=== PATIENT | born 1960 ===

== ENCOUNTER 2024-12-30 16:02 | Outpatient (NON) | payer SELFPAY ==
--- OUTSIDE RECORDS SUMMARY | 2024-12-30 16:11 | XMS_ITS | Encounter Summary ---
Author Organization [facility] Facility Care Team Providers Care Shell Sieve Operator Name Role Phone Javier Chan Primary Care Provider +-[phone] Yony Urrutia MD Unavailable +[phone] JonahConnor good MD Unavailable +[phone] Javier Chan Primary Care Provider +-[phone] Richar Butelr MD Unavailable +[phone] Gilberto Love MD Unavailable [phone] Kurt Calderon MD Unavailable +[phone] Juan Teixeira MD Unavailable [phone] Kurt Calderon MD Unavailable +[phone] Amy Floyd [facility] Unavailable Unavailable Encounter Details Date Type Department Care Team (Latest Contact Info) Description 01/04/2017 Orders Only [facility]G CLINCONV ProviderJocelyn MD [address] [place] [address] Social History Tobacco Use Types Packs/Day Years Used Date Smoking Tobacco: Former Comments Unknown Sex and Gender Information Value Date Recorded Sex Assigned at Not on file Legal Sex Female 4:16 AM AVIATION MANAGER Gender Identity Female 09/21/2017 4:47 PM CDT Sexual Orientation Not on file documented as of this encounter Plan of Treatment Upcoming Encounters Date Type Department Care Team (Late st Contact Info) Description 01/28/2025 11:50 AM CDT Hospital Encounter [facility] Operating Room 1 [place] [address] Rosalio Arriola MD [address] [address] 01/28/2025 11:50 AM CDT - 01/28/2025 2:[address] [facility] Operating Room 1 [place] [address] Rosalio Arriola MD [address] [address] LITHOTRIPSY - LASER Scheduled Procedures Name Priority Associated Diagnoses Date/Ti ma LITHOTRIPSY - LASER Renal stones 01/28/2025 11:50 AM CDT URETEROSCOPY Renal stones 01/28/2025 11:50 AM CDT PLACEMENT STENT - URETERAL Renal stones 01/28/2025 11:50 AM CDT documented as of this encounter Procedures Procedure Name Priority Date/Time Associated Diagnosis Comments PROCEDURE - RESULT 01/04/2017 12 :00 AM CDT documented in this encounter Results * PROCEDURE - RESULT (01/04/2017 12:00 AM CDT) Narrative 01/04/2017 12:00 AM CDT Ordered by an unspecified provider. 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 10/02/2023 07/22/2024 10:16 AM AVIATION MANAGER COVID: Suspected 05/04/2021 05/04/2021 05/05/2021 12:15 AM AVIATION MANAGER MRSA 06/14/2022 06/14/2022 12/11/2022 3:05 AM CDT COVID: Suspected 10/18/2023 10/18/2023 10/18/2023 5:07 PM CDT COVID: Suspected 10/20/2023 10/20/2023 10/20/2023 11:13 AM CDT COVID: Suspected 07/21/2024 07/21/2024 07/21/2024 11:22 PM AVIATION MANAGER documented as of this encounter Care Teams Shell Sieve Operator Relationship Specialty Start Date End Date Javier Chan PA PCP - General Family Medicine 11/27/18 07/23/24 Javier Chan PA [address] [address] PCP - General Family Medicine 07/24/24 Kurt Calderon MD [address] [id number] PCP - Home Infusion Attending Infectious Diseases 12/27/24 Yony Urrutia MD [address] [place] [address] [address] Endocrinology Diabetes & Metabolism 06/17/22 Connor Mckenzie MD [address] [place] [address] [address] [place] [address] Consulting Physician Urology 09/16/23 Richar Butler MD [address] [address] Cardiothoracic Surgery 08/16/24 Gilberto Love MD [address] [facility] 100 [place] [address] Consulting Physician Cardiology 08/16/24 Kurt Calderon MD [address] [facility] [address] [place] [address] Consulting Physician Infectious Diseases 12/27/24 Juan Teixeira MD [address] [facility] [address] [place] [address] Consulting Physician Vascular Surgery 12/27/24 Amy Floyd, [facility] Pharmacist Pharmacy 12/27/24 documented as of this encounter
--- OUTSIDE RECORDS SUMMARY | 2024-12-30 16:11 | XMS_ITS | Encounter Summary ---
Author Organization [facility] Facility Care Team Providers Care Tinsel Machine Operator Name Role Phone Javier Chan Primary Care Provider +-[phone] Yony Urrutia MD Unavailable +[phone] JonahConnor good MD Unavailable +[phone] Javier Chan Primary Care Provider +-[phone] Richar Butler MD Unavailable +[phone] Gilberto Love MD Unavailable [phone] Kurt Calderon MD Unavailable +[phone] Juan Teixeira MD Unavailable [phone] Kurt Calderon MD Unavailable +[phone] Amy Floyd [facility] Unavailable Unavailable Encounter Details Date Type Department Care Team (Latest Contact Info) Description 01/02/2017 Orders Only MMG CLINCONV ProviderJocelyn MD [address] [place] [address] Social History Tobacco Use Types Packs/Day Years Used Date Smoking Tobacco: Former Comments Unknown Sex and Gender Information Value Date Recorded Sex Assigned at Not on file Legal Sex Female 4:16 AM SALES COMMISSIONS ANALYST Gender Identity Female 09/21/2017 4:47 PM CDT Sexual Orientation Not on file documented as of this encounter Plan of Treatment Upcoming Encounters Date Type Department Care Team (Late st Contact Info) Description 01/28/2025 11:50 AM CDT Hospital Encounter [facility] Operating Room 1 [place] [address] Rosalio Arriola MD [address] [address] 01/28/2025 11:50 AM CDT - 01/28/2025 2:20 PM CDT Surgery [facility] Operating Room 1 [place] [address] Rosalio Arriola MD [address] [address] LITHOTRIPSY - LASER Scheduled Procedures Name Priority Associated Diagnoses Date/Ti ok LITHOTRIPSY - LASER Renal stones 01/28/2025 11:50 AM CDT URETEROSCOPY Renal stones 01/28/2025 11:50 AM CDT PLACEMENT STENT - URETERAL Renal stones 01/28/2025 11:50 AM CDT documented as of this encounter Procedures Procedure Name Priority Date/Time Associated Diagnosis Comments PROCEDURE - RESULT 01/02/2017 12 :00 AM CDT documented in this encounter Results * PROCEDURE - RESULT (01/02/2017 12:00 AM CDT) Narrative 01/02/2017 12:00 AM CDT Ordered by an unspecified provider. 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 10/02/2023 07/22/2024 10:16 AM SALES COMMISSIONS ANALYST COVID: Suspected 05/04/2021 05/04/2021 05/05/2021 12:15 AM SALES COMMISSIONS ANALYST MRSA 06/14/2022 06/14/2022 12/11/2022 3:05 AM CDT COVID: Suspected 10/18/2023 10/18/2023 10/18/2023 5:07 PM CDT COVID: Suspected 10/20/2023 10/20/2023 10/20/2023 11:13 AM CDT COVID: Suspected 07/21/2024 07/21/2024 07/21/2024 11:22 PM SALES COMMISSIONS ANALYST documented as of this encounter Care Teams Tinsel Machine Operator Relationship Specialty Start Date End Date Javier Chan PA PCP - General Family Medicine 11/27/18 07/23/24 Javier Chan PA [address] [address] PCP - General Family Medicine 07/24/24 Kurt Calderon MD [address] [id number] PCP - Home Infusion Attending Infectious Diseases 12/27/24 Yony Urrutia MD [address] [place] [address] [address] Endocrinology Diabetes & Metabolism 06/17/22 Connor Mckenzie MD [address] [place] [address] [address] [place] [address] Consulting Physician Urology 09/16/23 Richar uBtler MD [address] [address] Cardiothoracic Surgery 08/16/24 Gilberto Love MD [address] [facility] 100 [place] [address] Consulting Physician Cardiology 08/16/24 Kurt Caldreon MD 46[address] [facility] [address] [place] [address] Consulting Physician Infectious Diseases 12/27/24 Juan Teixeira MD [address] [facility] [address] [place] [address] Consulting Physician Vascular Surgery 12/27/24 Amy Floyd, [facility] Pharmacist Pharmacy 12/27/24 documented as of this encounter
--- OUTSIDE RECORDS SUMMARY | 2024-12-30 16:11 | XMS_ITS ---
Author Organization [facility] Address 1 [place] [address] Care Team Providers Care Heading Repairer Name Role Phone Yony Urrutia MD Unavailable +[phone] Connor Mckenzie MD Unavailable + [phone] Javier Chan Primary Care Provider +[phone] Richar Butler MD Unavailable +[phone] Gilberto Love MD Unavailable [phone] Kurt Calderon MD Unavailable +[phone] Juan Teixeira MD Unavailable +[phone] Kurt Calderon MD Unavailable +[phone] Amy Floyd [facility] Unavailable Unavailable Home Infusion Status:Enrolled (Active) Start date:12/27/2024 Enrollment date:12/27/2024 Related service episodes:Anti-Infective (Active) Continued Care and Services Coordination This section includes services coordinated for Home Infusion. Home Medical Care Name Services Phone Frankie Braun [facility] Inject [facility] [phone]
--- OUTSIDE RECORDS SUMMARY | 2024-12-30 16:11 | XMS_ITS ---
Author Organization [facility] Address 1 [place] [address] Care Team Providers Care Nurse Ortho Name Role Phone Yony Urrutia MD Unavailable +[phone] Connor Mckenzie MD Unavailable [phone] Javier Chan Primary Care Provider +[phone] Richar Butler MD Unavailable +[phone] Gilberto Love MD Unavailable [phone] Kurt Calderon MD Unavailable +[phone] Juan Teixeira MD Unavailable [phone] Kurt Calderon MD Unavailable +[phone] Amy Floyd [facility] Unavailable Unavailable Anti-Infective Status:Enrolled (Active) Start date:12/27/2024 Enrollment date:12/27/2024 Linked medications:water for injection,sterile,cefazolin sodium (Active) Related program episode:Home Infusion (Active) Case Team Name Relationship Phone Amy Floyd [facility](Responsible Staff) Pharmacis t Continued Care and Services Coordination This section includes services coordinated for Anti-Infective. Home Medical Care Name Services Phone Frank[facility] Calloway [facility]
--- OUTSIDE RECORDS SUMMARY | 2024-12-30 16:11 | XMS_ITS | Encounter Summary ---
Author Organization [facility] Facility Care Team Providers Care Technical Operations Manager Name Role Phone Javier Chan Primary Care Provider +[phone] Yony Urrutia MD Unavailable +[phone] JonahConnor good MD Unavailable [phone] Javier Chan Primary Care Provider +-[phone] Richar Butler MD Unavailable +[phone] Gilberto Love MD Unavailable +[phone] Kurt Calderon MD Unavailable +[phone] Juan Teixeira MD Unavailable [phone] Kurt Calderon MD Unavailable +[phone] Amy Floyd [facility] Unavailable Unavailable Encounter Details Date Type Department Care Team (Latest Contact Info) Description 05/10/2018 Orders Only MMG CLINCONV ProviderJocelyn MD [address] [place] [address] Social History Tobacco Use Types Packs/Day Years Used Date Smoking Tobacco: Former Smokeless Tobacco: Never Comments Unknown Sex and Gender Information Value Date Recorded Sex Assigned at Not on file Legal Sex Female 4:16 AM HEALTHCARE ANALYST Gender Identity Female 09/21/2017 4:47 PM CDT Sexual Orientation Not on file documented as of this encounter Plan of Treatment Upcoming Encounters Date Type Department Care Team (Late st Contact Info) Description 01/28/2025 11:50 AM CDT Hospital Encounter [facility] Operating Room 1 [place] [address] Rosalio Arriola MD [address] [address] 01/28/2025 11:50 AM CDT - 01/28/2025 2:20 PM CDT Surgery [facility] Operating Room 1 [place] [address] Rosalio Arriola MD [address] [address] LITHOTRIPSY - LASER Scheduled Procedures Name Priority Associated Diagnoses Date/Ti il LITHOTRIPSY - LASER Renal stones 01/28/2025 11:50 AM CDT URETEROSCOPY Renal stones 01/28/2025 11:50 AM CDT PLACEMENT STENT - URETERAL Renal stones 01/28/2025 11:50 AM CDT documented as of this encounter Procedures Procedure Name Priority Date/Time Associated Diagnosis Comments PROCEDURE - RESULT 05/10/2018 12 :00 AM HEALTHCARE ANALYST documented in this encounter Results * PROCEDURE - RESULT (05/10/2018 12:00 AM HEALTHCARE ANALYST) Narrative 05/10/2018 12:00 AM HEALTHCARE ANALYST Ordered by an unspecified provider. 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 10/02/2023 07/22/2024 10:16 AM HEALTHCARE ANALYST COVID: Suspected 05/04/2021 05/04/2021 05/05/2021 12:15 AM HEALTHCARE ANALYST MRSA 06/14/2022 06/14/2022 12/11/2022 3:05 AM CDT COVID: Suspected 10/18/2023 10/18/2023 10/18/2023 5:07 PM CDT COVID: Suspected 10/20/2023 10/20/2023 10/20/2023 11:13 AM CDT COVID: Suspected 07/21/2024 07/21/2024 07/21/2024 11:22 PM HEALTHCARE ANALYST documented as of this encounter Care Teams Technical Operations Manager Relationship Specialty Start Date End Date Javier Chan PA PCP - General Family Medicine 11/27/18 07/23/24 Javier Chan PA [address] [address] PCP - General Family Medicine 07/24/24 Kurt Calderon MD [address] [id number] PCP - Home Infusion Attending Infectious Diseases 12/27/24 Yony Urrutia MD [address] [place] [address] [address] Endocrinology Diabetes & Metabolism 06/17/22 [place] good MD [address] [place] [address] [address] Consulting Physician Urology 09/16/23 Richar Butler MD [address] [address] Cardiothoracic Surgery 08/16/24 Gilberto Love MD [address] [facility] 100 [place] [address] Consulting Physician Cardiology 08/16/24 Kurt Calderon MD 4600 [facility] [address] [place] [address] Consulting Physician Infectious Diseases 12/27/24 Juan Teixeira MD [address] [facility] [address] [place] [address] Consulting Physician Vascular Surgery 12/27/24 Amy Floyd, [facility] Pharmacist Pharmacy 12/27/24 documented as of this encounter
--- OUTSIDE RECORDS SUMMARY | 2024-12-30 16:11 | XMS_ITS | Encounter Summary ---
Author Organization [facility] Facility Care Team Providers Care Simulation Engineer Name Role Phone Javier Chan Primary Care Provider +[phone] Yony Urrutia MD Unavailable +[phone] JonahConnor good MD Unavailable [phone] Javier Chan Primary Care Provider +-[phone] Richar Butler MD Unavailable +[phone] Gilberto Love MD Unavailable [phone] Kurt Calderon MD Unavailable +[phone] Juan Teixeira MD Unavailable [phone] Kurt Calderon MD Unavailable +[phone] Amy Floyd [facility] Unavailable Unavailable Encounter Details Date Type Department Care Team (Latest Contact Info) Description 05/11/2018 Orders Only MMG CLINCONV ProviderJocelyn MD [address] [place] [address] Social History Tobacco Use Types Packs/Day Years Used Date Smoking Tobacco: Former Smokeless Tobacco: Never Comments Unknown Sex and Gender Information Value Date Recorded Sex Assigned at Not on file Legal Sex Female 4:16 AM DEVELOPMENT SPECIALIST Gender Identity Female 09/21/2017 4:47 PM CDT Sexual Orientation Not on file documented as of this encounter Plan of Treatment Upcoming Encounters Date Type Department Care Team (Late st Contact Info) Description 01/28/2025 11:50 AM CDT Hospital Encounter [facility] Operating Room 1 [place] [address] Rosalio Arriola MD [address] [address] 01/28/2025 11:50 AM CDT - 01/28/2025 2:20 PM CDT Surgery [facility] Operating Room 1 [place] [address] Rosalio Arriola MD [address] [address] LITHOTRIPSY - LASER Scheduled Procedures Name Priority Associated Diagnoses Date/Ti il LITHOTRIPSY - LASER Renal stones 01/28/2025 11:50 AM CDT URETEROSCOPY Renal stones 01/28/2025 11:50 AM CDT PLACEMENT STENT - URETERAL Renal stones 01/28/2025 11:50 AM CDT documented as of this encounter Procedures Procedure Name Priority Date/Time Associated Diagnosis Comments PROCEDURE - RESULT 05/13/2018 12 :00 AM DEVELOPMENT SPECIALIST documented in this encounter Results * PROCEDURE - RESULT (05/13/2018 12:00 AM DEVELOPMENT SPECIALIST) Narrative 05/13/2018 12:00 AM DEVELOPMENT SPECIALIST Ordered by an unspecified provider. 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 10/02/2023 07/22/2024 10:16 AM DEVELOPMENT SPECIALIST COVID: Suspected 05/04/2021 05/04/2021 05/05/2021 12:15 AM DEVELOPMENT SPECIALIST MRSA 06/14/2022 06/14/2022 12/11/2022 3:05 AM CDT COVID: Suspected 10/18/2023 10/18/2023 10/18/2023 5:07 PM CDT COVID: Suspected 10/20/2023 10/20/2023 10/20/2023 11:13 AM CDT COVID: Suspected 07/21/2024 07/21/2024 07/21/2024 11:22 PM DEVELOPMENT SPECIALIST documented as of this encounter Care Teams Simulation Engineer Relationship Specialty Start Date End Date Javier Chan PA PCP - General Family Medicine 11/27/18 07/23/24 Javier Chan PA [address] [address] PCP - General Family Medicine 07/24/24 Kurt Calderon MD [address] [id number] PCP - Home Infusion Attending Infectious Diseases 12/27/24 Yony Urrutia MD [address] [address] [address] Endocrinology Diabetes & Metabolism 06/17/22 [place] good MD [address] [address] [address] Consulting Physician Urology 09/16/23 Richar Butler MD [address] [address] Cardiothoracic Surgery 08/16/24 Gilberto Love MD [address] [facility] 100 [place] [address] Consulting Physician Cardiology 08/16/24 Kurt Calderon MD [address] [facility] [address] [place] [address] Consulting Physician Infectious Diseases 12/27/24 Juan Teixeira MD [address] [facility] [address] [place] [address] Consulting Physician Vascular Surgery 12/27/24 Amy Floyd, [facility] Pharmacist Pharmacy 12/27/24 documented as of this encounter
--- OUTSIDE RECORDS SUMMARY | 2024-12-30 16:11 | XMS_ITS | Encounter Summary ---
Author Organization [facility] Facility Care Team Providers Care K 12 School Professional Name Role Phone Javier Chan Primary Care Provider +-[phone] Yony Urrutia MD Unavailable +[phone] JonahConnor good MD Unavailable [phone] Javier Chan Primary Care Provider +-[phone] Richar Butler MD Unavailable +[phone] Gilberto Love MD Unavailable [phone] Kurt Calderon MD Unavailable +[phone] Juan Teixeira MD Unavailable [phone] Kurt Calderon MD Unavailable +[phone] Amy Floyd [facility] Unavailable Unavailable Encounter Details Date Type Department Care Team (Latest Contact Info) Description 03/04/2016 Orders Only MMG CLINCONV ProviderJocelyn MD [address] [place] [address] Social History Tobacco Use Types Packs/Day Years Used Date Smoking Tobacco: Never Assessed Comments Unknown Sex and Gender Information Value Date Recorded Sex Assigned at Not on file Legal Sex Female 4:16 AM INCIDENT MANAGER Gender Identity Female 09/21/2017 4:47 PM CDT Sexual Orientation Not on file documented as of this encounter Plan of Treatment Upcoming Encounters Date Type Department Care Team (Late st Contact Info) Description 01/28/2025 11:50 AM CDT Hospital Encounter [facility] Operating Room 1 [place] [address] Rosalio Arriola MD [address] [address] 01/28/2025 11:50 AM CDT - 01/28/2025 2:20 PM CDT Surgery [facility] Operating Room 1 [place] [address] Rosalio Arriola MD [address] [address] LITHOTRIPSY - LASER Scheduled Procedures Name Priority Associated Diagnoses Date/Ti ar LITHOTRIPSY - LASER Renal stones 01/28/2025 11:50 AM CDT URETEROSCOPY Renal stones 01/28/2025 11:50 AM CDT PLACEMENT STENT - URETERAL Renal stones 01/28/2025 11:50 AM CDT documented as of this encounter Procedures Procedure Name Priority Date/Time Associated Diagnosis Comments SCAN - LABS 03/04/2016 12:00 AM CDT documented in this encounter Results * SCAN - LABS (03/04/2016 12:00 AM CDT) Narrative 03/04/2016 12:00 AM CDT Ordered by an unspecified provider. 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 10/02/2023 07/22/2024 10:16 AM INCIDENT MANAGER COVID: Suspected 05/04/2021 05/04/2021 05/05/2021 12:15 AM INCIDENT MANAGER MRSA 06/14/2022 06/14/2022 12/11/2022 3:05 AM CDT COVID: Suspected 10/18/2023 10/18/2023 10/18/2023 5:07 PM CDT COVID: Suspected 10/20/2023 10/20/2023 10/20/2023 11:13 AM CDT COVID: Suspected 07/21/2024 07/21/2024 07/21/2024 11:22 PM INCIDENT MANAGER documented as of this encounter Care Teams K 12 School Professional Relationship Specialty Start Date End Date Javier Chan PA PCP - General Family Medicine 11/27/18 07/23/24 Javier Chan PA [address] [address] PCP - General Family Medicine 07/24/24 Kurt Calderon MD [address] [address] PCP - Home Infusion Attending Infectious Diseases 12/27/24 Yony Urrutia MD [address] [place] [address] [address] Endocrinology Diabetes & Metabolism 06/17/22 JonahConnor good MD [address] [place] [address] [address] Consulting Physician Urology 09/16/23 Richar Butler MD [address] [address] Cardiothoracic Surgery 08/16/24 Gilberto Love MD [address] [facility] 100 [place] [address] Consulting Physician Cardiology 08/16/24 Kurt Calderon MD [address] [facility] [address] [place] [address] Consulting Physician Infectious Diseases 12/27/24 Juan Teixeira MD [address] [facility] [address] [place] [address] Consulting Physician Vascular Surgery 12/27/24 Amy Floyd, [facility] Pharmacist Pharmacy 12/27/24 documented as of this encounter
--- OUTSIDE RECORDS SUMMARY | 2024-12-30 16:11 | XMS_ITS | Clinical Summary ---
Author Organization [facility] [place] [place] [address] Care Team Providers Care Director Of Event Marketing Name Role Phone Javier Chan PA-C Primary Care Provider [phone] Allergies Active Allergy Reactions Criticality Noted Date Comments Pneumococcal Polysaccharide Vaccine Other (see comment) 05/03/2018 CIDP (chronic inflammatory demyelinating polyneuropathy Medications gabapentin 600 MG tablet Take 600 mg by mouth 3 (three) times daily as needed. 04/22/2018 Active atorvastatin 10 MG tablet Take 10 mg by mouth nightly. 04/09/2018 Active ropinirole 1 MG tablet Take 1 tablet by mouth nightly. 04/29/2018 Active zolpidem 5 MG tablet Take 5 mg by mouth nightly. 3 04/16/2018 Active metFORMIN 500 MG tablet Take 1,000 mg by mouth 2 (two) times daily with meals. Active hydrochlorothia zide 25 MG tablet Take 25 mg by mouth every morning. Active INVOKANA 300 MG tablet 04/30/2018 Active TRADJENTA 5 MG tablet Take 5 mg by mouth daily. 04/30/2018 Active aspirin 81 MG chewable tablet Chew 81 mg by mouth daily. Active vitamin D3, cholecalciferol , 5000 UNITS capsule Take 2 capsules by mouth 2 (two) times a day. Active NON FORMULARY Take 1 tablet by mouth 2 (two) times a day. Raffy red Active cranberry 500 MG Cap Take 1 capsule by mouth 3 (three) times daily. Active losartan 25 MG tablet 07/15/2018 Active Family History Medical History Relation Comments COPD Father Heart Disease Mother NM Mother Relation Status Comments Father (Age 74) of emphys vitaly Mother (Age 70) Social History Tobacco Use Types Packs/Day Years Used Date Smoking Tobacco: Former Cigarettes 1 20 1 984 - 2004 Smokeless Tobacco: Never Alcohol Use Standard Drinks/Week Comments No 0 (1 standard drink = 0.6 oz pur e alcohol) AUDIT-C Answer Date Recorded Frequency of Alcohol Consumption Never 05/03/2018 Average Number of Drinks Not on file 018 Frequency of Binge Drinking Not on file 10/2017 Comments No Sex and Gender Information Value Date Recorded Sex Assigned at Not on file Legal Sex Female 6:09 PM CDT Gender Identity Not on file Sexual Orientation Not on file Last Filed Vital Signs Vital Sign Reading Time Taken Comments Blood Pressure 109/77 08/09/2018 9:02 AM CDT Pulse 66 08/09/2018 9:02 AM CDT Temperature 36.4 C (97.5 F) 08/09/2018 8:42 AM CDT Respiratory Rate 18 08/09/2018 9:02 AM CDT Oxygen Saturation 99% 08/09/2018 9:02 AM CDT Inhaled Oxygen Concentration - - Weight 125.2 kg (276 lb) 08/03/2018 12: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 Height 180.3 cm (5' 11) 08/03/2018 12: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 Body Mass Index 38.49 08/03/2018 12: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 Plan of Treatment Health Maintenance Due Date Last Done Comments Cervical Cancer Screening Pa p Smear (Age 30 to 64) Every 3 Years 1962 Colorectal Cancer Screening Colonoscopy (10 Years) 1962 Annual Physical 1965 Hepatitis C 01/07/1980 DTaP, Tdap and Td Vaccines ( 1 - Tdap) 1981 Cervical Cancer Screening Pa p with HPV Testing (Age 30 to 64) Every 5 Years 01/07/1992 Cervical Cancer Screening with HPV 01/07/1992 Mammogram Screening 2002 Zoster Vaccines (1 of 2) 01/07/2012 COVID-19 Vaccine ( - 2023-2 5 season) 2024 RSV Immunization or 60+ Years (1 - 1-dose 75+ series) 2037 Meningococcal B Vaccine Aged Out No l onger eligible based on patient's age to complete this topic Meningococcal Vaccine Aged Out No jaymie shanta eligible based on patient's age to complete this topic RSV Immunizations Under 20 Months Aged Out No longer eligible based on patient's age to complete this topic Insurance Care Teams Director Of Event Marketing Relationship Specialty Start Date End Date Javier Chan PA-C PCP - General PHYSICIAN PLASTICS SHEET FINISHING PRESS OPERATOR 05/03/18
--- OUTSIDE RECORDS SUMMARY | 2024-12-30 16:12 | XMS_ITS | Encounter Summary ---
Author Organization [facility] Healthcare Address [address] [place] [address] Care Team Providers Care Talent Acquisition Partner Name Role Phone Yony Urrutia MD Unavailable Connor Mckenzie MD Unavailable [phone] Javier Chan Primary Care Provider [phone] Richar Butler MD Unavailable Gilberto Love MD Unavailable [phone] Kurt Calderon MD Unavailable [phone] Juan Teixeira MD Unavailable [phone] Kurt Caledron MD Unavailable [phone] Amy Floyd [facility] Unavailable Unavailable Encounter Details Date Type Department Care Team (Late st Contact Info) Description 12/27/2024 Home Infusion [facility] Home Infusion Therapy [address] [place] [address] Ubaldo Lopez [facility] Osteomyelitis of toe of left foot (HCC) (Primary Dx) Social History Tobacco Use Types Packs/Day Years Used Date Smoking Tobacco: Former Cigarettes 0.8 20.1 0 05/29/1984 - 07/06/2004 Passive Smoke Exposure: Past Smokeless Tobacco: Never Alcohol Use Standard Drinks/Week Comments Yes 0 (1 standard drink = 0.6 oz pur e alcohol) [facility] Utilities Answer Date Recorded In the past 12 months has e [employer], gas, oil, or water [employer] threatened to shut off services in your home? No 12/19/2024 Social Connection and Isolat ion Panel [NHANES] Answer Date Recorded In a typical week, how many times do you talk on the phone with family, friends, or neighbors? More than three times a week 12/19/2024 How often do you get togethe r with friends or relatives? More than three times a week 12/19/2024 How often do you attend [facility] or quaker services? Never 12/19/2024 Do you belong to any clubs o r organizations such as lutheran groups, unions, fraternal or athletic groups, or school groups? No 12/19/2024 How often do you attend meet ings of the clubs or organizations you belong to? Never 12/19/2024 Are you , , di vorced, , never , or living with a partner? 12/19/2024 AUDIT-C Answer Date Recorded Q1: How often do you have a drink containing alc ohol? Monthly or less 08/15/2024 Q2: How many drinks containi ng alcohol do you have on a typical day when you are drinking? 1 or 2 08/15/2024 Q3: How often do you have si x or more drinks on one occasion? Never 08/15/2024 Overall Financial Resource Strain (CARDIA) Answe r Date Recorded How hard is it for you to pa y for the very basics like food, housing, medical care, and heating? Not very hard 12/19/2024 PHQ-2 Answer Date Recorded PHQ-2 Total Score (If total score is 3 or more points, staff should administer the PHQ-9) 0 06/01/2023 Hunger Vital Sign Answer Date Recorded Within the past 12 months, y ou worried that your food would run out before you got the money to buy more. Never true 12/20/19 25 Within the past 12 months, t he food you bought just didn't last and you didn't have money to get more. Never true 12/19/2024 PRAPARE - Transportation Answer Date Re corded In the past 12 months, has l ack of transportation kept you from medical appointments or from getting medications? No 11/27 In the past 12 months, has l ack of transportation kept you from meetings, work, or from getting things needed for daily living? No 12/19/2024 Housing Stability Vital Sign Answer Galindo e Recorded In the last 12 months, was t here a time when you were not able to pay the mortgage or rent on time? No 06/16/2022 In the last 12 months, how many places have you lived? 1 06/16/2022 In the last 12 months, was t here a time when you did not have a steady place to sleep or slept in a [place] (including now)? No 06/16/2022 Housing Stability Vital Sign Answer Galindo e Recorded In the last 12 months, was t here a time when you were not able to pay the mortgage or rent on time? No 12/19/2024 In the past 12 months, how m any times have you moved where you were living? 0 12/19/2024 At any time in the past 12 m [facility], were you homeless or living in a [place] facility (including now)? No 12/19/2024 Personal Safety Answer Date Recorded Have you ever been in or are you currently in a harmful physical or emotional relationship or is someone making you feel afraid or unsafe? 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 Gender Identity Female 09/21/2017 4:47 PM CDT Sexual Orientation Not on file documented as of this encounter Ordered Prescriptions Prescription Sig Dispense Quantity Refills Last Filled Start Date End Date heparin 10 unit/mL syringe flush syringeIndication s:Maintain Patency of Indwelling Vascular Catheter Infuse 5 mL (50 Units total) IV as needed (line care) for up to 19 days 29413 mL 12/27/2024 11:59 PM CDT 12/28/2024 5 sodium chloride 0.9% flush syringeIndication s:Osteomyelitis of toe of left foot (HCC) Infuse 10 mL IV as needed for line care for up to 19 days [id number] mL 12/27/2024 11:59 PM CDT 12/28/2024 5 ceFAZolin 2,000 mg in sterile water 20 mL IV syringeIndication s:Osteomyelitis Give 2,000 mg (20 mL) by slow IV push into a venous catheter every 8 hours over 3-5 minutes. Remove dose from refrigerator 1-2 hours prior to use 1140 mL 12/27/2024 11:59 PM CDT 12/28/2024 5 documented in this encounter Plan of Treatment Upcoming Encounters Date Type Department Care Team (Late st Contact Info) Description 01/28/2025 11:50 AM CDT Hospital Encounter [facility] Operating Room [address] [place] [address] Rosalio Arriola MD [address] [address] 01/28/2025 11:50 AM CDT - 01/28/2025 2:20 PM CDT Surgery [facility] Operating Room [address] [place] [address] Rosalio Arriola MD [address] [address] LITHOTRIPSY - LASER Scheduled Procedures Name Priority Associated Diagnoses Date/Ti ky LITHOTRIPSY - LASER Renal stones 01/28/2025 11:50 AM CDT URETEROSCOPY Renal stones 01/28/2025 11:50 AM CDT PLACEMENT STENT - URETERAL Renal stones 01/28/2025 11:50 AM CDT documented as of this encounter Goals Goal Patient Goal Type Associated Problems Recent Progress Patient-Stated? Author Autogenerat ed Goal Care Plan Autogenerated Problem Yojana Craig documented as of this encounter Visit Diagnoses Diagnosis Renal stones- Primary Osteomyelitis of toe of left foot (HCC)- Primary Unspecified osteomyelitis, ankle and foot Renal stones documented in this encounter Additional Health Concerns Active Problems Noted Date Diagnosed Date Autogenerated Problem 11/20/2024 documented as of this encounter Care Teams Talent Acquisition Partner Relationship Specialty Start Date End Date Javier Chan PA [address] [facility] [address] [place] [address] PCP - General Family Medicine 07/24/24 Kurt Calderon MD [address] [facility] [address] [place] [address] PCP - Home Infusion Attending Infectious Diseases 12/27/24 Yony Urrutia MD [address] [address] [place] [address] Endocrinology Diabetes & Metabolism 06/17/22 JonahConnor MD [address] [facility] [address] [place] [address] Consulting Physician Urology 09/16/23 Richar Butler MD [address] [facility] [address] [place] [address] Cardiothoracic Surgery 08/16/24 Gilberto Love MD [address] [facility] [address] [place] [address] Consulting Physician Cardiology 08/16/24 Kurt Calderon MD [address] [facility] [address] [place] [address] Consulting Physician Infectious Diseases 12/27/24 Juan Teixeira MD [address] [facility] [address] [place] [address] Consulting Physician Vascular Surgery 12/27/24 Amy Floyd, [facility] Pharmacist Pharmacy 12/27/24 documented as of this encounter
--- OUTSIDE RECORDS SUMMARY | 2024-12-30 16:12 | XMS_ITS | Clinical Summary ---
Author Organization [facility] Address [address] [place] [address] Care Team Providers Care Striker Out Name Role Phone Yony Urrutia MD Unavailable KandiyohiConnor barrientos MD Unavailable [phone] Javier Chan Primary Care Provider [phone] Richar Butler MD Unavailable Gilberto Love MD Unavailable [phone] Nan Calderon MD Unavailable [phone] Juan Teixeira MD Unavailable [phone] Nan Calderon MD Unavailable [phone] Amy Floyd [facility] Unavailable Unavailable Allergies Active Allergy Reactions Criticality Noted Date Comments Neostigmine Unknown 04/29/2016 Pneumococcal 23-Estephania Ps Vaccine Other (See comments),Unknown Low 11/02/2017 uknown Pneumovax 23 Pneumococcal 23-Valent Polysaccharide Vaccine Other (See comments) 05/03/2018 Streptococcus pneumoniae type 1 capsular polysaccharide antigen Pneumococcal Vaccine Other (See comments) Low 11/02/2017 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 Pneumoc 13-Estephania Conj-Dip Cr(Pf) Other (See comments) 12/13/2024 Guilain [place] Syndrome Medications cholecalciferol (VITAMIN D-3) 5,000 unit capsule Take 1 capsule (5,000 Units total) by mouth every morning Active cranberry 500 mg capsule Take 1 capsule by mouth every morning Active pen needle, diabetic (Pen Needle) 31 gauge x 1/4 needle 1 Units 3 (three) times a day before meals 60 each 06/09/19 Active Additional Information Patient not taking.Reported on 12/13/2024 pen needle, diabetic (BD Ultra-Fine Rafaela Pen Needle) 32 gauge x 5/32 needle USE DIRECTED 3 TIMES A DAY 100 each 3 01/17/20 Active Additional Information Patient not taking.Reported on 12/13/2024 pregabalin (LYRICA) 25 mg capsule Take 1 capsule (25 mg total) by mouth 2 (two) times a day Take 1 capsule every morning and 2 capsules every night at bedtime Active vitamin B complex (SUPER B-50 COMPLEX ORAL) Take 1 capsule by mouth every morning Active insulin lispro (HumaLOG, ADMELOG) 100 unit/mL vial for injection Inject under the skin 3 (three) times a day before meals Takes SSI Active naloxone (Narcan) 4 mg/actuation spray,non-aeroso l Administer 1 spray into affected nostril(s) every 5 (five) minutes as needed for opioid reversal Call 911. Administer a single spray in one nostril. Repeat every 3 minutes as needed if no or minimal response. 1 each 09/14/19 Active Additional Information Patient not taking.Reported on 12/13/2024 atorvastatin (LIPITOR) 40 mg tabletIndication s:Dyslipidemia Take 1 tablet (40 mg total) by mouth nightly 90 tablet 3 11/29/19 24 Active hydroCHLOROthiaz santhosh (HYDRODIURIL) 25 mg tabletIndication s:Essential (primary) hypertension Take 1 tablet (25 mg total) by mouth daily 90 tablet 3 11/29/19 24 Active SEMGLEE-yfgn 100 unit/mL (3 mL) pen for injectionIndicat ions:Type 2 diabetes mellitus without complication, without long-term current use of insulin ([facility]) Inject 20 Units under the skin nightly 11/29/19 24 Active valsartan (DIOVAN) 80 mg tabletIndication s:Essential (primary) hypertension Take 1 tablet (80 mg total) by mouth daily 11/29/19 24 Active traMADoL (ULTRAM) 50 mg tabletIndication s:Pain Take 1 tablet (50 mg total) by mouth nightly as needed for pain 05/19/20 24 Active Mounjaro 7.5 mg/0.5 mL pen injectorIndicati ons:Type 2 diabetes mellitus with hyperglycemia, with long-term current use of insulin ([facility]) Inject 7.5 mg under the skin once a week 6 mL 3 06/06/19 25 026 Active Additional Information Patient taking differently: 10 mgsubcutaneous Weekly, Informant: Self, Reported on 12/19/2024 eGym Shayne 3 Sensor deviceIndication s:Type 2 diabetes mellitus with hyperglycemia, with long-term current use of insulin ([facility]) One sensor every 14 days 6 each 3 06/06/19 Active Additional Information Patient not taking.Reported on 12/13/2024 rOPINIRole (REQUIP) 2 mg tablet Take 1 tablet (2 mg total) by mouth 2 (two) times a day Active magnesium oxide 400 mg magnesium capsule Take 1 tablet by mouth every evening Active docusate sodium (COLACE ORAL) Take 1 capsule by mouth proofsheet corrector before breakfast Active biotin 10,000 mcg capsule Take 1 capsule (10,000 mcg total) by mouth proofsheet corrector before breakfast Active acetaminophen (TYLENOL) 325 mg tablet Take 2 tablets (650 mg total) by mouth every 4 (four) hours as needed for pain 08/17/19 25 Active nystatin powderIndication s:Intertrigo Apply topically 2 (two) times a day 15 g 09/17/19 25 Active Additional Information Patient not taking.Reported on 12/13/2024 estradioL (ESTRACE) 0.01 % (0.1 mg/gram) vaginal cream Apply nightly for 3 weeks, then 3 times per week. 127.5 g 3 11/14/19 25 Active Additional Information Patient taking differently: Apply nightly for 3 weeks, then 3 times per week. Has not yet started, Reported on 12/13/2024 LANTUS 100 unit/mL (3 mL) pen for injection INJECT 20 UNITS DAILY Active Mounjaro 10 mg/0.5 mL pen injector injection 11/26/19 25 Active apixaban (ELIQUIS) 5 mg tabletIndication s:Atrial fibrillation, unspecified type (HCC) Take 1 tablet (5 mg total) by mouth 2 (two) times a day 180 tablet 3 12/10/19 25 Active ceFAZolin (ANCEF) 2,000 mg/20 mL syringeIndicatio ns:Prophylaxis, Surgical Infuse 20 mL (2 g total) IV every 8 (eight) hours for 3 minutes for 20 days at 400 mL/hr 1200 mL 12/28/19 25 025 Active ceFAZolin 2,000 mg in sterile water 20 mL IV syringeIndicatio ns:Osteomyelitis Give 2,000 mg (20 mL) by slow IV push into a venous catheter every 8 hours over 3-5 minutes. Remove dose from refrigerator 1-2 hours prior to use 1140 mL 5 11:59 PM CDT 12/29/19 25 025 Active sodium chloride 0.9% flush syringeIndicatio ns:Osteomyelitis of toe of left foot (HCC) Infuse 10 mL IV as needed for line care for up to 19 days 88311 mL 5 11:59 PM CDT 12/29/19 25 025 Active heparin 10 unit/mL syringe flush syringeIndicatio ns:Maintain Patency of Indwelling Vascular Catheter Infuse 5 mL (50 Units total) IV as needed (line care) for up to 19 days 60121 mL 5 11:59 PM CDT 12/29/19 25 025 Active apixaban (ELIQUIS) 5 mg tabletIndication s:Atrial fibrillation, unspecified type (HCC) Take 1 tablet (5 mg total) by mouth 2 (two) times a day 60 tablet 2 09/10/19 25 025 Discontin ued(Reord er) Active Problems Problem Noted Date Diagnosed Date Urinary tract infection in female 12/18/2024 Renal stones 11/18/2024 Complete heart block 08/22/2024 S/P TAVR (transcatheter aortic valve replacement ) 08/15/2024 Assessment & Plan (08/15/2024 11:19 AM CDT): Remove figure of 8 suture tomorrow am from [facility] groin site CXR, TTE, EKG and labs tomorrow Am PT/OT eval tomorrow ASA 81 mg daily Monitor on telemetry for any evidence of AV block Protembo trial requires an MRI the day of discharge-scheduled 0 on Wednesday 08/16 in the [facility]- this is to be done with research staff/RN s . Acute cystitis without hematuria 07/22/2024 Moderate to severe aortic stenosis 06/18/2024 Diabetic polyneuropathy asso ciated with type 2 diabetes mellitus 06/04/2024 Assessment & Plan (09/20/2024 8:58 AM CDT): Chronic problem. Currently taking Lyrica 25mg QAM, 50mg QHS plus Tramadol 50mg qhs Reviewed foot care; needs to lotion daily. Aware to check feet nightly, not to go barefoot. Assessment & Plan (06/04/2024 3:19 PM FACIALIST): Chronic problem. Currently taking Lyrica 25mg QAM, 50mg QHS plus Tramadol 50mg qhs Reviewed foot care; needs to lotion daily. Aware to check feet nightly, not to go barefoot. Obesity 12/25/2023 Iron deficiency anemia due to chronic blood loss 11/29/2023 E coli infection 10/31/2023 Klebsiella infection 10/31/2023 Complicated UTI (urinary tract infection) 2023 Rash 10/23/2023 Assessment & Plan (10/23/2023 4:51 PM CDT): New 10/22. Consutled derm. Derm c/f HSV. Sending with acv and mupirocin per their instructions Septic shock 10/18/2023 Assessment & Plan (10/22/2023 11:05 AM CDT): Suspect secondary to urinary source with recent lithotripsy and stent replacement for left sided nephrolithiasis preceding shock. S/p fluid resuscitation. Required Leonid gtt after OR and transited to levophed after admission to MICU. Now weaned off pressors and stress dose steroids. -History of ESBL UTI diagnosed 10/01 with Urine cx with E.coli with multiple resistant antibiotics s/p fosfomycin 10/11 -Repeat infectious work up: 10/17 Bld cx-NGTD, MRSA neg, UA/Urine cx misplaced, RVP negative -S/p stress dose steroids (10/17-10/19), weaned off pressors 10/19 -S/p Vancomycin (10/17-10/19), tobramycin x 1 (10/17), micafungin (10/17 - 10/20) -Continue meropemen (10/17- ), planned for 7 day course of meropenem to treat complicated UTI, though query whether pt could be treated with fosfomycin (this and mook only susc oral agents). ID consult plced Assessment & Plan (10/20/2023 11:37 AM CDT): Likely secondary to urosepsis with recently lithotripsy and stent replacement for left sided nephrolithiasis. S/p fluid resuscitation. Required Leonid gtt after OR and transited to levophed in MICU. -Continue to require levophed to keep MAP > 65 -History of ESBL UTI diagnosed 10/01 with Urine cx with E.coli with multiple resistant antibiotics s/p fosfomycin 10/11 -Here, infectious work up with 10/17 Bld cx-NGTD, MRSA neg, UA/Urine cx misplaced. Send RVP with c/o cough -S/p Vancomycin (10/17-10/19) and tobramycin (10/17 x1). Continue meropemen (10/17-) and micafungin (10/18- , per urology). Anticipate 7 day course of meropenem to treat UTI -S/p stress dosed steroids (10/17-10/19) Left nephrolithiasis 08/02/2023 Assessment & Plan (11/29/2023 7:43 AM CDT): Had 2 major surgeries, septic shock, in hospital, but finally got it all and she feels much better. Assessment & Plan (10/22/2023 11:05 AM CDT): History of large left side renal stone. On 09/13/2023, underwent left percutaneous nephrolithotomy with stent placement and cystoscopy. Post procedure CT with residual stone measuring up to 2.1cm in the left interpolar region, no hydronephrosis. She presented to the hospital 10/17 for a planned outpatient lithotripsy, post procedure she developed shock and transferred to the MICU -Urology following, appreciate recommendations -Continue oxybutynin for bladder spasms -patient passed void trial 10/21 Assessment & Plan (10/20/2023 11:45 AM CDT): History of large left side renal stone. On 09/13/2023, underwent left percutaneous nephrolithotomy with stent placement and cystoscopy. Post procedure CT with residual stone measuring up to 2.1cm in the left interpolar region, no hydronephrosis. She presented to the hospital 10/17 for a planned outpatient lithotripsy, post procedure she developed shock and transferred to the MICU -f/u urology recs -Continue oxybutynin for bladder spasms Tinnitus of both ears 12/01/2022 Hypertension associated with type 2 diabetes clint litus 09/14/2022 Assessment & Plan (09/20/2024 8:59 AM CDT): Chronic problem. Controlled on current valsartan 80mg daily. No changes at this time. Assessment & Plan (08/15/2024 8:18 AM CDT): Goal SBP <160 and MAP> 65 Use hydralazine PRN for SBP >160 Assessment & Plan (06/04/2024 3:18 PM FACIALIST): Chronic problem. Controlled on current valsartan 80mg daily. No changes at this time. Assessment & Plan (11/28/2023 6:06 AM CDT): This is a stable chronic condition. Monitor blood pressure, call if out of parameters as we discussed. Low sodium and caffeine diet. baby asa as discussed if applicable. Diet, exercise and weight reduction. Labs as ordered. F/U routine Assessment & Plan (10/22/2023 4:54 AM CDT): Holding home valsartan and HCTZ in setting of shock Assessment & Plan (10/19/2023 11:30 AM CDT): -hold Valsartan and hydrochlorothiazide Assessment & Plan (09/25/2023 3:14 PM CDT): Chronic problem. Controlled on current valsartan 80mg daily. No changes at this time. Assessment & Plan (03/28/2023 3:54 PM CDT): Chronic problem. Controlled on current valsartan 80mg daily. No changes at this time. Assessment & Plan (09/15/2022 10:13 AM CDT): Chronic problem. Controlled on current valsartan 80mg daily. No changes at this time. Hyperlipidemia associated with type 2 diabetes lizzie sharma 09/14/2022 Assessment & Plan (09/20/2024 8:59 AM CDT): Chronic problem. Controlled on current Atorvastatin 40mg. Last lipid panel: 02/28/24 LDL=70, JS=712. No changes at this time. Assessment & Plan (06/04/2024 3:18 PM FACIALIST): Chronic problem. Controlled on current Atorvastatin 40mg. Last lipid panel: 02/28/24 LDL=70, RR=906. No changes at this time. Assessment & Plan (11/28/2023 6:06 AM CDT): Patient is to continue present medications, work on diet and exercise as discussed, we did discuss the medications and potential side effects and signs and symptoms that would warrant calling office. Follow up routine. Assessment & Plan (10/22/2023 4:53 AM CDT): Continue home atorvastatin Assessment & Plan (10/19/2023 11:31 AM CDT): -continue Atorvastatin Assessment & Plan (09/25/2023 3:15 PM CDT): Chronic problem. Controlled on current Atorvastatin 40mg. Last lipid panel: 05/26/23 LDL=99, ME=334. No changes at this time. Assessment & Plan (03/28/2023 3:55 PM CDT): Chronic problem. Controlled on current Atorvastatin 10mg. Last lipid panel: 05/13/22 LDL=97, MN=057. No changes at this time. Assessment & Plan (09/15/2022 10:13 AM CDT): Chronic problem. Controlled on current Atorvastatin 10mg. Last lipid panel: 05/13/22 LDL=97, MV=830. No changes at this time. Sensorineural hearing loss (SNHL) of both ears 0 11/16/2021 Severe aortic stenosis 05/14/2020 Assessment & Plan (08/15/2024 8:17 AM CDT): TAVR 08/15 Cellulitis of left lower extremity 05/14/2020 Restless leg 05/14/2020 Assessment & Plan (10/22/2023 4:56 AM CDT): Continue home ropinirole Assessment & Plan (10/20/2023 10:25 AM CDT): -Continue home requip Severe asphyxia 05/23/2018 Overview (09/11/2018): stable and seeing cardiology, no s/s Assessment & Plan (11/28/2023 6:06 AM CDT): This is a stable chronic condition the patient is followed by Cardiology Assessment & Plan (10/22/2023 4:55 AM CDT): History of , last TTE 5/6 with moderate to severe disease, DINA estimate 1.3 cm2 Assessment & Plan (10/20/2023 10:24 AM CDT): History of -5/6 TTE with moderate to severe on last TTE (Valve area estimate 1.3 cm2) Assessment & Plan (05/15/2020 12:22 PM FACIALIST): Stable and seeing cardiology RAYA (obstructive sleep apnea) 05/07/2018 Overview (09/11/2018): using oral device Assessment & Plan (08/15/2024 8:18 AM CDT): Uses oral appliance Assessment & Plan (11/28/2023 6:05 AM CDT): Continue CPAP Assessment & Plan (10/22/2023 4:56 AM CDT): Uses an oral device at home, but does not have home device currently and reports that she has not been using at home for several weeks. CTM. Assessment & Plan (10/20/2023 10:25 AM CDT): Uses oral device Assessment & Plan (06/01/2023 8:12 AM FACIALIST): Continue CPAP Assessment & Plan (11/24/2022 11:36 AM CDT): Continue c-pap Assessment & Plan (05/18/2022 4:06 PM FACIALIST): Encourage c-pap Assessment & Plan (11/16/2021 4:42 PM CDT): Using oral device Assessment & Plan (05/17/2021 4:32 PM FACIALIST): Using oral device Assessment & Plan (11/19/2020 7:36 AM CDT): Using oral devise Assessment & Plan (05/15/2020 12:22 PM FACIALIST): Using oral device Assessment & Plan (11/12/2019 4:35 PM CDT): Continue oral device Cough 08/15/2017 Overview (10/30/2018): As above Assessment & Plan (10/22/2023 11:06 AM CDT): Ongoing since Tuesday 10/17, non-productive. Patient thinks may be related to procedural intubation. No SOB. Atelectasis on cxr - IS and acapella ordered DM (diabetes mellitus) 10/07/2015 Overview (06/21/2022): CPM, now on insulin, sending to endocrinology Assessment & Plan (09/20/2024 10:13 AM CDT): Chronic problem, near goal. A1c improved from 8.4% 07/21/24 to now 7.1%. reviewed Dexcom download & improvement with Cece at time of appt. Current medications: Mounjaro 10 mg weekly Semglee 32 units every evening Humalog with meals three times daily: 4 units only if sugars over 150. If blood sugar is <150, take 0 units. If blood sugar is between 151-200, take 4 units. If blood sugar is between 201-250, take 5 units. If blood sugar is between 251-300, take 6 units. If blood sugar is between 301-350, take 7 units. If blood sugar is between >351, take 8 units. UTD on DM eye exam (01/2023 no DMR). Had appt 01/2024. 2nd request letter sent to get copy of report. UTD on labs. Discussed the need to strive for regular exercise (30min most days) and diet (get at least 4-5 servings of fruit and veggies daily, avoid processed foods, increase lean protein intake and decrease carb portions as well as fruit juices, regular soda & desserts). Watch carbs and simple sugars. Check the feet daily for skin breakdown and infection. Assessment & Plan (08/15/2024 8:18 AM CDT): Accuchecks, insulin Assessment & Plan (06/04/2024 2:48 PM FACIALIST): Chronic problem, uncontrolled. A1c improved from 8.6% 02/28/24 to now 8.4%. Reviewed Dexcom download w/Mrs Soares. Reviewed end-organ damage from uncontrolled diabetes. -Move your Semglee to you nightstand to take at bedtime or to morning with other meds. Needs to be taken daily. -start sliding scale meal time insulin. Current medications: Farxiga 10mg daily Mounjaro 7.5 mg weekly Semglee 32 units every evening Humalog with meals three times daily: 4 units only if sugars over 150. If blood sugar is <150, take 0 units. If blood sugar is between 151-200, take 4 units. If blood sugar is between 201-250, take 5 units. If blood sugar is between 251-300, take 6 units. If blood sugar is between 301-350, take 7 units. If blood sugar is between >351, take 8 units. UTD on DM eye exam & labs. Discussed the need to strive for regular exercise (30min most days) and diet (get at least 4-5 servings of fruit and veggies daily, avoid processed foods, increase lean protein intake and decrease carb portions as well as fruit juices, regular soda & desserts). Watch carbs and simple sugars. Check the feet daily for skin breakdown and infection. Assessment & Plan (11/28/2023 6:06 AM CDT): Patient is going to continue current medications, current labs were ordered, eye exam is up-to-date, foot care was discussed. Healthy diet and reference to [email or web address]. Exercise as discussed, follow-up as scheduled routine. We did discuss proper monitoring of blood sugars Assessment & Plan (10/22/2023 4:52 AM CDT): History of DM with last A1c 6.6% in 08/2023. At home, takes Ozempic, Farxiga, Basaglar 20 units QHS, Humalog TIDAC (4 units if BG > 150), recently taken off metformin. -s/p insulin gtt while in the ICU, now transitioned to basal/bolus insulin. -continue Lantus 16 units QHS + SSI, titrate PRN Assessment & Plan (10/20/2023 1:12 PM CDT): History of DM with last Ha1c-7.7. At home, takes IvanempPayal gonzalez, with SSI insulin -Briefly on insulin gtt overnight and stopped this am. -Continue SSI + accuchecks -Add Lantis 16 units daily Assessment & Plan (06/01/2023 8:12 AM FACIALIST): Patient is going to continue current medications, current labs were ordered, eye exam is up-to-date, foot care was discussed. Healthy diet and reference to [email or web address]. Exercise as discussed, follow-up as scheduled routine. We did discuss proper monitoring of blood sugars Assessment & Plan (03/29/2023 4:21 PM CDT): Patient is going to continue current medications, current labs were ordered, eye exam is up-to-date, foot care was discussed. Healthy diet and reference to [email or web address]. Exercise as discussed, follow-up as scheduled routine. We did discuss proper monitoring of blood sugars Assessment & Plan (11/24/2022 11:37 AM CDT): Patient is going to continue current medications, current labs were ordered, eye exam is up-to-date, foot care was discussed. Healthy diet and reference to [email or web address]. Exercise as discussed, follow-up as scheduled routine. We did discuss proper monitoring of blood sugars Assessment & Plan (09/15/2022 10:15 AM CDT): Chronic problem. At goal. A1c improved from 8.2% 06/2022 to now 7.0%. Loves her freestyle shayne; feels more accountable. No longer needing mealtime insulin. Reviewed Freestyle download w/ Rodger. Current medications: Metformin 1000mg with breakfast & 500mg with dinner Farxiga 10mg daily Ozempic 1mg weekly Basaglar 20 units at bedtime UTD on DM eye exam & labs. Discussed the need to strive for regular exercise (30min most days) and diet (get at least 4-5 servings of fruit and veggies daily, avoid processed foods, increase lean protein intake and decrease carb portions as well as fruit juices, regular soda & desserts). Watch carbs and simple sugars. Check the feet daily for skin breakdown and infection. Assessment & Plan (07/18/2022 4:28 PM FACIALIST): Hba1c was Lab Results Component Value Date HGBA1C 8.2 07/18/2022 today, indicating inadequate DM control Goal Hba1c and blood glucose explained Diet and exercise were advised Prevention and treatment of hyypoglcyemia were discussed with the patient Blood glucose monitoring : CGM with FSL Adjustment to medications: Basaglar, 20 units at bedtime Start Ozempic, 0.25 mg x 2 weeks, then continue with 0.5 mg weekly; then continue with 1 mg weekly Continue Metformin and Farxiga Take Humalog, before brekfast and dinner, only for sugars over 180, take 10 units Assessment & Plan (06/21/2022 2:56 PM FACIALIST): CPM, discussed lows on sugars, sending to endocrinology for eval Assessment & Plan (05/18/2022 4:04 PM FACIALIST): Poor control, get back on diet, farxiga, discussed medications, use and side effects Assessment & Plan (05/17/2021 4:31 PM FACIALIST): Continue meds Assessment & Plan (05/15/2020 12:21 PM FACIALIST): Patient is going to continue current medications, current labs were ordered, eye exam is up-to-date, foot care was discussed. Healthy diet and reference to [email or web address]. Exercise as discussed, follow-up as scheduled routine. We did discuss proper monitoring of blood sugars Assessment & Plan (11/12/2019 4:34 PM CDT): Patient is going to continue current medications, current labs were ordered, eye exam is up-to-date, foot care was discussed. Healthy diet and reference to [email or web address]. Exercise as discussed, follow-up as scheduled routine. We did discuss proper monitoring of blood sugars Resolved Problems Problem Noted Date Diagnosed Date Resolved Date Encounter for preoperative assessment 10/18/2023 10/18/2023 Acute postoperative pain 09/13/2023 Morbid (severe) obesity due to excess calories 06/01/2023 10/18/2023 Carpal tunnel syndrome of right wrist 03/29/2023 10/18/2023 Assessment & Plan (03/29/2023 4:22 PM CDT): Cock up splint, option for OT Type 2 diabetes mellitus wit h hyperglycemia, with long-term current use of insulin 03/28/2023 Assessment & Plan (09/25/2023 3:48 PM CDT): Chronic problem. A1c improved from 7.0% 03/28/23 to now 6.6%. Relates that she'd like to get off of the metformin (read about side effects). Will trial ozempic 2mg at next refill & stop metformin 1-2 weeks after increase ozempic. Will see if stopping metformin increases blood sugars. Current medications: Metformin 1000mg with breakfast & dinner Farxiga 10mg daily Ozempic 1mg weekly Semglee/Basaglar 20 units every evening Humalog with meals three times daily: 4 units only if sugars over 150. UTD on labs. UTD on DM eye exam (01/2023 [place], [place]) Strive for regular exercise (30min most days) and diet (get at least 4-5 servings of fruit and veggies daily, avoid processed foods, increase lean protein intake and decrease carb portions as well as fruit juices, regular soda & desserts). Watch carbs and simple sugars. Check the blood sugar freestyle shayne. Check the feet daily for skin breakdown and infection. Assessment & Plan (03/28/2023 3:58 PM CDT): Chronic problem. A1c stable/at goal 7.0% but having hyperglycemic events. Has been off of basaglar x1 mo. Will start taking basaglar in the morning as she's having a harder time getting in the evening doses. Current medications: Metformin 1000mg with breakfast & 500mg with dinner Farxiga 10mg daily Ozempic 1mg weekly Basaglar 20 units every morning. If blood sugar remains elevated 7-10 days after starting the basaglar; resume the humalog: Humalog with breakfast & dinner: 10 units only if sugars over 180. UTD on labs. UTD on DM eye exam. 01/2023 NICOLAS Manuel--letter sent to get copy of report. Strive for regular exercise (30min most days) and diet (get at least 4-5 servings of fruit and veggies daily, avoid processed foods, increase lean protein intake and decrease carb portions as well as fruit juices, regular soda & desserts). Watch carbs and simple sugars. Check the blood sugar freestyle shayne. Check the feet daily for skin breakdown and infection. Nostril infection 02/17/2023 10/18/2023 Assessment & Plan (02/17/2023 5:20 PM CDT): Hx of MRSA nasal colonization Wound culture obtained Mupirocin three times daily Keep clean and dry Doxycycline as directed Return/ER precautions discussed Bilateral impacted cerumen 12/01/2022 0 10/18/2023 Facial abscess 06/15/2022 10/18/2023 Assessment & Plan (06/21/2022 2:55 PM FACIALIST): Resolving, finish medications, f/u with ent MRSA nasal colonization 06/15/202209/27 Severe sepsis 06/15/2022 10/18/2023 Assessment & Plan (06/21/2022 2:53 PM FACIALIST): Well controlled, fisnishing medications and seeing ENT Acute right-sided low back p ain without sciatica 06/15/2022 10/18/2023 Facial cellulitis 06/12/2022 10/18/2023 Morbid (severe) obesity due to excess calories 11/16/2021 09/14/2022 Assessment & Plan (11/16/2021 4:42 PM CDT): Healthy diet as discussed Diabetic neuropathy 05/13/2021 10/18/19 24 Assessment & Plan (09/25/2023 3:15 PM CDT): Chronic problem. Currently taking Lyrica 25mg QAM & 50mg QHS. Reviewed foot care; needs to lotion daily. Aware to check feet nightly, not to go barefoot. Assessment & Plan (05/17/2021 4:31 PM FACIALIST): Stable, CPM Line sepsis 05/14/2020 10/18/2023 Osteomyelitis of second toe of right foot 05/14/2020 10/18/2023 Suspected 2019-nCoV infection 05/14/2020 10/18/2023 Urinary tract infectious disease 05/14/2020 10/18/2023 Assessment & Plan (11/24/2022 11:37 AM CDT): Finish medications, ua 2 weeks due to blood Assessment & Plan (05/03/2022 4:03 PM FACIALIST): Urine dipstick positive for moderate blood and leukocytes, glucose and protein Pt has diabetes and takes exenatide and metformin Macrobid 100 mg twice daily for 5 days Follow up with PCP if symptoms do not improve or worsen after taking antibiotics, and for glucose and protein in urine Urine culture pending -Take all antibiotic medications as prescribed. -We will notify you of urine culture results -Push fluids, especially water. This also helps prevent future infections. -Urinate when you feel the urge. Do not hold your urine. Urinate as soon as you feel you have to. -Cranberry juice has been shown to promote healing, use at your discretion. -Make sure to always wipe from front to back after urinating. -If you are sexually active make sure to urinate Before AND after sex to help prevent bladder infections. -Avoid intercourse until your symptoms are resolved for one week. -Do not drink alcohol, caffeine, and citrus juices. These can irritate your bladder and increase your symptoms. Seek care (go to Urgent Care or ER) immediately if: You are urinating very little or not at all. You are vomiting. You have a high fever with shaking chills. You have side or back pain that gets worse. Contact your primary care doctor or [employer] if: You have a fever. You have white or yellow discharge from your vagina. You do not feel better after 2 days of taking antibiotics. Class 2 severe obesity due t o excess calories with serious comorbidity and body mass index (BMI) of 38.0 to 38.9 in adult 05/14/2020 Uncontrolled stage 2 hypertension 05/14/2020 10/18/2023 Dyslipidemia, goal LDL below 100 05/14/2020 10/18/2023 Obstructive sleep apnea syndrome in adult 05/14/2020 09/14/2022 Cellulitis of multiple sites of head and neck 05/14/20 20 10/18/2023 Pre-ulcerative corn or callous 05/01/2019 10/18/2023 Cellulitis of toe of left foot 05/01/2019 10/18/2023 Assessment & Plan (12/05/2019 3:34 PM CDT): S/p surgery and wraped, seeing Dr Harris in 1 week Routine general medical exam ination at a health care facility 04/23/2019 10/18/2023 Assessment & Plan (06/01/2023 8:13 AM FACIALIST): Healthcare maintenance updated Assessment & Plan (05/18/2022 4:06 PM FACIALIST): HEALTHCARE MAINTENANCE up to date Acute right ankle pain 12/12/201809/14 RUQ pain 10/30/2018 09/14/2022 Other acute sinusitis 10/30/20182022 Non morbid obesity due to excess calories 09/11/2018 09/14/2022 Assessment & Plan (11/19/2020 7:35 AM CDT): Healthy diet and exercise Dyslipidemia 05/07/2018 10/18/2023 Overview (09/11/2018): stable CPM, labs as ordered f/u routine Assessment & Plan (03/29/2023 4:21 PM CDT): Patient is to continue present medications, work on diet and exercise as discussed, we did discuss the medications and potential side effects and signs and symptoms that would warrant calling office. Follow up routine. Assessment & Plan (11/16/2021 4:41 PM CDT): Patient is to continue present medications, work on diet and exercise as discussed, we did discuss the medications and potential side effects and signs and symptoms that would warrant calling office. Follow up routine. Assessment & Plan (05/17/2021 4:31 PM FACIALIST): Patient is to continue present medications, work on diet and exercise as discussed, we did discuss the medications and potential side effects and signs and symptoms that would warrant calling office. Follow up routine. Assessment & Plan (05/15/2020 12:21 PM FACIALIST): Patient is to continue present medications, work on diet and exercise as discussed, we did discuss the medications and potential side effects and signs and symptoms that would warrant calling office. Follow up routine. Assessment & Plan (11/12/2019 4:34 PM CDT): Patient is going to continue current medications, current labs were ordered, eye exam is up-to-date, foot care was discussed. Healthy diet and reference to ADA.com. Exercise as discussed, follow-up as scheduled routine. We did discuss proper monitoring of blood sugars RBBB 05/07/2018 10/18/2023 Overview (10/30/2018): seeing cardilogy Non-pressure chronic ulcer o f other part of right foot with unspecified severity 01/18/2018 Overview (09/11/2018): given all risk factors, I will get cardiology clearence, if they clear I will clear patient CIDP (chronic inflammatory d emyelinating polyneuropathy) 12/08/2017 10/18/2023 Assessment & Plan (06/01/2023 8:12 AM FACIALIST): This is well controlled patient is currently not having any symptoms will continue to follow Assessment & Plan (03/29/2023 4:20 PM CDT): Chronic and ongoing Assessment & Plan (05/18/2022 4:04 PM FACIALIST): This is good at this time, still with some issues with right hand Assessment & Plan (11/16/2021 4:41 PM CDT): This appears stable continue current meds follow-up 6 months Assessment & Plan (05/17/2021 4:31 PM FACIALIST): No current issues Assessment & Plan (05/15/2020 12:21 PM FACIALIST): Currently controlled will follow Assessment & Plan (11/12/2019 4:34 PM CDT): We are following Subacute sinusitis 08/15/2017 3 Overview (10/30/2018): Meds as ordered, saline and [id number]-[id number] Mucinex. Primary insomnia 07/19/2017 10/18/2023 Essential (primary) hypertension 06/07/2017 10/18/2023 Overview (09/11/2018): stable CPM, labs as ordered f/u routine Assessment & Plan (06/01/2023 8:12 AM FACIALIST): This is a stable chronic condition. Monitor blood pressure, call if out of parameters as we discussed. Low sodium and caffeine diet. baby asa as discussed if applicable. Diet, exercise and weight reduction. Labs as ordered. F/U routine Assessment & Plan (03/29/2023 4:21 PM CDT): Images from the original note were not included. This is a stable chronic condition. Monitor blood pressure, call if out of parameters as we discussed. Low sodium and caffeine diet. baby asa as discussed if applicable. Diet, exercise and weight reduction. Labs as ordered. F/U routine Assessment & Plan (11/24/2022 11:36 AM CDT): Images from the original note were not included. This is a stable chronic condition. Monitor blood pressure, call if out of parameters as we discussed. Low sodium and caffeine diet. baby asa as discussed if applicable. Diet, exercise and weight reduction. Labs as ordered. F/U routine Assessment & Plan (06/21/2022 2:48 PM FACIALIST): Images from the original note were not included. This is a stable chronic condition. Monitor blood pressure, call if out of parameters as we discussed. Low sodium and caffeine diet. baby asa as discussed if applicable. Diet, exercise and weight reduction. Labs as ordered. F/U routine Assessment & Plan (05/18/2022 4:04 PM FACIALIST): Images from the original note were not included. This is a stable chronic condition. Monitor blood pressure, call if out of parameters as we discussed. Low sodium and caffeine diet. baby asa as discussed if applicable. Diet, exercise and weight reduction. Labs as ordered. F/U routine Assessment & Plan (11/16/2021 4:42 PM CDT): This is a stable chronic condition. Monitor blood pressure, call if out of parameters as we discussed. Low sodium and caffeine diet. baby asa as discussed if applicable. Diet, exercise and weight reduction. Labs as ordered. F/U routine Assessment & Plan (05/17/2021 4:32 PM FACIALIST): Images from the original note were not included. This is a stable chronic condition. Monitor blood pressure, call if out of parameters as we discussed. Low sodium and caffeine diet. baby asa as discussed if applicable. Diet, exercise and weight reduction. Labs as ordered. F/U routine Assessment & Plan (11/19/2020 7:34 AM CDT): Images from the original note were not included. This is a stable chronic condition. Monitor blood pressure, call if out of parameters as we discussed. Low sodium and caffeine diet. baby asa as discussed if applicable. Diet, exercise and weight reduction. Labs as ordered. F/U routine Assessment & Plan (05/15/2020 12:21 PM FACIALIST): Images from the original note were not included. This is a stable chronic condition. Monitor blood pressure, call if out of parameters as we discussed. Low sodium and caffeine diet. baby asa as discussed if applicable. Diet, exercise and weight reduction. Labs as ordered. F/U routine Assessment & Plan (12/05/2019 3:33 PM CDT): Images from the original note were not included. This is a stable chronic condition. Monitor blood pressure, call if out of parameters as we discussed. Low sodium and caffeine diet. baby asa as discussed if applicable. Diet, exercise and weight reduction. Labs as ordered. F/U routine Assessment & Plan (11/12/2019 4:34 PM CDT): Images from the original note were not included. This is a stable chronic condition. Monitor blood pressure, call if out of parameters as we discussed. Low sodium and caffeine diet. baby asa as discussed if applicable. Diet, exercise and weight reduction. Labs as ordered. F/U routine RLS (restless legs syndrome) 09/07/2016 10/18/2023 Assessment & Plan (06/01/2023 8:12 AM FACIALIST): This is currently controlled will continue current medications follow-up routine Assessment & Plan (05/18/2022 4:06 PM FACIALIST): Controlled with meds Assessment & Plan (11/16/2021 4:42 PM CDT): Not controlled will try 2 mg 1 hour before bed she will update me in a few weeks we also started her on some oral magnesium Assessment & Plan (05/17/2021 4:33 PM FACIALIST): Stable, will follow Assessment & Plan (11/19/2020 7:36 AM CDT): Controlled with meds Assessment & Plan (05/15/2020 12:22 PM FACIALIST): controlled Assessment & Plan (11/12/2019 4:35 PM CDT): CPM, add Mg+ Polyneuropathy 08/17/2016 09/14/2022 Neuropathy 03/07/2016 10/18/2023 Assessment & Plan (06/01/2023 8:12 AM FACIALIST): This is improved with current medications continue current meds follow-up 6 months Assessment & Plan (03/29/2023 4:27 PM CDT): Decrease neurontin to every day and snd start lyrica qhs, after 1 week stop neurontin, bid lyrica, after a couple weeks may take tid Assessment & Plan (11/24/2022 11:36 AM CDT): Currently well controlled Assessment & Plan (05/18/2022 4:05 PM FACIALIST): Currently controlled Assessment & Plan (11/16/2021 4:42 PM CDT): Improved current medications, continue current meds follow-up routine Assessment & Plan (05/17/2021 4:32 PM FACIALIST): Stable CPM Assessment & Plan (11/19/2020 7:35 AM CDT): Currently on meds Assessment & Plan (05/15/2020 12:22 PM FACIALIST): controlled Assessment & Plan (12/05/2019 3:33 PM CDT): CPM Assessment & Plan (11/12/2019 4:34 PM CDT): CPM Mixed hyperlipidemia 10/07/2015 05/2 024 Assessment & Plan (06/01/2023 8:12 AM FACIALIST): Patient is to continue present medications, work on diet and exercise as discussed, we did discuss the medications and potential side effects and signs and symptoms that would warrant calling office. Follow up routine. Assessment & Plan (11/24/2022 11:36 AM CDT): Patient is to continue present medications, work on diet and exercise as discussed, we did discuss the medications and potential side effects and signs and symptoms that would warrant calling office. Follow up routine. Assessment & Plan (05/18/2022 4:05 PM FACIALIST): Patient is to continue present medications, work on diet and exercise as discussed, we did discuss the medications and potential side effects and signs and symptoms that would warrant calling office. Follow up routine. Assessment & Plan (11/19/2020 7:34 AM CDT): Patient is to continue present medications, work on diet and exercise as discussed, we did discuss the medications and potential side effects and signs and symptoms that would warrant calling office. Follow up routine. Assessment & Plan (05/15/2020 12:21 PM FACIALIST): As above Nonalcoholic steatohepatitis (AYERS) 08/31/2012 10/18/2023 Assessment & Plan (06/01/2023 8:12 AM FACIALIST): Patient is going to work on weight reduction we did discuss qqyu-tql-nbplifa medications including vitamin-E to help with fatty liver she did does not drink alcohol Assessment & Plan (05/18/2022 4:05 PM FACIALIST): Diet and exercise Assessment & Plan (05/17/2021 4:32 PM FACIALIST): Stable will follow Assessment & Plan (11/19/2020 7:35 AM CDT): Previous work up with GI, will follow Assessment & Plan (05/15/2020 12:22 PM FACIALIST): Working on diet and exercise History of bariatric surgery 07/22/2010 10/18/2023 Former smoker 03/30/2010 10/18/2023 Encounters Date Type Department Care Team Description 12/27/2024 Plan of Care Documentation [facility] [address] [place] [address] 12/27/2024 Home Infusion [facility] [address] [place] [address] Ubaldo Lopez, [facility] Osteomyelitis of toe of left foot (HCC) (Primary Dx) 12/26/2024 11:43 AM CDT Anesthesia Event [facility] OR [address] [place] [id number] Lesvia Fisher MD 12/26/2024 11:30 AM CDT - 12/26/2024 12:55 PM CDT Surgery [facility] OR [address] [place] [address] Jaun Teixeira MD LEFT 2ND AMPUTATION TOE 12/25/2024 Documentation [facility] Surgery [address] [place] [phone] Yadira Preston RMA 12/24/2024 10:37 AM CDT Anesthesia Event [facility] Cardiac Pharmacy Director [address] [place] [address] Raymond Manzo MD Lawrence, Ashley Nicole, CRNA 12/24/2024 Orders Only [facility] Surgery [address] [place] [phone] Rosalio Arriola MD Nephrolithiasis (Primary Dx) 12/23/[address] [facility] Cardiology [address] [facility] 8th [place] [address] [place] [address] Priya Whitfield MD 12/23/[address] [facility] Surgery [address] [place] [address] Brina Angela CMA 12/18/2024 7:50 PM CDT - 12/27/2024 7:33 PM CDT Hospital Encounter [address] [address] Mecker, Jose W. MD Pearl He Kahmalia-Kalee Conceptia, MD Patel, Satyen V., MD Lun, Yu, MD Smith, Thomas Hamilton, MD Osteomyelitis of toe of left foot (HCC) (Primary Dx); Urinary tract infection in female; Cellulitis of left lower extremity; Osteomyelitis of toe (HCC); Illness, unspecified Discharge Disposition: Discharge to home, home health skilled care 12/13/2024 11:30 AM CDT Office Visit [facility] Otolaryngology [address] [place] [phone] Savanah Navarrete NP Sensorineural hearing loss (SNHL) of both ears (Primary Dx); Tinnitus of both ears 12/13/2024 11:00 AM CDT Procedure visit [facility] Otolaryngology [address] [place] [phone] Dawn Farfan Sensorineural hearing loss (SNHL) of both ears (Primary Dx) 12/12/[address] [facility] Cardiology [address] [facility] [address]th [place] [address] [place] [address] Dawna Don 12/09/[address] [facility] Cardiology [address] [facility] 8th [place] [address] [place] [address] Priya Whitfield MD 11/28/2024 1:30 PM CDT Office Visit [facility] Obstetrical Gynecology [address] [place] [address] Cece Singer CNM Encounter for screening mammogram for malignant neoplasm of breast (Primary Dx) 11/19/2024 Orders Only [facility] Surgery [address] [place] [address] Rosalio Arriola MD Struvite kidney stones (Primary Dx) 11/19/2024 Telephone [facility] ([facility] - [facility] Urology [address] [facility] Medicine 11th [place] [address] [place] [address] Steve Frausto 11/13/2024 10:20 AM CDT Office [facility] - [facility] Urology [address] [facility] 11th [place] [address] [place] [address] Rosalio Arriola MD Struvite kidney stones (Primary Dx) 11/11/2024 9:34 AM CDT - 11/11/2024 11:59 PM CDT Hospital Encounter [facility] [address] [place] [address] Nephrolithiasis Discharge Disposition: Discharge to home or self care 10/31/[address] [facility] Cardiology [address] [place] [address] Advanced Medicine [address]th [place] [address] [place] [address] results 10/29/2024 Results Follow-Up [facility] Cardiology [address] [place] [address] 8th [place] [address] [place] [address] TAVR 10/28/2024 10:09 AM CDT - 10/28/2024 11:59 PM CDT Hospital Encounter [facility] [address] [place] [address] S/P TAVR (transcatheter aortic valve replacement) Discharge Disposition: Discharge to home or self care 10/22/[address] [facility] 8th [place] [address] [place] [address] Priya Whitfield MD 10/04/2024 Orders Only [facility] Diabetes and Endocrinology [address] [place] [phone] Jocelyn Rich MD 09/30/[address] [facility] Cardiology [address] [place] [address] Advanced Medicine 8th [place] [address] [place] [address] Priya Whitfield MD from Last 3 Months Immunizations Immunization Administration Dates Next Due Influenza, Unspecified 03/29/2023(Deferr ed: Patient decision),03/04/2023(Deferred: Patient decision),04/26/2022(Deferred: Patient decision),04/20/2022(Deferred: Patient Refused),03/29/2022(Deferred: Patient decision),11/16/2021(Deferred: Patient Refused),02/27/2020(Deferred: Patient Refused),05/01/2019(Deferred: Patient decision),05/29/2018(Deferred: Patient decision) Pfizer SARS-CoV-2 Monovalent Vaccination (12+ Yrs) PURPLE 08/14/2020,07/25/2020 Pfizer Sars-Cov-2 Bivalent Vaccination (12+ YRS) 03/17/2022 Pneumococcal Conjugate PCV 13 02/18/2016 Surgical History Surgery Date Site/Laterality Comments FOOT SURGERY 04/28/2018 - 05/28/2018 Right BUNIONECTOMY Bilateral 07/2015 & 01/2016 TOTAL HIP ARTHROPLASTY 11/23/2001 Left Left hip BARIATRIC SURGERY 07/27/2004 - 08/26/2004 lap band KIDNEY STONE SURGERY 08/28/2023 - 09/26/2023 Left COLONOSCOPY Multiple-- Last ~2018 UPPER GASTROINTESTINAL ENDOSCOPY 05/29/2003 - 05/28/2004 KIDNEY STONE SURGERY 09/27/2023 - 10/27/2023 CARDIAC CATHETERIZATION 08/15/2024 Chest/N/A Procedure: TAVR - PERCUTANEOUS FEMORAL 84552; Surgeon: Gilberto Love MD; Location: [facility] EP [facility]; Service: Cardiovascular; Laterality: N/A; Dr. Ricci IC. First case, 0600 arrival. [facility]. Medical devices from this surgery are in the Medical Devices section. CARDIAC ELECTROPHYSIOLOGY PROCEDURE 08/23/2024 N/A Procedure: IMPLANT DUAL CHAMBER PPM SYSTEM W/ DUAL ELECTRODES (GEN AND LEADS, NEW OR REPLACE) [id number]; Surgeon: Priya Whitfield MD; Location: [facility] EP [facility]; Service: Cardiovascular; Laterality: N/A; Medical devices from this surgery are in the Medical Devices section. 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 Sleep apnea Uses oral device not cpap or bipap Hypertension Dxd ~2000 Arthritis Neuropathy in diabetes Heart murmur Peripheral neuropathy RLS (restless legs syndrome) Mg ated with Requip History of DVT (deep vein thrombosis) 2017 h/o DVT BLE d/t being bed ridden with Guillain [place] syndrome after pneumonia vaccination 2017 HL (hearing loss) Tinnitus Kidney stone Family History Medical History Relation Name Comments Emphysema Father Hypertension Mother Lillian Family history of hypertension - (Added by TW Conv) Hypertension Other 1 Family history of hypertension - (Added by TW Conv) Blood Clot Other 2 Family history of blood clots - (Added by TW Conv) Arthritis Sister 1 Clotting disorder Sister 2 Diabetes Sister 2 Diabetes Sister 3 Hypertension Sister 3 Anesthesia problems Neg Hx Breast cancer Neg Hx Colon cancer Neg Hx Relation Name Status Comments Father (Age 76) Mother Lillian (Age 70) Other 1 Other 2 Sister 1 Alive Sister 2 Alive Sister 3 Alive Social History Tobacco Use Types Packs/Day Years Used Date Smoking Tobacco: Former Cigarettes 0.8 20.1 0 05/29/1984 - 07/06/2004 Passive Smoke Exposure: Past Smokeless Tobacco: Never Tobacco Cessation:Counseling Given: Not Answered Alcohol Use Standard Drinks/Week Comments Yes 0 (1 standard drink = 0.6 oz pur e alcohol) [employer] Utilities Answer Date Recorded In the past 12 months has [employer], gas, oil, or water [employer] threatened to shut off services in your [...] week 12/19/2024 How often do you attend [facility] or judaism services? Never 12/19/2024 Do you belong to any clubs o r organizations such as advent groups, unions, fraternal or athletic groups, or [...] place to sleep or slept in a prison (including now)? No 06/16/2022 Housing Stability Vital Sign Answer Galindo e Recorded In the last 12 months, was t here a time when you were not able to pay the mortgage or rent on time? No 12/19/2024 In the past 12 months, how m any times have you moved where you were living? 0 12/19/2024 At any time in the past [address] [facility], were you homeless or living in a prison (including now)? No 12/19/2024 Personal Safety Answer Date Recorded Have you ever been in or are you currently in a harmful physical or emotional relationship or is someone making you feel afraid or unsafe? Denies 12/24/2024 Comments No Sex and Gender Information Value Date Recorded Sex Assigned at Not on file Legal Sex Female 4:16 AM FACIALIST Gender Identity Female 09/21/2017 4:47 PM CDT Sexual Orientation Not on file Obstetrics History Para Term AB IAB SAB Ectopic Multiple Livin g Live Births 0 0 0 0 0 0 0 0 0 0 0 Comments Age with menopausal 54 Last Filed Vital Signs Vital Sign Reading Time Taken Comments Blood Pressure 107/64 12/27/2024 3:38 PM CDT Pulse 68 12/27/2024 3:38 PM CDT Temperature 36.8 C (98.2 F) 12/27/2024 3:38 PM CDT Respiratory Rate 18 12/27/2024 3:38 PM CDT Oxygen Saturation 100% 12/27/2024 3:38 PM CDT Inhaled Oxygen Concentration - - Weight 121.6 kg (268 lb) 12/24/2024 7:00 PM CDT Height 180.3 cm (5' 10.98) 12/25/2024 1:35 PM C DT Body Mass Index 37.4 12/24/2024 7:00 PM CDT Plan of Treatment Upcoming Encounters Date Type Department Care Team (Late st Contact Info) Description 01/28/2025 11:50 AM CDT Hospital Encounter [facility] Operating Room 1 [place] [address] Rosalio Arriola MD [id number] [place] [address] 01/28/2025 11:50 AM CDT - 01/28/2025 2:[address] [facility] Operating Room 1 [place] [address] Rosalio Arriola MD [id number] [place] [address] LITHOTRIPSY - LASER Scheduled Procedures Name Priority Associated Diagnoses Date/Ti pa LITHOTRIPSY - LASER Renal stones 01/28/2025 11:50 AM CDT URETEROSCOPY Renal stones 01/28/2025 11:50 AM CDT PLACEMENT STENT - URETERAL Renal stones 01/28/2025 11:50 AM CDT Health Maintenance Due Date Last Done Comments Hepatitis B Screening 01/07/1980 Zoster Vaccine (1 of 2) 01/07/2012 Cervical Cancer Screening 09/16/2023 09/15/2022 Covid-19 Vaccine ( - season) 2024 03/17/2022, 04/01/2021, 08/14/2020, Additional history exists Depression Screening 06/01/2024 06/01/2023, 11/24/2022, 11/16/2021, Additional history exists Influenza Vaccine (#1) 2025 Albumin Creatinine Ratio, Urine 02/27/2025 02/28/2024, 05/26/2023, 05/13/2022, Additional history exists Breast Cancer Screening-Mammogram 05/03/2025 05/03/2024, 02/02/2024, 09/27/2022, Additional history exists Hemoglobin A1C 06/20/2025 12/18/2024, 04/2 09/2024, 07/21/2024, Additional history exists Foot Exam 09/20/2025 09/20/2024, 010 11/2024, 09/25/2023, Additional history exists Dilated Eye Exam 10/24/2025 10/25/2023, , 02/10/2022, Additional history exists Regular Well Visit/Exam 18-64 11/28/2025 11/28/2024, 11/24/2023, 06/01/2023, Additional history exists Lipid Panel 12/19/2025 12/19/2024, 100 06/2023, 10/03/2023, Additional history exists eGFR 12/27/2025 12/27/2024, 07/3 05/2024, 12/24/2024, Additional history exists Pneumococcal vaccine <65 (2 of 2 - PPSV23) 11/10/2027 02/18/2016 Postponed from 04/14/2016 (Provider's clinical decision) Colon Cancer Screening-Colonoscopy 08/09/2028 08/09/2018, 11/04/2013 Hepatitis C Screening Completed 03/21/2016 Colon Cancer Screening-CT Colonography Discontinued 08/09/2018, 11/04/2013 Colon Cancer Screening-DNA Stool Discontinued 08/09/2018, 11/04/2013 Colon Cancer Screening-FIT Discontinued 08/09/2018, Colon Cancer Screening-Sigmoidoscopy Discontinued 08/09/2018, 11/04/2013 DTaP/Tdap/Td Vaccine Discontinued Goals Goal Patient Goal Type Associated Problems Recent Progress Patient-Stated? Author Autogenerat ed Goal Care Plan Autogenerated Problem No [employer] Implanted Type Area Car Washer Device Identifier Shelf Expiration Date Model / Serial / Lot Medtronic Inc Capsurefix Novus 6.2fr 2mm 52cm Bipolar Screw In Implantable Latex Free 5076-52 - [id number] - [id number] Implanted:Qty: 1 on 08/23/2024 by Priya Whitfield MD at [facility] Lead Right: Atria Medtronic Inc 06/12/2026 5076-52 / [id number] 85V / [id number] 85V Medtronic Inc Selectsecure 4.1fr 69cm Bipolar Screw In Is-1 Atrium Ventricle [id number] - [id number] - [id number] Implanted:Qty: 1 on 08/23/2024 by Priya Whitfield MD at [facility] Lead Right: Ventricle Medtronic Inc 07/18/2026 [id number] / [id number] 94V / [id number] 94V Medtronic Inc Tyrx Absorbable Antibacterial Envelope Med 2.7x2.5in [id number] - [id number] - [id number] Implanted:Qty: 1 on 08/23/2024 by Priya Whitfield MD at [facility] Other - see comments Left: Lateral Chest Wall Medtronic Inc 04/27/2025 [id number] / [id number] / [id number] Description:Antibacterial en velope Medtronic Inc [place] S Mri Surescan 50.8x46.6mm 2 Chamber 7.4mm Pacemaker 22.5gm [id number] - [id number] - [id number] Implanted:Qty: 1 on 08/23/2024 by Priya Whitfield MD at [facility] Pacemaker Left: Lateral Chest Wall Medtronic Inc 12/09/2025 [id number] / [id number] 13G / [id number] Ceja Lifesciences Valve Aortic Trnscath Kate 3 Ultra Resilia 26mm 2249taw32d - [id number] - [id number] Implanted:Qty: 1 on 08/15/2024 by Gilberto Love MD at [facility] Prosthetic Valve N/A: Aortic Valve Ce[employer] 01/31/2027 [id number] / [id number] / [id number] Tamago Stent Ureteral Set Double Pigtail Flexible Tip Filiform 8.6fcb52du Silicone [id number] - [id number] Implanted:Qty: 1 on 10/18/2023 by Phillip Lombardi DO at [facility] Stent Left: Urethra [place] [employer] [id number] 07/10/2026 [id number] / / [id number] [employer] Vascular System Closure Repair Femoral Artery Suture Mediated Perclose Prostyle 95987-63 - [id number] - [id number] Implanted:Qty: 1 on 08/15/2024 by Gilberto Love MD at [facility] Vascular Closure Device Right: Common Femoral Artery [employer] 03/28/2026 76901-6 3 / [id number] / [id number] [employer] Angio-Seal Vip 6fr Closere Device [id number] - [id number] - [id number] Implanted:Qty: 1 on 08/15/2024 by Gilberto Love MD at [facility] Vascular Closure Device Left: Common Femoral Artery [employer]ee 03/22/2025 [id number] / [id number] / [id number] [employer] Angio-Seal Vip [place]-Plus 8fr .038in 70cm Hemostatic Latex Free [id number] - [id number] - [id number] Implanted:Qty: 1 on 08/15/2024 by Gilberto Love MD at [facility] Vascular Closure Device Right: Common Femoral Artery [employer] 12/03/2024 [id number] / [id number] / [id number] Explanted Type Area Car Washer Device Identifier Shelf Expiration Date Model / Serial / Lot Tamago Stent Ureteral Set Double Pigtail Radiopaque Tip [employer] [id number] Polyurethane Hydrophilic Coated [id number] - Sn/A - [id number] Implanted:Qty: 1 on 09/13/2023 by Jeny Giraldo MD at [facility] Explanted:Qty: 1 on 10/18/2023 by Phillip Lombardi DO at [facility] Stent Left: Urethra [place] [employer] [id number] 06/16/2026 [id number] / N/A / [id number] Procedures Procedure Name Priority Date/Time Associated Diagnosis Comments POCT GLUCOSE DEVICE Routine 12/27/2024 5 :16 PM CDT POCT GLUCOSE DEVICE Routine 12/27/2024 11:32 AM CDT POCT GLUCOSE DEVICE Routine 12/27/2024 8 :22 AM CDT EGFR Routine 12/27/2024 3:45 AM CDT DIFFERENTIAL AUTO Routine 12/27/2024 3:4 5 AM CDT BASIC METABOLIC PANEL Routine 12/27/2024 3:45 AM CDT CBC WITH AUTO DIFFERENTIAL Routine 12/27/2024 3:45 AM CDT EGFR Routine 12/26/2024 9:54 PM CDT CBC WITHOUT DIFFERENTIAL Routine 12/26/2024 9:54 PM CDT BASIC METABOLIC PANEL Routine 12/26/2024 9:54 PM CDT POCT GLUCOSE DEVICE Routine 12/26/2024 7 :13 PM CDT POCT GLUCOSE DEVICE Routine 12/26/2024 6 :02 PM CDT POCT GLUCOSE DEVICE Routine 12/26/2024 12:39 PM CDT TISSUE AEROBIC AND ANAEROBIC CULTURE AND GRAM STAIN Routine 12/26/2024 12:11 PM CDT AMPUTATION TOE 12/26/2024 11:42 AM CDT SURGICAL PATHOLOGY Routine 12/26/2024 10:48 AM CDT Osteomyelitis of toe (HCC) POCT GLUCOSE DEVICE Routine 12/26/2024 10:46 AM CDT POCT GLUCOSE DEVICE Routine 12/26/2024 7 :59 AM CDT POCT GLUCOSE DEVICE Routine 12/25/2024 8 :49 PM CDT POCT GLUCOSE DEVICE Routine 12/25/2024 5 :24 PM CDT POCT GLUCOSE DEVICE Routine 12/25/2024 12:23 PM CDT POCT GLUCOSE DEVICE Routine 12/25/2024 8 :25 AM CDT POCT GLUCOSE DEVICE Routine 12/24/2024 7 :44 PM CDT POCT GLUCOSE DEVICE Routine 12/24/2024 4 :38 PM CDT POCT GLUCOSE DEVICE Routine 12/24/2024 11:26 AM CDT VANCOMYCIN LEVEL TROUGH Timed 12/24/2024 8:56 AM CDT POCT GLUCOSE DEVICE Routine 12/24/2024 8 :03 AM CDT EGFR Routine 12/24/2024 2:33 AM CDT DIFFERENTIAL AUTO Routine 12/24/2024 2:3 3 AM CDT BASIC METABOLIC PANEL Routine 12/24/2024 2:33 AM CDT CBC WITH AUTO DIFFERENTIAL Routine 12/24/2024 2:33 AM CDT POCT GLUCOSE DEVICE Routine 12/23/2024 7 :43 PM CDT POCT GLUCOSE DEVICE Routine 12/23/2024 5 :25 PM CDT POCT GLUCOSE DEVICE Routine 12/23/2024 11:07 AM CDT POCT GLUCOSE DEVICE Routine 12/23/2024 7 :21 AM CDT POCT GLUCOSE DEVICE Routine 12/22/2024 8 :20 PM CDT POCT GLUCOSE DEVICE Routine 12/22/2024 5 :08 PM CDT POCT GLUCOSE DEVICE Routine 12/22/2024 12:25 PM CDT POCT GLUCOSE DEVICE Routine 12/22/2024 7 :42 AM CDT EGFR Routine 12/22/2024 7:06 AM CDT DIFFERENTIAL AUTO Routine 12/22/2024 7:0 6 AM CDT VANCOMYCIN LEVEL TROUGH Timed 12/22/2024 7:06 AM CDT BASIC METABOLIC PANEL Routine 12/22/2024 7:06 AM CDT CBC WITH AUTO DIFFERENTIAL Routine 12/22/2024 7:06 AM CDT POCT GLUCOSE DEVICE Routine 12/21/2024 8 :29 PM CDT POCT GLUCOSE DEVICE Routine 12/21/2024 4 :[address] FOOT LEFT W CONTRAST ED Urgent/IP Urgent 12/21/2024 12:46 PM CDT POCT GLUCOSE DEVICE Routine 12/21/2024 12:45 PM CDT POCT GLUCOSE DEVICE Routine 12/21/2024 7 :25 AM CDT EGFR Routine 12/21/2024 6:48 AM CDT DIFFERENTIAL AUTO Routine 12/21/2024 6:4 8 AM CDT COMPREHENSIVE METABOLIC PANEL Routine 12/21/2024 6:48 AM CDT CBC WITH AUTO DIFFERENTIAL Routine 12/21/2024 6:48 AM CDT POCT GLUCOSE DEVICE Routine 12/20/2024 8 :11 PM CDT POCT GLUCOSE DEVICE Routine 12/20/2024 5 :03 PM CDT US SHAKIRA IP Routine 12/20/2024 3:16 PM CDT TRANSTHORACIC ECHO (TTE) LIMITED/FOLLOW UP W LTD DOPPLER/CF WO CONTRAST Routine 12/20/2024 1:45 PM CDT POCT GLUCOSE DEVICE Routine 12/20/2024 11:55 AM CDT BLOOD CULTURE STAT 12/20/2024 9:01 AM CDT BLOOD CULTURE STAT 12/20/2024 8:54 AM CDT POCT GLUCOSE DEVICE Routine 12/20/2024 7 :53 AM CDT VANCOMYCIN LEVEL TROUGH Timed 12/20/2024 7:40 AM CDT EGFR Routine 12/20/2024 2:45 AM CDT DIFFERENTIAL AUTO Routine 12/20/2024 2:4 5 AM CDT BASIC METABOLIC PANEL Routine 12/20/2024 2:45 AM CDT CBC WITH AUTO DIFFERENTIAL Routine 12/20/2024 2:45 AM CDT POCT GLUCOSE DEVICE Routine 12/19/2024 7 :34 PM CDT POCT GLUCOSE DEVICE Routine 12/19/2024 4 :00 PM CDT US VEIN DUPLEX LOWER EXTREMITY BILATERAL COMPLETE IP Routine 12/19/2024 2:34 PM CDT POCT GLUCOSE DEVICE Routine 12/19/2024 11:[address] ENTIRE LOWER EXTREMITY BILATERAL W CONTRAST ED Urgent/IP Urgent 12/19/2024 10:40 AM CDT POCT GLUCOSE DEVICE Routine 12/19/2024 7 :22 AM CDT EGFR Routine 12/19/2024 3:21 AM CDT LIPID PANEL Routine 12/19/2024 3:21 AM CDT CBC WITHOUT DIFFERENTIAL Routine 12/19/2024 3:21 AM CDT BASIC METABOLIC PANEL Routine 12/19/2024 3:21 AM CDT POCT GLUCOSE DEVICE Routine 12/18/2024 11:51 PM CDT POCT GLUCOSE DEVICE Routine 12/18/2024 9 :54 PM CDT SEPSIS LACTATE WITH REFLEX Timed 12/18/2024 9:04 PM CDT BLOOD CULTURE STAT 12/18/2024 9:04 PM CDT BLOOD CULTURE STAT 12/18/2024 8:52 PM CDT XR TOE 2ND DIGIT LEFT ED 12/18/2024 7:25 PM CDT XR CHEST PA LATERAL 2 VIEWS ED 12/18/2024 7:25 PM CDT URINALYSIS, MICROSCOPIC ONLY STAT 12/18/2024 7:04 PM CDT URINE CULTURE STAT 12/18/2024 7:04 PM CDT URINALYSIS AND REFLEX TO MICROSCOPIC AND CULTURE STAT 12/18/2024 7:04 PM CDT HEMOGLOBIN A1C Routine 12/18/2024 6:58 PM CDT CRP (ACUTE PHASE) STAT 12/18/2024 6:5 8 PM CDT ERYTHROCYTE SEDIMENTATION RATE STAT 12/18/2024 6:58 PM CDT EGFR STAT 12/18/2024 6:58 PM CDT DIFFERENTIAL AUTO STAT 12/18/2024 6:5 8 PM CDT SEPSIS LACTATE WITH REFLEX STAT 12/18/2024 6:58 PM CDT COMPREHENSIVE METABOLIC PANEL STAT 12/18/2024 6:58 PM CDT CBC WITH AUTO DIFFERENTIAL STAT 12/18/2024 6:58 PM CDT POCT GLUCOSE DEVICE Routine 12/18/2024 6 :[address] KUB STONE WO CONTRAST Schedule Routine, Read Routine (OP Routine) 11/11/2024 9:[address] TAVR Schedule Routine, Read Routine (OP Routine) 10/28/2024 10:55 AM CDT S/P TAVR (transcatheter aortic valve replacement) ALBUMIN CREATININE RATIO, URINE Routine 02/28/2024 7:29 AM CDT SCREENING MAMMOGRAM BILATERAL W CJ Schedule Routine, Read Routine (OP Routine) 02/02/2024 9:06 AM CDT Breast cancer screening by mammogram HM DIABETES EYE EXAM Routine 10/25/2023 8:28 AM CDT PAP AND HIGH RISK HPV, REFLEX TO GENOTYPING Routine 09/15/2022 9:51 AM CDT Encounter for well woman exam with routine gynecological exam COLONOSCOPY Routine 08/09/2018 4:37 PM CDT SERUM HEPATITIS PANEL Routine 03/21/2016 5:24 AM CDT from Last 3 Months or Most Recently Relevant to Health Maintenance Results * POCT glucose (12/27/2024 5:16 PM CDT) Glucose, POC 149 70 - 199 mg/dL Blood 12/27/2024 5:16 PM CDT 12/27/2024 5:16 PM CDT John Uriostegui MD LAB POCT ORDERABLES - D EVICE Final Result Performing Organization Address [facility] Co de Phone Number [id number] [place] [address] * POCT glucose (12/27/2024 11:32 AM CDT) Glucose, POC 141 70 - 199 mg/dL Blood 12/27/2024 11:3 2 AM CDT 12/27/2024 11:32 AM CDT John Uriostegui MD LAB POCT ORDERABLES - D EVICE Final Result Performing Organization Address [facility] Co de Phone Number [address] [email or web address] [address] * POCT glucose (12/27/2024 8:22 AM CDT) Glucose, POC 144 70 - 199 mg/dL Blood 12/27/2024 8:22 AM CDT 12/27/2024 8:22 AM CDT us John Uriostegui MD LAB POCT ORDERABLES - D EVICE Final Result Performing Organization Address [facility]/ZIP Co de Phone Number [facility]I [address] [address] * eGFR (12/27/2024 3:45 AM CDT) eGFR 74 >=60 mL/min/1. 73 m2 Comment: Interpretive Data Reference Interval Normal >/= 90 mL/min/1.73m2 Mildly decreased* 60 - 89 mL/min/1.73m2 Mildly to moderately decreased 45 - 59 mL/min/1.73m2 Moderately to severely decreased 30 - 44 mL/min/1.73m2 Severely decreased 15 - 29 mL/min/1.73m2 Kidney Failure < 15 mL/min/1.73m2 *Relative to young adult level Estimated glomerular filtration rate is determined by the 2020 CKD-EPI equation recommended by the National Kidney Foundation (A Unifying Approach to GFR Estimation: Recommendations of the NKF-ASK Task Force on Reassessing the Inclusion of Race in Diagnosing Kidney Disease, JASN 2020). The CKD-EPI equation should not be used for patients with unstable renal function and has not been validated in children and those over 70. Current interpretive data was last reviewed 2021. Blood 12/27/2024 3:45 AM CDT 12/27/2024 4:13 AM CDT us Juan Teixeira MD LAB BLOOD ORDERABLES Final Result Performing Organization Address City/[facility]/ZIP Co de Phone Number [facility] [address] [employer] [place] [address] * Differential, auto (12/27/2024 3:45 AM CDT) Pathologist [facility] Neutrophil abs 4.76 1.50 - 6.50 K/cumm Imm gran abs 0.06 0.00 - 0.10 K/cumm [facility] Lymphocyte abs 2.71 0.80 - 3.30 K/cumm [facility] Monocyte abs 0.63 0.20 - 0.80 K/cumm [facility] Eosinophil abs 0.19 0.00 - 0.50 K/cumm [facility] Basophil abs 0.04 0.00 - 0.10 K/cumm [facility] Neutrophil pct 56.7 % [facility] Comment: Interpretive Data Percent cell count reference ranges are not reported, since discordance with absolute values may lead to misinterpretation of CBC data. Current Interpretive Data was last revised on 2017. Imm gran pct 0.7 % [facility] Comment: Interpretive Data Percent cell count reference ranges are not reported, since discordance with absolute values may lead to misinterpretation of CBC data. Current Interpretive Data was last revised on 2017. Lymphocyte pct 32.3 % [facility] Comment: Interpretive Data Percent cell count reference ranges are not reported, since discordance with absolute values may lead to misinterpretation of CBC data. Current Interpretive Data was last revised on 2017. Monocyte pct 7.5 % [facility] Comment: Interpretive Data Percent cell count reference ranges are not reported, since discordance with absolute values may lead to misinterpretation of CBC data. Current Interpretive Data was last revised on 2017. Eosinophil pct 2.3 % [facility] Comment: Interpretive Data Percent cell count reference ranges are not reported, since discordance with absolute values may lead to misinterpretation of CBC data. Current Interpretive Data was last revised on 2017. Basophil pct 0.5 % [facility] Comment: Interpretive Data Percent cell count reference ranges are not reported, since discordance with absolute values may lead to misinterpretation of CBC data. Current Interpretive Data was last revised on 2017. Blood 12/27/2024 3:45 AM CDT 12/27/2024 4:13 AM CDT us Juan Teixeira MD LAB BLOOD ORDERABLES Final Result [facility] [address] [facility] Department [place] [address] * (ABNORMAL) CBC with auto differential (12/27/2024 3:45 AM CDT) WBC 8.39 3.80 - 9.90 K/cumm Hgb 12.7 11.9 - 15.5 g/dL [facility] Hct 39.3 35.6 - 45.5 % [facility] Plt 148(L) 150 - 400 K/cumm [facility] MPV 9.3 9.1 - 12.3 fL [facility] RBC 4.66 3.90 - 5.20 M/cumm [facility] MCV 84.3 81.3 - 96.4 fL [facility] MCH 27.3 27.1 - 33.3 pg [facility] MCHC 32.3 32.3 - 35.7 g/dL [facility] RDW CV 13.6 11.1 - 14.9 % [facility] RDW SD 41.5 35.7 - 48.1 fL [facility] NRBC abs 0.00 0.00 - 0.01 K/cumm [facility] Blood 12/27/2024 3:45 AM CDT 12/27/2024 4:13 AM CDT Juan Teixeira MD LAB BLOOD ORDERABLES Final Result Performing Organization Address City/State/[facility] Co de Phone Number [facility] [address] [facility] Department [place] [address] * Basic metabolic panel (12/27/2024 3:45 AM CDT) Sodium 139 135 - 145 mmol/L Potassium, pl 3.9 3.3 - 4.9 mmol/L [facility] Chloride 102 97 - 110 mmol/L [facility] CO2 26 22 - 32 mmol/L [facility] Anion gap 11 2 - 15 mmol/L [facility] BUN 19 6 - 25 mg/dL [facility] Creatinine 0.88 0.60 - 1.10 mg/dL [facility] Glucose 129 70 - 199 mg/dL [facility] Comment: Interpretive Data Fasting glucose >/= 126 mg/dl is diagnostic for diabetes. Fasting is defined as no caloric intake for at least 8 hours. Fasting glucose between 100 mg/dl to 125 mg/dl is diagnostic of prediabetes. In a patient with classic symptoms of hyperglycemia or hyperglycemic crisis, a random glucose >/= 200 mg/dl is diagnostic for diabetes. In the absence of unequivocal hyperglycemia, results should be confirmed by repeat testing. The classification and Diagnosis of Diabetes Diabetes Care 2021; 46: S19-S40. Current interpretive data was last revised 2022. Calcium 9.0 8.5 - 10.3 mg/dL [facility] Blood 12/27/2024 3:45 AM CDT 12/27/2024 4:13 AM CDT Juan Teixeira MD LAB BLOOD ORDERABLES Final Result Performing Organization Address City/[facility] Co de Phone Number [facility] [address] [place] [address] * eGFR (12/26/2024 9:54 PM CDT) eGFR 70 >=60 mL/min/1. 73 m2 Comment: Interpretive Data Reference Interval Normal >/= 90 mL/min/1.73m2 Mildly decreased* 60 - 89 mL/min/1.73m2 Mildly to moderately decreased 45 - 59 mL/min/1.73m2 Moderately to severely decreased 30 - 44 mL/min/1.73m2 Severely decreased 15 - 29 mL/min/1.73m2 Kidney Failure < 15 mL/min/1.73m2 *Relative to young adult level Estimated glomerular filtration rate is determined by the 2020 CKD-EPI equation recommended by the National Kidney Foundation (A Unifying Approach to GFR Estimation: Recommendations of the NKF-ASK Task Force on Reassessing the Inclusion of Race in Diagnosing Kidney Disease, JASN 2020). The CKD-EPI equation should not be used for patients with unstable renal function and has not been validated in children and those over 70. Current interpretive data was last reviewed 2021. Blood 12/26/2024 9:54 PM CDT 12/26/2024 10:08 PM CDT Juan Teixeira MD LAB BLOOD ORDERABLES Final Result Performing Organization Address [facility] Co de Phone Number MAI [facility] [place] [address] * CBC without differential (12/26/2024 9:54 PM CDT) WBC 9.20 3.80 - 9.90 K/cumm Hgb 12.7 11.9 - 15.5 g/dL [facility] Hct 38.7 35.6 - 45.5 % [facility] Plt 165 150 - 400 K/cumm [facility] MPV 9.5 9.1 - 12.3 fL [facility] RBC 4.61 3.90 - 5.20 M/cumm [facility] MCV 83.9 81.3 - 96.4 fL [facility] MCH 27.5 27.1 - 33.3 pg [facility] MCHC 32.8 32.3 - 35.7 g/dL [facility] RDW CV 13.4 11.1 - 14.9 % [facility] RDW SD 40.9 35.7 - 48.1 fL [facility] NRBC abs 0.00 0.00 - 0.01 K/cumm [facility] Blood 12/26/2024 9:54 PM CDT 12/26/2024 10:08 PM CDT us Juan Teixeira MD LAB BLOOD ORDERABLES Final Result [facility] [address] [facility] Department [place] [address] * Basic metabolic panel (12/26/2024 9:54 PM CDT) [facility] Sodium 140 135 - 145 mmol/L Potassium, pl 3.7 3.3 - 4.9 mmol/L [facility] Chloride 101 97 - 110 mmol/L [facility] CO2 27 22 - 32 mmol/L [facility] Anion gap 12 2 - 15 mmol/L [facility] BUN 21 6 - 25 mg/dL [facility] Creatinine 0.92 0.60 - 1.10 mg/dL [facility] Glucose 147 70 - 199 mg/dL [facility] Comment: Interpretive Data Fasting glucose >/= 126 mg/dl is diagnostic for diabetes. Fasting is defined as no caloric intake for at least 8 hours. Fasting glucose between 100 mg/dl to 125 mg/dl is diagnostic of prediabetes. In a patient with classic symptoms of hyperglycemia or hyperglycemic crisis, a random glucose >/= 200 mg/dl is diagnostic for diabetes. In the absence of unequivocal hyperglycemia, results should be confirmed by repeat testing. The classification and Diagnosis of Diabetes Diabetes Care 202; 46: S19-S40. Current interpretive data was last revised 2022. Calcium 9.1 8.5 - 10.3 mg/dL [facility] Blood 12/26/2024 9:54 PM CDT 12/26/2024 10:08 PM CDT us Juan Teixeira MD LAB BLOOD ORDERABLES Final Result Performing Organization Address City/[facility]/ZIP Co de Phone Number [address] [place] [address] * POCT glucose (12/26/2024 7:13 PM CDT) Glucose, POC 143 70 - 199 mg/dL Glucose comment 1 RN/MD Notified [facility] Blood 12/26/2024 7:13 PM CDT 12/26/2024 7:13 PM CDT John Uriostegui MD LAB POCT ORDERABLES - D EVICE Final Result Performing Organization Address City/[facility] Co de Phone Number [address] [place] [address] * POCT glucose (12/26/2024 6:02 PM CDT) Glucose, POC 143 70 - 199 mg/dL Blood 12/26/2024 6:02 PM CDT 12/26/2024 6:02 PM CDT John Uriostegui MD LAB POCT ORDERABLES - D EVICE Final Result Performing Organization Address City/[facility] Co de Phone Number [address] [place] [address] * POCT glucose (12/26/2024 12:39 PM CDT) Glucose, POC 129 70 - 199 mg/dL Glucose comment 1 Use This Result [facility] Blood 12/26/2024 12:3 9 PM CDT 12/26/2024 12:39 PM CDT John Uriostegui MD LAB POCT ORDERABLES - D EVICE Final Result Performing Organization Address [facility] de Phone Number [facility] [address] [place] [address] * Tissue aerobic and anaerobic culture and gram stain Bone Toe, second, right (12/26/2024 12:11 PM CDT) Direct Specimen Exam Stain: No polymorphonuclear leukocytes seen. No organisms seen. Comment:Testing performed by : [facility], [address] [place]., [address] Report Final Report: No growth MAI Comment:Testing performed by : [facility], [address] [place]., [address] Bone (Toe, second, right) 12/26/2024 12:11 PM CDT 12/26/2024 3:52 PM CDT Narrative MAI - 12/29/2024 12:22 PM CDT Left 2nd toe bone for culture Testing performed by [facility] Microbiology Laboratory ([phone]) Specimens submitted from normally sterile body sites will have all bacterial morphotypes identified. Specimens that contain grossly mixed maddie and/or are from body sites that are not normally sterile will be examined for Staphylococcus aureus, Pseudomonas aeruginosa, beta-hemolytic strep, vancomycin-resistant Enterococcus, Bacteroides, Parabacteroides, Clostridium perfringens and fungus. If any of these are isolated, the organism will be reported. Current interpretive data was last revised on 2019. Juan Teixeira MD LAB MICROBIOLOGY - GENERAL ORDERABLES Final Result Performing Organization Address City/[facility]/ZIP Co de Phone Number [facility] [address] [facility] [employer] [address] * Surgical pathology (12/26/2024 10:48 AM CDT) Tissue (Amputation non-tramatic) 12/26/2024 10:48 AM CDT Narrative PATHOLOGY [facility] - 12/27/2024 4:[address] [facility] Department of Pathology [address] [place] [id number] Note to Patients: This report may contain a detailed description of human tissue sent by a health care provider to the laboratory for pathologic evaluation. The content of this report is essential for diagnosis and may provide important critical findings. This information may be unfamiliar to patients to review without a medical professional present. It is advised that the patient review this report in the presence of a health care provider who can answer questions and explain the details. Final Report Patient Name: CECE SOARES : 1960 (Age: 64) Gender: F Address: [address] [place] [id number] Hospital #: [id number] Service: Medical Location: Patient Type: [facility] INPATIENT Taken: 12/26/2024 Received: 12/26/2024 Accessioned: 12/26/2024 Reported: 12/27/2024 Physician(s): MD Javier Vergara PA-C Diagnosis: Left second toe, amputation: - Ulcer (gross diagnosis). Ubaldo Pino M.D. Report Electronically Reviewed and Signed Out By Ubaldo Pino M.D. 12/27/2024 16:24:55 Specimen(s) Received: A: Left second toe Microscopic Description: Unless gross-only is specified, the final diagnosis for each specimen is based on a microscopic examination of each tissue sample. Clinical History: The patient is a 64-year-old woman with osteomyelitis of the toe. Operative procedure: left second amputation toe. Gross Description Received in formalin, labeled with the patient s identifiers and left second toe and consists of a 6.0 x 2.5 x 2.3 cm left toe that is disarticulated at the metatarsophalangeal joint and has a smooth articular surface. There is a 2.0 x 1.5 cm indurated ulcer that entirely involves the nail and is 2.1 cm from the nearest skin and soft tissue resection margin. The remaining skin is hercules-white with a small amount of skin slippage. Sectioning reveals hercules-yellow, firm trabecular bone. Digital photographs are taken and the specimen is submitted for gross examination only. Qasim Martino slmhb/12/26/2024 14:15 MAURICIO Carrasquillo Microscopic slide review and interpretation for this case was performed at [facility], Department of Surgical Pathology, [address] [facility] [place], [place] [id number], [place] [address] CLIA # [id number] us Juan Teixeira MD LAB PATHOLOGY ORDERABLES Fi nal Result Performing Organization Address [facility] Co de Phone Number PATHOLOGY [facility] * POCT glucose (12/26/2024 10:46 AM CDT) Glucose, POC 138 70 - 199 mg/dL Blood 12/26/2024 10:4 6 AM CDT 12/26/2024 10:46 AM CDT John Uriostegui MD LAB POCT ORDERABLES - D EVICE Final Result Performing Organization Address [facility] Co de Phone Number [address] [place] [address] * POCT glucose (12/26/2024 7:59 AM CDT) Glucose, POC 128 70 - 199 mg/dL Blood 12/26/2024 7:59 AM CDT 12/26/2024 7:59 AM CDT John Uriostegui MD LAB POCT ORDERABLES - D EVICE Final Result Performing Organization Address [facility] Co de Phone Number [address] [place] [address] * POCT glucose (12/25/2024 8:49 PM CDT) Glucose, POC 162 70 - 199 mg/dL Blood 12/25/2024 8:49 PM CDT 12/25/2024 8:49 PM CDT us John Uriostegui MD LAB POCT ORDERABLES - D EVICE Final Result Performing Organization Address [facility] de Phone Number JASVIR[address] [place] [address] * POCT glucose (12/25/2024 5:24 PM CDT) Glucose, POC 115 70 - 199 mg/dL Blood 12/25/2024 5:24 PM CDT 12/25/2024 5:24 PM CDT John Uriostegui MD LAB POCT ORDERABLES - D EVICE Final Result Performing Organization Address [facility] de Phone Number JASVIR[address] [place] [address] * POCT glucose (12/25/2024 12:23 PM CDT) Glucose, POC 159 70 - 199 mg/dL Blood 12/25/2024 12:2 3 PM CDT 12/25/2024 12:23 PM CDT John Uriostegui MD LAB POCT ORDERABLES - D EVICE Final Result Performing Organization Address [facility] de Phone Number [address] [place] [address] * POCT glucose (12/25/2024 8:25 AM CDT) Glucose, POC 178 70 - 199 mg/dL Blood 12/25/2024 8:25 AM CDT 12/25/2024 8:25 AM CDT John Uriostegui MD LAB POCT ORDERABLES - D EVICE Final Result Performing Organization Address [facility] Co de Phone Number MAI [address] [place] [address] * POCT glucose (12/24/2024 7:44 PM CDT) Glucose, POC 175 70 - 199 mg/dL Glucose comment 1 RN/MD Notified MAI Blood 12/24/2024 7:44 PM CDT 12/24/2024 7:44 PM CDT us Soledad Harris MD LAB POCT ORDERABLES - DEVICE Final Result Performing Organization Address [facility] de Phone Number MAI [address] [address] * POCT glucose (12/24/2024 4:38 PM CDT) Glucose, POC 162 70 - 199 mg/dL Comment:Testing performed by : [address] [address] Blood 12/24/2024 4:38 PM CDT 12/24/2024 4:38 PM CDT us Soledad Harris MD LAB POCT ORDERABLES - DEVICE Final Result Performing Organization Address [facility] de Phone Number JASVIR[address] [address] * POCT glucose (12/24/2024 11:26 AM CDT) Glucose, POC 134 70 - 199 mg/dL Comment:Testing performed by : [address] [address] Blood 12/24/2024 11:2 6 AM CDT 12/24/2024 11:26 AM CDT us Soledad Harris MD LAB POCT ORDERABLES - DEVICE Final Result Performing Organization Address City/[facility]/ZIP Co de Phone Number MAI [address] [address] * Vancomycin level trough (12/24/2024 8:56 AM CDT) [facility] Vancomycin trough 12.7 10.0 - 20.0 mcg/mL Comment:Testing performed by : [address] [address] Blood 12/24/2024 8:56 AM CDT 12/24/2024 9:12 AM CDT us Soledad Harris MD LAB BLOOD ORDERABLES Final Re sult Performing Organization Address [facility] Co de Phone Number MAI [address] [address] * POCT glucose (12/24/2024 8:03 AM CDT) [facility] Glucose, POC 168 70 - 199 mg/dL Comment:Testing performed by : [address] [address] Blood 12/24/2024 8:03 AM CDT 12/24/2024 8:03 AM CDT us Soledad Harris MD LAB POCT ORDERABLES - DEVICE Final Result Performing Organization Address [facility] Co de Phone Number MAI [address] [address] * eGFR (12/24/2024 2:33 AM CDT) [facility] eGFR >90 >=60 mL/min/1. 73 m2 Comment: Interpretive Data Reference Interval Normal >/= 90 mL/min/1.73m2 Mildly decreased* 60 - 89 mL/min/1.73m2 Mildly to moderately decreased 45 - 59 mL/min/1.73m2 Moderately to severely decreased 30 - 44 mL/min/1.73m2 Severely decreased 15 - 29 mL/min/1.73m2 Kidney Failure < 15 mL/min/1.73m2 *Relative to young adult level Estimated glomerular filtration rate is determined by the 2020 CKD-EPI equation recommended by the National Kidney Foundation (A Unifying Approach to GFR Estimation: Recommendations of the NKF-ASK Task Force on Reassessing the Inclusion of Race in Diagnosing Kidney Disease, JASN 2020). The CKD-EPI equation should not be used for patients with unstable renal function and has not been validated in children and those over 70. Current interpretive data was last reviewed 2021. Testing performed by: [address] [address] Blood 12/24/2024 2:33 AM CDT 12/24/2024 2:48 AM CDT us Nan Calderon MD LAB BLOOD ORDERABLES Final R esult [place] [id number] [facility] Department [place] [address] * Differential, auto (12/24/2024 2:33 AM CDT) Neutrophil abs 4.47 1.50 - 6.50 K/cumm Comment:Testing performed by : [address] [address] Imm gran abs 0.07 0.00 - 0.10 K/cumm MAI Comment:Testing performed by : [address] [address] Lymphocyte abs 2.45 0.80 - 3.30 K/cumm MAI Comment:Testing performed by : [address] [address] Monocyte abs 0.58 0.20 - 0.80 K/cumm MAI Comment:Testing performed by : [address] [address] Eosinophil abs 0.19 0.00 - 0.50 K/cumm MAI Comment:Testing performed by : [address] [address] Basophil abs 0.03 0.00 - 0.10 K/cumm MAI Comment:Testing performed by : [address] [address] Neutrophil pct 57.4 % MAI Comment: Interpretive Data Percent cell count reference ranges are not reported, since discordance with absolute values may lead to misinterpretation of CBC data. Current Interpretive Data was last revised on 2017. Testing performed by: [address] [address] Imm gran pct 0.9 % MAI Comment: Interpretive Data Percent cell count reference ranges are not reported, since discordance with absolute values may lead to misinterpretation of CBC data. Current Interpretive Data was last revised on 2017. Testing performed by: [address] [address] Lymphocyte pct 31.5 % MAI Comment: Interpretive Data Percent cell count reference ranges are not reported, since discordance with absolute values may lead to misinterpretation of CBC data. Current Interpretive Data was last revised on 2017. Testing performed by: [address] [address] Monocyte pct 7.4 % [facility] Comment: Interpretive Data Percent cell count reference ranges are not reported, since discordance with absolute values may lead to misinterpretation of CBC data. Current Interpretive Data was last revised on 2017. Testing performed by: [address] [address] Eosinophil pct 2.4 % [facility] Comment: Interpretive Data Percent cell count reference ranges are not reported, since discordance with absolute values may lead to misinterpretation of CBC data. Current Interpretive Data was last revised on 2017. Testing performed by: [address] [address] Basophil pct 0.4 % [facility] Comment: Interpretive Data Percent cell count reference ranges are not reported, since discordance with absolute values may lead to misinterpretation of CBC data. Current Interpretive Data was last revised on 2017. Testing performed by: [address] [address] Blood 12/24/2024 2:33 AM CDT 12/24/2024 2:53 AM CDT us Nan Calderon MD LAB BLOOD ORDERABLES Final R esult MAI [address] [facility] Department [place] [address] * (ABNORMAL) CBC with auto differential (12/24/2024 2:33 AM CDT) WBC 7.79 3.80 - 9.90 K/cumm Comment:Testing performed by : [address] [address] Hgb 12.8 11.9 - 15.5 g/dL MAI Comment:Testing performed by : [address] [address] Hct 38.6 35.6 - 45.5 % MAI Comment:Testing performed by : [address] [address] Plt 150 150 - 400 K/cumm MAI Comment:Testing performed by : [address] [address] MPV 8.9(L) 9.1 - 12.3 fL MAI Comment:Testing performed by : [address] [address] RBC 4.70 3.90 - 5.20 M/cumm MAI Comment:Testing performed by : [address] [address] MCV 82.1 81.3 - 96.4 fL MAI Comment:Testing performed by : [address] [address] MCH 27.2 27.1 - 33.3 pg MAI DEL R[place] Comment:Testing performed by : [address] [address] MCHC 33.2 32.3 - 35.7 g/dL MAI DEL R[place] Comment:Testing performed by : [address] [address] RDW CV 13.4 11.1 - 14.9 % MAI [place] R[place] Comment:Testing performed by : [address] [address] RDW SD 40.2 35.7 - 48.1 fL MAI DEL R[place] Comment:Testing performed by : [address] [address] NRBC abs 0.00 0.00 - 0.01 K/cumm MAI DEL [place] Comment:Testing performed by : [address] [address] Blood 12/24/2024 2:33 AM CDT 12/24/2024 2:53 AM CDT us Nan Calderon MD LAB BLOOD ORDERABLES Final R esult MAI [facility] Department [place] [address] * (ABNORMAL) Basic metabolic panel (12/24/2024 2:33 AM CDT) Sodium 138 135 - 145 mmol/L Comment:Testing performed by : [address] [address] Potassium, pl 3.7 3.3 - 4.9 mmol/L MAI [place] Comment:Testing performed by : [address] [address] Chloride 102 97 - 110 mmol/L MAI DEL R[place] Comment:Testing performed by : [address] [address] CO2 22 22 - 32 mmol/L MAI [place] Comment:Testing performed by : [address] [address] Anion gap 14 2 - 15 mmol/L MAI [place] Comment:Testing performed by : [address] [address] BUN 18 6 - 25 mg/dL MAI [place] Comment:Testing performed by : [address] [address] Creatinine 0.74 0.60 - 1.10 mg/dL MAI [place] Comment:Testing performed by : [address] [address] Glucose 202(H) 70 - 199 mg/dL MAI Comment: Interpretive Data Fasting glucose >/= 126 mg/dl is diagnostic for diabetes. Fasting is defined as no caloric intake for at least 8 hours. Fasting glucose between 100 mg/dl to 125 mg/dl is diagnostic of prediabetes. In a patient with classic symptoms of hyperglycemia or hyperglycemic crisis, a random glucose >/= 200 mg/dl is diagnostic for diabetes. In the absence of unequivocal hyperglycemia, results should be confirmed by repeat testing. The classification and Diagnosis of Diabetes Diabetes Care 2021; 46: S19-S40. Current interpretive data was last revised 2022. Testing performed by: [address] [address] Calcium 9.5 8.5 - 10.3 mg/dL MAI Comment:Testing performed by : [address] [address] Blood 12/24/2024 2:33 AM CDT 12/24/2024 2:48 AM CDT us Nan Calderon MD LAB BLOOD ORDERABLES Final R esult Performing Organization Address City/[facility]/ZIP Co de Phone Number [address] [employer] [address] * POCT glucose (12/23/2024 7:43 PM CDT) [facility] Signature Glucose, POC 182 70 - 199 mg/dL Comment:Testing performed by : [address] [address] Blood 12/23/2024 7:43 PM CDT 12/23/2024 7:43 PM CDT us Soledad Harris MD LAB POCT ORDERABLES - DEVICE Final Result Performing Organization Address City/[facility]/ZIP Co de Phone Number JASVIR[address] [employer] [address] * POCT glucose (12/23/2024 5:25 PM CDT) Glucose, POC 148 70 - 199 mg/dL Comment:Testing performed by : [address] [address] Blood 12/23/2024 5:25 PM CDT 12/23/2024 5:25 PM CDT us Soledad Harris MD LAB POCT ORDERABLES - DEVICE Final Result Performing Organization Address City/[facility]/ZIP Co de Phone Number MAI [address] [place] [address] * POCT glucose (12/23/2024 11:07 AM CDT) Glucose, POC 118 70 - 199 mg/dL Comment:Testing performed by : [address] [address] Blood 12/23/2024 11:0 7 AM CDT 12/23/2024 11:07 AM CDT us Soledad Harris MD LAB POCT ORDERABLES - DEVICE Final Result Performing Organization Address [facility] Co de Phone Number JASVIR[address] [place] [address] * POCT glucose (12/23/2024 7:21 AM CDT) Glucose, POC 146 70 - 199 mg/dL Comment:Testing performed by : [address] [address] Blood 12/23/2024 7:21 AM CDT 12/23/2024 7:21 AM CDT us Soledad Harris MD LAB POCT ORDERABLES - DEVICE Final Result Performing Organization Address City/[facility] Co de Phone Number JASVIR[address] [place] [address] * (ABNORMAL) POCT glucose (12/22/2024 8:20 PM CDT) Glucose, POC 234(H) 70 - 199 mg/dL Comment:Testing performed by : [address] [address] Blood 12/22/2024 8:20 PM CDT 12/22/2024 8:20 PM CDT Soledad Harris MD LAB POCT ORDERABLES - DEVICE Final Result Performing Organization Address [facility] Co de Phone Number [address] [place] [address] * POCT glucose (12/22/2024 5:08 PM CDT) Glucose, POC 124 70 - 199 mg/dL Comment:Testing performed by : [address] [address] Blood 12/22/2024 5:08 PM CDT 12/22/2024 5:08 PM CDT Soledad Harris MD LAB POCT ORDERABLES - DEVICE Final Result Performing Organization Address [facility] Co de Phone Number JASVIR[address] [place] [address] * POCT glucose (12/22/2024 12:25 PM CDT) Glucose, POC 126 70 - 199 mg/dL Comment:Testing performed by : [address] [address] Glucose comment 1 Will Repeat Test MAI DEL RIO Comment:Testing performed by : [address] [address] Glucose comment 2 RN/MD Notified MAI Comment:Testing performed by : [address] [address] Blood 12/22/2024 12:2 5 PM CDT 12/22/2024 12:25 PM CDT Soledad Harris MD LAB POCT ORDERABLES - DEVICE Final Result Performing Organization Address [facility] Co de Phone Number MAI [facility] [place] [address] * POCT glucose (12/22/2024 7:42 AM CDT) Glucose, POC 150 70 - 199 mg/dL Comment:Testing performed by : [address] [address] Glucose comment 1 Will Repeat Test MAI DEL R[place] Comment:Testing performed by : [address] [address] Glucose comment 2 RN/MD Notified MAI Comment:Testing performed by : [address] [address] Blood 12/22/2024 7:42 AM CDT 12/22/2024 7:42 AM CDT Soledad Harris MD LAB POCT ORDERABLES - DEVICE Final Result Performing Organization Address [facility] Co de Phone Number MAI [address] of [place] [address] * eGFR (12/22/2024 7:06 AM CDT) eGFR 72 >=60 mL/min/1. 73 m2 Comment: Interpretive Data Reference Interval Normal >/= 90 mL/min/1.73m2 Mildly decreased* 60 - 89 mL/min/1.73m2 Mildly to moderately decreased 45 - 59 mL/min/1.73m2 Moderately to severely decreased 30 - 44 mL/min/1.73m2 Severely decreased 15 - 29 mL/min/1.73m2 Kidney Failure < 15 mL/min/1.73m2 *Relative to young adult level Estimated glomerular filtration rate is determined by the 2020 CKD-EPI equation recommended by the National Kidney Foundation (A Unifying Approach to GFR Estimation: Recommendations of the NKF-ASK Task Force on Reassessing the Inclusion of Race in Diagnosing Kidney Disease, JASN 2020). The CKD-EPI equation should not be used for patients with unstable renal function and has not been validated in children and those over 70. Current interpretive data was last reviewed 2021. Testing performed by: [address] [address] Blood 12/22/2024 7:06 AM CDT 12/22/2024 8:12 AM CDT us Soledad Harris MD LAB BLOOD ORDERABLES Final Re sult [facility] [address] [facility] Department [place] [address] * Differential, auto (12/22/2024 7:06 AM CDT) Neutrophil abs 3.96 1.50 - 6.50 K/cumm Comment:Testing performed by : [address] [address] Imm gran abs 0.06 0.00 - 0.10 K/cumm MAI Comment:Testing performed by : [address] [address] Lymphocyte abs 1.80 0.80 - 3.30 K/cumm MAI Comment:Testing performed by : [address] [address] Monocyte abs 0.54 0.20 - 0.80 K/cumm MAI Comment:Testing performed by : [address] [address] Eosinophil abs 0.21 0.00 - 0.50 K/cumm MAI Comment:Testing performed by : [address] [address] Basophil abs 0.04 0.00 - 0.10 K/cumm MAI Comment:Testing performed by : [address] [address] Neutrophil pct 59.9 % MAI Comment: Interpretive Data Percent cell count reference ranges are not reported, since discordance with absolute values may lead to misinterpretation of CBC data. Current Interpretive Data was last revised on 2017. Testing performed by: [address] [address] Imm gran pct 0.9 % [facility] Comment: Interpretive Data Percent cell count reference ranges are not reported, since discordance with absolute values may lead to misinterpretation of CBC data. Current Interpretive Data was last revised on 2017. Testing performed by: [address] [address] Lymphocyte pct 27.2 % [facility] Comment: Interpretive Data Percent cell count reference ranges are not reported, since discordance with absolute values may lead to misinterpretation of CBC data. Current Interpretive Data was last revised on 2017. Testing performed by: [address] [address] Monocyte pct 8.2 % [facility] Comment: Interpretive Data Percent cell count reference ranges are not reported, since discordance with absolute values may lead to misinterpretation of CBC data. Current Interpretive Data was last revised on 2017. Testing performed by: [address] [address] Eosinophil pct 3.2 % [facility] Comment: Interpretive Data Percent cell count reference ranges are not reported, since discordance with absolute values may lead to misinterpretation of CBC data. Current Interpretive Data was last revised on 2017. Testing performed by: [address] [address] Basophil pct 0.6 % [facility] Comment: Interpretive Data Percent cell count reference ranges are not reported, since discordance with absolute values may lead to misinterpretation of CBC data. Current Interpretive Data was last revised on 2017. Testing performed by: [address] [address] Blood 12/22/2024 7:06 AM CDT 12/22/2024 8:12 AM CDT us Soledad Harris MD LAB BLOOD ORDERABLES Final Re sult MAI [address] [facility] Department [place] [address] * (ABNORMAL) CBC with auto differential (12/22/2024 7:06 AM CDT) [facility] WBC 6.61 3.80 - 9.90 K/cumm Comment:Testing performed by : [address] [address] Hgb 13.3 11.9 - 15.5 g/dL MAI Comment:Testing performed by : [address], [address] Hct 40.0 35.6 - 45.5 % MAI Comment:Testing performed by : [address] [address] Plt 149(L) 150 - 400 K/cumm MAI Comment:Testing performed by : [address] [address] MPV 9.2 9.1 - 12.3 fL MAI Comment:Testing performed by : [address], [address] RBC 4.82 3.90 - 5.20 M/cumm MAI Comment:Testing performed by : [address] [address] MCV 83.0 81.3 - 96.4 fL MAI Comment:Testing performed by : [address] [address] MCH 27.6 27.1 - 33.3 pg MAI Comment:Testing performed by : [address], [address] MCHC 33.3 32.3 - 35.7 g/dL MAI Comment:Testing performed by : [address], [address] RDW CV 13.5 11.1 - 14.9 % MAI Comment:Testing performed by : [address] [address] RDW SD 40.4 35.7 - 48.1 fL MAI Comment:Testing performed by : [address], [address] NRBC abs 0.00 0.00 - 0.01 K/cumm MAI Comment:Testing performed by : [address] [address] Blood 12/22/2024 7:06 AM CDT 12/22/2024 8:12 AM CDT us Soledad Harris MD LAB BLOOD ORDERABLES Final Re sult Performing Organization Address [facility] [facility] de Phone Number [address] [address] * Vancomycin level trough (12/22/2024 7:06 AM CDT) [facility] Vancomycin trough 13.8 10.0 - 20.0 mcg/mL Comment:Testing performed by : [address] [address] Blood 12/22/2024 7:06 AM CDT 12/22/2024 8:12 AM CDT us Nan Calderon MD LAB BLOOD ORDERABLES Final R esult Performing Organization Address [facility] de Phone Number [address] [address] * Basic metabolic panel (12/22/2024 7:06 AM CDT) [facility] Sodium 140 135 - 145 mmol/L Comment:Testing performed by : [address] [address] Potassium, pl 3.9 3.3 - 4.9 mmol/L MAI Comment:Testing performed by : [address] [address] Chloride 100 97 - 110 mmol/L MAI Comment:Testing performed by : [address] [address] CO2 31 22 - 32 mmol/L MAI DEL RIO Comment:Testing performed by : [address] [address] Anion gap 9 2 - 15 mmol/L MAI Comment:Testing performed by : [address] [address] BUN 19 6 - 25 mg/dL MAI Comment:Testing performed by : [address] [address] Creatinine 0.90 0.60 - 1.10 mg/dL MAI Comment:Testing performed by : [address] [address] Glucose 135 70 - 199 mg/dL MAI Comment: Interpretive Data Fasting glucose >/= 126 mg/dl is diagnostic for diabetes. Fasting is defined as no caloric intake for at least 8 hours. Fasting glucose between 100 mg/dl to 125 mg/dl is diagnostic of prediabetes. In a patient with classic symptoms of hyperglycemia or hyperglycemic crisis, a random glucose >/= 200 mg/dl is diagnostic for diabetes. In the absence of unequivocal hyperglycemia, results should be confirmed by repeat testing. The classification and Diagnosis of Diabetes Diabetes Care 2021; 46: S19-S40. Current interpretive data was last revised 2022. Testing performed by: [address] [address] Calcium 9.5 8.5 - 10.3 mg/dL MAI Comment:Testing performed by : [address] [address] Blood 12/22/2024 7:06 AM CDT 12/22/2024 8:12 AM CDT us Soledad Harris MD LAB BLOOD ORDERABLES Final Re sult [facility] [address] [facility] Department [place] [address] * POCT glucose (12/21/2024 8:29 PM CDT) [facility] Signature Glucose, POC 121 70 - 199 mg/dL Comment:Testing performed by : [address] [address] Blood 12/21/2024 8:29 PM CDT 12/21/2024 8:29 PM CDT us Soledad Harris MD LAB POCT ORDERABLES - DEVICE Final Result Performing Organization Address [facility] Co de Phone Number [facility] [place] [address] * POCT glucose (12/21/2024 4:55 PM CDT) [facility] Signature Glucose, POC 139 70 - 199 mg/dL Comment:Testing performed by : [facility], [address] [place] [address]., [id number] Blood 12/21/2024 4:55 PM CDT 12/21/2024 4:55 PM CDT us Soledad Harris MD LAB POCT ORDERABLES - DEVICE Final Result Performing Organization Address [facility] Phone Number [facility] [place] [address] * CT Foot Left W Contrast (12/21/2024 12:46 PM CDT) Anatomical Region Laterality Modality Lower Extremities Left Computed Tomog paty 12/21/2024 1:02 PM CDT Narrative 12/21/2024 1:33 PM CDT EXAM DESCRIPTION: CT FOOT LEFT W CONTRAST REASON FOR STUDY: Osteomyelitis suspected, foot, xray done TECHNIQUE: Multidetector CT scan of the left foot was performed after intravenous contrast. Coronal and sagittal images were reconstructed. Dose modulation adjustment of the mA and/or kV has been performed per [facility] protocols according to patient size and indication CONTRAST TYPE/DOSE: 100mL of IOVERSOL 350 MG IODINE/ML INTRAVENOUS SYRINGE injected via intravenous COMPARISON: X-rays 12/18/2024. CT 12/19/2024 FINDINGS: Patient demonstrates pins from older osteotomy of the distal 1st metatarsal resulting in mild artifact. Healed osteotomy. [place] is seen of the base of the distal phalanx of the great toe. 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 Normal mineralization. No acute fracture or dislocation. There is soft tissue swelling/induration of the subcutaneous soft tissues of the 2nd toe rather diffusely about the distal phalanx extending proximally. No focal fluid collection is suggested to suggest an abscess. Additional MPR images through the toes were obtained on my workstation. There is small focus of loss of cortical distinction along the distal dorsal aspect of the distal phalanx. In this setting, early osteomyelitis is a consideration. This finding is subtle. Mild duration of the soft tissues distal phalanx 3rd toe with no evidence of underlying cortical irregularity. 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 Mild osteoarthritis talonavicular joint. Prominent enthesophyte Achilles tendon insertion. Mild induration of the soft tissues of the foot otherwise. Findings may reflect mild edema. CT is more limited in evaluation of tendinous and ligamentous structures. Given this limitation, no prominent gap is suggested of the flexor or extensor tendons. There is There is prominent thickening of the distal Achilles. No prominent gap to suggest a tear. Findings likely reflect fairly prominent tendinopathy. IMPRESSION: 1. There is soft tissue swelling/induration of the subcutaneous soft tissues of the 2nd toe rather diffusely about the distal phalanx extending proximally. No focal fluid collection is suggested to suggest an abscess. 2. There is a small focus of loss of cortical distinction along the distal dorsal aspect of the distal phalanx of the 2nd toe. In this setting, early osteomyelitis is a consideration. This finding is subtle. 3. Mild induration of the soft tissues of the foot otherwise. Findings may reflect mild edema. 4. 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 5. Postoperative change great toe without complication as above. 6. 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 Mild osteoarthritis talonavicular joint. 7. Prominent thickening of the distal Achilles tendon. No prominent gap to suggest a tear. Findings likely reflect fairly prominent tendinopathy. Prominent enthesophyte formation and heterotopic ossification. THIS IS AN ELECTRONICALLY VERIFIED FINAL REPORT 12/21/2024 1:33 PM - Electronically signed by Magdi Aceves M.D. MJ: ALBERTO Report ID: [id number] Reading Location: [id number] Procedure Note Magdi Aceves MD - 12/21/2024 EXAM DESCRIPTION: CT FOOT LEFT W CONTRAST REASON FOR STUDY: Osteomyelitis suspected, foot, xray done TECHNIQUE: Multidetector CT scan of the left foot was performed after intravenous contrast. Coronal and sagittal images were reconstructed. Dose modulation adjustment of the mA and/or kV has been performed per [facility] protocols according to patient size and indication CONTRAST TYPE/DOSE: 100mL of IOVERSOL 350 MG IODINE/ML INTRAVENOUSSYRINGE injected via intravenous COMPARISON: X-rays 12/18/2024. CT 12/19/2024 FINDINGS: Patient demonstrates pins from older osteotomy of the distal 1st metatarsal resulting in mild artifact. Healed osteotomy. [place] is seenof the base of the distal phalanx of the great toe. 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 Normal mineralization. No acute fracture or dislocation. There is soft tissue swelling/induration of the subcutaneous soft tissuesof the 2nd toe rather diffusely about the distal phalanx extendingproximally. No focal fluid collection is suggested to suggest an abscess. AdditionalMPR images through the toes were obtained on my workstation. There is smallfocus of loss of cortical distinction along the distal dorsal aspect of thedistal phalanx. In this setting, early osteomyelitis is a consideration. This finding is subtle. Mild duration of the soft tissues distal phalanx 3rd toe with no evidenceof underlying cortical irregularity. 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 Mild osteoarthritis talonavicular joint. Prominent enthesophyte Achillestendon insertion. Mild induration of the soft tissues of the foot otherwise. Findings may reflect mild edema. CT is more limited in evaluation of tendinous and ligamentous structures. Given this limitation, no prominent gap is suggested of the flexor orextensor tendons. There is There is prominent thickening of the distal Achilles. No prominent gap to suggest a tear. Findings likely reflect fairly prominent tendinopathy. IMPRESSION: 1. There is soft tissue swelling/induration of the subcutaneous softtissues of the 2nd toe rather diffusely about the distal phalanx extendingproximally. No focal fluid collection is suggested to suggest an abscess. 2. There is a small focus of loss of cortical distinction along thedistal dorsal aspect of the distal phalanx of the 2nd toe. In this setting, early osteomyelitis is a consideration. This finding is subtle. 3. Mild induration of the soft tissues of the foot otherwise. Findingsmay reflect mild edema. 4. 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 5. Postoperative change great toe without complication as above. 6. 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 Mild osteoarthritis talonavicular joint. 7. Prominent thickening of the distal Achilles tendon. No prominent gapto suggest a tear. Findings likely reflect fairly prominent tendinopathy. Prominent enthesophyte formation and heterotopic ossification. THIS IS AN ELECTRONICALLY VERIFIED FINAL REPORT 12/21/2024 1:33 PM - Electronically signed by Magdi Aceves M.D. MJ: ALBERTO Report ID: [id number] Reading Location: [place] [address] Soledad Harris MD IMG CT PROCEDURES Final Resul t * POCT glucose (12/21/2024 12:45 PM CDT) Glucose, POC 142 70 - 199 mg/dL Comment:Testing performed by : [facility], [address] [place] [address]., [id number] Blood 12/21/2024 12:4 5 PM CDT 12/21/2024 12:45 PM CDT Soledad Harris MD LAB POCT ORDERABLES - DEVICE Final Result MAI [address] [facility] Department [place] [address] * POCT glucose (12/21/2024 7:25 AM CDT) Glucose, POC 154 70 - 199 mg/dL Comment:Testing performed by : [address] [address] Glucose comment 1 Will Repeat Test MAI DEL RIO Comment:Testing performed by : [facility], [address] [place] [address]., [address] Glucose comment 2 RN/MD Notified MAI Comment:Testing performed by : [address] [address] Blood 12/21/2024 7:25 AM CDT 12/21/2024 7:25 AM CDT us Soledad Harris MD LAB POCT ORDERABLES - DEVICE Final Result Performing Organization Address [facility] Co de Phone Number [facility] Department [place] [address] * eGFR (12/21/2024 6:48 AM CDT) eGFR 83 >=60 mL/min/1. 73 m2 Comment: Interpretive Data Reference Interval Normal >/= 90 mL/min/1.73m2 Mildly decreased* 60 - 89 mL/min/1.73m2 Mildly to moderately decreased 45 - 59 mL/min/1.73m2 Moderately to severely decreased 30 - 44 mL/min/1.73m2 Severely decreased 15 - 29 mL/min/1.73m2 Kidney Failure < 15 mL/min/1.73m2 *Relative to young adult level Estimated glomerular filtration rate is determined by the 2020 CKD-EPI equation recommended by the National Kid[employer] (A Unifying Approach to GFR Estimation: Recommendations of the NKF-ASK Task Force on Reassessing the Inclusion of Race in Diagnosing Kidney Disease, JASN 2020). The CKD-EPI equation should not be used for patients with unstable renal function and has not been validated in children and those over 70. Current interpretive data was last reviewed 2021. Testing performed by: [facility], [address] [place] [address]., [address] Blood 12/21/2024 6:48 AM CDT 12/21/2024 8:31 AM CDT us Nan Calderon MD LAB BLOOD ORDERABLES Final R esult Performing Organization Address City/[facility]/ZIP Co de Phone Number MAI [address] [facility] Department [place] [address] * Differential, auto (12/21/2024 6:48 AM CDT) Neutrophil abs 3.44 1.50 - 6.50 K/cumm Comment:Testing performed by : [address] [address] Imm gran abs 0.07 0.00 - 0.10 K/cumm MAI Comment:Testing performed by : [address] [address] Lymphocyte abs 2.00 0.80 - 3.30 K/cumm MAI Comment:Testing performed by : [address] [address] Monocyte abs 0.55 0.20 - 0.80 K/cumm MAI Comment:Testing performed by : [address] [address] Eosinophil abs 0.20 0.00 - 0.50 K/cumm MAI Comment:Testing performed by : [address] [address] Basophil abs 0.05 0.00 - 0.10 K/cumm MAI Comment:Testing performed by : [address] [address] Neutrophil pct 54.5 % MAI Comment: Interpretive Data Percent cell count reference ranges are not reported, since discordance with absolute values may lead to misinterpretation of CBC data. Current Interpretive Data was last revised on 2017. Testing performed by: [address] [address] Imm gran pct 1.1 % MAI Comment: Interpretive Data Percent cell count reference ranges are not reported, since discordance with absolute values may lead to misinterpretation of CBC data. Current Interpretive Data was last revised on 2017. Testing performed by: [address] [address] Lymphocyte pct 31.7 % MAI Comment: Interpretive Data Percent cell count reference ranges are not reported, since discordance with absolute values may lead to misinterpretation of CBC data. Current Interpretive Data was last revised on 2017. Testing performed by: [address] [address] Monocyte pct 8.7 % MAI Comment: Interpretive Data Percent cell count reference ranges are not reported, since discordance with absolute values may lead to misinterpretation of CBC data. Current Interpretive Data was last revised on 2017. Testing performed by: [address] [address] Eosinophil pct 3.2 % MAI Comment: Interpretive Data Percent cell count reference ranges are not reported, since discordance with absolute values may lead to misinterpretation of CBC data. Current Interpretive Data was last revised on 2017. Testing performed by: [address] [address] Basophil pct 0.8 % MAI Comment: Interpretive Data Percent cell count reference ranges are not reported, since discordance with absolute values may lead to misinterpretation of CBC data. Current Interpretive Data was last revised on 2017. Testing performed by: [address] [address] Blood 12/21/2024 6:48 AM CDT 12/21/2024 8:31 AM CDT us Soledad Harris MD LAB BLOOD ORDERABLES Final Re sult [facility] [address] [facility] Department [place] [address] * (ABNORMAL) CBC with auto differential (12/21/2024 6:48 AM CDT) WBC 6.31 3.80 - 9.90 K/cumm Comment:Testing performed by : [address] [address] Hgb 12.8 11.9 - 15.5 g/dL MAI Comment:Testing performed by : [address] [address] Hct 38.7 35.6 - 45.5 % MAI DEL RIO Comment:Testing performed by : [address] [address] Plt 145(L) 150 - 400 K/cumm MAI DEL RIO Comment:Testing performed by : [address] [address] MPV 9.5 9.1 - 12.3 fL MAI Comment:Testing performed by : [address] [address] RBC 4.67 3.90 - 5.20 M/cumm MAI DEL RIO Comment:Testing performed by : [address] [address] MCV 82.9 81.3 - 96.4 fL MAI Comment:Testing performed by : [address] [address] MCH 27.4 27.1 - 33.3 pg MAI Comment:Testing performed by : [address] [address] MCHC 33.1 32.3 - 35.7 g/dL MAI Comment:Testing performed by : [address] [address] RDW CV 13.6 11.1 - 14.9 % MAI Comment:Testing performed by : [address] [address] RDW SD 41.1 35.7 - 48.1 fL MAI Comment:Testing performed by : [address] [address] NRBC abs 0.00 0.00 - 0.01 K/cumm MAI Comment:Testing performed by : [address] [address] Blood 12/21/2024 6:48 AM CDT 12/21/2024 8:31 AM CDT us Soledad Harris MD LAB BLOOD ORDERABLES Final Re sult [facility]I [address] [facility] [place] [address] * Comprehensive metabolic panel (12/21/2024 6:48 AM CDT) Sodium 139 135 - 145 mmol/L Comment:Testing performed by : [address] [address] Potassium, pl 3.9 3.3 - 4.9 mmol/L MAI Comment:Testing performed by : [address] [address] Chloride 101 97 - 110 mmol/L MAI Comment:Testing performed by : [address] [address] CO2 25 22 - 32 mmol/L MAI Comment:Testing performed by : [address] [address] Anion gap 13 2 - 15 mmol/L MAI Comment:Testing performed by : [address] [address] BUN 19 6 - 25 mg/dL MAI Comment:Testing performed by : [address] [address] Creatinine 0.80 0.60 - 1.10 mg/dL MAI Comment:Testing performed by : [address] [address] Glucose 146 70 - 199 mg/dL MAI Comment: Interpretive Data Fasting glucose >/= 126 mg/dl is diagnostic for diabetes. Fasting is defined as no caloric intake for at least 8 hours. Fasting glucose between 100 mg/dl to 125 mg/dl is diagnostic of prediabetes. In a patient with classic symptoms of hyperglycemia or hyperglycemic crisis, a random glucose >/= 200 mg/dl is diagnostic for diabetes. In the absence of unequivocal hyperglycemia, results should be confirmed by repeat testing. The classification and Diagnosis of Diabetes Diabetes Care 202; 46: S19-S40. Current interpretive data was last revised 2022. Testing performed by: [address] [address] Calcium 9.0 8.5 - 10.3 mg/dL MAI Comment:Testing performed by : [address] [address] Bilirubin, total 0.3 0.1 - 1.2 mg/dL MAI Comment:Testing performed by : [address] [address] Protein, pl 6.8 6.5 - 8.5 g/dL MAI Comment:Testing performed by : [address], [place]., [address] Albumin 3.6 3.5 - 5.0 g/dL MAI Comment:Testing performed by : [address], [place]., [address] Alk phos 82 40 - 130 Units/L MAI Comment:Testing performed by : [address] [address] ALT 39 7 - 45 Units/L MAI Comment:Testing performed by : [address] [address] AST 35 10 - 45 Units/L MAI Comment:Testing performed by : [address] [address] Blood 12/21/2024 6:48 AM CDT 12/21/2024 8:31 AM CDT us Nan Calderon MD LAB BLOOD ORDERABLES Final [facility]ult [facility] [address] [facility] Department of Laboratories [place], [place] [id number] * (ABNORMAL) POCT glucose (12/20/2024 8:11 PM CDT) [facility] Glucose, POC 205(H) 70 - 199 mg/dL Comment:Testing performed by : [address] [address] Glucose comment 1 RN/MD Notified MAI Comment:Testing performed by : [address] [address] Blood 12/20/2024 8:11 PM CDT 12/20/2024 8:11 PM CDT Soledad Harris MD LAB POCT ORDERABLES - DEVICE Final Result Performing Organization Address [facility] Co de Phone Number MAI [address] [address] * POCT glucose (12/20/2024 5:03 PM CDT) [facility] Signature Glucose, POC 197 70 - 199 mg/dL Comment:Testing performed by : [address] [address] Glucose comment 1 RN/MD Notified [facility] Comment:Testing performed by : [address] [address] Blood 12/20/2024 5:03 PM CDT 12/20/2024 5:03 PM CDT Soledad Harris MD LAB POCT ORDERABLES - DEVICE Final Result Performing Organization Address [facility] Co de Phone Number MAI [address] [address] * US SHAKIRA (12/20/2024 3:16 PM CDT) Anatomical Region Laterality Modality Vascular N/A Ultrasound 12/20/2024 2:41 PM CDT Narrative 12/23/2024 1:40 PM CDT Lower Extremity Arterial Doppler Report Patient Name: CECE SOARES L : 1960 Study Date: 12/20/2024 2:41:00 PM Gender: F Property And Equipment Clerk: Cece Hyde RDMSSherron Location: [address] Provider: NAN CALDERON Quality: Adequate Order Provider: NAN CALDERON PROCEDURES: Arterial Report: Ankle - Brachial Index Doppler exam. INDICATIONS: Left 2nd digit wound/infection and Peripheral Vascular Disease, Unspecified. 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 COMPARISONS: The previous exam was completed on 07/23/2024. The bilateral lower extremity arterial Doppler reveals multiphasic waveforms in all distributions above with normal ankle/brachial indices and digit pressures. No evidence of lower extremity arterial occlusive disease at rest bilaterally. - MEASUREMENTS: Right Value Left Value Rt Brachial Pressure 125 mmHg Lt Brachial Pressure 121 mmHg Rt REPORT CLERK Pressure 153 mmHg Lt REPORT CLERK Pressure 150 mmHg Rt DPA Pressure 150 mmHg Lt DPA Pressure 151 mmHg Rt 1st Digit Pressure 85 mmHg Lt 1st Digit Pressure 144 mmHg Rt 2nd Digit Pressure 129 mmHg Lt 2nd Digit Pressure 153 mmHg Rt PT SHAKIRA Resting 1.22 Lt PT SHAKIRA Resting 1.2 Rt DP SHAKIRA Resting 1.2 Lt DP SHAKIRA Resting 1.21 Rt Digit 1/Arm Index 0.68 Lt Digit 1/Arm Index 1.15 Rt Digit 2/Arm Index 1.03 Lt Digit 2/Arm Index 1.22 - FINDINGS: - CONCLUSIONS: 1. Ankle-brachial index of 0.9-1.3 is within normal limits in the bilateral lower extremities. ATTESTATION: I have reviewed and interpreted the pertinent images and measurements of this study. I attest to the conclusions in the final report that is provided above. Electronically Signed By: Ernie Villanueva MD 12/23/2024 12:40:26 PM CDT Procedure Note Ernie Villanueva MD - 12/23/2024 Lower Extremity Arterial Doppler Report Patient Name: CECE SOARES Bony : 1960 Study Date: 12/20/2024 2:41:00 PM Gender: F Property And Equipment Clerk: Cece Hyde RDMS,T Location: [id number] [facility] Provider: NAN CALDERON Quality: Adequate Order Provider: NAN CALDERON PROCEDURES: Arterial Report: Ankle - Brachial Index Doppler exam. INDICATIONS: Left 2nd digit wound/infection and Peripheral Vascular Disease,Unspecified. 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 COMPARISONS: The previous exam was completed on 07/23/2024. The bilateral lower extremity arterial Doppler reveals multiphasicwaveforms in all distributions above with normal ankle/brachial indices and digitpressures. No evidence of lower extremity arterial occlusive disease at rest bilaterally. - MEASUREMENTS: Right Value Left Value Rt Brachial Pressure 125 mmHg Lt Brachial Pressure 121 mmHg Rt REPORT CLERK Pressure 153 mmHg Lt REPORT CLERK Pressure 150 mmHg Rt DPA Pressure 150 mmHg Lt DPA Pressure 151 mmHg Rt 1st Digit Pressure 85 mmHg Lt 1st Digit Pressure 144 mmHg Rt 2nd Digit Pressure 129 mmHg Lt 2nd Digit Pressure 153 mmHg Rt PT SHAKIRA Resting 1.22 Lt PT SHAKIRA Resting 1.2 Rt DP SHAKIRA Resting 1.2 Lt DP SHAKIRA Resting 1.21 Rt Digit 1/Arm Index 0.68 Lt Digit 1/Arm Index 1.15 Rt Digit 2/Arm Index 1.03 Lt Digit 2/Arm Index 1.22 - FINDINGS: - CONCLUSIONS: 1. Ankle-brachial index of 0.9-1.3 is within normal limits in thebilateral lower extremities. ATTESTATION: I have reviewed and interpreted the pertinent images and measurements ofthis study. I attest to the conclusions in the final report that is provided above. Electronically Signed By: Ernie Villanueva MD 12/23/2024 12:40:26 PM CDT us Nan Calderon MD IMG US PROCEDURES Final Resu lt * TRANSTHORACIC ECHO (TTE) LIMITED/FOLLOW UP W LTD DOPPLER/CF WO CONTRAST (12/20/2024 1:45 PM CDT) Anatomical Region Laterality Modality Ultrasound 12/20/2024 1:33 PM CDT Narrative 12/21/2024 10:03 AM CDT Transthoracic Echocardiographic Report Patient Name: CECE SOARES L : 1960 (64y 11m) Gender: F Study Date: 12/20/2024 01:33:24 PM Ht(Inch): 71 Wt(Lb): 269.01 BSA: 2.47 Property And Equipment Clerk: Hallie Brothers RDCS Location: [id number] Order Provider: NAN CALDERON Heart Rate: 69 BMI: 37.52 BP: 111 / 64 Ref Provider: NAN CALDERON PROCEDURES: Echocardiographic Report: ([id number]) Echocardiography, transthoracic, 2D, includes M-mode recording, color and spectral doppler when performed, limited study. Technically difficult study due to: Technically difficult study due to body habitus. INDICATIONS: MSSA / recent AVR and Bacteremia. FINDINGS: Left Ventricle: Left Ventical is not well visualized due to poor echo windows. Normal left ventricular systolic function. Regional Wall Motion: no obvious regional wall motion abnormalities noted Right Ventricle: Normal right ventricular size. Normal right ventricular systolic function. Left Atrium: Left Atrium not well visualized due to poor echo windows. Right Atrium: Right Atrium not well visualized due to poor echo windows. Atrial Septum: Interatrial Septum is not well visualized due to poor echo windows. Mitral Valve: No mitral regurgitation seen. No mitral valve stenosis. The mitral valve area by pressure half-time is 3.9 cm2. The mean transmitral gradient is: 1 mmHg. There is no echocardiographic evidence of a mitral valve vegetation. However, there is a mobile attachment to a mitral chorda that may represent vegetation. Aortic Valve: Aortic valve not well visualized due to poor echo windows. Trace aortic valve regurgitation. A bioprosthetic stent-valve is present in the aortic position. No vegetation is appreciated. However, the presence or absence of a vegetation cannot be definitively confirmed or denied from these views. Transesophageal echo should be considered. Tricuspid Valve: Tricuspid valve is not well visualized due to poor echo windows. There is trace tricuspid regurgitation. Vegetation of the tricuspid valve leaflet cannot be excluded, consider KINZA for further evaluation. There is no evidence of tricuspid valve vegetation, but the valve is not well seen. Pulmonic Valve: Pulmonic Valve not well visualized due to poor echo windows. There is trace pulmonic regurgitation. Pericardium: Normal pericardium without evidence of pericardial effusion. Aorta: Aortic root not well visualized. IVC: IVC is normal in size. IVC Collapses normally with inspiration. The IVC (inferior vena cava) was <2.1 cm and collapsibility >50%. The estimated RA pressure is 3 mmHg. CONCLUSIONS: 1. Normal left ventricular systolic function. 2. No mitral regurgitation seen. No mitral valve stenosis. There is no echocardiographic evidence of a mitral valve vegetation. However, there is a mobile attachment to a mitral chorda that may represent vegetation. 3. Aortic valve not well visualized due to poor echo windows. Trace aortic valve regurgitation. A bioprosthetic stent-valve is present in the aortic position. No vegetation is appreciated. However, the presence or absence of a vegetation cannot be definitively confirmed or denied from these views. Transesophageal echo should be considered. 4. Pulmonic Valve not well visualized due to poor echo windows. There is trace pulmonic regurgitation. 5. Tricuspid valve is not well visualized due to poor echo windows. There is trace tricuspid regurgitation. There is no evidence of tricuspid valve vegetation, but the valve is not well seen. MEASUREMENTS: Doppler Value MV Peak Shahbaz 1.08 m/s MV Peak PG 4.67 mmHg MV Mean PG 1.00 mmHg MV VTI 28.80 cm MV PHT Peak Shahbaz 1.19 m/s MV PHT 56.00 ms MVA PHT 3.93 cm2 RA Pressure 3.00 mmHg - ATTESTATION: I have reviewed and interpreted the pertinent images and measurements of this study. I attest to the conclusions in the final report that is provided above. DISCLAIMER: The study images and the final report will be retained in the patient chart by the Echo Laboratory for the legally required time period. This chart constitutes the legal record of any testing performed. Electronically Signed By: Min Appiah MD 12/21/2024 10:03:14 AM CDT Procedure Note Min Appiah MD - 12/21/2024 Transthoracic Echocardiographic Report Patient Name: CECE SOARES L : 1960 (64y 11m) Gender: F Study Date: 12/20/2024 01:33:24 PM Ht(Inch): 71 Wt(Lb): 269.01 BSA: 2.47 Property And Equipment Clerk: Hallie Brothers RDCS Location: [place] [address] Order Provider:NAN CALDERON Heart Rate: 69 BMI: 37.52 BP: 111 / 64 Ref Provider: NAN CALDERON PROCEDURES: Echocardiographic Report: ([id number]) Echocardiography, transthoracic, 2D,includes M-mode recording, color and spectral doppler when performed, limited study. Technically difficult study due to: Technically difficult study due tobody habitus. INDICATIONS: MSSA / recent AVR and Bacteremia. FINDINGS: Left Ventricle: Left Ventical is not well visualized due to poor echowindows. Normal left ventricular systolic function. Regional Wall Motion: no obvious regional wall motion abnormalitiesnoted Right Ventricle: Normal right ventricular size. Normal right ventricularsystolic function. Left Atrium: Left Atrium not well visualized due to poor echo windows. Right Atrium: Right Atrium not well visualized due to poor echo windows. Atrial Septum: Interatrial Septum is not well visualized due to poor echowindows. Mitral Valve: No mitral regurgitation seen. No mitral valve stenosis. Themitral valve area by pressure half-time is 3.9 cm2. The mean transmitral gradient is: 1mmHg. There is no echocardiographic evidence of a mitral valve vegetation. However, thereis a mobile attachment to a mitral chorda that may represent vegetation. Aortic Valve: Aortic valve not well visualized due to poor echo windows.Trace aortic valve regurgitation. A bioprosthetic stent-valve is present in the aorticposition. No vegetation is appreciated. However, the presence or absence of avegetation cannot be definitively confirmed or denied from these views. Transesophageal echoshould be considered. Tricuspid Valve: Tricuspid valve is not well visualized due to poor echowindows. There is trace tricuspid regurgitation. Vegetation of the tricuspid valveleaflet cannot be excluded, consider KINZA for further evaluation. There is no evidence oftricuspid valve vegetation, but the valve is not well seen. Pulmonic Valve: Pulmonic Valve not well visualized due to poor echowindows. There is trace pulmonic regurgitation. Pericardium: Normal pericardium without evidence of pericardialeffusion. Aorta: Aortic root not well visualized. IVC: IVC is normal in size. IVC Collapses normally with inspiration. TheIVC (inferior vena cava) was <2.1 cm and collapsibility >50%. The estimated RA pressureis 3 mmHg. CONCLUSIONS: 1. Normal left ventricular systolic function. 2. No mitral regurgitation seen. No mitral valve stenosis. There is noechocardiographic evidence of a mitral valve vegetation. However, there is a mobileattachment to a mitral chorda that may represent vegetation. 3. Aortic valve not well visualized due to poor echo windows. Trace aorticvalve regurgitation. A bioprosthetic stent-valve is present in the aorticposition. No vegetation is appreciated. However, the presence or absence of avegetation cannot be definitively confirmed or denied from these views. Transesophageal echoshould be considered. 4. Pulmonic Valve not well visualized due to poor echo windows. There istrace pulmonic regurgitation. 5. Tricuspid valve is not well visualized due to poor echo windows. Thereis trace tricuspid regurgitation. There is no evidence of tricuspid valvevegetation, but the valve is not well seen. MEASUREMENTS: Doppler Value MV Peak Shahbaz 1.08 m/s MV Peak PG 4.67 mmHg MV Mean PG 1.00 mmHg MV VTI 28.80 cm MV PHT Peak Shahbaz 1.19 m/s MV PHT 56.00 ms MVA PHT 3.93 cm2 RA Pressure 3.00 mmHg - ATTESTATION: I have reviewed and interpreted the pertinent images and measurements ofthis study. I attest to the conclusions in the final report that is provided above. DISCLAIMER: The study images and the final report will be retained in the patientchart by the Echo Laboratory for the legally required time period. This chart constitutesthe legal record of any testing performed. Electronically Signed By: Min Appiah MD 12/21/2024 10:03:14 AM CDT us Nan Calderon MD CV ECHO PROCEDURES Final Res ult * (ABNORMAL) POCT glucose (12/20/2024 11:55 AM CDT) [facility] Glucose, POC 210(H) 70 - 199 mg/dL Comment:Testing performed by : [facility], [address] [place] [address]., [id number] Glucose comment 1 RN/MD Notified MAI Comment:Testing performed by : [address] [address] Blood 12/20/2024 11:5 5 AM CDT 12/20/2024 11:55 AM CDT Soledad Harris MD LAB POCT ORDERABLES - DEVICE Final Result Performing Organization Address [facility]/State/ZIP Co de Phone Number MAI [place] [address] [facility] Department [place] [address] * Blood culture Blood (12/20/2024 9:01 AM CDT) Report Final Report: No growth Comment:Testing performed by : [facility], [address] [facility] [place]., [address] Blood 12/20/2024 9:01 AM CDT 12/20/2024 11:39 AM CDT Narrative MAI - 12/24/2024 12:00 PM CDT From a different site than #1. Collection->Peripheral 1. Blood cultures are incubated for 4 days on a continuously monitored blood culture system. The first report of a negative culture is issued within 24 hours of receipt of the specimen in the laboratory. 2. Positive culture results are reported as soon as they are detected. 3. The most important factor for detection of microbes in the setting of bloodstream infection is the volume of blood submitted for culture. Failure to collect an optimal blood volume can result in false negative blood cultures. 4. For pediatric patients, the recommended blood volume to collect follows a weight based strategy. See the electronic test catalog for collection instructions. 5. For positive blood cultures, a rapid molecular test may be performed for organism identification using the jodi ePlex blood culture identification panel for gram positive (BCID-GP) and gram negative (BCID-GN) organisms. This nucleic acid amplification test detects microbial DNA in positive blood culture broth. This assay has been cleared by the [place] Food and Drug Administration and its performance characteristics have been verified by the [facility]biology Laboratory. For questions about this culture, contact the Microbiology Laboratory at [phone]. Interpretive data was last revised on 24. Nan Calderon MD LAB MICROBIOLOGY - GENERAL O RDERABLES Final Result Performing Organization Address City/[facility]/ZIP Co de Phone Number MAI [address] [facility] of [place] [address] * Blood culture Blood (12/20/2024 8:54 AM CDT) Report Final Report: No growth Comment:Testing performed by : [facility], [address] [place]., [address] Blood 12/20/2024 8:54 AM CDT 12/20/2024 9:35 PM CDT Narrative [facility] - 12/25/2024 7:00 AM CDT Collection->Peripheral 1. Blood cultures are incubated for 4 days on a continuously monitored blood culture system. The first report of a negative culture is issued within 24 hours of receipt of the specimen in the laboratory. 2. Positive culture results are reported as soon as they are detected. 3. The most important factor for detection of microbes in the setting of bloodstream infection is the volume of blood submitted for culture. Failure to collect an optimal blood volume can result in false negative blood cultures. 4. For pediatric patients, the recommended blood volume to collect follows a weight based strategy. See the electronic test catalog for collection instructions. 5. For positive blood cultures, a rapid molecular test may be performed for organism identification using the jodi ePlex blood culture identification panel for gram positive (BCID-GP) and gram negative (BCID-GN) organisms. This nucleic acid amplification test detects microbial DNA in positive blood culture broth. This assay has been cleared by the [place] Food and Drug Administration and its performance characteristics have been verified by the [facility]. For questions about this culture, contact the Microbiology Laboratory at [phone]. Interpretive data was last revised on 24. us Nan Calderon MD LAB MICROBIOLOGY - GENERAL O RDERABLES Final Result Performing Organization Address [facility] Co de Phone Number MAI [address] [facility] Department [place] [address] * POCT glucose (12/20/2024 7:53 AM CDT) Glucose, POC 161 70 - 199 mg/dL Comment:Testing performed by : [address] [address] Blood 12/20/2024 7:53 AM CDT 12/20/2024 7:53 AM CDT us Soledad Harris MD LAB POCT ORDERABLES - DEVICE Final Result Performing Organization Address [facility] Co de Phone Number [address] [place] [address] * Vancomycin level trough (12/20/2024 7:40 AM CDT) [facility] Vancomycin trough 11.2 10.0 - 20.0 mcg/mL Comment:Testing performed by : [address] [address] Blood 12/20/2024 7:40 AM CDT 12/20/2024 8:15 AM CDT us Lulu Hussein MD LAB BLOOD ORDER SUNDAR Final Result Performing Organization Address [facility] de Phone Number [address] [address] * eGFR (12/20/2024 2:45 AM CDT) [facility] eGFR 74 >=60 mL/min/1. 73 m2 Comment: Interpretive Data Reference Interval Normal >/= 90 mL/min/1.73m2 Mildly decreased* 60 - 89 mL/min/1.73m2 Mildly to moderately decreased 45 - 59 mL/min/1.73m2 Moderately to severely decreased 30 - 44 mL/min/1.73m2 Severely decreased 15 - 29 mL/min/1.73m2 Kidney Failure < 15 mL/min/1.73m2 *Relative to young adult level Estimated glomerular filtration rate is determined by the 2020 CKD-EPI equation recommended by the National Kidney Foundation (A Unifying Approach to GFR Estimation: Recommendations of the NKF-ASK Task Force on Reassessing the Inclusion of Race in Diagnosing Kidney Disease, JASN 2021). The CKD-EPI equation should not be used for patients with unstable renal function and has not been validated in children and those over 70. Current interpretive data was last reviewed 2021. Testing performed by: [address] [address] Blood 12/20/2024 2:45 AM CDT 12/20/2024 2:58 AM CDT Soledad Harris MD LAB BLOOD ORDERABLES Final Re sult [facility] [address] [facility] Department [place] [address] * Differential, auto (12/20/2024 2:45 AM CDT) Neutrophil abs 4.26 1.50 - 6.50 K/cumm Comment:Testing performed by : [address] [address] Imm gran abs 0.05 0.00 - 0.10 K/cumm MAI Comment:Testing performed by : [address] [address] Lymphocyte abs 1.75 0.80 - 3.30 K/cumm AMI Comment:Testing performed by : [address] [address] Monocyte abs 0.63 0.20 - 0.80 K/cumm MAI Comment:Testing performed by : [address] [address] Eosinophil abs 0.26 0.00 - 0.50 K/cumm MAI Comment:Testing performed by : [address] [address] Basophil abs 0.02 0.00 - 0.10 K/cumm MAI Comment:Testing performed by : [address] [address] Neutrophil pct 61.2 % MAI Comment: Interpretive Data Percent cell count reference ranges are not reported, since discordance with absolute values may lead to misinterpretation of CBC data. Current Interpretive Data was last revised on 2017. Testing performed by: [address] [address] Imm gran pct 0.7 % [facility] Comment: Interpretive Data Percent cell count reference ranges are not reported, since discordance with absolute values may lead to misinterpretation of CBC data. Current Interpretive Data was last revised on 2017. Testing performed by: [address] [address] Lymphocyte pct 25.1 % [facility] Comment: Interpretive Data Percent cell count reference ranges are not reported, since discordance with absolute values may lead to misinterpretation of CBC data. Current Interpretive Data was last revised on 2017. Testing performed by: [address] [address] Monocyte pct 9.0 % [facility] Comment: Interpretive Data Percent cell count reference ranges are not reported, since discordance with absolute values may lead to misinterpretation of CBC data. Current Interpretive Data was last revised on 2017. Testing performed by: [address] [address] Eosinophil pct 3.7 % [facility] Comment: Interpretive Data Percent cell count reference ranges are not reported, since discordance with absolute values may lead to misinterpretation of CBC data. Current Interpretive Data was last revised on 2017. Testing performed by: [address] [address] Basophil pct 0.3 % [facility] Comment: Interpretive Data Percent cell count reference ranges are not reported, since discordance with absolute values may lead to misinterpretation of CBC data. Current Interpretive Data was last revised on 2017. Testing performed by: [address] [address] Blood 12/20/2024 2:45 AM CDT 12/20/2024 2:59 AM CDT us Soledad Harris MD LAB BLOOD ORDERABLES Final Re sult MAI [address] Department [place] [address] * (ABNORMAL) CBC with auto differential (12/20/2024 2:45 AM CDT) [facility] WBC 6.97 3.80 - 9.90 K/cumm Comment:Testing performed by : [address] [address] Hgb 12.5 11.9 - 15.5 g/dL MAI Comment:Testing performed by : [address] [address] Hct 37.8 35.6 - 45.5 % MAI Comment:Testing performed by : [address] [address] Plt 129(L) 150 - 400 K/cumm MAI Comment:Testing performed by : [address] [address] MPV 9.4 9.1 - 12.3 fL MAI Comment:Testing performed by : [address], [address] RBC 4.53 3.90 - 5.20 M/cumm MAI Comment:Testing performed by : [address] [address] MCV 83.4 81.3 - 96.4 fL MAI Comment:Testing performed by : [address] [address] MCH 27.6 27.1 - 33.3 pg MAI Comment:Testing performed by : [address] [address] MCHC 33.1 32.3 - 35.7 g/dL MAI Comment:Testing performed by : [address], [address] RDW CV 13.8 11.1 - 14.9 % MAI Comment:Testing performed by : [address] [address] RDW SD 42.3 35.7 - 48.1 fL MAI Comment:Testing performed by : [address] [address] NRBC abs 0.00 0.00 - 0.01 K/cumm MAI Comment:Testing performed by : [address] [address] Blood 12/20/2024 2:45 AM CDT 12/20/2024 2:59 AM CDT Soledad Harris MD LAB BLOOD ORDERABLES Final Re sult [facility] [address] [facility] Department [place] [address] * Basic metabolic panel (12/20/2024 2:45 AM CDT) Sodium 138 135 - 145 mmol/L Comment:Testing performed by : [address] [address] Potassium, pl 3.7 3.3 - 4.9 mmol/L MAI Comment:Testing performed by : [address] [address] Chloride 102 97 - 110 mmol/L MAI Comment:Testing performed by : [address] [address] CO2 25 22 - 32 mmol/L MAI Comment:Testing performed by : [address] [address] Anion gap 11 2 - 15 mmol/L MAI Comment:Testing performed by : [address] [address] BUN 20 6 - 25 mg/dL MAI Comment:Testing performed by : [address] [address] Creatinine 0.88 0.60 - 1.10 mg/dL MAI Comment:Testing performed by : [address] [address] Glucose 149 70 - 199 mg/dL MAI Comment: Interpretive Data Fasting glucose >/= 126 mg/dl is diagnostic for diabetes. Fasting is defined as no caloric intake for at least 8 hours. Fasting glucose between 100 mg/dl to 125 mg/dl is diagnostic of prediabetes. In a patient with classic symptoms of hyperglycemia or hyperglycemic crisis, a random glucose >/= 200 mg/dl is diagnostic for diabetes. In the absence of unequivocal hyperglycemia, results should be confirmed by repeat testing. The classification and Diagnosis of Diabetes Diabetes Care 2021; 46: S19-S40. Current interpretive data was last revised 2022. Testing performed by: [address] [address] Calcium 9.2 8.5 - 10.3 mg/dL [facility] Comment:Testing performed by : [address] [address] Blood 12/20/2024 2:45 AM CDT 12/20/2024 2:58 AM CDT Soledad Harris MD LAB BLOOD ORDERABLES Final Re sult Performing Organization Address City/[facility]/ZIP Co de Phone Number [place] [phone] [facility] [employer] [address] * (ABNORMAL) POCT glucose (12/19/2024 7:34 PM CDT) Glucose, POC 218(H) 70 - 199 mg/dL Comment:Testing performed by : [address] [address] Blood 12/19/2024 7:34 PM CDT 12/19/2024 7:34 PM CDT Soledad Harris MD LAB POCT ORDERABLES - DEVICE Final Result [address] [place] [address] * POCT glucose (12/19/2024 4:00 PM CDT) Glucose, POC 172 70 - 199 mg/dL Comment:Testing performed by : [address] [address] Blood 12/19/2024 4:00 PM CDT 12/19/2024 4:00 PM CDT us Soledad Harris MD LAB POCT ORDERABLES - DEVICE Final Result [facility]I [address] [facility] Department [place] [address] * US Vein Duplex Lower Extremity Bilateral Complete (12/19/2024 2:34 PM CDT) Anatomical Region Laterality Modality Vascular Bilateral Ultrasound 12/19/2024 1:20 PM CDT Narrative 12/23/2024 11:58 AM CDT Lower Extremity Venous Report Patient Name: CECE SOARES L : 1960 (64y 11m) Gender: F Study Date: 12/19/2024 01:20:31 PM Property And Equipment Clerk: Cece Hyde RDOK,T Location: [id number] Order Provider: LULU HUSSEIN Quality: Adequate Ref Provider: LULU HUSSEIN PROCEDURES: Vascular Report: A non-invasive vascular imaging study of the bilateral lower extremity veins was performed using B-mode ultrasound, color flow, and spectral Doppler. INDICATIONS: Bilateral leg edema. HISTORY: Patient on Eliquis due to heart valve and A-fib. COMPARISONS: The previous exam was completed on 10/19/2023. Previous venous doppler is negative for DVT bilaterally. FINDINGS: Bilateral: Negative for deep and superficial vein thrombosis in the lower extremities bilaterally. Right: Normal compressibility and color filling, spontaneous and phasic flow, and response to distal augmentation is demonstrated in the right common femoral vein, saphenofemoral junction, proximal femoral vein, mid femoral vein, distal femoral vein, profunda vein, popliteal vein, posterior tibial veins and peroneal veins. Left: Normal compressibility and color filling, spontaneous and phasic flow, and response to distal augmentation is demonstrated in the left common femoral vein, saphenofemoral junction, proximal femoral vein, mid femoral vein, distal femoral vein, profunda vein, popliteal vein, posterior tibial veins and peroneal veins. Provider Notification: Prelim results entered into Epic study notes. CONCLUSIONS: 1. There is no evidence of deep vein thrombosis in the lower extremities bilaterally. ATTESTATION: I have reviewed and interpreted the pertinent images and measurements of this study. I attest to the conclusions in the final report that is provided above. Electronically Signed By: Ernie Villanueva MD 12/23/2024 10:40:33 AM CDT Procedure Note Ernie Villanueva MD - 12/23/2024 Lower Extremity Venous Report Patient Name: CECE SOARES L : 1960 (64y 11m) Gender: F Study Date: 12/19/2024 01:20:31 PM Property And Equipment Clerk: Cece Hyde RDMS,[facility] Location:[id number] Order Provider: LULU HUSSEIN Quality: Adequate Ref Provider: LULU HUSSEIN PROCEDURES: Vascular Report: A non-invasive vascular imaging study of the bilaterallower extremity veins was performed using B-mode ultrasound, color flow, and spectralDoppler. INDICATIONS: Bilateral leg edema. HISTORY: Patient on Eliquis due to heart valve and A-fib. COMPARISONS: The previous exam was completed on 10/19/2023. Previous venous doppler isnegative for DVT bilaterally. FINDINGS: Bilateral: Negative for deep and superficial vein thrombosis in the lowerextremities bilaterally. Right: Normal compressibility and color filling, spontaneous and phasicflow, and response to distal augmentation is demonstrated in the right commonfemoral vein, saphenofemoral junction, proximal femoral vein, mid femoral vein, distalfemoral vein, profunda vein, popliteal vein, posterior tibial veins and peronealveins. Left: Normal compressibility and color filling, spontaneous and phasicflow, and response to distal augmentation is demonstrated in the left common femoral vein,saphenofemoral junction, proximal femoral vein, mid femoral vein, distal femoral vein,profunda vein, popliteal vein, posterior tibial veins and peroneal veins. Provider Notification: Prelim results entered into Epic study notes. CONCLUSIONS: 1. There is no evidence of deep vein thrombosis in the lower extremitiesbilaterally. ATTESTATION: I have reviewed and interpreted the pertinent images and measurements ofthis study. I attest to the conclusions in the final report that is provided above. Electronically Signed By: Ernie Villanueva MD 12/23/2024 10:40:33 AM CDT Lulu Hussein MD [facility] ALYSE ES Final Result * (ABNORMAL) POCT glucose (12/19/2024 11:31 AM CDT) [facility] Glucose, POC 217(H) 70 - 199 mg/dL Comment:Testing performed by : [facility], [address] [place] [address], [place]., [address] Glucose comment 1 RN/MD Notified MAI DEL RIO Comment:Testing performed by : [facility], [address] [place] [address], [place]., [address] Blood 12/19/2024 11:3 1 AM CDT 12/19/2024 11:31 AM CDT Soledad Harris MD LAB POCT ORDERABLES - DEVICE Final Result MAI DEL RIO [address] [facility] Department [place] [address] * CT Entire Lower Extremity Bilateral W Contrast (12/19/2024 10:40 AM CDT) Anatomical Region Laterality Modality Lower Extremities Bilateral Computed Tomog paty 12/19/2024 10:5 1 AM CDT Narrative 12/19/2024 11:18 AM CDT EXAM DESCRIPTION: CT ENTIRE LOWER EXTREMITY BILATERAL W CONTRAST REASON FOR STUDY: Osteomyelitis suspected, foot, xray done, Soft tissue infection suspected, lower leg, xray done Osteomyelitis suspected, Soft tissue infection suspected, lower legs and both feet. Pain up legs and to groin TECHNIQUE: Multidetector CT scan of the bilateral lower extremity was performed after intravenous contrast. Coronal and sagittal images were reconstructed. Dose modulation adjustment of the mA and/or kV has been performed per [facility] protocols according to patient size and indication CONTRAST TYPE/DOSE: 100mL of IOVERSOL 350 MG IODINE/ML INTRAVENOUS SYRINGE injected via intravenous COMPARISON: None FINDINGS: Bones: Total left hip arthroplasty in place. Limited evaluation of the feet due to extremely large kmmft-dl-zvwb imaging. Postsurgical changes of the left and right foot 1st metatarsal head. A surgical anchor is seen in the left foot great toe distal phalangeal base medially.. Soft Tissues: Mild diffuse soft tissue swelling of the left foot. Other: No other finding. IMPRESSION: 1. Mild diffuse soft tissue swelling of the left foot. Detailed evaluation for osteomyelitis is severely limited on this extremely large tbfhf-mk-rekp imaging. If high clinical concern for osteomyelitis of the left foot contrast enhanced MRI is recommended. If patient is unable to tolerate contrast enhanced MRI then small duxdo-ah-vxlu CT imaging of the left forefoot could be obtained 2. Total left hip arthroplasty in place. 3. Postsurgical changes of the left and right foot 1st metatarsal head. 4. A surgical anchor is seen in the left foot great toe distal phalangeal base medially. THIS IS AN ELECTRONICALLY VERIFIED FINAL REPORT 12/19/2024 11:18 AM - Electronically signed by Derrick Willis M.D. JA: [place] Report ID: [id number] Reading Location: [id number] Procedure Note Derrick Willis MD - 12/19/2024 EXAM DESCRIPTION: CT ENTIRE LOWER EXTREMITY BILATERAL W CONTRAST REASON FOR STUDY: Osteomyelitis suspected, foot, xray done, Soft tissue infection suspected, lower leg, xray done Osteomyelitis suspected, Soft tissue infection suspected, lower legs andboth feet. Pain up legs and to groin TECHNIQUE: Multidetector CT scan of the bilateral lower extremity was performed after intravenous contrast. Coronal and sagittal images were reconstructed. Dose modulation adjustment of the mA and/or kV has been performed per [facility] protocols according to patient size and indication CONTRAST TYPE/DOSE: 100mL of IOVERSOL 350 MG IODINE/ML INTRAVENOUSSYRINGE injected via intravenous COMPARISON: None FINDINGS: Bones: Total left hip arthroplasty in place. Limitedevaluation of the feet due to extremely large htrsg-og-mcny imaging. Postsurgical changes of the left and right foot 1st metatarsal head. A surgical anchoris seen in the left foot great toe distal phalangeal base medially.. Soft Tissues: Mild diffuse soft tissue swelling of the left foot. Other: No other finding. IMPRESSION: 1. Mild diffuse soft tissue swelling of the left foot. Detailedevaluation for osteomyelitis is severely limited on this extremely bbljzdadav-te-azoo imaging. If high clinical concern for osteomyelitis of the left footcontrast enhanced MRI is recommended. If patient is unable to tolerate contrast enhanced MRI then small xrpum-tl-eyct CT imaging of the left forefootcould be obtained 2. Total left hip arthroplasty in place. 3. Postsurgical changes of the left and right foot 1st metatarsalhead. 4. A surgical anchor is seen in the left foot great toe distalphalangeal base medially. THIS IS AN ELECTRONICALLY VERIFIED FINAL REPORT 12/19/2024 11:18 AM - Electronically signed by Derrick Willis M.D. JA: [place] Report ID: [id number] Reading Location: [id number] Soledad Harris MD IMG CT PROCEDURES Final Resul t * (ABNORMAL) POCT glucose (12/19/2024 7:22 AM CDT) Glucose, POC 211(H) 70 - 199 mg/dL Comment:Testing performed by : [facility], [address] [place] [address]., [address] Glucose comment 1 RN/MD Notified MAI Comment:Testing performed by : [facility], [address] [place] [address]., [address] Blood 12/19/2024 7:22 AM CDT 12/19/2024 7:22 AM CDT Soledad Harris MD LAB POCT ORDERABLES - DEVICE Final Result MAI [address] [facility] Department of [place] [address] * (ABNORMAL) eGFR (12/19/2024 3:21 AM CDT) eGFR 59(L) >=60 mL/min/1. 73 m2 Comment: Interpretive Data Reference Interval Normal >/= 90 mL/min/1.73m2 Mildly decreased* 60 - 89 mL/min/1.73m2 Mildly to moderately decreased 45 - 59 mL/min/1.73m2 Moderately to severely decreased 30 - 44 mL/min/1.73m2 Severely decreased 15 - 29 mL/min/1.73m2 Kidney Failure < 15 mL/min/1.73m2 *Relative to young adult level Estimated glomerular filtration rate is determined by the 2020 CKD-EPI equation recommended by the National Kidney Foundation (A Unifying Approach to GFR Estimation: Recommendations of the NKF-ASK Task Force on Reassessing the Inclusion of Race in Diagnosing Kidney Disease, JASN 2020). The CKD-EPI equation should not be used for patients with unstable renal function and has not been validated in children and those over 70. Current interpretive data was last reviewed 2021. Testing performed by: [address] [address] Blood 12/19/2024 3:21 AM CDT 12/19/2024 4:25 AM CDT Lulu Hussein MD LAB BLOOD ORDER SUNDAR Final Result MAI 45[address] [facility] Department of Laboratories [place], [place] [id number] * (ABNORMAL) CBC without differential (12/19/2024 3:21 AM CDT) WBC 10.02(H) 3.80 - 9.90 K/cumm Comment:Testing performed by : [address] [address] Hgb 12.5 11.9 - 15.5 g/dL MAI Comment:Testing performed by : [address] [address] Hct 36.9 35.6 - 45.5 % AMI Comment:Testing performed by : [address] [address] Plt 138(L) 150 - 400 K/cumm MAI Comment:Testing performed by : [address] [address] MPV 9.7 9.1 - 12.3 fL MAI Comment:Testing performed by : [address] [address] RBC 4.44 3.90 - 5.20 M/cumm MAI Comment:Testing performed by : [address] [address] MCV 83.1 81.3 - 96.4 fL MAI Comment:Testing performed by : [address] [address] MCH 28.2 27.1 - 33.3 pg MAI DEL RIO Comment:Testing performed by : [address] [address] MCHC 33.9 32.3 - 35.7 g/dL MAI DEL RIO Comment:Testing performed by : [address], [place]., [address] RDW CV 13.8 11.1 - 14.9 % MAI DEL RIO Comment:Testing performed by : [address], [place]., [address] RDW SD 42.0 35.7 - 48.1 fL MAI DEL RIO Comment:Testing performed by : [address], [place]., [address] NRBC abs 0.00 0.00 - 0.01 K/cumm MAI DEL RIO Comment:Testing performed by : [address], [place]., [address] Blood 12/19/2024 3:21 AM CDT 12/19/2024 4:24 AM CDT Lulu Hussein MD LAB BLOOD ORDER SUNDAR Final Result MAI 7[address] [facility] Department of Laboratories [place], [place] [id number] * (ABNORMAL) Lipid panel (12/19/2024 3:21 AM CDT) Cholesterol 127 30 - 199 mg/dL Comment: Interpretive Data Ages < or = 19 years Acceptable: <170 mg/dL Borderline high: 170-199 mg/dL High: >or= 200 mg/dL Ages > or = 20 years Desirable: <200 mg/dL Borderline high: 200-239 mg/dL High: >or= 240 mg/dL Literature References: 1. Expert Panel on Integrated Guidelines for Cardiovascular Health and Risk Reduction in Children and Adolescents. Pediatrics 2011;128:S213 2. NCEP Expert Panel. Circulation 2004;110:227 Current Interpretive Data was last revised on 2018. Testing performed by: [address] [address] Triglycerides 99 <=149 mg/dL AMI Comment: Interpretive Data Ages < or = 9 years Acceptable: <75 mg/dL Borderline high: 75-99 mg/dL High: >or= 100 mg/dL Ages 10 to 20 years Acceptable: <90 mg/dL Borderline high: 90-129 mg/dL High: >or= 130 mg/dL Ages > or = 20 years Desirable: <150 mg/dL Borderline high: 150-199 mg/dL High: 200-499 mg/dL Very high: >or= 499 mg/dL Literature References: 1. Expert Panel on Integrated Guidelines for Cardiovascular Health and Risk Reduction in Children and Adolescents. Pediatrics 2011;128:S213 2. NCEP Expert Panel. Circulation 2004;110:227 Current Interpretive Data was last revised on 2018. Testing performed by: [address] [address] HDL 33(L) >=40 mg/dL MAI Comment: Interpretive Data Ages < or = 19 years Acceptable: >45 mg/dL Borderline low: 40-45 mg/dL Low: <40 mg/dL Ages > or = 20 years Desirable: >or= 60 mg/dL Low: <40 mg/dL Literature References: 1. Expert Panel on Integrated Guidelines for Cardiovascular Health and Risk Reduction in Children and Adolescents. Pediatrics 2011;128:S213 2. NCEP Expert Panel. Circulation 2004;110:227 Current Interpretive Data was last revised on 2018. Testing performed by: [address] [address] LDL, calculated 75 <=129 mg/dL MAI Comment: Interpretive Data Ages < or = 19 years Acceptable: <110 mg/dL Borderline high: 110-129 mg/dL High: >or= 130 mg/dL Ages > or = 20 years Optimal: <100 mg/dL Near optimal: 100-129 mg/dL Borderline high: 130-159 mg/dL High: >160 mg/dL Calculated using the Gonsalez LDL-C estimating equation. This equation was implemented on 2024. Prior to this date LDL-C was estimated using the Friedewald equation. Literature References: 1. Expert Panel on Integrated Guidelines for Cardiovascular Health and Risk Reduction in Children and Adolescents. Pediatrics 2011;128:S213 2. NCEP Expert Panel. Circulation 2004;110:227 3. Gonsalez M et al. NAGI Cardiol. 2020 September 26;5(5):540-548. doi: 10.1001/jamacardio.2020.0013 Current Interpretive Data was last revised on 2024. Testing performed by: [address] [address] Non-HDL Cholesterol 94 mg/dL MAI DEL RIO Comment: Interpretive Data Ages < or = 19 years Acceptable: <120 mg/dL Borderline high: 120-144 mg/dL High: >145 mg/dL Ages > or = 20 years When triglycerides are >200 mg/dL, Non-HDL cholesterol is a secondary target of therapy with treatment goals that are 30 mg/dL greater than the LDL cholesterol target. Literature References: 1. Expert Panel on Integrated Guidelines for Cardiovascular Health and Risk Reduction in Children and Adolescents. Pediatrics 2011;128:S213 2. NCEP Expert Panel. Circulation 2004;110:227 Current Interpretive Data was last revised on 2018. Testing performed by: [address] [address] Chol/HDL ratio 4 MAI Comment:Testing performed by : [address] [address] Blood 12/19/2024 3:21 AM CDT 12/19/2024 4:25 AM CDT Lulu Hussein MD LAB BLOOD ORDER SUNDAR Final Result MAI 0[address] [facility] Department of Laboratories [place], [place] [id number] * (ABNORMAL) Basic metabolic panel (12/19/2024 3:21 AM CDT) [facility] Sodium 137 135 - 145 mmol/L Comment:Testing performed by : [address] [address] Potassium, pl 3.7 3.3 - 4.9 mmol/L MAI DEL RIO Comment:Testing performed by : [address] [address] Chloride 99 97 - 110 mmol/L MAI Comment:Testing performed by : [address] [address] CO2 26 22 - 32 mmol/L MAI Comment:Testing performed by : [address] [address] Anion gap 12 2 - 15 mmol/L MAI Comment:Testing performed by : [address] [address] BUN 22 6 - 25 mg/dL MAI Comment:Testing performed by : [address] [address] Creatinine 1.06 0.60 - 1.10 mg/dL MAI Comment:Testing performed by : [address] [address] Glucose 245(H) 70 - 199 mg/dL MAI Comment: Interpretive Data Fasting glucose >/= 126 mg/dl is diagnostic for diabetes. Fasting is defined as no caloric intake for at least 8 hours. Fasting glucose between 100 mg/dl to 125 mg/dl is diagnostic of prediabetes. In a patient with classic symptoms of hyperglycemia or hyperglycemic crisis, a random glucose >/= 200 mg/dl is diagnostic for diabetes. In the absence of unequivocal hyperglycemia, results should be confirmed by repeat testing. The classification and Diagnosis of Diabetes Diabetes Care 202; 46: S19-S40. Current interpretive data was last revised 2022. Testing performed by: [address] [address] Calcium 9.2 8.5 - 10.3 mg/dL MAI Comment:Testing performed by : [address] [address] Blood 12/19/2024 3:21 AM CDT 12/19/2024 4:23 AM CDT us Lulu Hussein MD LAB BLOOD ORDER SUNDAR Final Result MAI 86[address] [facility] Department [place] [address] * (ABNORMAL) POCT glucose (12/18/2024 11:51 PM CDT) Glucose, POC 204(H) 70 - 199 mg/dL Comment:Testing performed by : [address] [address] Blood 12/18/2024 11:5 1 PM CDT 12/18/2024 11:51 PM CDT us Lulu Hussein MD LAB POCT ORDERA BLES - DEVICE Final Result MAI [address] [employer] [address] * (ABNORMAL) POCT glucose (12/18/2024 9:54 PM CDT) [facility] Glucose, POC 277(H) 70 - 199 mg/dL Comment:Testing performed by : [facility], [address] [place] [address]., [address] Glucose comment 1 RN/MD Notified MAI Comment:Testing performed by : [address] [address] Glucose comment 2 Will Repeat Test MAI Comment:Testing performed by : [address] [address] Blood 12/18/2024 9:54 PM CDT 12/18/2024 9:54 PM CDT us Jose Botello Jr., MD LAB POCT ORDERABLES - D EVICE Final Result [address] [employer] [address] * Sepsis Lactate w/ Reflex (12/18/2024 9:04 PM CDT) [facility] Sepsis Lactate 1.9 0.7 - 2.0 mmol/L Comment:Testing performed by : [address] [address] Blood 12/18/2024 9:04 PM CDT 12/18/2024 9:12 PM CDT us Magali Wisdom [employer] LAB BLOOD ORDERABLES Final Resul t MAI DEL RIO [address] [facility] Department [place] [address] * (ABNORMAL) Blood culture Blood (12/18/2024 9:04 PM CDT) Direct Specimen Exam Molecular Analysis: Methicillin-suscep tible Staphylococcus aureus (MSSA) detected by the jodi ePlex BCID-GP panel. This test does not exclude the possibility of a mixed bacterial infection. Notification of: Methicillin-suscep tible Staphylococcus aureus (MSSA) called to and read back by: Wanda Tirado [place] [id number] on 12/19/2024 16:27:23 by: Bradley Avina [place] Results phoned to and read back by: [id number] on 12/19/2024 16:51:53 by: [id number] Comment:Testing performed by : [facility], [address] [place] [address]., [address] Direct Specimen Exam Stain: Gram Positive Cocci in clusters Time to culture positivity (anaerobic media): 13.4 hours Notification of: Gram Positive Cocci in clusters called to and read back by: Nkechi [facility] [phone] on 12/19/2024 14:42:51 by: Eliezer DEL RIO Comment:Testing performed by : [facility], [address] [place] [address]., [address] Report Final Report: Staphylococcus aureus Methicillin susceptible (MSSA) by penicillin binding protein 2a (PBP2a) testing. (.) MAI DEL ROI Comment:Testing performed by : [facility], [address] [place] [address]., [address] Organism STAPHYLOCOCCUS AUREUS MAI DEL RIO Blood 12/18/2024 9:04 PM CDT 12/19/2024 12:19 AM CDT Narrative MAI DEL RIO - 12/24/2024 11:52 AM CDT Collection->Peripheral 1. Blood cultures are incubated for 4 days on a continuously monitored blood culture system. The first report of a negative culture is issued within 24 hours of receipt of the specimen in the laboratory. 2. Positive culture results are reported as soon as they are detected. 3. The most important factor for detection of microbes in the setting of bloodstream infection is the volume of blood submitted for culture. Failure to collect an optimal blood volume can result in false negative blood cultures. 4. For pediatric patients, the recommended blood volume to collect follows a weight based strategy. See the electronic test catalog for collection instructions. 5. For positive blood cultures, a rapid molecular test may be performed for organism identification using the jodi ePlex blood culture identification panel for gram positive (BCID-GP) and gram negative (BCID-GN) organisms. This nucleic acid amplification test detects microbial DNA in positive blood culture broth. This assay has been cleared by the [place] Food and Drug Administration and its performance characteristics have been verified by the [facility]. For questions about this culture, contact the Microbiology Laboratory at [phone]. Interpretive data was last revised on 24. Organism Antibiotic Method Susceptibility Staphylococcus aureus Doxycycline (HELLEN) INTERPRETATIO N Susceptible Staphylococcus aureus Linezolid (HELLEN) INTERPRETATIO N Susceptible Staphylococcus aureus Trimethoprim with Sulfamethoxazole (HELLEN) INTERPRETATION Susceptible Staphylococcus aureus Clindamycin (HELLEN) INTERPRETATIO N Susceptible Staphylococcus aureus Erythromycin (HELLEN) INTERPRETATIO N Susceptible Staphylococcus aureus Vancomycin (HELLEN) INTERPRETATIO N Susceptible Staphylococcus aureus Oxacillin (HELLEN) INTERPRETATIO N Susceptible Staphylococcus aureus Cefazolin (HELLEN) INTERPRETATIO N Susceptible Staphylococcus aureus Ceftriaxone (HELLEN) INTERPRETATIO N Susceptible us Jose Botello Jr., MD LAB MICROBIOLOGY - [facility] ORDERABLES Final Result MAI DEL RIO [address] [facility] Department [place] [address] * Blood culture Blood (12/18/2024 8:52 PM CDT) Report Final Report: No growth Comment:Testing performed by : [facility], [address] [facility], [place]., [address] Blood 12/18/2024 8:52 PM CDT 12/19/2024 12:19 AM CDT Narrative MAI DEL RIO - 12/23/2024 7:00 AM CDT Collection->Peripheral 1. Blood cultures are incubated for 4 days on a continuously monitored blood culture system. The first report of a negative culture is issued within 24 hours of receipt of the specimen in the laboratory. 2. Positive culture results are reported as soon as they are detected. 3. The most important factor for detection of microbes in the setting of bloodstream infection is the volume of blood submitted for culture. Failure to collect an optimal blood volume can result in false negative blood cultures. 4. For pediatric patients, the recommended blood volume to collect follows a weight based strategy. See the electronic test catalog for collection instructions. 5. For positive blood cultures, a rapid molecular test may be performed for organism identification using the jodi ePlex blood culture identification panel for gram positive (BCID-GP) and gram negative (BCID-GN) organisms. This nucleic acid amplification test detects microbial DNA in positive blood culture broth. This assay has been cleared by the [place] Food and Drug Administration and its performance characteristics have been verified by the [facility]. For questions about this culture, contact the Microbiology Laboratory at [phone]. Interpretive data was last revised on 24. Jose Botello Jr., MD LAB MICROBIOLOGY - [facility] ORDERABLES Final Result MAI DEL RIO [address] [facility] Department of Laboratories [place], [place] [id number] * XR Toe 2nd Digit Left Minimum 2 Views (12/18/2024 7:25 PM CDT) Anatomical Region Laterality Modality Lower Extremities, Foot, Toes Left Co mputed Radiography 12/18/2024 7:54 PM CDT Narrative 12/18/2024 7:56 PM CDT EXAM DESCRIPTION: XR TOE 2ND DIGIT LEFT MINIMUM 2 VIEWS REASON FOR STUDY: wound Pt arrive complaining of a wound to the left middle toe. I am just nervous I am going to have to get it amputated. Pt reports hx of type 2 diabetes. Wound noted to left middle toe with black tissue. Pt reports feeling warm prior to arrival. TECHNIQUE: 3 radiographic view(s) of the left 2nd toe . COMPARISON: None available FINDINGS: There is 2nd toe soft tissue swelling. There is cortical indistinctness along the dorsal margin of the tip of 2nd toe distal phalanx as well as at the tip of the distal phalanx which can be seen with osteomyelitis. There is no acute fracture. Healed bunionectomy as well as a healed and internally fixated distal 1st metatarsal osteotomy. A suture anchor at the great toe distal phalanx base is present. Prior 5th toe amputation. No aggressive bone lesions. There is foot soft tissue swelling. Corticated ossific body projecting adjacent to the medial malleolus tip reflecting sequela of prior injury. IMPRESSION: 1. Left 2nd toe soft tissue swelling. Cortical indistinctness along the dorsal margin of the tip of 2nd toe distal phalanx as well as at the tip of the distal phalanx which can be seen with osteomyelitis . If clinically indicated, MRI could be considered for further evaluation. THIS IS AN ELECTRONICALLY VERIFIED FINAL REPORT 12/18/2024 7:56 PM - Electronically signed by Kriss Gustafson M.D. AT: AT Report ID: [id number] Reading Location: [id number] Procedure Note Kriss Gustafson MD - 12/18/2024 EXAM DESCRIPTION: XR TOE 2ND DIGIT LEFT MINIMUM 2 VIEWS REASON FOR STUDY: wound Pt arrive complaining of a wound to the left middle toe. I am justnervous I am going to have to get it amputated. Pt reports hx of type 2 diabetes. Wound noted to left middle toe with black tissue. Pt reports feeling warm prior to arrival. TECHNIQUE: 3 radiographic view(s) of the left 2nd toe . COMPARISON: None available FINDINGS: There is 2nd toe soft tissue swelling. There is cortical indistinctness along the dorsal margin of the tip of 2nd toe distalphalanx as well as at the tip of the distal phalanx which can be seen withosteomyelitis. There is no acute fracture. Healed bunionectomy as well as a healed and internally fixated distal 1st metatarsal osteotomy. A suture anchor at the great toe distal phalanxbase is present. Prior 5th toe amputation. No aggressive bone lesions. There is foot soft tissue swelling. Corticated ossific body projecting adjacent to the medial malleolus tip reflecting sequela of prior injury. IMPRESSION: 1. Left 2nd toe soft tissue swelling. Cortical indistinctness along the dorsal margin of the tip of 2nd toe distal phalanx as well as atthe tip of the distal phalanx which can be seen with osteomyelitis . If clinically indicated, MRI could be considered for further evaluation. THIS IS AN ELECTRONICALLY VERIFIED FINAL REPORT 12/18/2024 7:56 PM - Electronically signed by Kriss Gustafson M.D. AT: AT Report ID: [id number] Reading Location: [id number] Jose Botello Jr., MD IMG XR PROCEDURES Final Result * XR Chest PA Lateral 2 Views (If patient hemodynamically stable and ambulatory) (12/18/2024 7:25 PM CDT) Anatomical Region Laterality Modality Body, Chest N/A Computed Radiogr aphy 12/18/2024 7:57 PM CDT Narrative 12/18/2024 7:58 PM CDT EXAM DESCRIPTION: XR CHEST PA LATERAL 2 VIEWS REASON FOR STUDY: sepsis alert Pt arrive complaining of a wound to the left middle toe. I am just nervous I am going to have to get it amputated. Pt reports hx of type 2 diabetes. Wound noted to left middle toe with black tissue. Pt reports feeling warm prior to arrival. TECHNIQUE: 2 radiographic view(s) of the chest. COMPARISON: 08/24/2024 FINDINGS: LUNGS: Slight central pulmonary vascular congestion with mild bibasilar atelectasis. No focal confluence pulmonary parenchymal consolidation, pleural effusion, or pneumothorax. HEART/MEDIASTINUM: Cardiac silhouette is at the upper limits of normal in size. Prosthetic aortic valve. Mediastinal and hilar contours appear normal. LINES/TUBES: Left chest wall pacemaker defibrillator with lead tips overlying the right atrium and right ventricle. BONES: No acute osseous abnormality. IMPRESSION: 1.Slight central pulmonary vascular congestion with mild bibasilar atelectasis . THIS IS AN ELECTRONICALLY VERIFIED FINAL REPORT 12/18/2024 7:58 PM - Electronically signed by Kriss Gustafson M.D. AT: AT Report ID: [id number] Reading Location: [id number] Procedure Note Kriss Gustafson MD - 12/18/2024 EXAM DESCRIPTION: XR CHEST PA LATERAL 2 VIEWS REASON FOR STUDY: sepsis alert Pt arrive complaining of a wound to the left middle toe. I am justnervous I am going to have to get it amputated. Pt reports hx of type 2 diabetes. Wound noted to left middle toe with black tissue. Pt reports feeling warm prior to arrival. TECHNIQUE: 2 radiographic view(s) of the chest. COMPARISON: 08/24/2024 FINDINGS: LUNGS: Slight central pulmonary vascular congestion with mild bibasilar atelectasis. No focal confluence pulmonary parenchymal consolidation, pleural effusion, or pneumothorax. HEART/MEDIASTINUM: Cardiac silhouette is at the upper limits of normal in size. Prosthetic aortic valve. Mediastinal and hilar contours appearnormal. LINES/TUBES: Left chest wall pacemaker defibrillator with lead tipsoverlying the right atrium and right ventricle. BONES: No acute osseous abnormality. IMPRESSION: 1.Slight central pulmonary vascular congestion with mildbibasilar atelectasis . THIS IS AN ELECTRONICALLY VERIFIED FINAL REPORT 12/18/2024 7:58 PM - Electronically signed by Kriss Gustafson M.D. AT: AT Report ID: [id number] Reading Location: [id number] Jose Botello Jr., MD IMG XR PROCEDURES Final Result * (ABNORMAL) Urinalysis reflex to microscopic and culture Urine (12/18/2024 7:04 PM CDT) Color, ur Yellow Yellow Comment:Testing performed by : [address] [address] Clarity, ur Cloudy(A) Clear MAI Comment:Testing performed by : [address], [place]., [address] Specific gravity, ur 1.022 1.003 - 1.030 MAI Comment:Testing performed by : [address], [place]., [address] pH, urine 6.5 MAI Comment: Interpretive Data U rine pH is affected by diet, medications, systemic acid-base disturbances, and renal tubular function. pH may affect urinary stone formation. For example, urine pH below 6.0 may help reduce the tendency for calcium phosphate stones and pH greater than 6.0 may reduce the tendency for uric acid stone formation. Source: [facility] Current Interpretive Data was last revised on 2017 Testing performed by: [address] [address] Protein, ur ql 1+(A) Negative MAI Comment:Testing performed by : [address] [address] Glucose, ur ql 1+(A) Negative MAI Comment:Testing performed by : [address] [address] Ketones, ur Negative Negative MAI Comment:Testing performed by : [address] [address] Bilirubin, ur Negative Negative MAI Comment:Testing performed by : [address] [address] Blood, ur 2+(A) Negative MAI Comment:Testing performed by : [address] [address] Urobilinogen, ur <2.0 <2.0 mg/dL MAI Comment:Testing performed by : [address], [place]., [address] Nitrite, ur Negative Negative MAI Comment:Testing performed by : [address] [address] Leukocyte esterase, ur 4+(A) Negative MAI Comment:Testing performed by : [address] [address] UA reflex comment Reflex to microscopic UA will be performed. MAI Comment:Testing performed by : [address] [address] Urine 12/18/2024 7:04 PM CDT 12/18/2024 7:17 PM CDT Narrative MAI - 12/18/2024 7:21 PM CDT If patient unable to urinate, straight cath us Jose Botello Jr., MD LAB MICROBIOLOGY - GENE RAL ORDERABLES Final Result MAI [address] [facility] Department of [place] [address] * (ABNORMAL) Urinalysis, microscopic only (12/18/2024 7:04 PM CDT) WBC, ur >50(A) 0 - 5 /HPF Comment:Testing performed by : [address] [address] RBC, ur >50(A) 0 - 2 /HPF MAI Comment:Testing performed by : [address] [address] Epithelial cells, squamous, ur >50(A) 0 - 5 /HPF MAI Comment:Testing performed by : [address] [address] Bacteria, ur 1+(A) MAI Comment:Testing performed by : [address] [address] Mucous, ur Present(A) MAI Comment:Testing performed by : [address] [address] Hyaline casts, ur 1-5 0 - 10 /LPF MAI Comment:Testing performed by : [address] [address] Culture Reflex Comment Reflex to urine culture will be performed. MAI Comment:Testing performed by : [facility], [address] [place] [address]., [address] Urine 12/18/2024 7:04 PM CDT 12/18/2024 7:17 PM CDT us Jose Botello Jr., MD LAB URINE ORDERABLES Fi nal Result MAI [address] [facility] Department [place] [address] * (ABNORMAL) Urine culture Urine (12/18/2024 7:04 PM CDT) Report Final Report: Greater than or equal to 100,000 colonies/mL of Proteus mirabilis Plus growth of clinically insignificant bacterial maddie. (.) Comment:Testing performed by : [facility], [address] [place]., [address] Organism PROTEUS MIRABILIS MAI Organism PLUS GROWTH OF CLINICALLY INSIGNIFICANT MADDIE. MAI Urine 12/18/2024 7:04 PM CDT 12/18/2024 9:31 PM CDT Narrative MAI - 12/20/2024 3:30 PM CDT Urine culture reflexed based upon urinalysis results. Testing performed by [facility] ([phone]) Organism Antibiotic Method Susceptibility Proteus mirabilis Ampicillin INTERPRETATION Resistant Proteus mirabilis Cefazolin INTERPRETATION Susceptible Proteus mirabilis Nitrofurantoin INTERPRETATION Resistant Proteus mirabilis Gentamicin INTERPRETATION Susceptible Proteus mirabilis Trimethoprim with Sulfamethoxazole I NTERPRETATION Resistant Proteus mirabilis Meropenem INTERPRETATION Susceptible Proteus mirabilis Cefepime INTERPRETATION Susceptible Proteus mirabilis Ciprofloxacin INTERPRETATION Resistant Proteus mirabilis Ceftazidime INTERPRETATION Susceptible Proteus mirabilis Ceftriaxone INTERPRETATION Susceptible Proteus mirabilis Piperacillin/Tazobactam INTERPRETATI ON Susceptible Proteus mirabilis Cephalexin INTERPRETATION Susceptible Proteus mirabilis Cefuroxime-axetil INTERPRETATION Susceptible Proteus mirabilis Cefdinir INTERPRETATION Susceptible us Magali Wisdom NP LAB MICROBIOLOGY - GENERAL ORDER SUNDAR Final Result Performing Organization Address City/[facility]/ZIP Co de Phone Number MAI [address] of [place] [address] * (ABNORMAL) Sepsis Lactate w/ Reflex (12/18/2024 6:58 PM CDT) Sepsis Lactate 2.1(H) 0.7 - 2.0 mmol/L Comment:Testing performed by : [address] [address] Blood 12/18/2024 6:58 PM CDT 12/18/2024 7:02 PM CDT us Jose Botello Jr., MD LAB BLOOD ORDERABLES Fi nal Result Performing Organization Address City/[facility]/ZIP Co de Phone Number MAI [facility] [place] [address] * eGFR (12/18/2024 6:58 PM CDT) eGFR 64 >=60 mL/min/1. 73 m2 Comment: Interpretive Data Reference Interval Normal >/= 90 mL/min/1.73m2 Mildly decreased* 60 - 89 mL/min/1.73m2 Mildly to moderately decreased 45 - 59 mL/min/1.73m2 Moderately to severely decreased 30 - 44 mL/min/1.73m2 Severely decreased 15 - 29 mL/min/1.73m2 Kidney Failure < 15 mL/min/1.73m2 *Relative to young adult level Estimated glomerular filtration rate is determined by the 2020 CKD-EPI equation recommended by the National Kidney Foundation (A Unifying Approach to GFR Estimation: Recommendations of the NKF-ASK Task Force on Reassessing the Inclusion of Race in Diagnosing Kidney Disease, JASN 2020). The CKD-EPI equation should not be used for patients with unstable renal function and has not been validated in children and those over 70. Current interpretive data was last reviewed 2021. Testing performed by: [address] [address] Blood 12/18/2024 6:58 PM CDT 12/18/2024 7:02 PM CDT us Jose Botello Jr., MD LAB BLOOD ORDERABLES Fi nal Result MAI [address] [facility] Department [place] [address] * (ABNORMAL) Differential, auto (12/18/2024 6:58 PM CDT) Neutrophil abs 9.03(H) 1.50 - 6.50 K/cumm Comment:Testing performed by : [address] [address] Imm gran abs 0.06 0.00 - 0.10 K/cumm MAI Comment:Testing performed by : [address] [address] Lymphocyte abs 2.19 0.80 - 3.30 K/cumm MAI Comment:Testing performed by : [address] [address] Monocyte abs 0.92(H) 0.20 - 0.80 K/cumm MAI Comment:Testing performed by : [address] [address] Eosinophil abs 0.11 0.00 - 0.50 K/cumm MAI Comment:Testing performed by : [address] [address] Basophil abs 0.03 0.00 - 0.10 K/cumm MAI Comment:Testing performed by : [address] [address] Neutrophil pct 73.2 % MAI Comment: Interpretive Data Percent cell count reference ranges are not reported, since discordance with absolute values may lead to misinterpretation of CBC data. Current Interpretive Data was last revised on 2017. Testing performed by: [address] [address] Imm gran pct 0.5 % MAI Comment: Interpretive Data Percent cell count reference ranges are not reported, since discordance with absolute values may lead to misinterpretation of CBC data. Current Interpretive Data was last revised on 2017. Testing performed by: [address] [address] Lymphocyte pct 17.7 % [facility] Comment: Interpretive Data Percent cell count reference ranges are not reported, since discordance with absolute values may lead to misinterpretation of CBC data. Current Interpretive Data was last revised on 2017. Testing performed by: [address] [address] Monocyte pct 7.5 % [facility] Comment: Interpretive Data Percent cell count reference ranges are not reported, since discordance with absolute values may lead to misinterpretation of CBC data. Current Interpretive Data was last revised on 2017. Testing performed by: [address] [address] Eosinophil pct 0.9 % [facility] Comment: Interpretive Data Percent cell count reference ranges are not reported, since discordance with absolute values may lead to misinterpretation of CBC data. Current Interpretive Data was last revised on 2017. Testing performed by: [address] [address] Basophil pct 0.2 % [facility] Comment: Interpretive Data Percent cell count reference ranges are not reported, since discordance with absolute values may lead to misinterpretation of CBC data. Current Interpretive Data was last revised on 2017. Testing performed by: [address] [address] Blood 12/18/2024 6:58 PM CDT 12/18/2024 7:02 PM CDT us Jose Botello Jr., MD LAB BLOOD ORDERABLES Fi nal Result MAI [address] [facility] Department [place] [address] * (ABNORMAL) CBC with auto differential (12/18/2024 6:58 PM CDT) WBC 12.34(H) 3.80 - 9.90 K/cumm Comment:Testing performed by : [address], [address] Hgb 13.8 11.9 - 15.5 g/dL MAI Comment:Testing performed by : [address], [address] Hct 40.6 35.6 - 45.5 % MAI Comment:Testing performed by : [address], [address] Plt 146(L) 150 - 400 K/cumm MAI Comment:Testing performed by : [address], [address] MPV 9.4 9.1 - 12.3 fL MAI Comment:Testing performed by : [address], [address] RBC 4.95 3.90 - 5.20 M/cumm MAI Comment:Testing performed by : [address], [address] MCV 82.0 81.3 - 96.4 fL MAI Comment:Testing performed by : [address], [address] MCH 27.9 27.1 - 33.3 pg MAI Comment:Testing performed by : [address], [address] MCHC 34.0 32.3 - 35.7 g/dL MAI Comment:Testing performed by : [address], [address] RDW CV 13.8 11.1 - 14.9 % MAI Comment:Testing performed by : [address], [address] RDW SD 40.8 35.7 - 48.1 fL MAI Comment:Testing performed by : [address], [address] NRBC abs 0.00 0.00 - 0.01 K/cumm MAI Comment:Testing performed by : [address], [address] Blood 12/18/2024 6:58 PM CDT 12/18/2024 7:02 PM CDT Jose Botello Jr., MD LAB BLOOD ORDERABLES Fi nal Result Performing Organization Address [facility] Co de Phone Number MAI [address] [address] * (ABNORMAL) Erythrocyte sedimentation rate (12/18/2024 6:58 PM CDT) [facility] Erythrocyte sedimentation rate 53(H) 1 - 30 mm/hr Comment:Testing performed by : [address] [address] Blood 12/18/2024 6:58 PM CDT 12/18/2024 7:02 PM CDT us Jose Botello Jr., MD LAB BLOOD ORDERABLES Fi nal Result Performing Organization Address [facility] de Phone Number [address] [address] * (ABNORMAL) CRP (acute phase) (12/18/2024 6:58 PM CDT) [facility] CRP 54.6(H) <=10.0 mg/L Comment:Testing performed by : [address] [address] Blood 12/18/2024 6:58 PM CDT 12/18/2024 7:02 PM CDT Jose Botello Jr., MD LAB BLOOD ORDERABLES Fi nal Result Performing Organization Address [facility] Co de Phone Number [address] [address] * (ABNORMAL) Hemoglobin A1c (12/18/2024 6:58 PM CDT) [facility] Hgb A1C 7.3(H) 4.0 - 5.6 % Comment:Testing performed by : [address] [address] Estimated Average Glucose 163 mg/dL MAI Comment: The ADA recommends reporting an estimated Average Glucose (eAG) with all Hemoglobin A1c results using the equation derived from a study of 507 normal and diabetic adults. Minority populations were underrepresented and children were not included. (Diabetes Care 31:5851-1136, 2008). The eAG is not equivalent to a fasting glucose. Testing performed by: [address] [address] Blood 12/18/2024 6:58 PM CDT 12/19/2024 1:03 AM CDT Lulu Hussein MD LAB BLOOD ORDER SUNDAR Final Result MAI [address] [facility] Department [place] [address] * (ABNORMAL) Comprehensive metabolic panel (12/18/2024 6:58 PM CDT) Sodium 135 135 - 145 mmol/L Comment:Testing performed by : [address] [address] Potassium, pl 3.8 3.3 - 4.9 mmol/L MAI Comment:Testing performed by : [address] [address] Chloride 96(L) 97 - 110 mmol/L MAI Comment:Testing performed by : [address] [address] CO2 25 22 - 32 mmol/L MAI Comment:Testing performed by : [address] [address] Anion gap 14 2 - 15 mmol/L MAI Comment:Testing performed by : [address] [address] BUN 23 6 - 25 mg/dL MAI Comment:Testing performed by : [address] [address] Creatinine 1.00 0.60 - 1.10 mg/dL MAI Comment:Testing performed by : [address] [address] Glucose 281(H) 70 - 199 mg/dL MAI Comment: Interpretive Data Fasting glucose >/= 126 mg/dl is diagnostic for diabetes. Fasting is defined as no caloric intake for at least 8 hours. Fasting glucose between 100 mg/dl to 125 mg/dl is diagnostic of prediabetes. In a patient with classic symptoms of hyperglycemia or hyperglycemic crisis, a random glucose >/= 200 mg/dl is diagnostic for diabetes. In the absence of unequivocal hyperglycemia, results should be confirmed by repeat testing. The classification and Diagnosis of Diabetes Diabetes Care 2021; 46: S19-S40. Current interpretive data was last revised 2022. Testing performed by: [address] [address] Calcium 9.3 8.5 - 10.3 mg/dL MAI Comment:Testing performed by : [address] [address] Bilirubin, total 0.5 0.1 - 1.2 mg/dL [facility] Comment:Testing performed by : [address] [address] Protein, pl 7.6 6.5 - 8.5 g/dL [facility] Comment:Testing performed by : [address] [address] Albumin 4.1 3.5 - 5.0 g/dL [facility] Comment:Testing performed by : [address] [address] Alk phos 107 40 - 130 Units/L [facility] Comment:Testing performed by : [address] [address] ALT 39 7 - 45 Units/L [facility] Comment:Testing performed by : [address] [address] AST 28 10 - 45 Units/L MAI Comment:Testing performed by : [address] [address] Blood 12/18/2024 6:58 PM CDT 12/18/2024 7:02 PM CDT Jose Botello Jr., MD LAB BLOOD ORDERABLES Fi nal Result Performing Organization Address [facility] Co de Phone Number MAI [address] [address] * (ABNORMAL) POCT glucose (12/18/2024 6:46 PM CDT) Glucose, POC 275(H) 70 - 199 mg/dL Comment:Testing performed by : [address] [address] Glucose comment 1 RN/MD Notified MAI Comment:Testing performed by : [address] [address] Blood 12/18/2024 6:46 PM CDT 12/18/2024 6:46 PM CDT Notinfile Unknown LAB POCT ORDERABLES - DEVICE F inal Result Performing Organization Address [facility] de Phone Number MAI [address] [address] * CT KUB Stone WO Contrast (11/11/2024 9:42 AM CDT) Anatomical Region Laterality Modality Abdomen N/A Computed Tomogra phy 11/22/2024 8:58 AM CDT Narrative 11/22/2024 9:04 AM CDT EXAM DESCRIPTION: CT KUB STONE WO CONTRAST REASON FOR STUDY: Urolithiasis, symptomatic Urolithiasis, symptomatic, Nephrolithiasis TECHNIQUE: CT scan of the abdomen and pelvis performed without intravenous and without oral contrast using helical scanning technique. Reconstructed coronal and sagittal MPR images reviewed. All images stored on PACS. Automated exposure control was used as a dose optimization technique for this examination. COMPARISON: CT abdomen and pelvis 07/21/2024 , 03/18/2016 FINDINGS: The sensitivity for detection of visceral lesions is diminished without the use of intravenous contrast. LOWER CHEST: Previous aortic valvuloplasty. LIVER: Normal length. GALLBLADDER: Cholelithiasis. SPLEEN: Normal length. PANCREAS: No peripancreatic inflammation or fluid collection. ADRENALS: 1.8 cm left adrenal nodules, 1.3 cm right adrenal nodule and multiple smaller bilateral adrenal nodules which are indeterminate. These are stable dating back to 03/18/2016 and should be benign. KIDNEYS/URINARY TRACT: Nonobstructing left renal calculi measuring up to 8 mm. Areas of left renal cortical scarring and posterior linear scarring from prior intervention. Punctate nonobstructing right renal calculus. No hydronephrosis. GI: No bowel obstruction. Normal appendix. Laparoscopic band in similar position with hub in the ventral abdominal wall. PERITONEUM: No ascites or free air. VASCULATURE: No abdominal aortic aneurysm. MUSCULOSKELETAL: No acute findings. Left hip arthroplasty hardware. Lumbar and lower thoracic spondylosis. OTHER: No other abnormality. IMPRESSION: 1. No acute findings. 2. Bilateral nephrolithiasis. 3. Cholelithiasis. 4. Additional findings as above. THIS IS AN ELECTRONICALLY VERIFIED FINAL REPORT 11/22/2024 9:04 AM - Electronically signed by Abdifatah Banda M.D. JR: Report ID: [id number] Reading Location: [place] [address] Procedure Note Abdifatah Banda MD - 11/22/2024 EXAM DESCRIPTION: CT KUB STONE WO CONTRAST REASON FOR STUDY: Urolithiasis, symptomatic Urolithiasis, symptomatic, Nephrolithiasis TECHNIQUE: CT scan of the abdomen and pelvis performed without intravenousand without oral contrast using helical scanning technique. Reconstructed coronal and sagittal MPR images reviewed. All images stored on PACS. Automated exposure control was used as a dose optimization technique forthis examination. COMPARISON: CT abdomen and pelvis 07/21/2024 , 03/18/2016 FINDINGS: The sensitivity for detection of visceral lesions is diminished without the use of intravenous contrast. LOWER CHEST: Previous aortic valvuloplasty. LIVER: Normal length. GALLBLADDER: Cholelithiasis. SPLEEN: Normal length. PANCREAS: No peripancreatic inflammation or fluid collection. ADRENALS: 1.8 cm left adrenal nodules, 1.3 cm right adrenal nodule and multiple smaller bilateral adrenal nodules which are indeterminate.These are stable dating back to 03/18/2016 and should be benign. KIDNEYS/URINARY TRACT: Nonobstructing left renal calculi measuring up to8 mm. Areas of left renal cortical scarring and posterior linear scarringfrom prior intervention. Punctate nonobstructing right renal calculus. No hydronephrosis. GI: No bowel obstruction. Normal appendix. Laparoscopic band insimilar position with hub in the ventral abdominal wall. PERITONEUM: No ascites or free air. VASCULATURE: No abdominal aortic aneurysm. MUSCULOSKELETAL: No acute findings. Left hip arthroplasty hardware.Lumbar and lower thoracic spondylosis. OTHER: No other abnormality. IMPRESSION: 1. No acute findings. 2. Bilateral nephrolithiasis. 3. Cholelithiasis. 4. Additional findings as above. THIS IS AN ELECTRONICALLY VERIFIED FINAL REPORT 11/22/2024 9:04 AM - Electronically signed by Abdifatah Banda M.D. JR: Report ID: [id number] Reading Location: [place] [address] Rosalio Arriola MD IMG CT PROCEDURES Final Result * CT TAVR (10/28/2024 10:55 AM CDT) Anatomical Region Laterality Modality Chest N/A Computed Tomogra phy 10/28/2024 12:0 4 PM CDT Impressions 10/28/2024 12:05 PM CDT 1. No evidence of transcatheter aortic valve leaflet thickening. 2. Stable mild enlargement of the ascending aorta measuring up to 41 mm. Dictated by: Chencho Barber MD, PHD The radiology attending physician has personally reviewed this study, and had reviewed and/or edited this written report and agrees with it. Electronically signed by: Keshia Mendez M.D. Narrative 10/28/2024 12:05 PM CDT EXAMINATION: CT TAVR HISTORY: 64-year-old with transcatheter aortic valve replacement 08/15/2024. Evaluate for hypoattenuated leaflet thickening. TECHNIQUE: Heart CT and CT angiogram of the abdomen and pelvis performed during intravenous administration of 117 mL of Optiray 350 per the TAVR Protocol. Images were transferred to an independent workstation for additional 3D post-processing. COMPARISON: CTA 08/22/2024 FINDINGS: Transcatheter aortic valve noted. No evidence of hypoattenuated leaflet thickening. Normal leaflet function. Other findings: Uterus is mildly enlarged. Left chest wall pacemaker with right atrial and ventricular leads. Moderate burden of calcified coronary artery disease. The thoracic aorta measures up to 41 x 41 mm at the level of the main pulmonary artery, which is unchanged on personal measurement. No supraclavicular or axillary lymphadenopathy. No mediastinal or hilar lymphadenopathy. There is no pleural effusion or pneumothorax. There are a few scattered tiny pulmonary nodules that are unchanged. No suspicious pulmonary nodule. Otherwise, the lungs are clear. No suspicious hepatic lesion. Gallbladder is decompressed. No bile duct dilatation. The pancreas and spleen are normal. Nodular thickening of both adrenal glands is unchanged. There is no hydronephrosis. The kidneys enhance symmetrically. Mild bilateral renal cortical scarring, left greater than right. Nonobstructing left lower pole renal calculi in the left lower pole renal cyst are again seen. Urinary bladder is within normal limits. There is no ascites or pneumoperitoneum. Uterus is present. No suspicious adnexal mass. Gastric lap band is in place. No bowel obstruction. No lymphadenopathy in the abdomen or pelvis. Left hip arthroplasty. No suspicious lytic or blastic lesion. Procedure Note Keshia Mendez MD - 10/28/2024 EXAMINATION: CT TAVR HISTORY: 64-year-old with transcatheter aortic valve replacement 08/15/2024. Evaluate for hypoattenuated leaflet thickening. TECHNIQUE: Heart CT and CT angiogram of the abdomen and pelvis performed during intravenous administration of 117 mL of Optiray 350 per the TAVR Protocol. Images were transferred to an independent workstation for additional 3D post-processing. COMPARISON: CTA 08/22/2024 FINDINGS: Transcatheter aortic valve noted. No evidence of hypoattenuated leaflet thickening. Normal leaflet function. Other findings: Uterus is mildly enlarged. Left chest wall pacemaker with right atrial and ventricular leads. Moderate burden of calcified coronary artery disease. The thoracic aorta measures up to 41 x 41 mm at the level of the main pulmonary artery, which is unchanged on personal measurement. No supraclavicular or axillary lymphadenopathy. No mediastinal or hilar lymphadenopathy. There is no pleural effusion or pneumothorax. There are a few scattered tiny pulmonary nodules that are unchanged. No suspicious pulmonary nodule. Otherwise, the lungs are clear. No suspicious hepatic lesion. Gallbladder is decompressed. No bile duct dilatation. The pancreas and spleen are normal. Nodular thickening of both adrenal glands is unchanged. There is no hydronephrosis. The kidneys enhance symmetrically. Mild bilateral renal cortical scarring, left greater than right. Nonobstructing left lower pole renal calculi in the left lower pole renal cyst are again seen. Urinary bladder is within normal limits. There is no ascites or pneumoperitoneum. Uterus is present. No suspicious adnexal mass. Gastric lap band is in place. No bowel obstruction. No lymphadenopathy in the abdomen or pelvis. Left hip arthroplasty. No suspicious lytic or blastic lesion. IMPRESSION: 1. No evidence of transcatheter aortic valve leaflet thickening. 2. Stable mild enlargement of the ascending aorta measuring up to 41 mm. Dictated by: Chencho Barber MD, PHD The radiology attending physician has personally reviewed this study, and had reviewed and/or edited this written report and agrees with it. Electronically signed by: Keshia Mendez M.D. Thor Ricci MD IMG CT PROCEDURES Final Result * (ABNORMAL) Albumin Creatinine Ratio, Urine (02/28/2024 7:29 AM CDT) Albumin Ur 85.0 mg/L Comment: Interpretive Data No reference range established. Current interpretive data was last revised 2018. Testing performed by: [address] [address] Creatinine Ur 96.7 mg/dL MAI Comment: Interpretive Data No reference range established. Current interpretive data was last revised 2018. Testing performed by: [address] [address] Albumin Creatinine Ratio, Ur 88(H) 1 - 29 mg/g MAI Comment:Testing performed by : [address] [address] Urine 02/28/2024 7:29 AM CDT 02/28/2024 9:49 AM CDT us Javier MARTÍNEZ LAB URINE ORDERABLES Final Resu lt MAI [address] [facility] Department of Laboratories [place], [place] [id number] * SCREENING MAMMOGRAM BILATERAL W CJ (02/02/2024 9:06 AM CDT) Anatomical Region Laterality Modality Breast Bilateral Mammography Impressions 02/02/2024 10:31 AM CDT BI-RADS ATLAS category (overall): 2 - Benign There is no mammographic evidence of malignancy. A 1 year screening mammogram is recommended. The patient has been or will be contacted. We recommend annual screening mammography for women at average risk of breast cancer beginning at age 40, based on guidelines of the [employer] (ACR Practice Parameter for the Performance of Screening and Diagnostic Mammography) and [employer]. For women with and elevated risk of breast cancer, please refer to the ACR Practice Parameter for specific screening recommendations. The patient will be entered into a reminder system with a target due date of 1 year for her next screening exam. Narrative 02/02/2024 10:31 AM CDT SCREENING MAMMOGRAM BILATERAL W CJ: 02/02/24 The study was acquired using full field digital technology and interpreted from soft copy. 2D digital mammographic views, as well as 3D digital tomosynthesis were performed in the CC and MLO projections. CLINICAL: Breast cancer screening by mammogram. No relevant medical history has been documented for this patient. History of breast cancer in Neg Hx. COMPARISONS: 10/11/2022 Diagnostic Mammogram Right W Cj 10/11/2022 US Breast Right Limited 09/27/2022 Screening Mammogram Bilateral W Cj BREAST TISSUE: There are scattered areas of fibroglandular density. FINDINGS: The small benign mass previously seen in the upper inner right breast has resolved. There are unchanged benign microcalcifications in both breasts. There is no new suspicious finding in either breast on mammogram. Cece Singer CNM IMG MAMMO PROCEDURES Final Re sult * HM DIABETES EYE EXAM (10/25/2023 8:28 AM CDT) Historical Provider HEALTH MAINTENANCE Final Result * Pap and High Risk HPV, reflex to Genotyping (09/15/2022 9:51 AM CDT) Thin prep (Pap test) 09/15/2022 9:51 AM CDT 09/16/2022 9:51 AM CDT Narrative PATHOLOGY [facility] - 09/20/2022 3:40 PM CDT [facility] Department of Pathology [address] [place], [place] [id number] Final Report with Addendum Note to Patients: This report may contain a detailed description of human tissue sent by a health care provider to the laboratory for pathologic evaluation. The content of this report is essential for diagnosis and may provide important critical findings. This information may be unfamiliar to patients to review without a medical professional present. It is advised that the patient review this report in the presence of a health care provider who can answer questions and explain the details. Patient Name: CECE SOARES Address: [address] [place] [id number] Gender: F : 1960 (Age: 62) Service: Location: [facility] : [id number] [facility] #: [id number] Patient Type: [facility] SPECIMEN Taken: 09/15/2022 Received: 09/16/2022 Accessioned:: 09/19/2022 Reported: 09/20/2022 Physician(s): Cece Singer [facility] Diagnosis: SOURCE OF SPECIMEN SCREENING THIN PREP IMAGED PAP w/ HPV: STATEMENT OF ADEQUACY - Specimen satisfactory for interpretation; endocervical/transformation zone component absent or insufficient GENERAL CATEGORIZATION: - Negative for intraepithelial lesion or malignancy LEROY Arcos(ASCP) Report Electronically Reviewed and Signed Out By LEROY Arcos(ASCP) 09/20/2022 15:40:11Addenda: HPV Test Interpretation NEGATIVE for types 16, 18, 31, 33, 35, 39, 45, 51, 52, 56, 58, 59, 66 and 68. Test performed utilizing Gen-Probe Aptima assay. LEROY Arcos(ASCP)Report Electronically Reviewed and Signed Out By LEROY Arcos(ASCP) 09/20/2022 10:03:33 Specimen(s) Received: A: SCREENING THIN PREP IMAGED PAP w/ HPV Clinical History: Menstrual History: Post-menopausal Routine Checkup The Pap test is a screening test used to aid in the detection of cervical cancer and its precursors. It should not be the sole means by which malignant and premalignant lesions are diagnosed. Both false negative and false positive results may occur. It also has poor sensitivity for the detection of endometrial lesions and should not be used to evaluate suspected endometrial abnormalities. For these reasons it is most important to obtain Pap tests at regular intervals. The performance characteristics of some immunohistochemical stains, fluorescence in-situ hybridization tests and immunophenotyping by flow cytometry cited in this report (if any) were determined by the Surgical Pathology Department at [facility] as part of an ongoing auditor/quality program and in compliance with federally mandated regulations drawn from the Clinical Laboratory Improvement Act of 1988 (CLIA '88). Some of these tests rely on the use of analyte specific reagents and are subject to specific labeling requirements by the US Food and Drug Administration. Such diagnostic tests may only be performed in a facility that is certified by the Department of Health and Human Services as a high complexity laboratory under CLIA '88. The FDA has determined that such clearance or approval is not necessary. This test is used for clinical purposes. It should not be regarded as investigational or for research. Nevertheless, federal rules concerning the medical use of analyte specific reagents require that the following disclaimer be attached to the report: This test was developed and its performance characteristics determined by the Surgical Pathology Department [facility]. It has not been cleared or approved by the U. S. Food and Drug Administration. Cece Singer CNM LAB CYTOLOGY ORDERABLES Final Result PATHOLOGY [facility] * Colonoscopy (08/09/2018 4:37 PM CDT) Anatomical Region Laterality Modality Other Historical Provider ENDOSCOPY PROCEDURES Talya easley Result * Serum Hepatitis panel (03/21/2016 5:24 AM CDT) HBV surface ag Non-Reacti ve Non-Reacti ve CDR HISTORICAL RESULTS HCV ab Non-Reacti ve Non-Reacti ve CDR HISTORICAL RESULTS HBV core ab, IgM Non-Reacti ve Non-Reacti ve CDR HISTORICAL RESULTS HAV ab, IgM Non-Reacti ve Non-Reacti ve CDR HISTORICAL RESULTS Serum 03/21/2016 5:24 AM CDT Aston Carrington MD LAB BLOOD ORDERABLES Final Re sult CDR HISTORICAL RESULTS from Last 3 Months or Most Recently Relevant to Health Maintenance Additional Health Concerns Active Problems Noted Date Diagnosed Date Autogenerated Problem 11/20/2024 Insurance [facility]ARE MEDICARE [facility] Advance Directives For more information, please contact: [phone] Documents on File Type Date Recorded Patient Refrigerator Mover Expl anation ADVANCE DIRECTIVE 09/13/2023 10:13 AM ADVANCE DIRECTIVE 09/13/2023 10:12 AM * Full Code (Latest Code Status on File) Date Activated Date Inactivated Comments 12/18/2024 10:13 PM 12/27/2024 11:41 PM * Full Code Date Activated Date Inactivated Comments 08/22/2024 5:50 PM 08/24/2024 7:49 PM * Full Code Date Activated Date Inactivated Comments 08/15/2024 10:27 AM 08/16/2024 5:42 PM * Full Code Date Activated Date Inactivated Comments 07/22/2024 10:51 PM 07/24/2024 6:03 PM * Full Code Date Activated Date Inactivated Comments 10/18/2023 4:51 PM 10/23/2023 7:37 PM Healthcare Agents on File Name Relationship Healthcare Agent Relationshi p Communication Maris Kaur Sister First Alternate Health Care Agent Rola Soares Sister Second Alternate Health Care Agent Care Teams Striker Out Relationship Specialty Start Date End Date Javier Chan PA [address] [facility] [address] [place], [place] [id number] PCP - General Family Medicine 07/24/24 Nan Calderon MD [address] [facility] [address] [place] [address] PCP - Home Infusion Attending Infectious Diseases 12/27/24 Yony Urrutia MD [address] [facility] [address] [place], [place] [id number] Endocrinology Diabetes & Metabolism 06/17/22 KandiyohiConnor MD [address] [facility] [address] [place], [place] [phone] Consulting Physician Urology 09/16/23 Richar Butler MD [address] [facility] [address] [place], [place] [address] Cardiothoracic Surgery 08/16/24 Gilberto Love MD [address] [facility] [address] [place], [place] [phone] Consulting Physician Cardiology 08/16/24 Nan Calderon MD [address] [facility] [address] [place] [address] Consulting Physician Infectious Diseases 12/27/24 Juan Teixeira MD [address] [facility] [address] [place] [address] Consulting Physician Vascular Surgery 12/27/24 Amy Floyd, [facility] Pharmacist Pharmacy 12/27/24
--- OUTSIDE RECORDS SUMMARY | 2024-12-30 16:12 | XMS_ITS | Referral Summary ---
Author Organization [facility] Address [address] [place] [address] Care Team Providers Care Neurology Director Name Role Phone Yony Urrutia MD Unavailable Connor Mckenzie MD Unavailable [phone] Javier Chan Primary Care Provider [phone] Richar Butler MD Unavailable [phone] Gilberto Love MD Unavailable [phone] Nan Calderon MD Unavailable [phone] Juan Teixeira MD Unavailable [phone] Nan Calderon MD Unavailable [phone] Amy Floyd [facility] Unavailable Unavailable Encounters Date Type Department Care Team Description 12/27/2024 Plan of Care Documentation [facility] Home Infusion Therapy [address] [place] [address] 12/27/2024 Home Infusion [facility] Home Infusion Therapy [address] [place] [address] Ubaldo Lopez, [facility] Osteomyelitis of toe of left foot (HCC) (Primary Dx) 12/18/2024 7:50 PM CDT - 12/27/2024 7:33 PM CDT Hospital Encounter [address] [address] Jose Botello Jr., MD Sada, Kahmalia-Kalee Conceptia, MD Patel, Satyen V., MD Lun, Yu, MD Smith, John Hernandez MD Osteomyelitis of toe of left foot (HCC) (Primary Dx); Urinary tract infection in female; Cellulitis of left lower extremity; Osteomyelitis of toe (HCC); Illness, unspecified Discharge Disposition: Discharge to home, home health skilled care 12/26/2024 11:43 AM CDT Anesthesia Event [facility] OR [address] [place] [address] Lesvia Fisher MD 12/26/2024 11:30 AM CDT - 12/26/2024 12:55 PM CDT Surgery [facility] OR [address] [place] [phone] Juan Teixeira MD LEFT 2ND AMPUTATION TOE 12/25/2024 Documentation [facility] Surgery [address] [facility] [address] [place] [phone] Yadira Preston RMA 12/24/2024 Orders Only [facility] Surgery [address] [facility] [address] [place] [address] Rosalio Arriola MD Nephrolithiasis (Primary Dx) 12/24/2024 10:37 AM CDT Anesthesia Event [facility] Cardiac [facility] [address] [place] [address] Raymond Manzo MD Lawrence, Ashley Nicole, CRNA 12/23/2024 Telephone [facility] Cardiology [address] [place] [address] 8th [place] [address] [place] [address] Priya Whitfield MD 12/23/2024 Telephone [facility] Surgery [address] [place] [address] Brina Angela CMA 12/13/2024 11:30 AM CDT Office Visit [facility] Otolaryngology [address] [place] [phone] Savanah Navarrete, RUDOLPH Sensorineural hearing loss (SNHL) of both ears (Primary Dx); Tinnitus of both ears 12/13/2024 11:00 AM CDT Procedure visit [facility] Otolaryngology [address] [place] [phone] Dawn Farfan Sensorineural hearing loss (SNHL) of both ears (Primary Dx) 12/12/2024 Telephone [facility] Cardiology [address] [facility] Advanced Medicine 8th [place] [address] [place] [address] Dawna Don 12/09/2024 Telephone [facility] Cardiology [address] [facility] 8th [place] [address] [place] [address] Priya Whitfield MD 11/28/2024 1:30 PM CDT Office Visit [facility] Obstetrical Gynecology [address] [facility] [address] [place] [address] Cece Singer CNM Encounter for screening mammogram for malignant neoplasm of breast (Primary Dx) 11/19/2024 Orders Only [facility] Surgery [address] [facility] [address] [place] [phone] Rosalio Arriola MD Struvite kidney stones (Primary Dx) 11/19/2024 Telephone [facility] ([facility]) [facility] [address] [facility] 11th [place] [address] Steve Frausto 11/13/2024 10:20 AM CDT Office Visit [facility] ([facility]) - [facility] Urology [address] [facility] 11th [place] [address] Rosalio Arriola MD Struvite kidney stones (Primary Dx) 11/11/2024 9:34 AM CDT - 11/11/2024 11:59 PM CDT Hospital Encounter [facility] CT [address] [place] [address] Nephrolithiasis Discharge Disposition: Discharge to home or self care 10/31/2024 Telephone [facility] Cardiology [address] [place] [address] Advanced Medicine 8th [place] [address] [place] [address] results 10/29/2024 Results Follow-Up [address] [place] [address] [place] [address] TAVR 10/28/2024 10:09 AM CDT - 10/28/2024 11:59 PM CDT Hospital Encounter [facility] [address] [place] [address] S/P TAVR (transcatheter aortic valve replacement) Discharge Disposition: Discharge to home or self care 10/22/[address] Advanced [address] [place] [address] [place] [address] Priya Whitfield MD 10/04/2024 Orders Only [facility] Diabetes and Endocrinology [address] [place] [phone] Jocelyn Rich MD 09/30/[address] Advanced Medicine [facility] [place] [address] [place] [address] Priya Whitfield MD from Last 3 Months Allergies Active Allergy Reactions Criticality Noted Date Comments Neostigmine Unknown 04/29/2016 Pneumococcal 23-Estephania Ps Vaccine Other (See comments),Unknown Low 11/02/2017 uknown Pneumovax 23 Pneumococcal 23-Valent Polysaccharide Vaccine Other (See comments) 05/03/2018 Streptococcus pneumoniae type 1 capsular polysaccharide antigen Pneumococcal Vaccine Other (See comments) Low 11/02/2017 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 Pneumoc 13-Estephania Conj-Dip Cr(Pf) Other (See comments) 12/13/2024 Guilain [place] Syndrome Medications cholecalciferol (VITAMIN D-3) 5,000 unit capsule Take 1 capsule (5,000 Units total) by mouth every morning Active cranberry 500 mg capsule Take 1 capsule by mouth every morning Active pen needle, diabetic (Pen Needle) 31 gauge x 1/4 needle 1 Units 3 (three) times a day before meals 60 each 06/09/19 23 Active Additional Information Patient not taking.Reported on 12/13/2024 pen needle, diabetic (BD Ultra-Fine Rafaela Pen Needle) 32 gauge x /32 needle USE DIRECTED 3 TIMES A DAY 100 each 3 01/17/20 23 Active Additional Information Patient not taking.Reported on [...] no or minimal response. 1 each 09/14/19 24 Active Additional Information Patient not taking.Reported on [...] complication, without long-term current use of insulin (HCC) Inject 20 Units under the skin nightly [...] hyperglycemia, with long-term current use of insulin ([facility]) Inject 7.5 mg under the skin once a week 6 mL 3 06/06/19 25 026 Active Additional Information Patient taking differently: 10 mgsubcutaneous Weekly, Informant: Self, Reported on 12/19/2024 FreeStyle Shayne 3 Sensor deviceIndication s:Type 2 diabetes mellitus with hyperglycemia, with long-term current use of insulin ([facility]) One sensor every 14 days 6 each 3 06/06/19 25 Active Additional Information Patient not taking.Reported on 12/13/2024 rOPINIRole (REQUIP) 2 mg tablet Take 1 tablet (2 mg total) by mouth 2 (two) times a day Active magnesium oxide 400 mg magnesium capsule Take 1 tablet by mouth every evening Active docusate sodium (COLACE ORAL) Take 1 capsule by mouth motor vehicle inspector before breakfast Active biotin 10,000 mcg capsule Take 1 capsule (10,000 mcg total) by mouth motor vehicle inspector before breakfast Active acetaminophen (TYLENOL) 325 mg [...] line care for up to 19 days [address]297 mL 5 11:59 PM CDT 12/29/19 25 025 Active heparin 10 unit/mL syringe flush syringeIndicatio ns:Maintain Patency of Indwelling Vascular Catheter Infuse 5 mL (50 Units total) IV as needed (line care) for up to 19 days [address]55 mL 5 11:59 PM CDT 12/29/19 25 [...] figure of 8 suture tomorrow am from [facility] groin site CXR, TTE, EKG and labs tomorrow Am PT/OT eval tomorrow ASA 81 mg daily Monitor on telemetry for any evidence of AV block Protembo trial requires an MRI the day of discharge-scheduled 1030 on Wednesday 08/16 in the [facility]- this [...] barefoot. Assessment & Plan (06/04/2024 3:19 PM PHOTOENGRAVING PROOFER APPRENTICE): Chronic problem. Currently taking Lyrica 25mg QAM, [...] >160 Assessment & Plan (06/04/2024 3:18 PM PHOTOENGRAVING PROOFER APPRENTICE): Chronic problem. Controlled on current valsartan 80mg [...] Atorvastatin 40mg. Last lipid panel: 02/28/24 LDL=70, OM=536. No changes at this time. Assessment & Plan (06/04/2024 3:18 PM PHOTOENGRAVING PROOFER APPRENTICE): Chronic problem. Controlled on current Atorvastatin 40mg. Last lipid panel: 02/28/24 LDL=70, ZT=649. No changes at this time. Assessment & [...] Atorvastatin 40mg. Last lipid panel: 05/26/23 LDL=99, SH=031. No changes at this time. Assessment & Plan (03/28/2023 3:55 PM CDT): Chronic problem. Controlled on current Atorvastatin 10mg. Last lipid panel: 05/13/22 LDL=97, EK=744. No changes at this time. Assessment & Plan (09/15/2022 10:13 AM CDT): Chronic problem. Controlled on current Atorvastatin 10mg. Last lipid panel: 05/13/22 LDL=97, QU=185. No changes at this time. Sensorineural hearing [...] AM CDT): History of , last TTE 10/01 with moderate to severe disease, DINA estimate 1.3 cm2 Assessment & Plan (10/20/2023 10:24 AM CDT): History of -5/6 TTE with moderate to severe on last TTE (Valve area estimate 1.3 cm2) Assessment & Plan (05/15/2020 12:22 PM PHOTOENGRAVING PROOFER APPRENTICE): Stable and seeing cardiology RAYA (obstructive sleep [...] device Assessment & Plan (06/01/2023 8:12 AM PHOTOENGRAVING PROOFER APPRENTICE): Continue CPAP Assessment & Plan (11/24/2022 11:36 AM CDT): Continue c-pap Assessment & Plan (05/18/2022 4:06 PM PHOTOENGRAVING PROOFER APPRENTICE): Encourage c-pap Assessment & Plan (11/16/2021 4:42 PM CDT): Using oral device Assessment & Plan (05/17/2021 4:32 PM PHOTOENGRAVING PROOFER APPRENTICE): Using oral device Assessment & Plan (11/19/2020 7:36 AM CDT): Using oral devise Assessment & Plan (05/15/2020 12:22 PM PHOTOENGRAVING PROOFER APPRENTICE): Using oral device Assessment & Plan (11/12/2019 [...] insulin Assessment & Plan (06/04/2024 2:48 PM PHOTOENGRAVING PROOFER APPRENTICE): Chronic problem, uncontrolled. A1c improved from 8.6% [...] DM with last Ha1c-7.7. At home, takes Ozempic,Jardiance, with SSI insulin -Briefly on insulin gtt overnight and stopped this am. -Continue SSI + accuchecks -Add Lantis 16 units daily Assessment & Plan (06/01/2023 8:12 AM PHOTOENGRAVING PROOFER APPRENTICE): Patient is going to continue current medications, current labs were ordered, eye exam is up-to-date, foot care was discussed. Healthy diet and reference to [employer]. Exercise as discussed, follow-up as scheduled routine. [...] accountable. No longer needing mealtime insulin. Reviewed Conscious Boxyle download w/Mrs Soares. Current medications: Metformin 1000mg with breakfast & [...] infection. Assessment & Plan (07/18/2022 4:28 PM PHOTOENGRAVING PROOFER APPRENTICE): Hba1c was Lab Results Component Value Date [...] units Assessment & Plan (06/21/2022 2:56 PM PHOTOENGRAVING PROOFER APPRENTICE): CPM, discussed lows on sugars, sending to endocrinology for eval Assessment & Plan (05/18/2022 4:04 PM PHOTOENGRAVING PROOFER APPRENTICE): Poor control, get back on diet, yarixielysia, discussed medications, use and side effects Assessment & Plan (05/17/2021 4:31 PM PHOTOENGRAVING PROOFER APPRENTICE): Continue meds Assessment & Plan (05/15/2020 12:21 PM PHOTOENGRAVING PROOFER APPRENTICE): Patient is going to continue current medications, [...] labs. UTD on DM eye exam (01/2023 [place], [place]) Strive for regular exercise (30min most [...] 10/18/2023 Assessment & Plan (06/21/2022 2:55 PM PHOTOENGRAVING PROOFER APPRENTICE): Resolving, finish medications, f/u with ent MRSA nasal colonization 06/15/202209/27 Severe sepsis 06/15/2022 10/18/2023 Assessment & Plan (06/21/2022 2:53 PM PHOTOENGRAVING PROOFER APPRENTICE): Well controlled, fisnishing medications and seeing ENT Acute right-sided low back p ain without sciatica 06/15/2022 10/18/2023 Facial cellulitis 06/12/2022 10/18/2023 Morbid (severe) obesity due to excess calories 11/16/2021 09/14/2022 Assessment & Plan (11/16/2021 4:42 PM CDT): Healthy diet as discussed Diabetic neuropathy 05/13/2021 10/18/19 Assessment & Plan (09/25/2023 3:15 PM CDT): Chronic problem. Currently taking Lyrica 25mg QAM & 50mg QHS. Reviewed foot care; needs to lotion daily. Aware to check feet nightly, not to go barefoot. Assessment & Plan (05/17/2021 4:31 PM PHOTOENGRAVING PROOFER APPRENTICE): Stable, CPM Line sepsis 05/14/2020 10/18/2023 Osteomyelitis of second toe of right foot 05/14/2020 10/18/2023 Suspected 2019-nCoV infection 05/14/2020 10/18/2023 Urinary tract infectious disease 05/14/2020 10/18/2023 Assessment & Plan (11/24/2022 11:37 AM CDT): Finish medications, ua 2 weeks due to blood Assessment & Plan (05/03/2022 4:03 PM PHOTOENGRAVING PROOFER APPRENTICE): Urine dipstick positive for moderate blood and [...] worse. Contact your primary care doctor or GEOSPATIAL IMAGE ANALYST if: You have a fever. You have [...] Routine general medical exam ination at a [facility] care facility 04/23/2019 10/18/2023 Assessment & Plan (06/01/2023 8:13 AM PHOTOENGRAVING PROOFER APPRENTICE): Healthcare maintenance updated Assessment & Plan (05/18/2022 4:06 PM PHOTOENGRAVING PROOFER APPRENTICE): HEALTHCARE MAINTENANCE up to date Acute right [...] routine. Assessment & Plan (05/17/2021 4:31 PM PHOTOENGRAVING PROOFER APPRENTICE): Patient is to continue present medications, work on diet and exercise as discussed, we did discuss the medications and potential side effects and signs and symptoms that would warrant calling office. Follow up routine. Assessment & Plan (05/15/2020 12:21 PM PHOTOENGRAVING PROOFER APPRENTICE): Patient is to continue present medications, work [...] 10/18/2023 Assessment & Plan (06/01/2023 8:12 AM PHOTOENGRAVING PROOFER APPRENTICE): This is well controlled patient is currently not having any symptoms will continue to follow Assessment & Plan (03/29/2023 4:20 PM CDT): Chronic and ongoing Assessment & Plan (05/18/2022 4:04 PM PHOTOENGRAVING PROOFER APPRENTICE): This is good at this time, still with some issues with right hand Assessment & Plan (11/16/2021 4:41 PM CDT): This appears stable continue current meds follow-up 6 months Assessment & Plan (05/17/2021 4:31 PM PHOTOENGRAVING PROOFER APPRENTICE): No current issues Assessment & Plan (05/15/2020 12:21 PM PHOTOENGRAVING PROOFER APPRENTICE): Currently controlled will follow Assessment & Plan (11/12/2019 4:34 PM CDT): We are following Subacute sinusitis 08/15/2017 Overview (10/30/2018): Meds as ordered, saline and jrlv-mom-mnqczwa Mucinex. Primary insomnia 07/19/2017 10/18/2023 Essential (primary) hypertension 06/07/2017 10/18/2023 Overview (09/11/2018): stable CPM, labs as ordered f/u routine Assessment & Plan (06/01/2023 8:12 AM PHOTOENGRAVING PROOFER APPRENTICE): This is a stable chronic condition. Monitor [...] routine Assessment & Plan (06/21/2022 2:48 PM PHOTOENGRAVING PROOFER APPRENTICE): Images from the original note were not included. This is a stable chronic condition. Monitor blood pressure, call if out of parameters as we discussed. Low sodium and caffeine diet. baby asa as discussed if applicable. Diet, exercise and weight reduction. Labs as ordered. F/U routine Assessment & Plan (05/18/2022 4:04 PM PHOTOENGRAVING PROOFER APPRENTICE): Images from the original note were not [...] routine Assessment & Plan (05/17/2021 4:32 PM PHOTOENGRAVING PROOFER APPRENTICE): Images from the original note were not [...] routine Assessment & Plan (05/15/2020 12:21 PM PHOTOENGRAVING PROOFER APPRENTICE): Images from the original note were not [...] 10/18/2023 Assessment & Plan (06/01/2023 8:12 AM PHOTOENGRAVING PROOFER APPRENTICE): This is currently controlled will continue current medications follow-up routine Assessment & Plan (05/18/2022 4:06 PM PHOTOENGRAVING PROOFER APPRENTICE): Controlled with meds Assessment & Plan (11/16/2021 4:42 PM CDT): Not controlled will try 2 mg 1 hour before bed she will update me in a few weeks we also started her on some oral magnesium Assessment & Plan (05/17/2021 4:33 PM PHOTOENGRAVING PROOFER APPRENTICE): Stable, will follow Assessment & Plan (11/19/2020 7:36 AM CDT): Controlled with meds Assessment & Plan (05/15/2020 12:22 PM PHOTOENGRAVING PROOFER APPRENTICE): controlled Assessment & Plan (11/12/2019 4:35 PM CDT): CPM, add Mg+ Polyneuropathy 08/17/2016 09/14/2022 Neuropathy 03/07/2016 10/18/2023 Assessment & Plan (06/01/2023 8:12 AM PHOTOENGRAVING PROOFER APPRENTICE): This is improved with current medications continue current meds follow-up 6 months Assessment & Plan (03/29/2023 4:27 PM CDT): Decrease neurontin to every day and snd start lyrica qhs, after 1 week stop neurontin, bid lyrica, after a couple weeks may take tid Assessment & Plan (11/24/2022 11:36 AM CDT): Currently well controlled Assessment & Plan (05/18/2022 4:05 PM PHOTOENGRAVING PROOFER APPRENTICE): Currently controlled Assessment & Plan (11/16/2021 4:42 PM CDT): Improved current medications, continue current meds follow-up routine Assessment & Plan (05/17/2021 4:32 PM PHOTOENGRAVING PROOFER APPRENTICE): Stable CPM Assessment & Plan (11/19/2020 7:35 AM CDT): Currently on meds Assessment & Plan (05/15/2020 12:22 PM PHOTOENGRAVING PROOFER APPRENTICE): controlled Assessment & Plan (12/05/2019 3:33 PM CDT): CPM Assessment & Plan (11/12/2019 4:34 PM CDT): CPM Mixed hyperlipidemia 10/07/2015 024 Assessment & Plan (06/01/2023 8:12 AM PHOTOENGRAVING PROOFER APPRENTICE): Patient is to continue present medications, work [...] routine. Assessment & Plan (05/18/2022 4:05 PM PHOTOENGRAVING PROOFER APPRENTICE): Patient is to continue present medications, work [...] routine. Assessment & Plan (05/15/2020 12:21 PM PHOTOENGRAVING PROOFER APPRENTICE): As above Nonalcoholic steatohepatitis (AYERS) 08/31/2012 10/18/2023 Assessment & Plan (06/01/2023 8:12 AM PHOTOENGRAVING PROOFER APPRENTICE): Patient is going to work on weight reduction we did discuss ahlk-svr-wnuipxn medications including vitamin-E to help with fatty liver she did does not drink alcohol Assessment & Plan (05/18/2022 4:05 PM PHOTOENGRAVING PROOFER APPRENTICE): Diet and exercise Assessment & Plan (05/17/2021 4:32 PM PHOTOENGRAVING PROOFER APPRENTICE): Stable will follow Assessment & Plan (11/19/2020 7:35 AM CDT): Previous work up with GI, will follow Assessment & Plan (05/15/2020 12:22 PM PHOTOENGRAVING PROOFER APPRENTICE): Working on diet and exercise History of bariatric surgery 07/22/2010 10/18/2023 Former smoker 03/30/2010 10/18/2023 Immunizations Immunization Administration Dates Next Due Influenza, Unspecified 03/29/2023(Deferr ed: Patient decision),03/04/2023(Deferred: Patient decision),04/26/2022(Deferred: Patient decision),04/20/2022(Deferred: Patient Refused),03/29/2022(Deferred: Patient decision),11/16/2021(Deferred: Patient Refused),02/27/2020(Deferred: Patient Refused),05/01/2019(Deferred: Patient decision),05/29/2018(Deferred: Patient decision) Pfizer SARS-CoV-2 Monovalent Vaccination (12+ Yrs) PURPLE 08/14/2020,07/25/2020 Pfizer Sars-Cov-2 Bivalent Vaccination (12+ YRS) 03/17/2022 Pneumococcal Conjugate PCV 13 02/18/2016 Social History Tobacco Use Types Packs/Day Years Used Date Smoking Tobacco: Former Cigarettes 0.8 20.1 0 05/29/1984 - 07/06/2004 Passive Smoke Exposure: Past Smokeless Tobacco: Never Tobacco Cessation:Counseling Given: Not Answered Alcohol Use Standard Drinks/Week Comments Yes 0 (1 standard drink = 0.6 oz pur e alcohol) Fluential Answer Date Recorded In the past 12 months has [employer], or water [employer] threatened to shut off services in your [...] week 12/19/2024 How often do you attend [facility] or nondenominational services? Never 12/19/2024 Do you belong to any clubs o r organizations such as mu-ism groups, unions, fraternal or athletic groups, or [...] place to sleep or slept in a penitentiary (including now)? No 06/16/2022 Housing Stability Vital [...] time in the past 12 m [facility], were you homeless or living in a penitentiary (including now)? No 12/19/2024 Personal Safety Answer Date Recorded Have you ever been in or are you currently in a harmful physical or emotional relationship or is someone making you feel afraid or unsafe? Denies 12/24/2024 Comments No Sex and Gender Information Value Date Recorded Sex Assigned at Not on file Legal Sex Female 4:16 AM PHOTOENGRAVING PROOFER APPRENTICE Gender Identity Female 09/21/2017 4:47 PM CDT Sexual Orientation Not on file Last Filed [...] Description 01/28/2025 11:50 AM CDT Hospital Encounter [facility] Operating Room [address] [place] [address] Rosalio Arriola MD [address] [address] 01/28/2025 11:50 AM CDT - 01/28/2025 2:20 PM CDT Surgery [facility] Operating Room [address] [place] [address] Rosalio Arriola MD [address] [address] LITHOTRIPSY - LASER Scheduled Procedures Name Priority Associated Diagnoses Date/Ti fl LITHOTRIPSY - LASER Renal stones 01/28/2025 11:50 AM CDT URETEROSCOPY Renal stones 01/28/2025 11:50 AM CDT PLACEMENT STENT - URETERAL Renal stones 01/28/2025 11:50 AM CDT Goals Goal Patient Goal Type Associated Problems Recent Progress Patient-Stated? Author Autogenerat ed Goal Care Plan Autogenerated Problem No Alex, Yojana A. Medical Devices Implanted Type Area Team Psychologist Device Identifier Shelf Expiration Date Model / Serial / Lot Med[employer]onic Inc Capsurefix Novus 6.2fr 2mm 52cm Bipolar Screw In Implantable Latex Free 5076-52 - [id number] - [id number] Implanted:Qty: 1 on 08/23/2024 by Priya Whitfield MD at [facility] Lead Right: Atria Medtronic Inc 06/12/2026 5076-52 / [id number] 85V / [id number] 85V Medtronic Inc Selectsecure 4.1fr 69cm Bipolar Screw In Is-1 Atrium Ventricle [id number] - [id number] - [id number] Implanted:Qty: 1 on 08/23/2024 by Priya Whitfield MD at [facility] Lead Right: Ventricle Medtronic Inc 07/18/2026 [id number] / [id number] 94V / [id number] 94V Medtronic Inc Tyrx Absorbable Antibacterial Envelope Med 2.7x2.5in [id number] - [id number] - [id number] Implanted:Qty: 1 on 08/23/2024 by Priya Whitfield MD at [facility] Other - see comments Left: Lateral Chest Wall Med[employer]onic Inc 04/27/2025 [id number] / [id number] / [id number] Description:Antibacterial en velope Medtronic Inc [place] S Mri Surescan 50.8x46.6mm 2 Chamber 7.4mm Pacemaker 22.5gm [id number] - [id number] - [id number] Implanted:Qty: 1 on 08/23/2024 by Priya Whitfield MD at [facility] Pacemaker Left: Lateral Chest Wall Med[employer]onic Inc 12/09/2025 [id number] / [id number] 13G / [id number] 13G [employer] Valve Aortic Trnscath Kate 3 Ultra Resilia 26mm [id number] - [id number] - [id number] Implanted:Qty: 1 on 08/15/2024 by Gilberto Love MD at [facility] Prosthetic Valve N/A: Aortic Valve [employer] 01/31/2027 [id number] / [id number] [employer] Stent Ureteral Set Double Pigtail Flexible Tip Filiform 8.8pvx23id Silicone [id number] - [id number] Implanted:Qty: 1 on 10/18/2023 by Phillip Lombardi DO at [facility] Stent Left: Urethra [employer] [id number] 07/10/2026 [id number] / / [id number] [facility] Closure Repair Femoral Artery Suture Mediated Perclose Prostyle 92614-34 - [id number] - [id number] Implanted:Qty: 1 on 08/15/2024 by Gilberto Love MD at [facility] Vascular Closure Device Right: Common Femoral Artery [employer] 03/28/2026 90755-1 3 / [id number] / [id number] [employer] Angio-Seal Vip 6fr Closere Device [id number] - [id number] - [id number] Implanted:Qty: 1 on 08/15/2024 by Gilberto Love MD at [facility] Vascular Closure Device Left: Common Femoral Artery [employer] 03/22/2025 [id number] / [id number] / [id number] [employer] Angio-Seal Vip Bondek-Plus 8fr .038in 70cm Hemostatic Latex Free [id number] - [id number] - [id number] Implanted:Qty: 1 on 08/15/2024 by Gilberto Love MD at [facility] Vascular Closure Device Right: Common Femoral Artery [employer] 12/03/2024 [id number] / [id number] / [id number] Explanted Type Area Team Psychologist Device Identifier Shelf Expiration Date Model / Serial / Lot [employer] Stent Ureteral Set Double Pigtail Radiopaque Tip [employer] [id number] Polyurethane Hydrophilic Coated [id number] - Sn/A - [id number] Implanted:Qty: 1 on 09/13/2023 by Jeny Giraldo MD at [facility] Explanted:Qty: 1 on 10/18/2023 by Phillip Lombardi DO at [facility] Stent Left: Urethra [employer] [id number] 06/16/2026 [id number] / N/A / [id number] Procedures Procedure Name Priority Date/Time Associated Diagnosis [...] PM CDT 12/27/2024 5:16 PM CDT John Uriosetgui MD LAB POCT ORDERABLES - D EVICE Final Result Performing Organization Address City/[facility] [[email or web address]] Co de Phone Number JASVIR[address] [place] [address] * POCT glucose (12/27/2024 11:32 AM CDT) Glucose, POC 141 70 - 199 mg/dL Blood 12/27/2024 11:3 2 AM CDT 12/27/2024 11:32 AM CDT John Uriostegui MD LAB POCT ORDERABLES - D EVICE Final Result Performing Organization Address City/[facility] [[email or web address]] Co de Phone Number [address] [place] [address] * POCT glucose (12/27/2024 8:22 AM CDT) Glucose, POC 144 70 - 199 mg/dL Blood 12/27/2024 8:22 AM CDT 12/27/2024 8:22 AM CDT John Uriostegui MD LAB POCT ORDERABLES - D EVICE Final Result Performing Organization Address City/[facility] [[email or web address]] Co de Phone Number [address] [place] [address] * eGFR (12/27/2024 3:45 AM CDT) eGFR [...] of Race in Diagnosing Kidney Disease, JASN 202). The CKD-EPI equation should not be used for patients with unstable renal function and has not been validated in children and those over 70. Current interpretive data was last reviewed 2021. Blood 12/27/2024 3:45 AM CDT 12/27/2024 4:13 AM CDT Juan Teixeira MD LAB BLOOD ORDERABLES Final Result [facility] [address] [facility] Department [place] [address] * Differential, auto (12/27/2024 3:45 AM CDT) Pathologist [facility] Neutrophil abs 4.76 1.50 - 6.50 K/cumm Imm gran abs 0.06 0.00 - 0.10 K/cumm [facility] Lymphocyte abs 2.71 0.80 - 3.30 K/cumm [facility] Monocyte abs 0.63 0.20 - 0.80 K/cumm [facility] Eosinophil abs 0.19 0.00 - 0.50 K/cumm [facility] Basophil abs 0.04 0.00 - 0.10 K/cumm [facility] Neutrophil pct 56.7 % [facility] Comment: Interpretive Data Percent cell count reference ranges are not reported, since discordance with absolute values may lead to misinterpretation of CBC data. Current Interpretive Data was last revised on 2017. Imm gran pct 0.7 % [facility] Comment: Interpretive Data Percent cell count reference ranges are not reported, since discordance with absolute values may lead to misinterpretation of CBC data. Current Interpretive Data was last revised on 2017. Lymphocyte pct 32.3 % [facility] Comment: Interpretive Data Percent cell count reference ranges are not reported, since discordance with absolute values may lead to misinterpretation of CBC data. Current Interpretive Data was last revised on 2017. Monocyte pct 7.5 % [facility] Comment: Interpretive Data Percent cell count reference ranges are not reported, since discordance with absolute values may lead to misinterpretation of CBC data. Current Interpretive Data was last revised on 2017. Eosinophil pct 2.3 % [facility] Comment: Interpretive Data Percent cell count reference ranges are not reported, since discordance with absolute values may lead to misinterpretation of CBC data. Current Interpretive Data was last revised on 2017. Basophil pct 0.5 % [facility] Comment: Interpretive Data Percent cell count reference ranges are not reported, since discordance with absolute values may lead to misinterpretation of CBC data. Current Interpretive Data was last revised on 2017. Blood 12/27/2024 3:45 AM CDT 12/27/2024 4:13 AM CDT Juan Teixeira MD LAB BLOOD ORDERABLES Final Result [facility] [address] [facility] Department of Laboratories [place], [place] [id number] * (ABNORMAL) CBC with auto differential (12/27/2024 3:45 AM CDT) WBC 8.39 3.80 - 9.90 K/cumm Hgb 12.7 11.9 - 15.5 g/dL [facility] Hct 39.3 35.6 - 45.5 % [facility] Plt 148(L) 150 - 400 K/cumm [facility] MPV 9.3 9.1 - 12.3 fL [facility] RBC 4.66 3.90 - 5.20 M/cumm [facility] MCV 84.3 81.3 - 96.4 fL [facility] MCH 27.3 27.1 - 33.3 pg [facility] MCHC 32.3 32.3 - 35.7 g/dL [facility] RDW CV 13.6 11.1 - 14.9 % [facility] RDW SD 41.5 35.7 - 48.1 fL [facility] NRBC abs 0.00 0.00 - 0.01 K/cumm [facility] Blood 12/27/2024 3:45 AM CDT 12/27/2024 4:13 AM CDT us Juan Teixeira MD LAB BLOOD ORDERABLES Final Result [facility] [address] [facility] Department [place] [address] * Basic metabolic panel (12/27/2024 3:45 AM CDT) Sodium 139 135 - 145 mmol/L Potassium, pl 3.9 3.3 - 4.9 mmol/L [facility] Chloride 102 97 - 110 mmol/L [facility] CO2 26 22 - 32 mmol/L [facility] Anion gap 11 2 - 15 mmol/L [facility] BUN 19 6 - 25 mg/dL [facility] Creatinine 0.88 0.60 - 1.10 mg/dL [facility] Glucose 129 70 - 199 mg/dL [facility] Comment: Interpretive Data Fasting glucose >/= [...] 2022. Calcium 9.0 8.5 - 10.3 mg/dL [facility] Blood 12/27/2024 3:45 AM CDT 12/27/2024 4:13 AM CDT Juan Teixeira MD LAB BLOOD ORDERABLES Final Result Performing Organization Address City/[facility] [[email or web address]] Co de Phone Number [facility]I [address] [address] * eGFR (12/26/2024 9:54 PM CDT) Pathologist [facility] eGFR 70 >=60 mL/min/1. 73 m2 Comment: [...] PM CDT 12/26/2024 10:08 PM CDT us uJan Teixeira MD LAB BLOOD ORDERABLES Final Result Performing Organization Address City/[facility]/ZIP Co de Phone Number MAI [address] [place] [address] * CBC without differential (12/26/2024 9:54 PM CDT) [facility] WBC 9.20 3.80 - 9.90 K/cumm Hgb 12.7 11.9 - 15.5 g/dL [facility] Hct 38.7 35.6 - 45.5 % [facility] Plt 165 150 - 400 K/cumm [facility] MPV 9.5 9.1 - 12.3 fL [facility] RBC 4.61 3.90 - 5.20 M/cumm [facility] MCV 83.9 81.3 - 96.4 fL [facility] MCH 27.5 27.1 - 33.3 pg [facility] MCHC 32.8 32.3 - 35.7 g/dL [facility] RDW CV 13.4 11.1 - 14.9 % [facility] RDW SD 40.9 35.7 - 48.1 fL [facility] NRBC abs 0.00 0.00 - 0.01 K/cumm [facility] Blood 12/26/2024 9:54 PM CDT 12/26/2024 10:08 PM CDT us Juan Teixeira MD LAB BLOOD ORDERABLES Final Result [facility] [address] [facility] Department [place] [address] * Basic metabolic panel (12/26/2024 9:54 PM CDT) Sodium 140 135 - 145 mmol/L Potassium, pl 3.7 3.3 - 4.9 mmol/L [facility] Chloride 101 97 - 110 mmol/L [facility] CO2 27 22 - 32 mmol/L [facility] Anion gap 12 2 - 15 mmol/L [facility] BUN 21 6 - 25 mg/dL [facility] Creatinine 0.92 0.60 - 1.10 mg/dL [facility] Glucose 147 70 - 199 mg/dL [facility] Comment: Interpretive Data Fasting glucose >/= [...] 2022. Calcium 9.1 8.5 - 10.3 mg/dL [facility] Blood 12/26/2024 9:54 PM CDT 12/26/2024 10:08 PM CDT Juan Teixeira MD LAB BLOOD ORDERABLES Final Result Performing Organization Address City/[facility] [[email or web address]] Co de Phone Number [facility] [address] [place] [address] * POCT glucose (12/26/2024 7:13 PM CDT) Glucose, POC 143 70 - 199 mg/dL Glucose comment 1 RN/MD Notified [facility] Blood 12/26/2024 7:13 PM CDT 12/26/2024 7:13 PM CDT John Uriostegui MD LAB POCT ORDERABLES - D EVICE Final Result Performing Organization Address [facility] [[email or web address]] Co de Phone Number MAI [address] [address] * POCT glucose (12/26/2024 6:02 PM CDT) Glucose, POC 143 70 - 199 mg/dL Blood 12/26/2024 6:02 PM CDT 12/26/2024 6:02 PM CDT John Uriostegui MD LAB POCT ORDERABLES - D EVICE Final Result Performing Organization Address City/[facility] [[email or web address]] Co de Phone Number [facility]I [address] [place] [address] * POCT glucose (12/26/2024 12:39 PM CDT) Glucose, POC 129 70 - 199 mg/dL Glucose comment 1 Use This Result [facility] Blood 12/26/2024 12:3 9 PM CDT 12/26/2024 12:39 PM CDT John Uriostegui MD LAB POCT ORDERABLES - D EVICE Final Result Performing Organization Address City/[facility]/ZIP Co de Phone Number MAI [address] [place] [address] * Tissue aerobic and anaerobic culture and gram stain Bone Toe, second, right (12/26/2024 12:11 PM CDT) Direct Specimen Exam Stain: No polymorphonuclear leukocytes seen. No organisms seen. Comment:Testing performed by : [facility], [address] [place]., [address] Report Final Report: No growth JASVIRDAVID Comment:Testing performed by : [facility], [address] [place]., [address] Bone (Toe, second, right) 12/26/2024 12:11 PM CDT 12/26/2024 3:52 PM CDT Narrative [facility] - 12/29/2024 12:22 PM CDT Left 2nd toe bone for culture Testing performed by [facility] Microbiology Laboratory ([phone]) Specimens submitted from normally sterile body sites [...] LAB MICROBIOLOGY - GENERAL ORDERABLES Final Result [facility] [facility] Department [place] [address] * Surgical pathology (12/26/2024 10:48 AM CDT) Tissue (Amputation non-tramatic) 12/26/2024 10:48 AM CDT Narrative PATHOLOGY [facility] - 12/27/2024 4:24 PM CDT [facility] Department of Pathology [address] [place] [id number] Note to Patients: This report may contain [...] : 1960 (Age: 64) Gender: F Address: [address] [place] [id number] Hospital #: [id number] Service: Medical Location: Patient Type: [facility] INPATIENT Taken: 12/26/2024 Received: 12/26/2024 Accessioned: 12/26/2024 [...] submitted for gross examination only. Qasim Martino slb/12/26/2024 14:15 MAURICIO Carrasquillo Microscopic slide review and interpretation for this case was performed at [facility], Department of Surgical Pathology, [address] [facility] [place] [place] [id number], [place] [address] IA # [id number] Juan Teixeira MD LAB PATHOLOGY ORDERABLES Fi nal Result PATHOLOGY [facility] * POCT glucose (12/26/2024 10:46 AM CDT) Glucose, POC 138 70 - 199 mg/dL Blood 12/26/2024 10:4 6 AM CDT 12/26/2024 10:46 AM CDT John Uriostegui MD LAB POCT ORDERABLES - D EVICE Final Result Performing Organization Address [facility] [[email or web address]] Co de Phone Number JASVIR[address] [employer] [place] [address] * POCT glucose (12/26/2024 7:59 AM CDT) Glucose, POC 128 70 - 199 mg/dL Blood 12/26/2024 7:59 AM CDT 12/26/2024 7:59 AM CDT John Uriostegui MD LAB POCT ORDERABLES - D EVICE Final Result Performing Organization Address City/[facility]/ZIP Co de Phone Number JASVIR[address] [place] [address] * POCT glucose (12/25/2024 8:49 PM CDT) Glucose, POC 162 70 - 199 mg/dL Blood 12/25/2024 8:49 PM CDT 12/25/2024 8:49 PM CDT John Uriostegui MD LAB POCT ORDERABLES - D EVICE Final Result Performing Organization Address City/[facility]/ZIP Co de Phone Number CER[address] [place] [address] * POCT glucose (12/25/2024 5:24 PM CDT) Glucose, POC 115 70 - 199 mg/dL Blood 12/25/2024 5:24 PM CDT 12/25/2024 5:24 PM CDT John Uriostegui MD LAB POCT ORDERABLES - D EVICE Final Result JASVIR[address] [place] [address] * POCT glucose (12/25/2024 12:23 PM CDT) Glucose, POC 159 70 - 199 mg/dL Blood 12/25/2024 12:2 3 PM CDT 12/25/2024 12:23 PM CDT John Uriostegui MD LAB POCT ORDERABLES - D EVICE Final Result [address] [place] [address] * POCT glucose (12/25/2024 8:25 AM CDT) Glucose, POC 178 70 - 199 mg/dL Blood 12/25/2024 8:25 AM CDT 12/25/2024 8:25 AM CDT John Uriostegui MD LAB POCT ORDERABLES - D EVICE Final Result [address] [place] [address] * POCT glucose (12/24/2024 7:44 PM CDT) Glucose, POC 175 70 - 199 mg/dL Glucose comment 1 RN/MD Notified [facility] Blood 12/24/2024 7:44 PM CDT 12/24/2024 7:44 PM CDT us Soledad Harris MD LAB POCT ORDERABLES - DEVICE Final Result Performing Organization Address [facility] [[email or web address]] Co de Phone Number MAI [address] [address] * POCT glucose (12/24/2024 4:38 PM CDT) Glucose, POC 162 70 - 199 mg/dL Comment:Testing performed by : [address] [address] Blood 12/24/2024 4:38 PM CDT 12/24/2024 4:38 PM CDT us Soledad Harris MD LAB POCT ORDERABLES - DEVICE Final Result Performing Organization Address [facility] de Phone Number JASVIR[address] [address] * POCT glucose (12/24/2024 11:26 AM CDT) Glucose, POC 134 70 - 199 mg/dL Comment:Testing performed by : [address] [address] Blood 12/24/2024 11:2 6 AM CDT 12/24/2024 11:26 AM CDT us Soledad Harrsi MD LAB POCT ORDERABLES - DEVICE Final Result Performing Organization Address [facility] [[email or web address]] Co de Phone Number JASVIR[address] [address] * Vancomycin level trough (12/24/2024 8:56 AM CDT) Vancomycin trough 12.7 10.0 - 20.0 mcg/mL Comment:Testing performed by : [address] [address] Blood 12/24/2024 8:56 AM CDT 12/24/2024 9:12 AM CDT us Soledad Harris MD LAB BLOOD ORDERABLES Final Re sult Performing Organization Address City/[facility]/ZIP Co de Phone Number JASVIR[address] [address] * POCT glucose (12/24/2024 8:03 AM CDT) Pathologist [facility] Glucose, POC 168 70 - 199 mg/dL Comment:Testing performed by : [facility], [address] [place] [address], [address] Blood 12/24/2024 8:03 AM CDT 12/24/2024 8:03 AM CDT us Soledad Harris MD LAB POCT ORDERABLES - DEVICE Final Result Performing Organization Address [facility] [[email or web address]] Co de Phone Number [address] [address] * eGFR (12/24/2024 2:33 AM CDT) [facility] eGFR >90 >=60 mL/min/1. 73 m2 Comment: [...] was last reviewed 2021. Testing performed by: [address] [address] Blood 12/24/2024 2:33 AM CDT 12/24/2024 2:48 AM CDT Nan Calderon MD LAB BLOOD ORDERABLES Final R esult [facility] [address] [facility] Department [place] [address] * Differential, auto (12/24/2024 2:33 AM CDT) Neutrophil abs 4.47 1.50 - 6.50 K/cumm Comment:Testing performed by : [address] [address] Imm gran abs 0.07 0.00 - 0.10 K/cumm [facility] Comment:Testing performed by : [address] [address] Lymphocyte abs 2.45 0.80 - 3.30 K/cumm [facility] Comment:Testing performed by : [address] [address] Monocyte abs 0.58 0.20 - 0.80 K/cumm [facility] Comment:Testing performed by : [address] [address] Eosinophil abs 0.19 0.00 - 0.50 K/cumm [facility] Comment:Testing performed by : [address] [address] Basophil abs 0.03 0.00 - 0.10 K/cumm [facility] Comment:Testing performed by : [address] [address] Neutrophil pct 57.4 % [facility] Comment: Interpretive Data Percent cell count reference ranges are not reported, since discordance with absolute values may lead to misinterpretation of CBC data. Current Interpretive Data was last revised on 2017. Testing performed by: [address] [address] Imm gran pct 0.9 % [facility] Comment: Interpretive Data Percent cell count reference ranges are not reported, since discordance with absolute values may lead to misinterpretation of CBC data. Current Interpretive Data was last revised on 2017. Testing performed by: [address] [address] Lymphocyte pct 31.5 % [facility] Comment: Interpretive Data Percent cell count reference ranges are not reported, since discordance with absolute values may lead to misinterpretation of CBC data. Current Interpretive Data was last revised on 2017. Testing performed by: [address] [address] Monocyte pct 7.4 % [facility] Comment: Interpretive Data Percent cell count reference ranges are not reported, since discordance with absolute values may lead to misinterpretation of CBC data. Current Interpretive Data was last revised on 2017. Testing performed by: [address] [address] Eosinophil pct 2.4 % [facility] Comment: Interpretive Data Percent cell count reference ranges are not reported, since discordance with absolute values may lead to misinterpretation of CBC data. Current Interpretive Data was last revised on 2017. Testing performed by: [address] [address] Basophil pct 0.4 % [facility] Comment: Interpretive Data Percent cell count reference ranges are not reported, since discordance with absolute values may lead to misinterpretation of CBC data. Current Interpretive Data was last revised on 2017. Testing performed by: [address] [address] Blood 12/24/2024 2:33 AM CDT 12/24/2024 2:53 AM CDT us Nan Calderon MD LAB BLOOD ORDERABLES Final R esult [facility] [address] [facility] Department of Laboratories [place], [place] [id number] * (ABNORMAL) CBC with auto differential (12/24/2024 2:33 AM CDT) [facility] WBC 7.79 3.80 - 9.90 K/cumm Comment:Testing performed by : [address], [address] Hgb 12.8 11.9 - 15.5 g/dL [facility] Comment:Testing performed by : [address], [address] Hct 38.6 35.6 - 45.5 % [facility] Comment:Testing performed by : [address], [address] Plt 150 150 - 400 K/cumm [facility] Comment:Testing performed by : [address], [address] MPV 8.9(L) 9.1 - 12.3 fL [facility] Comment:Testing performed by : [address], [address] RBC 4.70 3.90 - 5.20 M/cumm [facility] Comment:Testing performed by : [address], [address] MCV 82.1 81.3 - 96.4 fL [facility] Comment:Testing performed by : [address], [address] MCH 27.2 27.1 - 33.3 pg [facility] Comment:Testing performed by : [address], [address] MCHC 33.2 32.3 - 35.7 g/dL [facility] Comment:Testing performed by : [address], [address] RDW CV 13.4 11.1 - 14.9 % [facility] Comment:Testing performed by : [address], [address] RDW SD 40.2 35.7 - 48.1 fL [facility] Comment:Testing performed by : [address], [address] NRBC abs 0.00 0.00 - 0.01 K/cumm [facility] Comment:Testing performed by : [address] [address] Blood 12/24/2024 2:33 AM CDT 12/24/2024 2:53 AM CDT us Nan Calderon MD LAB BLOOD ORDERABLES Final R esult [facility] [address] [facility] Department [place] [address] * (ABNORMAL) Basic metabolic panel (12/24/2024 2:33 AM CDT) Sodium 138 135 - 145 mmol/L Comment:Testing performed by : [address] [address] Potassium, pl 3.7 3.3 - 4.9 mmol/L [facility] Comment:Testing performed by : [address] [address] Chloride 102 97 - 110 mmol/L [facility] Comment:Testing performed by : [address] [address] CO2 22 22 - 32 mmol/L [facility] Comment:Testing performed by : [address] [address] Anion gap 14 2 - 15 mmol/L [facility] Comment:Testing performed by : [address] [address] BUN 18 6 - 25 mg/dL [facility] Comment:Testing performed by : [address] [address] Creatinine 0.74 0.60 - 1.10 mg/dL [facility] Comment:Testing performed by : [address] [address] Glucose 202(H) 70 - 199 mg/dL [facility] [...] was last revised 2022. Testing performed by: [address] [address] Calcium 9.5 8.5 - 10.3 mg/dL [facility] Comment:Testing performed by : [address] [address] Blood 12/24/2024 2:33 AM CDT 12/24/2024 2:48 AM CDT Nan Calderon MD LAB BLOOD ORDERABLES Final R esult Performing Organization Address City/[facility]/ZIP Co de Phone Number JASVIR[address] [place] [address] * POCT glucose (12/23/2024 7:43 PM CDT) Glucose, POC 182 70 - 199 mg/dL Comment:Testing performed by : [address] [address] Blood 12/23/2024 7:43 PM CDT 12/23/2024 7:43 PM CDT us Soledad Harris MD LAB POCT ORDERABLES - DEVICE Final Result Performing Organization Address City/[facility]/ZIP Co de Phone Number [address] [place] [address] * POCT glucose (12/23/2024 5:25 PM CDT) Glucose, POC 148 70 - 199 mg/dL Comment:Testing performed by : [address] [address] Blood 12/23/2024 5:25 PM CDT 12/23/2024 5:25 PM CDT us Karloyen V. Harris MD LAB POCT ORDERABLES - DEVICE Final Result Performing Organization Address [facility] [[email or web address]] Co de Phone Number JASVIR[address] [place] [address] * POCT glucose (12/23/2024 11:07 AM CDT) Glucose, POC 118 70 - 199 mg/dL Comment:Testing performed by : [address] [address] Blood 12/23/2024 11:0 7 AM CDT 12/23/2024 11:07 AM CDT us Soledad Harris MD LAB POCT ORDERABLES - DEVICE Final Result Performing Organization Address [facility] [[email or web address]] Co de Phone Number [address] [place] [address] * POCT glucose (12/23/2024 7:21 AM CDT) Glucose, POC 146 70 - 199 mg/dL Comment:Testing performed by : [address] [address] Blood 12/23/2024 7:21 AM CDT 12/23/2024 7:21 AM CDT us Soledad Harris MD LAB POCT ORDERABLES - DEVICE Final Result Performing Organization Address [email or web address]] Co de Phone Number [address] [place] [address] * (ABNORMAL) POCT glucose (12/22/2024 8:20 PM CDT) Glucose, POC 234(H) 70 - 199 mg/dL Comment:Testing performed by : [address] [address] Blood 12/22/2024 8:20 PM CDT 12/22/2024 8:20 PM CDT us Soledad Harris MD LAB POCT ORDERABLES - DEVICE Final Result Performing Organization Address City/[facility]/ZIP Co de Phone Number [facility] [address] [place] [address] * POCT glucose (12/22/2024 5:08 PM CDT) Glucose, POC 124 70 - 199 mg/dL Comment:Testing performed by : [address] [address] Blood 12/22/2024 5:08 PM CDT 12/22/2024 5:08 PM CDT us Soledad Harris MD LAB POCT ORDERABLES - DEVICE Final Result Performing Organization Address [facility] de Phone Number MAI [address] [address] * POCT glucose (12/22/2024 12:25 PM CDT) Glucose, POC 126 70 - 199 mg/dL Comment:Testing performed by : [address] [address] Glucose comment 1 Will Repeat Test [facility]I Comment:Testing performed by : [address] [address] Glucose comment 2 RN/MD Notified [facility] Comment:Testing performed by : [address] [address] Blood 12/22/2024 12:2 5 PM CDT 12/22/2024 12:25 PM CDT us Soledad Harris MD LAB POCT ORDERABLES - DEVICE Final Result Performing Organization Address [facility] [[email or web address]] Co de Phone Number MAI [address] [address] * POCT glucose (12/22/2024 7:42 AM CDT) Glucose, POC 150 70 - 199 mg/dL Comment:Testing performed by : [facility], [address] [place] [address]., [address] Glucose comment 1 Will Repeat Test MAI DEL RIO Comment:Testing performed by : [facility], [address] [place] [address]., [address] Glucose comment 2 RN/MD Notified MAI QUANG Comment:Testing performed by : [address] [address] Blood 12/22/2024 7:42 AM CDT 12/22/2024 7:42 AM CDT us Soledad Harris MD LAB POCT ORDERABLES - DEVICE Final Result MAI DEL RIO [address] [facility] Department [place] [address] * eGFR (12/22/2024 7:06 AM CDT) [facility] eGFR 72 >=60 mL/min/1. 73 m2 Comment: [...] was last reviewed 2021. Testing performed by: [facility], [address] [place] [address]., [address] Blood 12/22/2024 7:06 AM CDT 12/22/2024 8:12 AM CDT us Soledad Harris MD LAB BLOOD ORDERABLES Final Re sult MAI [address] [facility] Department [place] [address] * Differential, auto (12/22/2024 7:06 AM CDT) Neutrophil abs 3.96 1.50 - 6.50 K/cumm Comment:Testing performed by : [address] [address] Imm gran abs 0.06 0.00 - 0.10 K/cumm MAI Comment:Testing performed by : [address] [address] Lymphocyte abs 1.80 0.80 - 3.30 K/cumm MAI Comment:Testing performed by : [address] [address] Monocyte abs 0.54 0.20 - 0.80 K/cumm MAI Comment:Testing performed by : [address] [address] Eosinophil abs 0.21 0.00 - 0.50 K/cumm MAI Comment:Testing performed by : [address] [address] Basophil abs 0.04 0.00 - 0.10 K/cumm MAI Comment:Testing performed by : [address] [address] Neutrophil pct 59.9 % MAI Comment: Interpretive Data Percent cell count reference ranges are not reported, since discordance with absolute values may lead to misinterpretation of CBC data. Current Interpretive Data was last revised on 2017. Testing performed by: [address] [address] Imm gran pct 0.9 % MAI Comment: Interpretive Data Percent cell count reference ranges are not reported, since discordance with absolute values may lead to misinterpretation of CBC data. Current Interpretive Data was last revised on 2017. Testing performed by: [address] [address] Lymphocyte pct 27.2 % [facility] Comment: Interpretive Data Percent cell count reference ranges are not reported, since discordance with absolute values may lead to misinterpretation of CBC data. Current Interpretive Data was last revised on 2017. Testing performed by: [address] [address] Monocyte pct 8.2 % [facility] Comment: Interpretive Data Percent cell count reference ranges are not reported, since discordance with absolute values may lead to misinterpretation of CBC data. Current Interpretive Data was last revised on 2017. Testing performed by: [address] [address] Eosinophil pct 3.2 % [facility] Comment: Interpretive Data Percent cell count reference ranges are not reported, since discordance with absolute values may lead to misinterpretation of CBC data. Current Interpretive Data was last revised on 2017. Testing performed by: [address] [address] Basophil pct 0.6 % [facility] Comment: Interpretive Data Percent cell count reference ranges are not reported, since discordance with absolute values may lead to misinterpretation of CBC data. Current Interpretive Data was last revised on 2017. Testing performed by: [address] [address] Blood 12/22/2024 7:06 AM CDT 12/22/2024 8:12 AM CDT us Soledad Harris MD LAB BLOOD ORDERABLES Final Re sult MAI [address] [facility] Department [place] [address] * (ABNORMAL) CBC with auto differential (12/22/2024 7:06 AM CDT) Pathologist [facility] WBC 6.61 3.80 - 9.90 K/cumm Comment:Testing performed by : [address] [address] Hgb 13.3 11.9 - 15.5 g/dL MAI Comment:Testing performed by : [address], [address] Hct 40.0 35.6 - 45.5 % MAI Comment:Testing performed by : [address] [address] Plt 149(L) 150 - 400 K/cumm MAI Comment:Testing performed by : [address], [address] MPV 9.2 9.1 - 12.3 fL MAI Comment:Testing performed by : [address], [address] RBC 4.82 3.90 - 5.20 M/cumm MAI Comment:Testing performed by : [address], [address] MCV 83.0 81.3 - 96.4 fL MAI Comment:Testing performed by : [address], [address] MCH 27.6 27.1 - 33.3 pg MAI Comment:Testing performed by : [address], [address] MCHC 33.3 32.3 - 35.7 g/dL MAI Comment:Testing performed by : [address], [address] RDW CV 13.5 11.1 - 14.9 % MAI Comment:Testing performed by : [address], [address] RDW SD 40.4 35.7 - 48.1 fL MAI Comment:Testing performed by : [address], [address] NRBC abs 0.00 0.00 - 0.01 K/cumm MAI Comment:Testing performed by : [address], [address] Blood 12/22/2024 7:06 AM CDT 12/22/2024 8:12 AM CDT Soledad Harris MD LAB BLOOD ORDERABLES Final Re sult Performing Organization Address City/[facility]/ZIP Co de Phone Number JASVIR[address] [place] [address] * Vancomycin level trough (12/22/2024 7:06 AM CDT) Pathologist [facility] Vancomycin trough 13.8 10.0 - 20.0 mcg/mL Comment:Testing performed by : [address] [address] Blood 12/22/2024 7:06 AM CDT 12/22/2024 8:12 AM CDT Nan Calderon MD LAB BLOOD ORDERABLES Final R esult Performing Organization Address [facility] [[email or web address]] Co de Phone Number [id number] [place] [address] * Basic metabolic panel (12/22/2024 7:06 AM CDT) Pathologist [facility] Sodium 140 135 - 145 mmol/L Comment:Testing performed by : [address] [address] Potassium, pl 3.9 3.3 - 4.9 mmol/L MAI Comment:Testing performed by : [address] [address] Chloride 100 97 - 110 mmol/L MAI Comment:Testing performed by : [address] [address] CO2 31 22 - 32 mmol/L MAI Comment:Testing performed by : [address] [address] Anion gap 9 2 - 15 mmol/L MAI Comment:Testing performed by : [address] [address] BUN 19 6 - 25 mg/dL MAI Comment:Testing performed by : [address] [address] Creatinine 0.90 0.60 - 1.10 mg/dL MAI Comment:Testing performed by : [address] [address] Glucose 135 70 - 199 mg/dL MAI [...] was last revised 2022. Testing performed by: [address] [address] Calcium 9.5 8.5 - 10.3 mg/dL MAI Comment:Testing performed by : [address] [address] Blood 12/22/2024 7:06 AM CDT 12/22/2024 8:12 AM CDT Soledad Harris MD LAB BLOOD ORDERABLES Final Re sult [address] [place] [address] * POCT glucose (12/21/2024 8:29 PM CDT) [facility] Signature Glucose, POC 121 70 - 199 mg/dL Comment:Testing performed by : [address] [address] Blood 12/21/2024 8:29 PM CDT 12/21/2024 8:29 PM CDT Soledad Harris MD LAB POCT ORDERABLES - DEVICE Final Result Performing Organization Address City/[facility]/ZIP Co de Phone Number [id number] [place] [address] * POCT glucose (12/21/2024 4:55 PM CDT) Glucose, POC 139 70 - 199 mg/dL Comment:Testing performed by : [facility], [address] [place] [address], [place]., [address] Blood 12/21/2024 4:55 PM CDT 12/21/2024 4:55 PM CDT us Soledad Harris MD LAB POCT ORDERABLES - DEVICE Final Result MAI [address] [facility] Department [place] [address] * CT Foot Left W Contrast (12/21/2024 [...] metatarsal resulting in mild artifact. Healed osteotomy. Wilcox is seen of the base of the [...] Electronically signed by Magdi Aceves M.D. MJ: ALBEROT Report ID: [id number] Reading Location: [id number] Procedure Note Magdi Aceves MD - 12/21/2024 [...] metatarsal resulting in mild artifact. Healed osteotomy. Wilcox is seenof the base of the distal [...] Magdi Aceves M.D. MJ: ALBERTO Report ID: [id number] Reading Location: [place] [address] us Soledad Harris MD IMG CT PROCEDURES Final Resul t * POCT glucose (12/21/2024 12:45 PM CDT) Glucose, POC 142 70 - 199 mg/dL Comment:Testing performed by : [address] [address] Blood 12/21/2024 12:4 5 PM CDT 12/21/2024 12:45 PM CDT us Soledad Harris MD LAB POCT ORDERABLES - DEVICE Final Result MAI [address] [facility] Department of Laboratories [place], [place] [id number] * POCT glucose (12/21/2024 7:25 AM CDT) Glucose, POC 154 70 - 199 mg/dL Comment:Testing performed by : [address] [address] Glucose comment 1 Will Repeat Test MAI DEL RIO Comment:Testing performed by : [address] [address] Glucose comment 2 RN/MD Notified MAI DEL RIO Comment:Testing performed by : [address] [address] Blood 12/21/2024 7:25 AM CDT 12/21/2024 7:25 AM CDT us Soledad Harris MD LAB POCT ORDERABLES - DEVICE Final Result Performing Organization Address City/[facility] [[email or web address]] Co de Phone Number MAI [address] [place] [address] * eGFR (12/21/2024 6:48 AM CDT) eGFR [...] was last reviewed 2021. Testing performed by: [address] [address] Blood 12/21/2024 6:48 AM CDT 12/21/2024 8:31 AM CDT us Nan Calderon MD LAB BLOOD ORDERABLES Final R esult Performing Organization Address City/[facility]/ZIP Co de Phone Number MAI [address] [employer] [place], [place] [id number] * Differential, auto (12/21/2024 6:48 AM CDT) Neutrophil abs 3.44 1.50 - 6.50 K/cumm Comment:Testing performed by : [address] [address] Imm gran abs 0.07 0.00 - 0.10 K/cumm [facility] Comment:Testing performed by : [address] [address] Lymphocyte abs 2.00 0.80 - 3.30 K/cumm [facility] Comment:Testing performed by : [address] [address] Monocyte abs 0.55 0.20 - 0.80 K/cumm [facility] Comment:Testing performed by : [address] [address] Eosinophil abs 0.20 0.00 - 0.50 K/cumm [facility] Comment:Testing performed by : [address] [address] Basophil abs 0.05 0.00 - 0.10 K/cumm [facility] Comment:Testing performed by : [address] [address] Neutrophil pct 54.5 % [facility] Comment: Interpretive Data Percent cell count reference ranges are not reported, since discordance with absolute values may lead to misinterpretation of CBC data. Current Interpretive Data was last revised on 2017. Testing performed by: [address] [address] Imm gran pct 1.1 % [facility] Comment: Interpretive Data Percent cell count reference ranges are not reported, since discordance with absolute values may lead to misinterpretation of CBC data. Current Interpretive Data was last revised on 2017. Testing performed by: [address] [address] Lymphocyte pct 31.7 % [facility] Comment: Interpretive Data Percent cell count reference ranges are not reported, since discordance with absolute values may lead to misinterpretation of CBC data. Current Interpretive Data was last revised on 2017. Testing performed by: [address] [address] Monocyte pct 8.7 % [facility] Comment: Interpretive Data Percent cell count reference ranges are not reported, since discordance with absolute values may lead to misinterpretation of CBC data. Current Interpretive Data was last revised on 2017. Testing performed by: [address] [address] Eosinophil pct 3.2 % MAI Comment: Interpretive Data Percent cell count reference ranges are not reported, since discordance with absolute values may lead to misinterpretation of CBC data. Current Interpretive Data was last revised on 2017. Testing performed by: [address] [address] Basophil pct 0.8 % MAI Comment: Interpretive Data Percent cell count reference ranges are not reported, since discordance with absolute values may lead to misinterpretation of CBC data. Current Interpretive Data was last revised on 2017. Testing performed by: [address] [address] Blood 12/21/2024 6:48 AM CDT 12/21/2024 8:31 AM CDT Soledad Harris MD LAB BLOOD ORDERABLES Final Re sult [place] [address] [facility] Department of Laboratories [place], [place] [id number] * (ABNORMAL) CBC with auto differential (12/21/2024 6:48 AM CDT) WBC 6.31 3.80 - 9.90 K/cumm Comment:Testing performed by : [address] [address] Hgb 12.8 11.9 - 15.5 g/dL MAI DEL RIO Comment:Testing performed by : [address] [address] Hct 38.7 35.6 - 45.5 % MAI DEL RIO Comment:Testing performed by : [address] [address] Plt 145(L) 150 - 400 K/cumm MAI DEL RIO Comment:Testing performed by : [address] [address] MPV 9.5 9.1 - 12.3 fL MAI DEL RIO Comment:Testing performed by : [address] [address] RBC 4.67 3.90 - 5.20 M/cumm MAI DEL RIO Comment:Testing performed by : [address] [address] MCV 82.9 81.3 - 96.4 fL MAI DEL RIO Comment:Testing performed by : [address] [address] MCH 27.4 27.1 - 33.3 pg MAI DEL RIO Comment:Testing performed by : [address] [address] MCHC 33.1 32.3 - 35.7 g/dL MAI DEL RIO Comment:Testing performed by : [address] [address] RDW CV 13.6 11.1 - 14.9 % MAI DEL RIO Comment:Testing performed by : [address], [address] RDW SD 41.1 35.7 - 48.1 fL MAI Comment:Testing performed by : [address] [address] NRBC abs 0.00 0.00 - 0.01 K/cumm MAI Comment:Testing performed by : [address] [address] Blood 12/21/2024 6:48 AM CDT 12/21/2024 8:31 AM CDT us Soledad Harris MD LAB BLOOD ORDERABLES Final Re sult [facility] [address] [facility] Department [place] [address] * Comprehensive metabolic panel (12/21/2024 6:48 AM CDT) Sodium 139 135 - 145 mmol/L Comment:Testing performed by : [address] [address] Potassium, pl 3.9 3.3 - 4.9 mmol/L MAI DEL RIO Comment:Testing performed by : [address] [address] Chloride 101 97 - 110 mmol/L MAI Comment:Testing performed by : [address] [address] CO2 25 22 - 32 mmol/L MAI Comment:Testing performed by : [address], [place]., [address] Anion gap 13 2 - 15 mmol/L MAI Comment:Testing performed by : [address], [place]., [address] BUN 19 6 - 25 mg/dL MAI Comment:Testing performed by : [address], [place]., [address] Creatinine 0.80 0.60 - 1.10 mg/dL MAI Comment:Testing performed by : [address], [place]., [address] Glucose 146 70 - 199 mg/dL MAI [...] was last revised 2022. Testing performed by: [address] [address] Calcium 9.0 8.5 - 10.3 mg/dL MAI Comment:Testing performed by : [address] [address] Bilirubin, total 0.3 0.1 - 1.2 mg/dL MAI Comment:Testing performed by : [address] [address] Protein, pl 6.8 6.5 - 8.5 g/dL MAI Comment:Testing performed by : [address] [address] Albumin 3.6 3.5 - 5.0 g/dL MAI Comment:Testing performed by : [address] [address] Alk phos 82 40 - 130 Units/L MAI Comment:Testing performed by : [address] [address] ALT 39 7 - 45 Units/L MAI Comment:Testing performed by : [address] [address] AST 35 10 - 45 Units/L MAI Comment:Testing performed by : [address] [address] Blood 12/21/2024 6:48 AM CDT 12/21/2024 8:31 AM CDT us Nan Calderon MD LAB BLOOD ORDERABLES Final R esult Performing Organization Address [facility] [[email or web address]] Co de Phone Number [address] [place] [address] * (ABNORMAL) POCT glucose (12/20/2024 8:11 PM CDT) Glucose, POC 205(H) 70 - 199 mg/dL Comment:Testing performed by : [address] [address] Glucose comment 1 RN/MD Notified MAI Comment:Testing performed by : [address] [address] Blood 12/20/2024 8:11 PM CDT 12/20/2024 8:11 PM CDT us Soledad Harris MD LAB POCT ORDERABLES - DEVICE Final Result Performing Organization Address City/[facility] [[email or web address]] Co de Phone Number [address] [place] [address] * POCT glucose (12/20/2024 5:03 PM CDT) Glucose, POC 197 70 - 199 mg/dL Comment:Testing performed by : [facility], [address] [place] [address]., [address] Glucose comment 1 RN/MD Notified MAI DEL RIO Comment:Testing performed by : [facility], [address] [place] [address]., [address] Blood 12/20/2024 5:03 PM CDT 12/20/2024 5:03 PM CDT us Soledad Harris MD LAB POCT ORDERABLES - DEVICE Final Result MAI [address] [facility] Department [place] [address] * US SHAKIRA (12/20/2024 3:16 PM CDT) Anatomical Region Laterality Modality Vascular N/A Ultrasound 12/20/2024 2:41 PM CDT Narrative 12/23/2024 1:40 PM CDT Lower Extremity Arterial Doppler Report Patient Name: CECE SOARES L : 1960 Study Date: 12/20/2024 2:41:00 PM Gender: F [employer] Supervisor: Cece Hyde RDRI,[facility] Location: [id number] Ref Provider: NAN CALDERON Quality: Adequate Order Provider: [...] mmHg Lt Brachial Pressure 121 mmHg Rt ART CLASS MODEL Pressure 153 mmHg Lt ART CLASS MODEL Pressure 150 mmHg Rt DPA Pressure 150 [...] Study Date: 12/20/2024 2:41:00 PM Gender: F [employer] Supervisor: eCce Hyde RDMS,[facility] Location: [id number] Ref Provider: NAN CALDERON Quality: Adequate Order Provider: [...] mmHg Lt Brachial Pressure 121 mmHg Rt ART CLASS MODEL Pressure 153 mmHg Lt ART CLASS MODEL Pressure 150 mmHg Rt DPA Pressure 150 [...] PM Ht(Inch): 71 Wt(Lb): 269.01 BSA: 2.47 Dock [employer] Supervisor: Hallie Brothers RDCS Location: [id number] Order Provider: NAN CALDERON Heart Rate: 69 BMI: 37.52 BP: 111 / 64 Ref Provider: NAN CALDERON PROCEDURES: Echocardiographic Report: ([id number]) Echocardiography, transthoracic, 2D, includes M-mode recording, color [...] PM Ht(Inch): 71 Wt(Lb): 269.01 BSA: 2.47 Dock [employer] Supervisor: Hallie Brothers RDCS Location: [place] [address] Order Provider:NAN CALDERON Heart Rate: 69 BMI: 37.52 BP: 111 / 64 Ref Provider: NAN CALDERON PROCEDURES: Echocardiographic Report: ([id number]) Echocardiography, transthoracic, 2D,includes M-mode recording, color and [...] (ABNORMAL) POCT glucose (12/20/2024 11:55 AM CDT) [facility] Glucose, POC 210(H) 70 - 199 mg/dL Comment:Testing performed by : [address] [address] Glucose comment 1 RN/MD Notified MAI DEL RIO Comment:Testing performed by : [address] [address] Blood 12/20/2024 11:5 5 AM CDT 12/20/2024 11:55 AM CDT us Soledad Harris MD LAB POCT ORDERABLES - DEVICE Final Result MAI DEL RIO [address] [facility] Department [place] [address] * Blood culture Blood (12/20/2024 9:01 AM CDT) Report Final Report: No growth Comment:Testing performed by : [facility], [address] [place]., [address] Blood 12/20/2024 9:01 AM CDT 12/20/2024 11:39 AM CDT Narrative MAI DEL RIO - 12/24/2024 12:00 PM CDT From a [...] performance characteristics have been verified by the [facility] Microbiology Laboratory. For questions about this culture, contact the Microbiology Laboratory at [phone]. Interpretive data was last revised on 24. us Nan Calderon MD LAB MICROBIOLOGY - GENERAL O RDERABLES Final Result MAI DEL RIO [address] [facility] Department [place] [address] * Blood culture Blood (12/20/2024 8:54 AM CDT) Report Final Report: No growth Comment:Testing performed by : [facility], [address] [place]., [address] Blood 12/20/2024 8:54 AM CDT 12/20/2024 9:35 PM CDT Narrative MAI DEL RIO - 12/25/2024 7:00 AM CDT Collection->Peripheral 1. [...] performance characteristics have been verified by the [facility] Microbiology Laboratory. For questions about this culture, contact the Microbiology Laboratory at [phone]. Interpretive data was last revised on 24. us Nan Calderon MD LAB MICROBIOLOGY - GENERAL O RDERABLES Final Result MAI [address] [facility] Department [place] [address] * POCT glucose (12/20/2024 7:53 AM CDT) [facility] Signature Glucose, POC 161 70 - 199 mg/dL Comment:Testing performed by : [facility], [address] [place] [address]., [address] Blood 12/20/2024 7:53 AM CDT 12/20/2024 7:53 AM CDT Soledad Harris MD LAB POCT ORDERABLES - DEVICE Final Result Performing Organization Address City/[facility]/ZIP Co de Phone Number MAI [address] [address] * Vancomycin level trough (12/20/2024 7:40 AM CDT) Vancomycin trough 11.2 10.0 - 20.0 mcg/mL Comment:Testing performed by : [address] [address] Blood 12/20/2024 7:40 AM CDT 12/20/2024 8:15 AM CDT Lulu Hussein MD LAB BLOOD ORDER SUNDAR Final Result Performing Organization Address [facility] [[email or web address]] Co de Phone Number MAI [address] [address] * eGFR (12/20/2024 2:45 AM CDT) eGFR 74 >=60 mL/min/1. 73 [...] of Race in Diagnosing Kidney Disease, JASN 202). The CKD-EPI equation should not be used for patients with unstable renal function and has not been validated in children and those over 70. Current interpretive data was last reviewed 2021. Testing performed by: [address] [address] Blood 12/20/2024 2:45 AM CDT 12/20/2024 2:58 AM CDT us Soledad Harris MD LAB BLOOD ORDERABLES Final Re sult MAI [address] [facility] Department [place] [address] * Differential, auto (12/20/2024 2:45 AM CDT) Neutrophil abs 4.26 1.50 - 6.50 K/cumm Comment:Testing performed by : [address] [address] Imm gran abs 0.05 0.00 - 0.10 K/cumm MAI Comment:Testing performed by : [address] [address] Lymphocyte abs 1.75 0.80 - 3.30 K/cumm MAI Comment:Testing performed by : [address] [address] Monocyte abs 0.63 0.20 - 0.80 K/cumm MAI Comment:Testing performed by : [address] [address] Eosinophil abs 0.26 0.00 - 0.50 K/cumm MAI Comment:Testing performed by : [address] [address] Basophil abs 0.02 0.00 - 0.10 K/cumm MAI Comment:Testing performed by : [address] [address] Neutrophil pct 61.2 % MAI Comment: Interpretive Data Percent cell count reference ranges are not reported, since discordance with absolute values may lead to misinterpretation of CBC data. Current Interpretive Data was last revised on 2017. Testing performed by: [address] [address] Imm gran pct 0.7 % MAI Comment: Interpretive Data Percent cell count reference ranges are not reported, since discordance with absolute values may lead to misinterpretation of CBC data. Current Interpretive Data was last revised on 2017. Testing performed by: [address] [address] Lymphocyte pct 25.1 % [facility] Comment: Interpretive Data Percent cell count reference ranges are not reported, since discordance with absolute values may lead to misinterpretation of CBC data. Current Interpretive Data was last revised on 2017. Testing performed by: [address] [address] Monocyte pct 9.0 % [facility] Comment: Interpretive Data Percent cell count reference ranges are not reported, since discordance with absolute values may lead to misinterpretation of CBC data. Current Interpretive Data was last revised on 2017. Testing performed by: [address] [address] Eosinophil pct 3.7 % [facility] Comment: Interpretive Data Percent cell count reference ranges are not reported, since discordance with absolute values may lead to misinterpretation of CBC data. Current Interpretive Data was last revised on 2017. Testing performed by: [address] [address] Basophil pct 0.3 % [facility] Comment: Interpretive Data Percent cell count reference ranges are not reported, since discordance with absolute values may lead to misinterpretation of CBC data. Current Interpretive Data was last revised on 2017. Testing performed by: [address] [address] Blood 12/20/2024 2:45 AM CDT 12/20/2024 2:59 AM CDT us Soledad Harris MD LAB BLOOD ORDERABLES Final Re sult [facility] [address] [facility] Department [place] [address] * (ABNORMAL) CBC with auto differential (12/20/2024 2:45 AM CDT) WBC 6.97 3.80 - 9.90 K/cumm Comment:Testing performed by : [address] [address] Hgb 12.5 11.9 - 15.5 g/dL MAI Comment:Testing performed by : [address] [address] Hct 37.8 35.6 - 45.5 % MAI Comment:Testing performed by : [address] [address] Plt 129(L) 150 - 400 K/cumm MAI Comment:Testing performed by : [address] [address] MPV 9.4 9.1 - 12.3 fL MAI Comment:Testing performed by : [address], [address] RBC 4.53 3.90 - 5.20 M/cumm MAI Comment:Testing performed by : [address] [address] MCV 83.4 81.3 - 96.4 fL MAI Comment:Testing performed by : [address] [address] MCH 27.6 27.1 - 33.3 pg MAI Comment:Testing performed by : [address], [address] MCHC 33.1 32.3 - 35.7 g/dL MAI Comment:Testing performed by : [address] [address] RDW CV 13.8 11.1 - 14.9 % MAI Comment:Testing performed by : [address] [address] RDW SD 42.3 35.7 - 48.1 fL MAI Comment:Testing performed by : [address] [address] NRBC abs 0.00 0.00 - 0.01 K/cumm MAI Comment:Testing performed by : [address] [address] Blood 12/20/2024 2:45 AM CDT 12/20/2024 2:59 AM CDT us Soledad Harris MD LAB BLOOD ORDERABLES Final Re sult MAI [address] [facility] Department of Laboratories [place], [place] [id number] * Basic metabolic panel (12/20/2024 2:45 AM CDT) Sodium 138 135 - 145 mmol/L Comment:Testing performed by : [address] [address] Potassium, pl 3.7 3.3 - 4.9 mmol/L MAI Comment:Testing performed by : [address] [address] Chloride 102 97 - 110 mmol/L MAI Comment:Testing performed by : [address] [address] CO2 25 22 - 32 mmol/L MAI Comment:Testing performed by : [address] [address] Anion gap 11 2 - 15 mmol/L MAI Comment:Testing performed by : [address] [address] BUN 20 6 - 25 mg/dL MAI Comment:Testing performed by : [address] [address] Creatinine 0.88 0.60 - 1.10 mg/dL MAI Comment:Testing performed by : [address] [address] Glucose 149 70 - 199 mg/dL MAI [...] was last revised 2022. Testing performed by: [address] [address] Calcium 9.2 8.5 - 10.3 mg/dL MAI Comment:Testing performed by : [address] [address] Blood 12/20/2024 2:45 AM CDT 12/20/2024 2:58 AM CDT us Soledad Harris MD LAB BLOOD ORDERABLES Final Re sult JASVIR[address] [place] [address] * (ABNORMAL) POCT glucose (12/19/2024 7:34 PM CDT) Glucose, POC 218(H) 70 - 199 mg/dL Comment:Testing performed by : [address] [address] Blood 12/19/2024 7:34 PM CDT 12/19/2024 7:34 PM CDT us Soledad Harris MD LAB POCT ORDERABLES - DEVICE Final Result Performing Organization Address [facility] [[email or web address]] Co de Phone Number [address] [place] [address] * POCT glucose (12/19/2024 4:00 PM CDT) Glucose, POC 172 70 - 199 mg/dL Comment:Testing performed by : [address] [address] Blood 12/19/2024 4:00 PM CDT 12/19/2024 4:00 PM CDT us Soledad Harris MD LAB POCT ORDERABLES - DEVICE Final Result Performing Organization Address City/[facility]/ZIP Co de Phone Number [address] [place] [address] * US Vein Duplex Lower Extremity Bilateral Complete (12/19/2024 2:34 PM CDT) Anatomical Region Laterality Modality Vascular Bilateral Ultrasound 12/19/2024 1:20 PM CDT Narrative 12/23/2024 11:58 AM CDT Lower Extremity Venous Report Patient Name: CECE SOARES L : 1960 (64y 11m) Gender: F Study Date: 12/19/2024 01:20:31 PM Dock Operations Supervisor: Cece Hyde RDRI,[facility] Location: [id number] Order Provider: LULU HUSSEIN Quality: Adequate Ref [...] Gender: F Study Date: 12/19/2024 01:20:31 PM Dock Operations Supervisor: Cece Hyde RDMS,[facility] Location:[place] [address] Order Provider: LULU HUSSEIN Quality: Adequate Ref [...] 12/23/2024 10:40:33 AM CDT Lulu Hussein MD [facility] PROCEDUR ES Final Result * (ABNORMAL) POCT glucose (12/19/2024 11:31 AM CDT) [facility] Glucose, POC 217(H) 70 - 199 mg/dL Comment:Testing performed by : [facility], [address] [place] [address]., [address] Glucose comment 1 RN/MD Notified MAI Comment:Testing performed by : [address] [address] Blood 12/19/2024 11:3 1 AM CDT 12/19/2024 11:31 AM CDT Soledad Harris MD LAB POCT ORDERABLES - DEVICE Final Result MAI [address] [facility] Department [place] [address] * CT Entire Lower Extremity Bilateral W [...] of the feet due to extremely large knsnf-wx-nibz imaging. Postsurgical changes of the left and [...] is severely limited on this extremely large qnuqc-cs-ngvt imaging. If high clinical concern for osteomyelitis of the left foot contrast enhanced MRI is recommended. If patient is unable to tolerate contrast enhanced MRI then small nbiko-rd-ujah CT imaging of the left forefoot could [...] Derrick Willis M.D. JA: [place] Report ID: [id number] Reading Location: [id number] Procedure Note Derrick Willis MD - 12/19/2024 [...] of the feet due to extremely large whiwo-go-obar imaging. Postsurgical changes of the left and right foot 1st metatarsal head. A surgical anchoris seen in the left foot great toe distal phalangeal base medially.. Soft Tissues: Mild diffuse soft tissue swelling of the left foot. Other: No other finding. IMPRESSION: 1. Mild diffuse soft tissue swelling of the left foot. Detailedevaluation for osteomyelitis is severely limited on this extremely ewohjonsou-hi-wjkp imaging. If high clinical concern for osteomyelitis of the left footcontrast enhanced MRI is recommended. If patient is unable to tolerate contrast enhanced MRI then small zsuws-ya-hqwf CT imaging of the left forefootcould be obtained 2. Total left hip arthroplasty in place. 3. Postsurgical changes of the left and right foot 1st metatarsalhead. 4. A surgical anchor is seen in the left foot great toe distalphalangeal base medially. THIS IS AN ELECTRONICALLY VERIFIED FINAL REPORT 12/19/2024 11:18 AM - Electronically signed by Derrick Willis M.D. JA: [place] Report ID: [id number] Reading Location: [id number] Soledad Harris MD IMG CT PROCEDURES Final Resul t * (ABNORMAL) POCT glucose (12/19/2024 7:22 AM CDT) [facility] Glucose, POC 211(H) 70 - 199 mg/dL Comment:Testing performed by : [facility], [address] [place] [address]., [address] Glucose comment 1 RN/MD Notified MAI Comment:Testing performed by : [address] [address] Blood 12/19/2024 7:22 AM CDT 12/19/2024 7:22 AM CDT Soledad Harris MD LAB POCT ORDERABLES - DEVICE Final Result MAI [facility] Department [place] [address] * (ABNORMAL) eGFR (12/19/2024 3:21 AM CDT) [facility] eGFR 59(L) >=60 mL/min/1. 73 m2 Comment: [...] was last reviewed 2021. Testing performed by: [address] [address] Blood 12/19/2024 3:21 AM CDT 12/19/2024 4:25 AM CDT Lulu Hussein MD LAB BLOOD ORDER SUNDAR Final Result MAI [address] [facility] Department [place] [address] * (ABNORMAL) CBC without differential (12/19/2024 3:21 AM CDT) WBC 10.02(H) 3.80 - 9.90 K/cumm Comment:Testing performed by : [address] [address] Hgb 12.5 11.9 - 15.5 g/dL MAI Comment:Testing performed by : [address] [address] Hct 36.9 35.6 - 45.5 % MAI Comment:Testing performed by : [address] [address] Plt 138(L) 150 - 400 K/cumm MAI Comment:Testing performed by : [address] [address] MPV 9.7 9.1 - 12.3 fL MAI Comment:Testing performed by : [address] [address] RBC 4.44 3.90 - 5.20 M/cumm MAI Comment:Testing performed by : [address] [address] MCV 83.1 81.3 - 96.4 fL MAI Comment:Testing performed by : [address] [address] MCH 28.2 27.1 - 33.3 pg MAI DEL RIO Comment:Testing performed by : [address] [address] MCHC 33.9 32.3 - 35.7 g/dL MAI Comment:Testing performed by : [address] [address] RDW CV 13.8 11.1 - 14.9 % MAI DEL RIO Comment:Testing performed by : [address] [address] RDW SD 42.0 35.7 - 48.1 fL MAI DEL RIO Comment:Testing performed by : [address] [address] NRBC abs 0.00 0.00 - 0.01 K/cumm MAI DEL RIO Comment:Testing performed by : [address] [address] Blood 12/19/2024 3:21 AM CDT 12/19/2024 4:24 AM CDT Lulu Hussein MD LAB BLOOD ORDER SUNDAR Final Result MAI DEL RIO [address] [facility] Department [place] [address] * (ABNORMAL) Lipid panel (12/19/2024 3:21 AM [...] last revised on 2018. Testing performed by: [address] [address] Triglycerides 99 <=149 mg/dL MAI DEL RIO Comment: Interpretive Data [...] last revised on 2018. Testing performed by: [address] [address] HDL 33(L) >=40 mg/dL MAI Comment: Interpretive [...] last revised on 2018. Testing performed by: [address] [address] LDL, calculated 75 <=129 mg/dL MAI Comment: Interpretive Data Ages < or = 19 years Acceptable: <110 mg/dL Borderline high: 110-129 mg/dL High: >or= 130 mg/dL Ages > or = 20 years Optimal: <100 mg/dL Near optimal: 100-129 mg/dL Borderline high: 130-159 mg/dL High: >160 mg/dL Calculated using the Wallace LDL-C estimating equation. This equation was implemented on 2024. Prior to this date LDL-C was estimated using the Friedewald equation. Literature References: 1. Expert Panel on Integrated Guidelines for Cardiovascular Health and Risk Reduction in Children and Adolescents. Pediatrics 2011;128:S213 2. NCEP Expert Panel. Circulation 2004;110:227 3. Wallace Garcia al. NAGI Cardiol. 2020 September 26;5(5):540-548. doi: 10.1001/jamacardio.2020.0013 Current Interpretive Data was last revised on 2024. Testing performed by: [address] [address] Non-HDL Cholesterol 94 mg/dL MAI DEL RIO [...] last revised on 2018. Testing performed by: [address] [address] Chol/HDL ratio 4 MAI Comment:Testing performed by : [address] [address] Blood 12/19/2024 3:21 AM CDT 12/19/2024 4:25 AM CDT Lulu Hussein MD LAB BLOOD ORDER SUNDAR Final Result MAI [address] [facility] Department [place] [address] * (ABNORMAL) Basic metabolic panel (12/19/2024 3:21 AM CDT) Sodium 137 135 - 145 mmol/L Comment:Testing performed by : [address] [address] Potassium, pl 3.7 3.3 - 4.9 mmol/L MAI DEL RIO Comment:Testing performed by : [address] [address] Chloride 99 97 - 110 mmol/L MAI Comment:Testing performed by : [address] [address] CO2 26 22 - 32 mmol/L MAI DEL RIO Comment:Testing performed by : [address] [address] Anion gap 12 2 - 15 mmol/L MAI DEL RIO Comment:Testing performed by : [address] [address] BUN 22 6 - 25 mg/dL MAI Comment:Testing performed by : [address] [address] Creatinine 1.06 0.60 - 1.10 mg/dL MAI Comment:Testing performed by : [address] [address] Glucose 245(H) 70 - 199 mg/dL MAI [...] was last revised 2022. Testing performed by: [address] [address] Calcium 9.2 8.5 - 10.3 mg/dL MAI Comment:Testing performed by : [address] [address] Blood 12/19/2024 3:21 AM CDT 12/19/2024 4:23 AM CDT Lulu Hussein MD LAB BLOOD ORDER SUNDAR Final Result [facility] [address] [facility] Department [place] [address] * (ABNORMAL) POCT glucose (12/18/2024 11:51 PM CDT) [facility] Signature Glucose, POC 204(H) 70 - 199 mg/dL Comment:Testing performed by : [address] [address] Blood 12/18/2024 11:5 1 PM CDT 12/18/2024 11:51 PM CDT us Lulu Hussein MD LAB POCT ORDERA BLES - DEVICE Final Result Performing Organization Address City/[facility]/ZIP Co de Phone Number MAI [address] [place] [address] * (ABNORMAL) POCT glucose (12/18/2024 9:54 PM CDT) [facility] Glucose, POC 277(H) 70 - 199 mg/dL Comment:Testing performed by : [facility], [address] [place] [address]., [address] Glucose comment 1 RN/MD Notified MAI Comment:Testing performed by : [facility], [address] [place] [address], [address] Glucose comment 2 Will Repeat Test [facility] Comment:Testing performed by : [address] [address] Blood 12/18/2024 9:54 PM CDT 12/18/2024 9:54 PM CDT us Jsoe Botello Jr., MD LAB POCT ORDERABLES - D EVICE Final Result Performing Organization Address [facility] de Phone Number [id number] [place] [address] * Sepsis Lactate w/ Reflex (12/18/2024 9:04 PM CDT) [facility] Sepsis Lactate 1.9 0.7 - 2.0 mmol/L Comment:Testing performed by : [address] [address] Blood 12/18/2024 9:04 PM CDT 12/18/2024 9:12 PM CDT us Magali Wisdom NP LAB BLOOD ORDERABLES Final Resul t Performing Organization Address City/[facility] [[email or web address]] Co de Phone Number JASVIR[address] [place] [address] * (ABNORMAL) Blood culture Blood (12/18/2024 9:04 PM CDT) Direct Specimen Exam Molecular Analysis: Methicillin-suscep tible Staphylococcus aureus (MSSA) detected by the jodi ePlex BCID-GP panel. This test does not exclude the possibility of a mixed bacterial infection. Notification of: Methicillin-suscep tible Staphylococcus aureus (MSSA) called to and read back by: Wanda Tirado [place] [id number] on 12/19/2024 16:27:23 by: Bradley Avina [place] Results phoned to and read back by: [email or web address] on 12/19/2024 16:51:53 by: [id number] Comment:Testing performed by : [facility], [address] [place] [address]., [address] Direct Specimen Exam Stain: Gram Positive Cocci in clusters Time to culture positivity (anaerobic media): 13.4 hours Notification of: Gram Positive Cocci in clusters called to and read back by: Nkechi Ramos [facility] [phone] on 12/19/2024 14:42:51 by: Eliezer ONEILL Comment:Testing performed by : [facility], [address] [place] [address]., [address] Report Final Report: Staphylococcus aureus Methicillin susceptible (MSSA) by penicillin binding protein 2a (PBP2a) testing. (.) MAI Comment:Testing performed by : [facility], [address] [place] [address]., [address] Organism STAPHYLOCOCCUS AUREUS MAI Blood 12/18/2024 9:04 PM CDT 12/19/2024 12:19 AM CDT Narrative MAI - 12/24/2024 11:52 AM CDT Collection->Peripheral 1. [...] performance characteristics have been verified by the [facility] Microbiology Laboratory. For questions about this culture, contact the Microbiology Laboratory at [phone]. Interpretive data was last revised on 24. [...] Jose Botello Jr., MD LAB MICROBIOLOGY - [facility] ORDERABLES Final Result MAI [address] [facility] Department [place] [address] * Blood culture Blood (12/18/2024 8:52 PM CDT) Report Final Report: No growth Comment:Testing performed by : [facility], [address] [facility], [place]., [address] Blood 12/18/2024 8:52 PM CDT 12/19/2024 12:19 AM CDT Narrative MAI - 12/23/2024 7:00 AM CDT Collection->Peripheral 1. [...] performance characteristics have been verified by the [facility]biology Laboratory. For questions about this culture, contact the Microbiology Laboratory at [phone]. Interpretive data was last revised on 24. Jose Botello Jr., MD LAB MICROBIOLOGY - GENE RAL ORDERABLES Final Result [facility] [address] [facility] Department [place] [address] * XR Toe 2nd Digit Left Minimum [...] Kriss Gustafson M.D. AT: AT Report ID: [id number] Reading Location: [id number] Procedure Note Kriss Gustafson MD - 12/18/2024 [...] Kriss Gustafson M.D. AT: AT Report ID: [id number] Reading Location: [id number] us Jose Botello Jr., MD IMG XR PROCEDURES [...] Kriss Gustafson M.D. AT: AT Report ID: [id number] Reading Location: [id number] Procedure Note Kriss Gustafson MD - 12/18/2024 [...] Kriss Gustafson M.D. AT: AT Report ID: [id number] Reading Location: [place] [address] us Jose Botello Jr., MD IMG XR PROCEDURES Final Result * (ABNORMAL) Urinalysis reflex to microscopic and culture Urine (12/18/2024 7:04 PM CDT) Color, ur Yellow Yellow Comment:Testing performed by : [facility], [address] [place] [address]., [address] Clarity, ur Cloudy(A) Clear CERNER Comment:Testing performed by : [address] [address] Specific gravity, ur 1.022 1.003 - 1.030 MAI Comment:Testing performed by : [facility], [address] [place] [address], [place]., [address] pH, urine 6.5 MAI Comment: Interpretive Data U rine pH is affected by diet, medications, systemic acid-base disturbances, and renal tubular function. pH may affect urinary stone formation. For example, urine pH below 6.0 may help reduce the tendency for calcium phosphate stones and pH greater than 6.0 may reduce the tendency for uric acid stone formation. Source: [facility] [employer] Current Interpretive Data was last revised on 2017 Testing performed by: [facility], [address] [place] [address], [place]., [address] Protein, ur ql 1+(A) Negative MAI Comment:Testing performed by : [address], [place]., [address] Glucose, ur ql 1+(A) Negative MAI Comment:Testing performed by : [address], [place]., [address] Ketones, ur Negative Negative MAI Comment:Testing performed by : [address], [place]., [address] Bilirubin, ur Negative Negative MAI Comment:Testing performed by : [address], [place]., [address] Blood, ur 2+(A) Negative MAI Comment:Testing performed by : [address], [place]., [address] Urobilinogen, ur <2.0 <2.0 mg/dL MAI Comment:Testing performed by : [address], [place]., [address] Nitrite, ur Negative Negative MAI Comment:Testing performed by : [address], [place]., [address] Leukocyte esterase, ur 4+(A) Negative MAI Comment:Testing performed by : [address], [place]., [address] UA reflex comment Reflex to microscopic UA will be performed. MAI Comment:Testing performed by : [address], [place]., [address] Urine 12/18/2024 7:04 PM CDT 12/18/2024 7:17 PM CDT Narrative MAI - 12/18/2024 7:21 PM CDT If patient unable to urinate, straight cath us Jose Botello Jr., MD LAB MICROBIOLOGY - GENE RAL ORDERABLES Final Result Performing Organization Address City/[facility] [[email or web address]] Co de Phone Number [facility] [address] [facility] Department [place] [address] * (ABNORMAL) Urinalysis, microscopic only (12/18/2024 7:04 PM CDT) WBC, ur >50(A) 0 - 5 /HPF Comment:Testing performed by : [address] [address] RBC, ur >50(A) 0 - 2 /HPF MAI Comment:Testing performed by : [address] [address] Epithelial cells, squamous, ur >50(A) 0 - 5 /HPF MAI Comment:Testing performed by : [address] [address] Bacteria, ur 1+(A) MAI Comment:Testing performed by : [address] [address] Mucous, ur Present(A) MAI Comment:Testing performed by : [address] [address] Hyaline casts, ur 1-5 0 - 10 /LPF MAI Comment:Testing performed by : [address] [address] Culture Reflex Comment Reflex to urine culture will be performed. MAI Comment:Testing performed by : [address] [address] Urine 12/18/2024 7:04 PM CDT 12/18/2024 7:17 PM CDT us Jose Botello Jr., MD LAB URINE ORDERABLES Fi nal Result Performing Organization Address City/[facility]/ZIP Co de Phone Number MAI DEL RIO [address] [facility] Department [place] [address] * (ABNORMAL) Urine culture Urine (12/18/2024 7:04 PM CDT) Report Final Report: Greater than or equal to 100,000 colonies/mL of Proteus mirabilis Plus growth of clinically insignificant bacterial maddie. (.) Comment:Testing performed by : [facility], [address] [place]., [address] Organism PROTEUS MIRABILIS [facility] [place] Organism PLUS GROWTH OF CLINICALLY INSIGNIFICANT MADDIE. MAI Urine 12/18/2024 7:04 PM CDT 12/18/2024 9:31 PM CDT Narrative [facility] - 12/20/2024 3:30 PM CDT Urine culture reflexed based upon urinalysis results. Testing performed by [facility] Microbiology Laboratory ([phone]) Organism Antibiotic Method Susceptibility Proteus mirabilis Ampicillin [...] INTERPRETATION Susceptible Proteus mirabilis Cefdinir INTERPRETATION Susceptible Magali Wisdom NP LAB MICROBIOLOGY - GENERAL ORDER SUNDAR Final Result MAI [place] [facility] [place] [place] [address] * (ABNORMAL) Sepsis Lactate w/ Reflex (12/18/2024 6:58 PM CDT) Sepsis Lactate 2.1(H) 0.7 - 2.0 mmol/L Comment:Testing performed by : [facility], [address] [place] [address]., [address] Blood 12/18/2024 6:58 PM CDT 12/18/2024 7:02 PM CDT Jose Botello Jr., MD LAB BLOOD ORDERABLES Fi nal Result Performing Organization Address [facility] de Phone Number MAI [address] [place] [address] * eGFR (12/18/2024 6:58 PM CDT) eGFR [...] was last reviewed 2021. Testing performed by: [facility], [address] [place] [address]., [address] Blood 12/18/2024 6:58 PM CDT 12/18/2024 7:02 PM CDT us Jose Botello Jr., MD LAB BLOOD ORDERABLES Fi nal Result Performing Organization Address City/[facility] [[email or web address]] Co de Phone Number MAI [address] [place] [address] * (ABNORMAL) Differential, auto (12/18/2024 6:58 PM CDT) Neutrophil abs 9.03(H) 1.50 - 6.50 K/cumm Comment:Testing performed by : [address] [address] Imm gran abs 0.06 0.00 - 0.10 K/cumm MAI Comment:Testing performed by : [address] [address] Lymphocyte abs 2.19 0.80 - 3.30 K/cumm [facility] Comment:Testing performed by : [address] [address] Monocyte abs 0.92(H) 0.20 - 0.80 K/cumm [facility] Comment:Testing performed by : [address] [address] Eosinophil abs 0.11 0.00 - 0.50 K/cumm MAI Comment:Testing performed by : [address] [address] Basophil abs 0.03 0.00 - 0.10 K/cumm [facility] Comment:Testing performed by : [address] [address] Neutrophil pct 73.2 % [facility] Comment: Interpretive Data Percent cell count reference ranges are not reported, since discordance with absolute values may lead to misinterpretation of CBC data. Current Interpretive Data was last revised on 2017. Testing performed by: [address] [address] Imm gran pct 0.5 % [facility] Comment: Interpretive Data Percent cell count reference ranges are not reported, since discordance with absolute values may lead to misinterpretation of CBC data. Current Interpretive Data was last revised on 2017. Testing performed by: [address] [address] Lymphocyte pct 17.7 % [facility] Comment: Interpretive Data Percent cell count reference ranges are not reported, since discordance with absolute values may lead to misinterpretation of CBC data. Current Interpretive Data was last revised on 2017. Testing performed by: [address] [address] Monocyte pct 7.5 % MAI Comment: Interpretive Data Percent cell count reference ranges are not reported, since discordance with absolute values may lead to misinterpretation of CBC data. Current Interpretive Data was last revised on 2017. Testing performed by: [address] [address] Eosinophil pct 0.9 % MAI [place] RIO Comment: Interpretive Data Percent cell count reference ranges are not reported, since discordance with absolute values may lead to misinterpretation of CBC data. Current Interpretive Data was last revised on 2017. Testing performed by: [address] [address] Basophil pct 0.2 % MAI Comment: Interpretive Data Percent cell count reference ranges are not reported, since discordance with absolute values may lead to misinterpretation of CBC data. Current Interpretive Data was last revised on 2017. Testing performed by: [address] [address] Blood 12/18/2024 6:58 PM CDT 12/18/2024 7:02 PM CDT us Jose Botello Jr., MD LAB BLOOD ORDERABLES Fi nal Result [facility] [address] [facility] Department [place] [address] * (ABNORMAL) CBC with auto differential (12/18/2024 6:58 PM CDT) WBC 12.34(H) 3.80 - 9.90 K/cumm Comment:Testing performed by : [address] [address] Hgb 13.8 11.9 - 15.5 g/dL [facility] Comment:Testing performed by : [address] [address] Hct 40.6 35.6 - 45.5 % [facility] Comment:Testing performed by : [address] [address] Plt 146(L) 150 - 400 K/cumm MAI Comment:Testing performed by : [address] [address] MPV 9.4 9.1 - 12.3 fL MAI Comment:Testing performed by : [address] [address] RBC 4.95 3.90 - 5.20 M/cumm MAI Comment:Testing performed by : [address] [address] MCV 82.0 81.3 - 96.4 fL MAI Comment:Testing performed by : [address], [address] MCH 27.9 27.1 - 33.3 pg MAI Comment:Testing performed by : [address] [address] MCHC 34.0 32.3 - 35.7 g/dL MAI Comment:Testing performed by : [address], [address] RDW CV 13.8 11.1 - 14.9 % MAI Comment:Testing performed by : [address], [address] RDW SD 40.8 35.7 - 48.1 fL MAI Comment:Testing performed by : [address] [address] NRBC abs 0.00 0.00 - 0.01 K/cumm MAI Comment:Testing performed by : [address] [address] Blood 12/18/2024 6:58 PM CDT 12/18/2024 7:02 PM CDT us Jose Botello Jr., MD LAB BLOOD ORDERABLES Fi nal Result MAI [address] [facility] Department of Laboratories [place], [place] [id number] * (ABNORMAL) Erythrocyte sedimentation rate (12/18/2024 6:58 PM CDT) [facility] Erythrocyte sedimentation rate 53(H) 1 - 30 mm/hr Comment:Testing performed by : [address] [address] Blood 12/18/2024 6:58 PM CDT 12/18/2024 7:02 PM CDT Jose Botello Jr., MD LAB BLOOD ORDERABLES nal Result Performing Organization Address [facility] de Phone Number [address] [place] [address] * (ABNORMAL) CRP (acute phase) (12/18/2024 6:58 PM CDT) [facility] CRP 54.6(H) <=10.0 mg/L Comment:Testing performed by : [address] [address] Blood 12/18/2024 6:58 PM CDT 12/18/2024 7:02 PM CDT Jose Botello Jr., MD LAB BLOOD ORDERABLES nal Result Performing Organization Address [facility] de Phone Number [address] [address] * (ABNORMAL) Hemoglobin A1c (12/18/2024 6:58 PM CDT) [facility] Hgb A1C 7.3(H) 4.0 - 5.6 % Comment:Testing performed by : [address] [address] Estimated Average Glucose 163 mg/dL [facility] Comment: The ADA recommends reporting an estimated Average Glucose (eAG) with all Hemoglobin A1c results using the equation derived from a study of 507 normal and diabetic adults. Minority populations were underrepresented and children were not included. (Diabetes Care 31:4879-6992, 2008). The eAG is not equivalent to a fasting glucose. Testing performed by: [address] [address] Blood 12/18/2024 6:58 PM CDT 12/19/2024 1:03 AM CDT Lulu Hussein MD LAB BLOOD ORDER SUNDAR Final Result [facility] [address] [facility] Department [place] [address] * (ABNORMAL) Comprehensive metabolic panel (12/18/2024 6:58 PM CDT) Sodium 135 135 - 145 mmol/L Comment:Testing performed by : [address] [address] Potassium, pl 3.8 3.3 - 4.9 mmol/L MAI Comment:Testing performed by : [address] [address] Chloride 96(L) 97 - 110 mmol/L MAI Comment:Testing performed by : [address] [address] CO2 25 22 - 32 mmol/L MAI Comment:Testing performed by : [address] [address] Anion gap 14 2 - 15 mmol/L MAI Comment:Testing performed by : [address] [address] BUN 23 6 - 25 mg/dL MAI Comment:Testing performed by : [address] [address] Creatinine 1.00 0.60 - 1.10 mg/dL MAI Comment:Testing performed by : [address] [address] Glucose 281(H) 70 - 199 mg/dL MAI [...] was last revised 2022. Testing performed by: [address] [address] Calcium 9.3 8.5 - 10.3 mg/dL MAI Comment:Testing performed by : [address] [address] Bilirubin, total 0.5 0.1 - 1.2 mg/dL MAI Comment:Testing performed by : [address] [address] Protein, pl 7.6 6.5 - 8.5 g/dL MAI Comment:Testing performed by : [address] [address] Albumin 4.1 3.5 - 5.0 g/dL [facility] Comment:Testing performed by : [address] [address] Alk phos 107 40 - 130 Units/L MAI Comment:Testing performed by : [address] [address] ALT 39 7 - 45 Units/L [facility] Comment:Testing performed by : [address] [address] AST 28 10 - 45 Units/L [facility] Comment:Testing performed by : [address] [address] Blood 12/18/2024 6:58 PM CDT 12/18/2024 7:02 PM CDT us Jose Botello Jr., MD LAB BLOOD ORDERABLES Fi nal Result MAI [address] [facility] Department [place] [address] * (ABNORMAL) POCT glucose (12/18/2024 6:46 PM CDT) [facility] Glucose, POC 275(H) 70 - 199 mg/dL Comment:Testing performed by : [facility], [address] [place] [address]., [address] Glucose comment 1 RN/MD Notified [facility] Comment:Testing performed by : [facility], [address] [place] [address]., [address] Blood 12/18/2024 6:46 PM CDT 12/18/2024 6:46 PM CDT us Notinfile Unknown LAB POCT ORDERABLES - DEVICE F inal Result [facility] [address] [facility] Department [place] [address] * CT KUB Stone WO Contrast (11/11/2024 [...] by Abdifatah Banda M.D. JR: Report ID: [id number] Reading Location: [place] [address] Procedure Note Abdifatah Banda MD - 11/22/2024 [...] by Abdifatah Banda M.D. JR: Report ID: [id number] Reading Location: [place] [address] Rosalio Arriola MD IMG CT PROCEDURES Final [...] was last revised 2018. Testing performed by: [address] [address] Creatinine Ur 96.7 mg/dL [facility] Comment: Interpretive Data No reference range established. Current interpretive data was last revised 2018. Testing performed by: [address] [address] Albumin Creatinine Ratio, Ur 88(H) 1 - 29 mg/g [facility] Comment:Testing performed by : [address] [address] Urine 02/28/2024 7:29 AM CDT 02/28/2024 9:49 AM CDT us Javier MARTÍNEZ LAB URINE ORDERABLES Final Resu lt [facility] [address] [facility] Department [place] [address] * SCREENING MAMMOGRAM BILATERAL W CJ (02/02/2024 [...] age 40, based on guidelines of the [employer] (ACR Practice Parameter for the Performance of Screening and Diagnostic Mammography) and [employer]. For women [...] CDT 09/16/2022 9:51 AM CDT Narrative PATHOLOGY [facility] - 09/20/2022 3:40 PM CDT Department of Pathology [address] [place] [address] Final Report with Addendum Note to Patients: [...] the details. Patient Name: CECE SOARES Address: [address] [place] [id number] Gender: F : 1960 (Age: 62) Service: Location: [facility] : [id number] [facility] #: [id number] Patient Type: [facility] SPECIMEN Taken: 09/15/2022 Received: 09/16/2022 Accessioned:: 09/19/2022 Reported: 09/20/2022 Physician(s): Cece Singer [facility] Diagnosis: SOURCE OF SPECIMEN SCREENING THIN PREP IMAGED PAP w/ HPV: STATEMENT OF ADEQUACY - Specimen satisfactory for interpretation; endocervical/transformation zone component absent or insufficient GENERAL CATEGORIZATION: - Negative for intraepithelial lesion or malignancy LEROY Arcos(ASCP) Report Electronically Reviewed and Signed Out By RAUDEL ArcosASCP) 09/20/2022 15:40:11Addenda: HPV Test Interpretation NEGATIVE for types 16, 18, 31, 33, 35, 39, 45, 51, 52, 56, 58, 59, 66 and 68. Test performed utilizing Gen-Probe Aptima assay. LEROY Arcos(ASCP)Report Electronically Reviewed and Signed Out By RAUDEL ArcosASCP) 09/20/2022 10:03:33 Specimen(s) Received: A: SCREENING THIN [...] determined by the Surgical Pathology Department at as part of an ongoing quality assurance coach program and in compliance with federally mandated [...] characteristics determined by the Surgical Pathology Department [facility]. It has not been cleared or approved by the U. S. Food and Drug Administration. Cece Singer CNM LAB CYTOLOGY ORDERABLES Final Result Performing Organization Address City/State/[facility] [[email or web address]] Co de Phone Number PATHOLOGY [facility] * Colonoscopy (08/09/2018 4:37 PM CDT) Anatomical Region Laterality Modality Other Historical Provider ENDOSCOPY PROCEDURES Talya l Result * Serum Hepatitis panel (03/21/2016 5:24 [...] Date Diagnosed Date Autogenerated Problem 11/20/2024 Insurance [facility] H[facility]PPO Address: [facility] [address] [place] [address] MEDICARE MEDICARE [facility] HMO/PPO Address: [address] [address] [place] [address] Advance Directives For more information, please contact: [phone] Documents on File Type Date Recorded Patient Bull Driver Expl anation ADVANCE DIRECTIVE 09/13/2023 10:13 AM [...] Relationship Healthcare Agent Relationshi p Communication Maris Natasha Sister First Alternate Health Care Agent Rola Soares Sister Second Alternate Health Care Agent Care Teams Neurology Director Relationship Specialty Start Date End Date Javier Chan PA [address] [address] PCP - General Family Medicine 07/24/24 Nan Calderon MD [address] [facility] [address] [place] [address] PCP - Home Infusion Attending Infectious Diseases 12/27/24 Yony Urrutia MD [address] [facility] [address] [place] [address] Endocrinology Diabetes & Metabolism 06/17/22 JonahConnor MD [address] [facility] [address] [place] [address] Consulting Physician Urology 09/16/23 Richar Butler MD [address] [facility] 200 [place] [address] Cardiothoracic Surgery 08/16/24 Gilberto Love MD [address] [facility] [address] [place] [address] Consulting Physician Cardiology 08/16/24 Nan Calderon MD [address] [facility] [address] [place] [address] Consulting Physician Infectious Diseases 12/27/24 Juan Teixeira MD [address] [facility] [address] [place] [address] Consulting Physician Vascular Surgery 12/27/24 Amy Floyd, [facility] Pharmacist Pharmacy 12/27/24
--- OUTSIDE RECORDS SUMMARY | 2024-12-30 16:12 | XMS_ITS | Encounter Summary ---
Author Organization [facility] Address [address] [place] [address] Phone Care Team Providers Care County Home Demonstrator Name Role Phone Yony Urrutia MD Unavailable [phone] Connor Mckenzie MD Unavailable [phone] Javier Chan Primary Care Provider [phone] Richar Butler MD Unavailable Gilberto Love MD Unavailable [phone] Kurt Calderon MD Unavailable [phone] Juan Teixeira MD Unavailable [phone] Kurt Calderon MD Unavailable [phone] Amy Floyd [facility] Unavailable Unavailable Encounter Details Date Type Department Care Team (Late st Contact Info) Description 12/23/2024 Telephone [facility] Cardiology [address] [facility] 8th [place] [address] [place] [address] Priya Whitfield MD [address] [place] [address] Social History Tobacco Use Types Packs/Day Years Used Date Smoking Tobacco: Former Cigarettes 0.8 20.1 0 05/29/1984 - 07/06/2004 Passive Smoke Exposure: Past Smokeless Tobacco: Never Alcohol Use Standard Drinks/Week Comments Yes 0 (1 standard drink = 0.6 oz pur e alcohol) [facility] Utilities Answer Date Recorded In the past 12 months has th e electric, gas, oil, or water company threatened to shut off services in your [...] week 12/19/2024 How often do you attend chur ch or jew services? Never 12/19/2024 Do you belong to any clubs o r organizations such as uatsdin groups, unions, fraternal or athletic groups, or [...] place to sleep or slept in a senior living (including now)? No 06/16/2022 Housing Stability Vital Sign Answer Galindo e Recorded In the last 12 months, was t here a time when you were not able to pay the mortgage or rent on time? No 12/19/2024 In the past 12 months, how m any times have you moved where you were living? 0 12/19/2024 At any time in the past 12 m [facility], were you homeless or living in a senior living (including now)? No 12/19/2024 Personal Safety Answer Date Recorded Have you ever been in or are you currently in a harmful physical or emotional relationship or is someone making you feel afraid or unsafe? 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 * Telephone Encounter - Bianca Hicks - 12/23/2024 2:02 PM CDT Nahid Calling to reschedule. Her 01/02/25 appt's were cancelled ( out of office) documented in this encounter Plan of Treatment Upcoming Encounters Date Type Department Care Team (Late st Contact Info) Description 01/28/2025 11:50 AM CDT Hospital Encounter [facility] Operating Room 1 [place] [address] Rosalio Arriola MD [address] [address] 01/28/2025 11:50 AM CDT - 01/28/2025 2:20 PM CDT Surgery [facility] Operating Room 1 [place] [address] Rosalio Arriola MD [address] [address] LITHOTRIPSY - LASER Scheduled Procedures Name Priority Associated Diagnoses Date/Ti id LITHOTRIPSY - LASER Renal stones 01/28/2025 11:50 AM CDT URETEROSCOPY Renal stones 01/28/2025 11:50 AM CDT PLACEMENT STENT - URETERAL Renal stones 01/28/2025 11:50 AM CDT documented as of this encounter Goals Goal Patient Goal Type Associated Problems Recent Progress Patient-Stated? Author Autogenerat ed Goal Care Plan Autogenerated Problem No Yojana Johnson documented as of this encounter Visit Diagnoses Not on filedocumented in this encounter Additional Health Concerns Active Problems Noted Date Diagnosed Date Autogenerated Problem 11/20/2024 documented as of this encounter Care Teams County Home Demonstrator Relationship Specialty Start Date End Date Javier Chan PA [address] [facility] 200 [place] [address] PCP - General Family Medicine 07/24/24 Kurt Calderon MD [address] [facility] [address] [place] [address] PCP - Home Infusion Attending Infectious Diseases 12/27/24 Yony Urrutia MD [address] [facility] [address] [place] [address] Endocrinology Diabetes & Metabolism 06/17/22 Connor Mckenzie MD [address] [facility] [address] [place] [address] Consulting Physician Urology 09/16/23 Richar Butler MD [address] [facility] 200 [place], [place] [address] Cardiothoracic Surgery 08/16/24 Gilberto Love MD [address] [facility] 100 [place] [address] Consulting Physician Cardiology 08/16/24 Kurt Calderon MD [address] [facility] [address] [place] [address] Consulting Physician Infectious Diseases 12/27/24 Juan Teixeira MD [address] [facility] [address] [place] [address] Consulting Physician Vascular Surgery 12/27/24 Amy Floyd [facility] Pharmacist Pharmacy 12/27/24 documented as of this encounter
--- OUTSIDE RECORDS SUMMARY | 2024-12-30 16:12 | XMS_ITS | Encounter Summary ---
Author Organization [facility] Address [address] [place] [address] Phone Care Team Providers Care Vp Corporate Development Name Role Phone Yony Urrutia MD Unavailable [phone] Connor Mckenzie MD Unavailable [phone] Javier Chan Primary Care Provider [phone] Richar Butler MD Unavailable Gilberto Love MD Unavailable [phone] Kurt Calderon MD Unavailable [phone] Juan Teixeira MD Unavailable [phone] Kurt Calderon MD Unavailable [phone] Amy Floyd [facility] Unavailable Unavailable Encounter Details Date Type Department Care Team (Late st Contact Info) Description 10/29/2024 Results Follow-Up [facility] Cardiology [address] [facility] 8th [place] [address] [place] [address] Thor Ricci MD [address] [facility] [address] [place] [address] CT TAVR Social History Tobacco Use Types Packs/Day Years Used Date Smoking Tobacco: Former Cigarettes 0.8 20.1 0 05/29/1984 - 07/06/2004 Passive Smoke Exposure: Past Smokeless Tobacco: Never Alcohol Use Standard Drinks/Week Comments Yes 0 (1 standard drink = 0.6 oz pur e alcohol) [facility] Utilities Answer Date Recorded In the past 12 months has [employer] electric, gas, oil, or water company threatened [...] often do you attend chur ch or islam services? Never 12/19/2024 Do you belong to any clubs o r organizations such as confucianist groups, unions, fraternal or athletic groups, or [...] place to sleep or slept in a care home (including now)? No 06/16/2022 Housing Stability Vital Sign Answer Galindo e Recorded In the last 12 months, was t here a time when you were not able to pay the mortgage or rent on time? No 12/19/2024 In the past 12 months, how m any times have you moved where you were living? 0 12/19/2024 At any time in the past 12 m [facility], were you homeless or living in a care home (including now)? No 12/19/2024 Personal Safety Answer Date Recorded Have you ever been in or are you currently in a harmful physical or emotional relationship or is someone making you feel afraid or unsafe? Denies 12/24/2024 Comments No Sex and Gender Information Value Date Recorded Sex Assigned at Not on file Legal Sex Female 4:16 AM LICENSING SERVICES CLERK Gender Identity Female 09/21/2017 4:47 PM CDT Sexual Orientation Not on file documented as of this encounter Plan of Treatment Upcoming Encounters Date Type Department Care Team (Late st Contact Info) Description 01/28/2025 11:50 AM CDT Hospital Encounter [facility] Operating Room 1 [place] [address] Rosalio Arriola MD [address] [place] [address] 01/28/2025 11:50 AM CDT - 01/28/2025 2:20 PM CDT Surgery [facility] Operating Room [address] [place] [address] Rosalio Arriola MD [address] [facility] [address] [place] [address] LITHOTRIPSY - LASER Scheduled Procedures Name Priority Associated Diagnoses Date/Ti ma LITHOTRIPSY - LASER Renal stones 01/28/2025 11:50 AM CDT URETEROSCOPY Renal stones 01/28/2025 11:50 AM CDT PLACEMENT STENT - URETERAL Renal stones 01/28/2025 11:50 AM CDT documented as of this encounter Visit Diagnoses Not on filedocumented in this encounter Care Teams Vp Corporate Development Relationship Specialty Start Date End Date Javier Chan PA [address] [facility] 200 [place] [address] PCP - General Family Medicine 07/24/24 Kurt Calderon MD [address] [facility] [address] [place] [address] PCP - Home Infusion Attending Infectious Diseases 12/27/24 Yony Urrutia MD [address] [place], [place] [id number] Endocrinology Diabetes & Metabolism 06/17/22 Connor Mckenzie MD [address] [place], [place] [address] Consulting Physician Urology 09/16/23 Richar Butler MD [address] [facility] [address] [place] [address] Cardiothoracic Surgery 08/16/24 Gilberto Love MD [address] [facility] 100 [place] [address] Consulting Physician Cardiology 08/16/24 Kurt Calderon MD [address] [facility] [address] [place] [address] Consulting Physician Infectious Diseases 12/27/24 Juan Teixeira MD [address] [facility] [address] [place] [address] Consulting Physician Vascular Surgery 12/27/24 Amy Floyd, [facility] Pharmacist Pharmacy 12/27/24 documented as of this encounter
[2024-12-30 16:31] LABS: Hematocrit 41.6 % (37.0-52.0); Hemoglobin 13.8 g/dL (12.0-18.0); Immature Granulocyte Percent A 0.9 % (0-0.5); Lymphocytes Absolute Auto 2.97 K/mm3 (0.9-3.2); Mean Corpuscular HGB Conc 33.2 g/dl (32-36); Mean Corpuscular Hemoglobin 27.5 pg (26-34); Mean Corpuscular Volume 82.9 fl (80-100); Nucleated Red Blood Cells Absolute Auto 0.000 K/mm3 (0.0-0.012); Nucleated Red Blood Cells Perc 0.0 % (0.0-0.2); Platelet Count Result 179 k/mm3 (150-375); Red Blood Count 5.02 M/mm3 (4.2-6.2); White Blood Count 10.3 K/mm3 (4.5-10.0)
[2024-12-30 17:26] LABS: Alanine Aminotransferase 27 U/L (6-50); Albumin Level 4.2 g/dL (3.5-5.1); Alkaline Phosphatase 90 U/L (38-126); Anion Gap 11 mmol/L (4-12); Aspartate Amino Transferase 45 U/L (17-59); Bilirubin,Total 0.4 mg/dL (0.2-1.3); Blood Urea Nitrogen 20 mg/dL (7-20); Calcium 9.7 mg/dL (8.4-10.2); Carbon Dioxide 25 mmol/L (22-30); Chloride 102 mmol/L (96-107); Estimated Glomerular Filt Rate > 60; Glucose 125 mg/dL (65-110); Potassium 3.8 mmol/L (3.4-5.0); Sodium 138 mmol/L (137-145); Total Protein 8.2 g/dL (6.3-8.2)
== END 2024-12-30 16:03 | disposition home or self-care (01) ==
LOC: HOME HLTH 16:09
PROVIDERS: Visit Provider Internal Medicine Infectious Disease
DX: M86.072 Acute hematogenous osteomyelitis, left ankle and foot (principal)
CPT/HCPCS: 80053; 85025; 85652

== ENCOUNTER 2025-01-13 14:17 | Outpatient (NON) | payer OTHER, SELFPAY ==
--- OUTSIDE RECORDS SUMMARY | 2025-01-13 15:22 | XMS_ITS | Encounter Summary ---
Author Organization [facility] Facility Care Team Providers Care Water Filterer Helper Name Role Phone Javier Chan Primary Care Provider [phone] Yony Urrutia MD Unavailable [phone] JonahConnor good MD Unavailable [phone] Javier Chan Primary Care Provider [phone] Richar Butler MD Unavailable [phone] Gilberto Love MD Unavailable [phone] Kurt Calderon MD Unavailable [phone] Juan Teixeira MD Unavailable [phone] Kurt Calderon MD Unavailable [phone] Amy Floyd [facility] Unavailable Unavailable Encounter Details Date Type Department Care Team (Latest Contact Info) Description 01/04/2017 Orders Only [facility] CLINCONV ProviderJocelyn MD [address] [place] [address] Social History Tobacco Use Types Packs/Day Years Used Date Smoking Tobacco: Former Comments Unknown Sex and Gender Information Value Date Recorded Sex Assigned at Not on file Legal Sex Female 4:16 AM BRANCH LIBRARY CLERK Gender Identity Female 09/21/2017 4:47 PM CDT Sexual Orientation Not on file documented as of this encounter Plan of Treatment Upcoming Encounters Date Type Department Care Team (Late st Contact Info) Description 01/28/2025 11:50 AM CDT Hospital Encounter [facility] Operating Room 1 [place] [address] Rosalio Arriola MD [address] [address] 01/28/2025 11:50 AM CDT - 01/28/2025 2:20 PM CDT Surgery [facility] Operating Room 1 [place] [address] Rosalio Arriola MD [address] [address] LITHOTRIPSY - LASER Scheduled Procedures Name Priority Associated Diagnoses Date/Ti co LITHOTRIPSY - LASER Renal stones 01/28/2025 11:50 [...] gram neg/ESBL 11/20/2019 10/02/2023 07/22/2024 10:16 AM BRANCH LIBRARY CLERK COVID: Suspected 05/04/2021 05/04/2021 05/05/2021 12:15 AM BRANCH LIBRARY CLERK MRSA 06/14/2022 06/14/2022 12/11/2022 3:05 AM CDT COVID: Suspected 10/18/2023 10/18/2023 10/18/2023 5:07 PM CDT COVID: Suspected 10/20/2023 10/20/2023 10/20/2023 11:13 AM CDT COVID: Suspected 07/21/2024 07/21/2024 07/21/2024 11:22 PM BRANCH LIBRARY CLERK documented as of this encounter Care Teams Water Filterer Helper Relationship Specialty Start Date End Date Javier Chan PA PCP - General Family Medicine 11/27/18 07/23/24 Javier Chan PA [address] [address] PCP - General Family Medicine 07/24/24 Kurt Calderon MD [address] [id number] PCP - Home Infusion Attending Infectious Diseases 12/27/24 Yony Urrutia MD [address] [place] [address] [address] Endocrinology Diabetes & Metabolism 06/17/22 Connor Mckenzie MD [address] [place] [address] [address] [place] [address] Consulting Physician Urology 09/16/23 Richar Butler MD [address] [address] Cardiothoracic Surgery 08/16/24 Gilberto Love MD [address] [facility] 100 [place] [address] Consulting Physician Cardiology 08/16/24 Kurt Calderon MD [address] [facility] [address] [place] [address] Consulting Physician Infectious Diseases 12/27/24 Juan Teixeira MD [address] [facility] [address] [place] [address] Consulting Physician Vascular Surgery 12/27/24 Amy Floyd, [facility] Pharmacist Pharmacy 12/27/24 documented as of this encounter
--- OUTSIDE RECORDS SUMMARY | 2025-01-13 15:22 | XMS_ITS | Encounter Summary ---
Author Organization [facility] Facility Care Team Providers Care Toll Line Repairer Name Role Phone Javier Chan Primary Care Provider [phone] Yony Urruita MD Unavailable +[phone] JonahConnor good MD Unavailable [phone] Javier Chan Primary Care Provider +-[phone] Richar Butler MD Unavailable [phone] Gilberto Love MD Unavailable [phone] Kurt Calderon MD Unavailable [phone] Juan Teixeira MD Unavailable [phone] Kurt Calderon MD Unavailable [phone] Amy Floyd [facility] Unavailable Unavailable Encounter Details Date Type Department Care Team (Latest Contact Info) Description 01/02/2017 Orders Only [facility] CLINCONV ProviderJocelyn MD [address] [place] [address] Social History Tobacco Use Types Packs/Day Years Used Date Smoking Tobacco: Former Comments Unknown Sex and Gender Information Value Date Recorded Sex Assigned at Not on file Legal Sex Female 4:16 AM VISITOR SERVICES SPECIALIST Gender Identity Female 09/21/2017 4:47 PM CDT Sexual Orientation Not on file documented as of this encounter Plan of Treatment Upcoming Encounters Date Type Department Care Team (Late st Contact Info) Description 01/28/2025 11:50 AM CDT Hospital Encounter [facility] Operating Room 1 [place] [address] Rosalio Arriola MD [address] [address] 01/28/2025 11:50 AM CDT - 01/28/2025 2:20 PM CDT Surgery [facility] Operating Room 1 [place] [address] Rosalio Arriola MD [address] [address] LITHOTRIPSY - LASER Scheduled Procedures Name Priority Associated Diagnoses Date/Ti pr LITHOTRIPSY - LASER Renal stones 01/28/2025 11:50 [...] gram neg/ESBL 11/20/2019 10/02/2023 07/22/2024 10:16 AM VISITOR SERVICES SPECIALIST COVID: Suspected 05/04/2021 05/04/2021 05/05/2021 12:15 AM VISITOR SERVICES SPECIALIST MRSA 06/14/2022 06/14/2022 12/11/2022 3:05 AM CDT COVID: Suspected 10/18/2023 10/18/2023 10/18/2023 5:07 PM CDT COVID: Suspected 10/20/2023 10/20/2023 10/20/2023 11:13 AM CDT COVID: Suspected 07/21/2024 07/21/2024 07/21/2024 11:22 PM VISITOR SERVICES SPECIALIST documented as of this encounter Care Teams Toll Line Repairer Relationship Specialty Start Date End Date Javier Chan PA PCP - General Family Medicine 11/27/18 07/23/24 Javier Chan PA [address] [address] PCP - General Family Medicine 07/24/24 Kurt Calderon MD [address] [id number] PCP - Home Infusion Attending Infectious Diseases 12/27/24 Yony Urrutia MD [address] [place] [address] [address] Endocrinology Diabetes & Metabolism 06/17/22 Connor Mckenzie MD [address] [place] [address] [address] YOU[address] [place] [address] Consulting Physician Urology 09/16/23 Richar Butler MD [address] [address] Cardiothoracic Surgery 08/16/24 Gilberto Love MD [address] [facility] 100 [place] [address] Consulting Physician Cardiology 08/16/24 Kurt Calderon MD [address] [facility] [address] [place] [address] Consulting Physician Infectious Diseases 12/27/24 Juan Teixeira MD [address] [facility] [address] [place] [address] Consulting Physician Vascular Surgery 12/27/24 Amy Floyd, [facility] Pharmacist Pharmacy 12/27/24 documented as of this encounter
--- OUTSIDE RECORDS SUMMARY | 2025-01-13 15:22 | XMS_ITS | Encounter Summary ---
Author Organization [facility] Facility Care Team Providers Care Cutter Inspector Name Role Phone Javier Chan Primary Care Provider [phone] Yony Urrutia MD Unavailable [phone] JonahConnor good MD Unavailable [phone] Javier Chan Primary Care Provider +[phone] Richar Butler MD Unavailable [phone] Gilberto Love MD Unavailable [phone] Kurt Calderon MD Unavailable +[phone] Juan Teixeira MD Unavailable [phone] Kurt Calderon MD Unavailable +[phone] Amy Floyd [facility] Unavailable Unavailable Encounter Details Date Type Department Care Team (Latest Contact Info) Description 03/04/2016 Orders Only [facility] CLINCONV ProviderJocelyn MD [address] [place] [address] Social History Tobacco Use Types Packs/Day Years Used Date Smoking Tobacco: Never Assessed Comments Unknown Sex and Gender Information Value Date Recorded Sex Assigned at Not on file Legal Sex Female 4:16 AM CRM CAMPAIGN MANAGER Gender Identity Female 09/21/2017 4:47 PM CDT Sexual Orientation Not on file documented as of this encounter Plan of Treatment Upcoming Encounters Date Type Department Care Team (Late st Contact Info) Description 01/28/2025 11:50 AM CDT Hospital Encounter [facility] Operating Room 1 [place] [address] Rosalio Arriola MD [address] [address] 01/28/2025 11:50 AM CDT - 01/28/2025 2:20 PM CDT Surgery [facility] Operating Room 1 [place] [address] Rosalio Arriola MD [address] [address] LITHOTRIPSY - LASER Scheduled Procedures Name Priority Associated Diagnoses Date/Ti nv LITHOTRIPSY - LASER Renal stones 01/28/2025 11:50 [...] gram neg/ESBL 11/20/2019 10/02/2023 07/22/2024 10:16 AM CRM CAMPAIGN MANAGER COVID: Suspected 05/04/2021 05/04/2021 05/05/2021 12:15 AM CRM CAMPAIGN MANAGER MRSA 06/14/2022 06/14/2022 12/11/2022 3:05 AM CDT COVID: Suspected 10/18/2023 10/18/2023 10/18/2023 5:07 PM CDT COVID: Suspected 10/20/2023 10/20/2023 10/20/2023 11:13 AM CDT COVID: Suspected 07/21/2024 07/21/2024 07/21/2024 11:22 PM CRM CAMPAIGN MANAGER documented as of this encounter Care Teams Cutter Inspector Relationship Specialty Start Date End Date Javier Chan PA PCP - General Family Medicine 11/27/18 07/23/24 Javier Chan PA [address] [address] PCP - General Family Medicine 07/24/24 Kurt Calderon MD [address] [address] PCP - Home Infusion Attending Infectious Diseases 12/27/24 Yony Urrutia MD [address] [place] [address] [address] Endocrinology Diabetes & Metabolism 06/17/22 JonahConnor good MD [address] [place] [address] [address] Consulting Physician Urology 09/16/23 Richar Butler MD [address] [address] Cardiothoracic Surgery 08/16/24 Gilberto Love MD [address] [facility] 100 [place] [address] Consulting Physician Cardiology 08/16/24 Kurt Calderon MD [address] [facility] [address] [place] [address] Consulting Physician Infectious Diseases 12/27/24 Juan Teixeira MD [address] [facility] [address] [place] [address] Consulting Physician Vascular Surgery 12/27/24 Amy Floyd, [facility] Pharmacist Pharmacy 12/27/24 documented as of this encounter
--- OUTSIDE RECORDS SUMMARY | 2025-01-13 15:23 | XMS_ITS | Encounter Summary ---
Author Organization [facility] Facility Care Team Providers Care Pattern Technician Name Role Phone Javier Chan Primary Care Provider +[phone] Yony Urrutia MD Unavailable [phone] JonahConnor good MD Unavailable [phone] Javier Chan Primary Care Provider [phone] Richar Butler MD Unavailable [phone] Gilberto Love MD Unavailable [phone] Kurt Calderon MD Unavailable [phone] Juan Teixeira MD Unavailable [phone] Kurt Calderon MD Unavailable [phone] Amy Floyd [facility] Unavailable Unavailable Encounter Details Date Type Department Care Team (Latest Contact Info) Description 05/11/2018 Orders Only [facility]G CLINCONV ProviderJocelyn MD [address] [place] [address] Social History Tobacco Use Types Packs/Day Years Used Date Smoking Tobacco: Former Smokeless Tobacco: Never Comments Unknown Sex and Gender Information Value Date Recorded Sex Assigned at Not on file Legal Sex Female 4:16 AM BIOFUELS PRODUCTION ASSOCIATE Gender Identity Female 09/21/2017 4:47 PM CDT Sexual Orientation Not on file documented as of this encounter Plan of Treatment Upcoming Encounters Date Type Department Care Team (Late st Contact Info) Description 01/28/2025 11:50 AM CDT Hospital Encounter [facility] Operating Room 1 [place] [address] Rosalio Arriola MD [address] [address] 01/28/2025 11:50 AM CDT - 01/28/2025 2:20 PM CDT Surgery [facility] Operating Room 1 [place] [address] Rosalio Arriola MD [address] [address] LITHOTRIPSY - LASER Scheduled Procedures Name Priority Associated Diagnoses Date/Ti wy LITHOTRIPSY - LASER Renal stones 01/28/2025 11:50 AM CDT URETEROSCOPY Renal stones 01/28/2025 11:50 AM CDT PLACEMENT STENT - URETERAL Renal stones 01/28/2025 11:50 AM CDT documented as of this encounter Procedures Procedure Name Priority Date/Time Associated Diagnosis Comments PROCEDURE - RESULT 05/13/2018 12 :00 AM BIOFUELS PRODUCTION ASSOCIATE documented in this encounter Results * PROCEDURE - RESULT (05/13/2018 12:00 AM BIOFUELS PRODUCTION ASSOCIATE) Narrative 05/13/2018 12:00 AM BIOFUELS PRODUCTION ASSOCIATE Ordered by an unspecified provider. 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 10/02/2023 07/22/2024 10:16 AM BIOFUELS PRODUCTION ASSOCIATE COVID: Suspected 05/04/2021 05/04/2021 05/05/2021 12:15 AM BIOFUELS PRODUCTION ASSOCIATE MRSA 06/14/2022 06/14/2022 12/11/2022 3:05 AM CDT COVID: Suspected 10/18/2023 10/18/2023 10/18/2023 5:07 PM CDT COVID: Suspected 10/20/2023 10/20/2023 10/20/2023 11:13 AM CDT COVID: Suspected 07/21/2024 07/21/2024 07/21/2024 11:22 PM BIOFUELS PRODUCTION ASSOCIATE documented as of this encounter Care Teams Pattern Technician Relationship Specialty Start Date End Date Javier Chan PA PCP - General Family Medicine 11/27/18 07/23/24 Javier Chan PA [address] [address] PCP - General Family Medicine 07/24/24 Kurt Calderon MD [address] [id number] PCP - Home Infusion Attending Infectious Diseases 12/27/24 Yony Urrutia MD [address] [place] [address] [address] Endocrinology Diabetes & Metabolism 06/17/22 JonahConnor good MD [address] [place] [address] [address] Consulting Physician Urology 09/16/23 Richar Butler MD [address] [address] Cardiothoracic Surgery 08/16/24 Gilberto Love MD [address] [facility] 100 [place] [address] Consulting Physician Cardiology 08/16/24 Kurt Calderon MD [address] [facility] [address] [place] [address] Consulting Physician Infectious Diseases 12/27/24 Juan Teixeira MD [address] [facility] [address] [place] [address] Consulting Physician Vascular Surgery 12/27/24 Amy Floyd, [facility] Pharmacist Pharmacy 12/27/24 documented as of this encounter
--- OUTSIDE RECORDS SUMMARY | 2025-01-13 15:23 | XMS_ITS | Encounter Summary ---
Author Organization [facility] Facility Care Team Providers Care Soft Drink Powder Mixer Name Role Phone Javier Chan Primary Care Provider +[phone] Yony Urrutia MD Unavailable [phone] JonahConnor good MD Unavailable [phone] Javier Chan Primary Care Provider [phone] Richar Butler MD Unavailable [phone] Gilberto Love MD Unavailable [phone] Kurt Calderon MD Unavailable [phone] Juan Teixeira MD Unavailable [phone] Kurt Calderon MD Unavailable [phone] Amy Floyd [facility] Unavailable Unavailable Encounter Details Date Type Department Care Team (Latest Contact Info) Description 05/10/2018 Orders Only [facility]G CLINCONV ProviderJocelyn MD [address] [place] [address] Social History Tobacco Use Types Packs/Day Years Used Date Smoking Tobacco: Former Smokeless Tobacco: Never Comments Unknown Sex and Gender Information Value Date Recorded Sex Assigned at Not on file Legal Sex Female 4:16 AM UNDERWATER TRAPPER Gender Identity Female 09/21/2017 4:47 PM CDT Sexual Orientation Not on file documented as of this encounter Plan of Treatment Upcoming Encounters Date Type Department Care Team (Late st Contact Info) Description 01/28/2025 11:50 AM CDT Hospital Encounter [facility] Operating Room 1 [place] [address] Rosalio Arriola MD [address] [address] 01/28/2025 11:50 AM CDT - 01/28/2025 2:20 PM CDT Surgery [facility] Operating Room 1 [place] [address] Rosalio Arriola MD [address] [address] LITHOTRIPSY - LASER Scheduled Procedures Name Priority Associated Diagnoses Date/Ti mn LITHOTRIPSY - LASER Renal stones 01/28/2025 11:50 AM CDT URETEROSCOPY Renal stones 01/28/2025 11:50 AM CDT PLACEMENT STENT - URETERAL Renal stones 01/28/2025 11:50 AM CDT documented as of this encounter Procedures Procedure Name Priority Date/Time Associated Diagnosis Comments PROCEDURE - RESULT 05/10/2018 12 :00 AM UNDERWATER TRAPPER documented in this encounter Results * PROCEDURE - RESULT (05/10/2018 12:00 AM UNDERWATER TRAPPER) Narrative 05/10/2018 12:00 AM UNDERWATER TRAPPER Ordered by an unspecified provider. 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 06/14/2022 12/11/2022 3:05 AM CDT COVID: Suspected 10/18/2023 10/18/2023 10/18/2023 5:07 PM CDT COVID: Suspected 10/20/2023 10/20/2023 10/20/2023 11:13 AM CDT COVID: Suspected 07/21/2024 07/21/2024 07/21/2024 11:22 PM UNDERWATER TRAPPER documented as of this encounter Care Teams Soft Drink Powder Mixer Relationship Specialty Start Date End Date Javier Chan PA PCP - General Family Medicine 11/27/18 07/23/24 Javier Chan PA [address] [address] PCP - General Family Medicine 07/24/24 Kurt Calderon MD [address] [id number] PCP - Home Infusion Attending Infectious Diseases 12/27/24 Yony Urrutia MD [address] [place] [address] [address] Endocrinology Diabetes & Metabolism 06/17/22 JonahConnor good MD [address] [place] [address] [address] Consulting Physician Urology 09/16/23 Richar Butler MD [address] [address] Cardiothoracic Surgery 08/16/24 Gilberto Love MD [address] [facility] 100 [place] [address] Consulting Physician Cardiology 08/16/24 Kurt Calderon MD [address] [facility] [address] [place] [address] Consulting Physician Infectious Diseases 12/27/24 Juan Teixeira MD [address] [facility] [address] [place] [address] Consulting Physician Vascular Surgery 12/27/24 Amy Floyd, [facility] Pharmacist Pharmacy 12/27/24 documented as of this encounter
--- OUTSIDE RECORDS SUMMARY | 2025-01-13 15:23 | XMS_ITS | Encounter Summary ---
Author Organization [facility] Address [address] [place] [address] Phone Care Team Providers Care Middleware Consultant Name Role Phone Yony Urrutia MD Unavailable [phone] Connor Mckenzie MD Unavailable + [phone] Javier Chan Primary Care Provider [phone] Richar Butler MD Unavailable Gilberto Love MD Unavailable +[phone] Kurt Calderon MD Unavailable [phone] Juan Teixeira MD Unavailable [phone] Kurt Calderon MD Unavailable [phone] Amy Floyd [facility] Unavailable Unavailable Encounter Details Date Type Department Care Team (Late st Contact Info) Description 01/13/2025 Telephone [facility] Cardiology [address] [facility] 8[address] [place] [address] [place] [address] Priya Whitfield MD [address] [facility] [address] [place] [address] Social History Tobacco Use Types Packs/Day Years Used Date Smoking Tobacco: Former Cigarettes 0.8 20.1 0 05/29/1984 - 07/06/2004 Passive Smoke Exposure: Past Smokeless Tobacco: Never Alcohol Use Standard Drinks/Week Comments Yes 0 (1 standard drink = 0.6 oz pur e alcohol) [facility] Utilities Answer Date Recorded In the past 12 months has th e electric, gas, oil, or water company threatened to shut off services in your home? No 12/19/2024 Social Connection and Isolation Panel Answer Date Recorded In a typical week, how many times do you talk on the phone with family, friends, or neighbors? More than three times a week 12/19/2024 How often do you get togethe r with friends or relatives? More than three times a week 12/19/2024 How often do you attend chur ch or tenriism services? Never 12/19/2024 Do you belong to any clubs o r organizations such as orthodox groups, unions, fraternal or athletic groups, or [...] place to sleep or slept in a jail (including now)? No 06/16/2022 Housing Stability Vital Sign Answer Galindo e Recorded In the last 12 months, was t here a time when you were not able to pay the mortgage or rent on time? No 12/19/2024 In the past 12 months, how m any times have you moved where you were living? 0 12/19/2024 At any time in the past 12 m [facility], were you homeless or living in a jail (including now)? No 12/19/2024 Personal Safety Answer Date Recorded Have you ever been in or are you currently in a harmful physical or emotional relationship or is someone making you feel afraid or unsafe? Denies 12/24/2024 Comments No Sex and Gender Information Value Date Recorded Sex Assigned at Not on file Legal Sex Female 4:16 AM TRASHMAN Gender Identity Female 09/21/2017 4:47 PM CDT Sexual Orientation Not on file documented as of this encounter Miscellaneous Notes * Telephone Encounter - Justin Salmon - 01/13/2025 1:56 PM CDT Spoke with patient. She notes she continues to have incision site pain at times. She is aware transmission was received and no device concerns. She had HHRN come to check her recent surgical incisionand she also checked out device site and notes the site looks healthy. She is aware to continue to monitor for now unless otherwise instructed by Dr. Whitfield * Telephone Encounter - Justin Salmon - 01/13/2025 10:50 AM CDT Spoke with patient and she will send a transmission to see if device function is still appropriate. * Telephone Encounter - Leena Galvez - 01/13/2025 10:13 AM CDT Nahid Pt is having some discomfort where the incision is for her device. Would like to send a transmission. Please call. documented in this encounter Plan of Treatment Upcoming Encounters Date Type Department Care Team (Late st Contact Info) Description 01/28/2025 11:50 AM CDT Hospital Encounter [facility] Operating Room 1 [place] [address] Rosalio Arriola MD [address] [facility] [address] [place] [address] 01/28/2025 11:50 AM CDT - 01/28/2025 2:[address] [facility] Operating Room 1 [place] [address] Rosalio Arriola MD [address] [facility] [address] [place] [address] LITHOTRIPSY - LASER Scheduled Procedures Name Priority Associated Diagnoses Date/Ti ga LITHOTRIPSY - LASER Renal stones 01/28/2025 11:50 [...] documented as of this encounter Care Teams Middleware Consultant Relationship Specialty Start Date End Date Javier Chan PA [address] [facility] 200 [place] [address] PCP - General Family Medicine 07/24/24 Kurt Calderon MD [address] [facility] [address] [place] [address] PCP - Home Infusion Attending Infectious Diseases 12/27/24 Yony Urrutia MD 1023 [facility] 2 [place] [address] Endocrinology Diabetes & Metabolism 06/17/22 JonahConnor good MD 1023 [facility] 2 [place] [address] Consulting Physician Urology 09/16/23 Richar Butler MD [address] [facility] 200 [place] [address] Cardiothoracic Surgery 08/16/24 Gilberto Love MD 1020 [facility] 100 [place] [address] Consulting Physician Cardiology 08/16/24 Kurt Calderon MD [address] [facility] [address] [place] [address] Consulting Physician Infectious Diseases 12/27/24 Juan Teixeira MD [address] [facility] [address] [place] [address] Consulting Physician Vascular Surgery 12/27/24 Amy Folyd [facility] Pharmacist Pharmacy 12/27/24 documented as of this encounter
--- OUTSIDE RECORDS SUMMARY | 2025-01-13 15:23 | XMS_ITS ---
Author Organization [facility] Address 1 [place] [address] Care Team Providers Care Cellophane Casting Machine Repairer Name Role Phone Yony Urrutia MD Unavailable [phone] Connor Mckenzie MD Unavailable [phone] Javier Chan Primary Care Provider [phone] Richar Butler MD Unavailable [phone] Gilberto Love MD Unavailable [phone] Kurt Calderon MD Unavailable [phone] Juan Teixeira MD Unavailable [phone] Kurt Calderon MD Unavailable [phone] Amy Floyd [facility] Unavailable Unavailable Anti-Infective Status:Enrolled (Active) Start date:12/27/2024 Enrollment date:12/27/2024 Linked medications:water for injection,sterile,cefazolin sodium (Active) Related program episode:Home Infusion (Active) Case Team Name Relationship Phone Amy Floyd [facility](Responsible Staff) Pharmacis t Continued Care and Services Coordination This section includes services coordinated for Anti-Infective. Home Medical Care Name Services Phone Frankie Calloway [facility] Home Infusion and Inj ection [phone]
--- OUTSIDE RECORDS SUMMARY | 2025-01-13 15:23 | XMS_ITS | Patient Health Record ---
Author Organization [facility] Address [address] [place] [address] Care Team Providers Care Phd Intern Name Role Phone Javier Matson Primary Care Provider Unavailabl e ISIAH CUEVAS, YEFRI Unavailable Allergies Allergen (clinical drug ingredient) Drug/Non Drug Allergy documented on EMR Reaction Allergy Type Onset Date Status Streptococcus pneumoniae type 1 capsular polysaccharide antigen / Streptococcus pneumoniae type 10A capsular polysaccharide antigen / Streptococcus pneumoniae type 11A capsular polysaccharide antigen / Streptococcus pneumoniae type 12F capsular polysaccharide antigen / Streptococcus pneumoniae type 14 capsular polysaccharide antigen / Streptococcus pneumoniae type 15B capsular polysaccharide antigen / Streptococcus pneumoniae type 17F capsular polysaccharide antigen / Streptococcus pneumoniae type 18C capsular polysaccharide antigen / Streptococcus pneumoniae type 19A capsular polysaccharide antigen / Streptococcus pneumoniae type 19F capsular polysaccharide antigen / Streptococcus pneumoniae type 2 capsular polysaccharide antigen / Streptococcus pneumoniae type 20 capsular polysaccharide antigen / Streptococcus pneumoniae type 22F capsular polysaccharide antigen / Streptococcus pneumoniae type 23F capsular polysaccharide antigen / Streptococcus pneumoniae type 3 capsular polysaccharide antigen / Streptococcus pneumoniae type 33F capsular polysaccharide antigen / Streptococcus pneumoniae type 4 capsular polysaccharide antigen / Streptococcus pneumoniae type 5 capsular polysaccharide antigen / Streptococcus pneumoniae type 6B capsular polysaccharide antigen / Streptococcus pneumoniae type 7F capsular polysaccharide antigen / Streptococcus pneumoniae type 8 capsular polysaccharide antigen / Streptococcus pneumoniae type 9N capsular polysaccharide antigen / Streptococcus pneumoniae type 9V capsular polysaccharide antigen Pneumovax 23 Unknown Drug Allergy Activ e Reason For Referral No Information Medications Medication SIG (Take, Route, Frequency, Duration) Notes Start Date End Date Status metFORMIN HCl 500 MG 1 tablet with a sae l Orally BID Active Atorvastatin Calcium 10 MG 1 tablet Oral ly Once a day Active rOPINIRole HCl 1 MG 1 tablet 1 to 3 hour s before bedtime Orally Once a day Active Gabapentin 600 MG 1 tablet Orally TID Active Tradjenta 5 MG 1 tablet Orally Once a day Active hydroCHLOROthiazide 25 MG 1 tablet in morning Orally Once a day Active Trulicity 1.5 MG/0.5ML as directed Subcutaneous Active Losartan Potassium 25 MG 1 tablet Orally Once a day Active Social History Tobacco Use: Social History Observation Description Date Details (start date - stop date) Former Smoker NA - NA Tobacco Use/Smoking Question Answer Notes Are you a former smoker How long has it been since y ou last smoked? > 10 years Additional Findings: Tobacco User Modera te cigarette smoker (10-19 cigs/day) Plan Of Treatment No Information Insurance Providers Payer Name Payer Address Payer Phone Subscriber Number Group Number Insured Name Patient Relationship to Insured Coverage Start Date Coverage End Date 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
--- OUTSIDE RECORDS SUMMARY | 2025-01-13 15:23 | XMS_ITS ---
Author Organization [facility] Address [address] [place] [address] Care Team Providers Care Civil Engineer In Training Name Role Phone Yony Urrutia MD Unavailable [phone] Connor Mckenzie MD Unavailable [phone] Javier Chan Primary Care Provider [phone] Richar Butler MD Unavailable [phone] Gilberto oLve MD Unavailable [phone] Kurt Calderon MD Unavailable [phone] Juan Teixeira MD Unavailable [phone] Kurt Calderon MD Unavailable [phone] Amy Floyd [facility] Unavailable Unavailable Home Infusion Status:Enrolled (Active) Start date:12/27/2024 Enrollment date:12/27/2024 Related service episodes:Anti-Infective (Active) Continued Care and Services Coordination This section includes services coordinated for Home Infusion. Home Medical Care Name Services Phone [facility] [phone]
--- OUTSIDE RECORDS SUMMARY | 2025-01-13 15:23 | XMS_ITS | Patient Health Record ---
Author Organization [facility] Address [address] [place], [place] [id number] Care Team Providers Care Chemical Process Engineer Name Role Phone MONIKA Hoffmann Unavailable Javier Chan Unavailable Unavailable Reason For Referral No Information Medications Medication SIG (Take, Route, Frequency, Duration) Notes Start Date End Date Status sulfamethoxazole 800 MG / trimethoprim 160 MG Oral Tablet [Bactrim] ORAL sulfamethoxazole 800 MG / trimethoprim 160 MG Oral Tablet [Bactrim]Original Medicationsulfamethoxazole 800 MG / trimethoprim 160 MG Oral Tablet [Bactrim] *Reorder from [employer] for eRx and Interaction Alerts* 10/03/19 15 Active Plan Of Treatment No Information Insurance Providers Payer Name Payer Address Payer Phone Subscriber Number Group Number Insured Name Patient Relationship to Insured Coverage Start Date Coverage End Date [facility] [address] [address] [place] [address] [id number] CHIO JADE Self - patient is the insured
--- OUTSIDE RECORDS SUMMARY | 2025-01-13 15:24 | XMS_ITS | Clinical Summary ---
Author Organization [facility] Address [address] [place] [address] Care Team Providers Care Documentation Spec Name Role Phone Yony Urrutia MD Unavailable [phone] JonahConnor barrientos MD Unavailable [phone] Javier Chan Primary Care Provider [phone] Richar Butler MD Unavailable [phone] Gilberto Love MD Unavailable [phone] Nan Calderon MD Unavailable [phone] Juan Teixeira MD Unavailable [phone] Nan Calderon MD Unavailable [phone] Amy Floyd [facility] Unavailable Unavailable Allergies Active Allergy Reactions Criticality [...] Conj-Dip Cr(Pf) Other (See comments) 12/13/2024 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 Medications cholecalciferol (VITAMIN D-3) 5,000 unit capsule Take 1 capsule (5,000 Units total) by mouth every morning Active cranberry 500 mg capsule Take 1 capsule by mouth every morning Active pen needle, diabetic (Pen Needle) 31 gauge x 1/4 needle 1 Units 3 (three) times a day before meals 60 each 06/09/19 Active Additional Information Patient not taking.Reported on 12/31/2024 pen needle, diabetic (BD Ultra-Fine Rafaela Pen Needle) 32 gauge x 5/32 needle USE DIRECTED 3 TIMES A DAY 100 each 3 01/17/20 Active Additional Information Patient not taking.Reported on 12/31/2024 pregabalin (LYRICA) 25 mg capsule Take 1 [...] Active Additional Information Patient not taking.Reported on 12/31/2024 atorvastatin (LIPITOR) 40 mg tabletIndication s:Dyslipidemia Take [...] complication, without long-term current use of insulin ([facility]) Inject 20 Units under the skin nightly 11/29/19 24 Active valsartan (DIOVAN) 80 mg tabletIndication s:Essential (primary) hypertension Take 1 tablet (80 mg total) by mouth daily 11/29/19 24 Active traMADoL (ULTRAM) 50 mg tabletIndication s:Pain Take 1 tablet (50 mg total) by mouth nightly as needed for pain 05/19/20 24 Active FreeStyle Shayne 3 Sensor deviceIndication s:Type 2 diabetes mellitus with hyperglycemia, with long-term current use of insulin ([facility]) One sensor every 14 days 6 each 3 06/06/19 25 Active Additional Information Patient not taking.Reported on 12/31/2024 rOPINIRole (REQUIP) 2 mg tablet Take 1 tablet (2 mg total) by mouth 2 (two) times a day Active magnesium oxide 400 mg magnesium capsule Take 1 tablet by mouth every evening Active docusate sodium (COLACE ORAL) Take 1 capsule by mouth claims account manager before breakfast Active biotin 10,000 mcg capsule Take 1 capsule (10,000 mcg total) by mouth claims account manager before breakfast Active acetaminophen (TYLENOL) 325 mg tablet Take 2 tablets (650 mg total) by mouth every 4 (four) hours as needed for pain 08/17/19 25 Active nystatin powderIndication s:Intertrigo Apply topically 2 (two) times a day 15 g 09/17/19 25 Active Additional Information Patient not taking.Reported on 12/31/2024 estradioL (ESTRACE) 0.01 % (0.1 mg/gram) vaginal cream Apply nightly for 3 weeks, then 3 times per week. 127.5 g 3 11/14/19 25 Active LANTUS 100 unit/mL (3 mL) pen for [...] line care for up to 19 days 05534 mL 5 11:59 PM CDT 12/29/19 25 025 Active heparin 10 unit/mL syringe flush syringeIndicatio ns:Maintain Patency of Indwelling Vascular Catheter Infuse 5 mL (50 Units total) IV as needed (line care) for up to 19 days 53053 mL 5 11:59 PM CDT 12/29/19 25 025 Active Mounjaro 7.5 mg/0.5 mL pen injectorIndicati ons:Type 2 diabetes mellitus with hyperglycemia, with long-term current use of insulin (HCC) Inject 7.5 mg under the skin once a week 6 mL 3 06/06/19 25 025 Discontin ued(Patie nt Reported) Active Problems Problem Noted Date Diagnosed Date Pacemaker 12/31/2024 Assessment & Plan (12/31/2024 3:46 PM CDT): -Dual chamber pacemaker is functioning appropriately as programmed -Lead impedances, sensing, and thresholds are stable -Continue remote monitoring quarterly -Follow up in 1 year for device check Urinary tract infection in female 12/18/2024 Renal stones 11/18/2024 Complete heart block 08/22/2024 Assessment & Plan (12/31/2024 3:46 PM CDT): -Complete heart block post TAVR s/p Medtronic dual-chamber pacemaker (left bundle area pacing area lead) on 08/23/2024. S/P TAVR (transcatheter aortic valve replacement ) 08/15/2024 Assessment & Plan (08/15/2024 11:19 AM CDT): Remove figure of 8 suture tomorrow am from [facility] groin site CXR, TTE, EKG and labs [...] barefoot. Assessment & Plan (06/04/2024 3:19 PM [employer]): Chronic problem. Currently taking Lyrica 25mg QAM, [...] >160 Assessment & Plan (06/04/2024 3:18 PM [employer]): Chronic problem. Controlled on current valsartan 80mg [...] Atorvastatin 40mg. Last lipid panel: 02/28/24 LDL=70, IA=481. No changes at this time. Assessment & Plan (06/04/2024 3:18 PM [employer]): Chronic problem. Controlled on current Atorvastatin 40mg. Last lipid panel: 02/28/24 LDL=70, VX=205. No changes at this time. Assessment & [...] Atorvastatin 40mg. Last lipid panel: 05/26/23 LDL=99, OV=208. No changes at this time. Assessment & Plan (03/28/2023 3:55 PM CDT): Chronic problem. Controlled on current Atorvastatin 10mg. Last lipid panel: 05/13/22 LDL=97, PZ=757. No changes at this time. Assessment & Plan (09/15/2022 10:13 AM CDT): Chronic problem. Controlled on current Atorvastatin 10mg. Last lipid panel: 05/13/22 LDL=97, KX=586. No changes at this time. Sensorineural hearing [...] cm2) Assessment & Plan (05/15/2020 12:22 PM [employer]): Stable and seeing cardiology RAYA (obstructive sleep [...] device Assessment & Plan (06/01/2023 8:12 AM [employer]PER[employer]): Continue CPAP Assessment & Plan (11/24/2022 11:36 AM CDT): Continue c-pap Assessment & Plan (05/18/2022 4:06 PM [employer]PER[employer]): Encourage c-pap Assessment & Plan (11/16/2021 4:42 PM CDT): Using oral device Assessment & Plan (05/17/2021 4:32 PM [employer]): Using oral device Assessment & Plan (11/19/2020 7:36 AM CDT): Using oral devise Assessment & Plan (05/15/2020 12:22 PM SUPERVIS[employer]): Using oral device Assessment & Plan (11/12/2019 [...] insulin Assessment & Plan (06/04/2024 2:48 PM [employer]PER[employer]): Chronic problem, uncontrolled. A1c improved from 8.6% [...] daily Assessment & Plan (06/01/2023 8:12 AM SUPERVISOR [employer]): Patient is going to continue current medications, [...] accountable. No longer needing mealtime insulin. Reviewed Revolutstyle download w/Mrs Soares. Current medications: Metformin 1000mg [...] infection. Assessment & Plan (07/18/2022 4:28 PM SUPER[employer]OR [employer]): Hba1c was Lab Results Component Value Date [...] units Assessment & Plan (06/21/2022 2:56 PM [employer]PER[employer]): CPM, discussed lows on sugars, sending to endocrinology for eval Assessment & Plan (05/18/2022 4:04 PM [employer]PERVISOR [employer]): Poor control, get back on diet, farxiga, discussed medications, use and side effects Assessment & Plan (05/17/2021 4:31 PM [employer]PERVISOR [employer]): Continue meds Assessment & Plan (05/15/2020 12:21 PM SUPERVISOR [employer]): Patient is going to continue current medications, [...] labs. UTD on DM eye exam (01/2023 [place], [place]) Strive for regular exercise (30min most days) [...] 10/18/2023 Assessment & Plan (06/21/2022 2:55 PM [employer]PERVIS[employer]): Resolving, finish medications, f/u with ent MRSA nasal colonization 06/15/202209/27 Severe sepsis 06/15/2022 10/18/2023 Assessment & Plan (06/21/2022 2:53 PM [employer]): Well controlled, fisnishing medications and seeing ENT [...] barefoot. Assessment & Plan (05/17/2021 4:31 PM [employer]PERVISOR [employer]): Stable, CPM Line sepsis 05/14/2020 10/18/2023 Osteomyelitis of second toe of right foot 05/14/2020 10/18/2023 Suspected 2019-nCoV infection 05/14/2020 10/18/2023 Urinary tract infectious disease 05/14/2020 10/18/2023 Assessment & Plan (11/24/2022 11:37 AM CDT): Finish medications, ua 2 weeks due to blood Assessment & Plan (05/03/2022 4:03 PM [employer]PERVISOR [employer]): Urine dipstick positive for moderate blood and [...] worse. Contact your primary care doctor or LIVESTOCK JUDGING COACH if: You have a fever. You have [...] Routine general medical exam ination at a [facility] care facility 04/23/2019 10/18/2023 Assessment & Plan (06/01/2023 8:13 AM SUPERVISOR [employer]): Healthcare maintenance updated Assessment & Plan (05/18/2022 4:06 PM SUPERVISOR [employer]): HEALTHCARE MAINTENANCE up to date Acute right [...] routine. Assessment & Plan (05/17/2021 4:31 PM SUPERVISOR [employer]KING HAND): Patient is to continue present medications, work on diet and exercise as discussed, we did discuss the medications and potential side effects and signs and symptoms that would warrant calling office. Follow up routine. Assessment & Plan (05/15/2020 12:21 PM SUPERVISOR [employer]): Patient is to continue present medications, work [...] 10/18/2023 Assessment & Plan (06/01/2023 8:12 AM SUPERVISOR [employer]): This is well controlled patient is currently not having any symptoms will continue to follow Assessment & Plan (03/29/2023 4:20 PM CDT): Chronic and ongoing Assessment & Plan (05/18/2022 4:04 PM [employer]PER[employer]): This is good at this time, still with some issues with right hand Assessment & Plan (11/16/2021 4:41 PM CDT): This appears stable continue current meds follow-up 6 months Assessment & Plan (05/17/2021 4:31 PM SUPERVISOR [employer]): No current issues Assessment & Plan (05/15/2020 12:21 PM SUPERVISOR [employer]): Currently controlled will follow Assessment & Plan (11/12/2019 4:34 PM CDT): We are following Subacute sinusitis 08/15/2017 Overview (10/30/2018): Meds as ordered, saline and [id number] Mucinex. Primary insomnia 07/19/2017 10/18/2023 Essential (primary) hypertension 06/07/2017 10/18/2023 Overview (09/11/2018): stable CPM, labs as ordered f/u routine Assessment & Plan (06/01/2023 8:12 AM SUPERVISOR [employer]): This is a stable chronic condition. Monitor [...] routine Assessment & Plan (06/21/2022 2:48 PM SUPERVISOR [employer]): Images from the original note were not included. This is a stable chronic condition. Monitor blood pressure, call if out of parameters as we discussed. Low sodium and caffeine diet. baby asa as discussed if applicable. Diet, exercise and weight reduction. Labs as ordered. F/U routine Assessment & Plan (05/18/2022 4:04 PM SUPERVIS[employer]): Images from the original note were not [...] routine Assessment & Plan (05/17/2021 4:32 PM SUPERVISOR [employer]): Images from the original note were not [...] routine Assessment & Plan (05/15/2020 12:21 PM SUPERVISOR [employer]): Images from the original note were not [...] 10/18/2023 Assessment & Plan (06/01/2023 8:12 AM SUPERVISOR [employer]): This is currently controlled will continue current medications follow-up routine Assessment & Plan (05/18/2022 4:06 PM SUPERVISOR [employer]): Controlled with meds Assessment & Plan (11/16/2021 4:42 PM CDT): Not controlled will try 2 mg 1 hour before bed she will update me in a few weeks we also started her on some oral magnesium Assessment & Plan (05/17/2021 4:33 PM [employer]PER[employer]): Stable, will follow Assessment & Plan (11/19/2020 7:36 AM CDT): Controlled with meds Assessment & Plan (05/15/2020 12:22 PM SUPER[employer]OR [employer]): controlled Assessment & Plan (11/12/2019 4:35 PM CDT): CPM, add Mg+ Polyneuropathy 08/17/2016 09/14/2022 Neuropathy 03/07/2016 10/18/2023 Assessment & Plan (06/01/2023 8:12 AM SUPERVISOR [employer]): This is improved with current medications continue current meds follow-up 6 months Assessment & Plan (03/29/2023 4:27 PM CDT): Decrease neurontin to every day and snd start lyrica qhs, after 1 week stop neurontin, bid lyrica, after a couple weeks may take tid Assessment & Plan (11/24/2022 11:36 AM CDT): Currently well controlled Assessment & Plan (05/18/2022 4:05 PM [employer]PER[employer]): Currently controlled Assessment & Plan (11/16/2021 4:42 PM CDT): Improved current medications, continue current meds follow-up routine Assessment & Plan (05/17/2021 4:32 PM SUPERVISOR [employer]): Stable CPM Assessment & Plan (11/19/2020 7:35 AM CDT): Currently on meds Assessment & Plan (05/15/2020 12:22 PM SUPER[employer]): controlled Assessment & Plan (12/05/2019 3:33 PM CDT): CPM Assessment & Plan (11/12/2019 4:34 PM CDT): CPM Mixed hyperlipidemia 10/07/2015 024 Assessment & Plan (06/01/2023 8:12 AM SUPERVISOR [employer]): Patient is to continue present medications, work [...] routine. Assessment & Plan (05/18/2022 4:05 PM SUPERVISOR [employer]): Patient is to continue present medications, work [...] routine. Assessment & Plan (05/15/2020 12:21 PM SUPER[employer]OR [employer]): As above Nonalcoholic steatohepatitis (AYERS) 08/31/2012 10/18/2023 Assessment & Plan (06/01/2023 8:12 AM SUPERVISOR [employer]): Patient is going to work on weight reduction we did discuss xzdb-vni-nxlgtve medications including vitamin-E to help with fatty liver she did does not drink alcohol Assessment & Plan (05/18/2022 4:05 PM [employer]PER[employer]): Diet and exercise Assessment & Plan (05/17/2021 4:32 PM SUPER[employer]OR [employer]): Stable will follow Assessment & Plan (11/19/2020 7:35 AM CDT): Previous work up with GI, will follow Assessment & Plan (05/15/2020 12:22 PM [employer]PER[employer]OR [employer]): Working on diet and exercise History of bariatric surgery 07/22/2010 10/18/2023 Former smoker 03/30/2010 10/18/2023 Encounters Date Type Department Care Team Description 01/13/2025 Telephone [facility] Cardiology [address] [place] [address] [place] [address] [place] [address] Priya Whitfield MD 2025 2:12 PM CDT - 2025 11:59 PM CDT Hospital Encounter [facility] [address] [place] [address] Discharge Disposition: Discharge to home or self care 2025 Home Infusion [facility] Home Infusion Therapy [address] [place] [address] Renea Goff [facility] 01/03/2025 9:00 AM CDT Office Visit [facility] [place] [address] [facility] [address] [place] [phone] Juan Teixeira MD Complication of toe amputation stump (HCC) (Primary Dx) 01/02/2025 Telephone [facility] Vascular and Vein Surgery [address] [facility] [address] [place] [phone] Juan Teixeira MD Toe amputation concerns 12/31/2024 2:45 PM CDT Office Visit [facility]iology [address] [place] [address] [place] [address] [place] [address] Savanah Blank NP Complete heart block (HCC) (Primary Dx); S/P TAVR (transcatheter aortic valve replacement); Pacemaker 12/31/2024 2:00 PM CDT Ancillary Procedure [facility] [address] [place] [address] [place] [address] [place] [address] Fitting or adjustment of cardiac pacemaker; CHB (complete heart block) (HCC) 12/31/2024 Home Infusion [facility] Home Infusion Therapy [address] [place] [address] Renea Goff [facility] 12/27/2024 Plan of Care Documentation [facility] Home Infusion Therapy [address] [place] [address] 12/27/2024 Home Infusion [facility] Home Infusion Therapy [address] [place] [address] Ubaldo Lopez, [facility] Osteomyelitis of toe of left foot (HCC) (Primary Dx) 12/26/2024 11:43 AM CDT Anesthesia Event [facility] OR [address] [place] [address] Lesvia Fihser MD 12/26/2024 11:30 AM CDT - 12/26/2024 12:55 PM CDT Surgery [facility] OR [address] [place] [address] Juan Teixeira MD LEFT 2ND AMPUTATION TOE 12/25/2024 Documentation [facility] Surgery [address] [facility] [address] [place] [phone] Yadira Preston RMA 12/24/2024 10:37 AM CDT Anesthesia Event [facility] Cardiac [employer] [address] [place] [address] Raymond Manzo MD Lawrence, Ashley Nicole, CRNA 12/24/2024 Orders Only [facility] Surgery [address] [place] [address] [place] [phone] Rosalio Arriola MD Nephrolithiasis (Primary Dx) 12/23/2024 Telephone [facility] Cardiology [facility] 8th [place] [address] [place] [address] Priya Whitfield MD 12/23/2024 Telephone [facility] Surgery [address] [place] [address] Brina Angela, RACHEL 12/18/2024 7:50 PM CDT - 12/27/2024 7:33 PM CDT Hospital Encounter [facility] [address] [place] [address] Jose Botello Jr., MD Sada, Kahmalia-Kalee Conceptia, MD Patel, Satyen V., MD Lun, Yu, MD Smith, Thomas Hamilton, MD Osteomyelitis of toe of left foot (HCC) (Primary Dx); Urinary tract infection in female; Cellulitis of left lower extremity; Osteomyelitis of toe (HCC); Illness, unspecified Discharge Disposition: Discharge to home, home health skilled care 12/13/2024 11:30 AM CDT Office Visit [facility] Otolaryngology [address] [place] [phone] Savanah Navarrete NP Sensorineural hearing loss (SNHL) of both ears (Primary Dx); Tinnitus of both ears 12/13/2024 11:00 AM CDT Procedure visit [facility] Otolaryngology [address] [place] [phone] Dawn Farfan Sensorineural hearing loss (SNHL) of both ears (Primary Dx) 12/12/2024 Telephone [facility] Cardiology [facility] Medicine 8th [place] [address] [place] [address] Dawna Don 12/09/2024 Telephone [facility] Cardiology [address] [facility] 8th [place] [address] [place] [address] Priya Whitfield MD 11/28/2024 1:30 PM CDT Office Visit [facility] Obstetrical Gynecology [address] [facility] [address] [place] [address] Cece Singer CNM Encounter for screening mammogram for malignant neoplasm of breast (Primary Dx) 11/19/2024 Orders Only [facility] Surgery [address] [facility] [address] [place] [address] Rosalio Arriola MD Struvite kidney stones (Primary Dx) 11/19/2024 Telephone [facility] Advanced [facility] - [facility] Urology [address] [facility] 11th [place] [address] [place] [address] Steve Frausto 11/13/2024 10:20 AM CDT Office Visit [facility] ([facility] - [facility] Urology [address] [facility] 11th [place] [address] [place] [address] Rosalio Arriola MD Struvite kidney stones (Primary Dx) 11/11/2024 9:34 AM CDT - 11/11/2024 11:59 PM CDT Hospital Encounter [facility] [address] [place] [address] Nephrolithiasis Discharge Disposition: Discharge to home or self care 10/31/2024 Telephone [facility] Cardiology [address] [place] [address] Advanced Medicine 8th [place] [address] [place] [address] results 10/29/2024 Results Follow-Up [address]th [place] [address] [place] [address] TAVR 10/28/2024 10:09 AM CDT - 10/28/2024 11:59 PM CDT Hospital Encounter [facility] [address] [place] [address] S/P TAVR (transcatheter aortic valve replacement) Discharge Disposition: Discharge to home or self care 10/22/[address] 8th [place] [address] [place] [address] Priya Whitfield MD from Last 3 Months [...] 08/15/2024 Chest/N/A Procedure: TAVR - PERCUTANEOUS FEMORAL 42795; Surgeon: Gilberto Love MD; Location: [facility] EP LAB; Service: Cardiovascular; Laterality: N/A; Dr. Ricci IC. First case, 0600 arrival. Protembo. Medical devices from this surgery are in the Medical Devices section. 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 Never 12/19/2024 Do you belong to any clubs o r organizations such as protestant groups, unions, fraternal or athletic groups, or [...] any time in the past [address] [facility] [place], were you homeless or living in a [...] on file Legal Sex Female 4:16 AM [employer] Gender Identity Female 09/21/2017 4:47 PM CDT Sexual Orientation Not on file Obstetrics History Para Term AB IAB SAB Ectopic Multiple Livin g Live Births 0 0 0 0 0 0 0 0 0 0 0 Comments Age with menopausal 54 Last Filed Vital Signs Vital Sign Reading Time Taken Comments Blood Pressure 130/78 12/31/2024 2:03 PM CDT Pulse 78 12/31/2024 2:03 PM CDT Temperature 36.8 C (98.2 F) 12/27/2024 3:38 PM CDT Respiratory Rate 18 12/27/2024 3:38 PM CDT Oxygen Saturation 99% 12/31/2024 2:03 PM CDT Inhaled Oxygen Concentration - - Weight 122 kg (269 lb) 12/31/2024 2:03 PM CDT Height 180.3 cm (5' 11) 12/31/2024 2:03 PM CDT Body Mass Index 37.52 12/31/2024 2:03 PM CDT Plan of Treatment Upcoming Encounters Date Type Department Care Team (Late st Contact Info) Description 01/28/2025 11:50 AM CDT Hospital Encounter [facility] Operating Room [address] [place] [address] Rosalio Arriola MD [address] [address] 01/28/2025 11:50 AM CDT - 01/28/2025 2:20 PM CDT Surgery [facility] Operating Room [address] [place] [address] Rosalio Arriola MD [address] [address] LITHOTRIPSY - LASER Scheduled Procedures Name Priority Associated Diagnoses Date/Ti me LITHOTRIPSY - LASER Renal stones 01/28/2025 11:50 AM CDT URETEROSCOPY Renal stones 01/28/2025 11:50 AM CDT PLACEMENT STENT - URETERAL Renal stones 01/28/2025 11:50 AM CDT Health Maintenance Due Date Last Done Comments Hepatitis B Screening 01/07/1980 Zoster Vaccine (1 of 2) 01/07/2012 Cervical Cancer Screening 09/16/2023 09/15/2022 Covid-19 Vaccine ( season) 2024 03/17/2022, 04/01/2021, 08/14/2020, Additional history exists Depression Screening 06/01/2024 06/01/2023, 11/24/2022, 11/16/2021, Additional history exists Influenza Vaccine (#1) 2025 Albumin Creatinine Ratio, Urine 02/27/2025 02/28/2024, 05/26/2023, 05/13/2022, Additional history exists Breast Cancer Screening-Mammogram 05/03/2025 05/03/2024, 02/02/2024, 09/27/2022, Additional history exists Hemoglobin A1C 06/20/2025 12/18/2024, 04/2 09/2024, 07/21/2024, Additional history exists Foot Exam 09/20/2025 09/20/2024, 01/0 11/2024, 09/25/2023, Additional history exists Dilated Eye Exam 10/24/2025 10/25/2023, , 02/10/2022, Additional history exists Regular Well Visit/Exam 18-64 11/28/2025 11/28/2024, 11/24/2023, 06/01/2023, Additional history exists Lipid Panel 12/19/2025 12/19/2024, 10/0 06/2023, 10/03/2023, Additional history exists eGFR 2026 2025, 08/0 05/2024, 12/26/2024, Additional history exists Pneumococcal vaccine <65 (2 of 2 - PPSV23, PCV20, or PCV21) 11/10/2027 02/18/2016 Postponed from 04/14/2016 (Provider's clinical [...] [employer] Implanted Type Area Corporate Law Assistant Device Identifier Shelf Expiration Date Model / Serial / Lot [employer] Capsurefix Novus 6.2fr 2mm 52cm Bipolar Screw In Implantable Latex Free [id number] - [id number] - [id number] Implanted:Qty: 1 on 08/23/2024 by Priya Whitfield MD at [facility] Lead Right: [employer] 06/12/2026 5076-52 / [id number] 85V / [id number] 85V Medtronic Inc Selectsecure 4.1fr 69cm Bipolar Screw In Is-1 Atrium Ventricle [id number] - [id number] - [id number] Implanted:Qty: 1 on 08/23/2024 by Priya Whitfield MD at [facility] Lead Right: Ventricle Medtronic Inc 07/18/2026 [id number] / [id number] 94V / [id number] 94V Medtronic Inc Tyrx Absorbable Antibacterial Envelope Med 2.7x2.5in [id number] - [id number] - [id number] Implanted:Qty: 1 on 08/23/2024 by Priya Whitfield MD at [facility] Other - see comments Left: Lateral Chest Wall Medtronic Inc 04/27/2025 [id number] / [id number] / [id number] Description:Antibacterial en velope Med[employer]onic Inc Ana Maria S Mri Surescan 50.8x46.6mm 2 Chamber 7.4mm Pacemaker 22.5gm [id number] - [id number] - [id number] Implanted:Qty: 1 on 08/23/2024 by Priya Whitfield MD at [facility] Pacemaker Left: Lateral Chest Wall Medtronic Inc 12/09/2025 [id number] / [id number] 13G / [id number] 13G Ceja Lifesciences Valve Aortic Trnscath Kate 3 Ultra Resilia 26mm [id number] - [id number] - [id number] Implanted:Qty: 1 on 08/15/2024 by Gilberto Love MD at [facility] Prosthetic Valve N/A: Aortic Valve Ce[employer] 01/31/2027 [id number] / [id number] / [id number] Biomode - Biomolecular Determination Medical Inc Stent Ureteral Set Double Pigtail Flexible Tip Filiform 8.5osl21dc Silicone [id number] - [id number] Implanted:Qty: 1 on 10/18/2023 by Phillip Lombardi DO at [facility] Stent Left: Urethra Cook [employer] Inc [id number] 07/10/2026 [id number] / / [id number] [facility] System Closure Repair Femoral Artery Suture Mediated Perclose Prostyle 55543-97 - [id number] - [id number] Implanted:Qty: 1 on 08/15/2024 by Gilberto Love MD at [facility] Vascular Closure Device Right: Common Femoral Artery [employer] 03/28/2026 23322-2 3 / [id number] / [id number] Ter[employer] Teetee Angio-Seal Vip 6fr Closere Device [id number] - [id number] - [id number] Implanted:Qty: 1 on 08/15/2024 by Gilberto Love MD at [facility] Vascular Closure Device Left: Common Femoral Artery [employer]ee 03/22/2025 825655 / [id number] / [id number] [employer] Angio-Seal Vip Bondek-Plus 8fr .038in 70cm Hemostatic Latex Free 736859 - [id number] - [id number] Implanted:Qty: 1 on 08/15/2024 by Gilberto Love MD at [facility] Vascular Closure Device Right: Common Femoral Artery [employer]etee 12/03/2024 [id number] / [id number] / [id number] Explanted Type Area Corporate Law Assistant Device Identifier Shelf Expiration Date Model / Serial / Lot Cook [employer] Inc Stent Ureteral Set Double Pigtail Radiopaque Tip Universa 6gkb30zm Polyurethane Hydrophilic Coated [id number] - Sn/A - [id number] Implanted:Qty: 1 on 09/13/2023 by Jeny Giraldo MD at [facility] Explanted:Qty: 1 on 10/18/2023 by Phillip Lombardi DO at [facility] Stent Left: Urethra [employer] [id number] 06/16/2026 [id number] / N/A / [id number] Procedures Procedure Name Priority Date/Time Associated Diagnosis Comments EGFR Routine 2025 1:20 PM CDT DIFFERENTIAL AUTO Routine 2025 1:2 0 PM CDT ERYTHROCYTE SEDIMENTATION RATE Routine 2025 1:20 PM CDT COMPREHENSIVE METABOLIC PANEL Routine 2025 1:20 PM CDT CBC WITH AUTO DIFFERENTIAL Routine 2025 1:20 PM CDT DEVICE CHECK - IN OFFICE Routine 12/31/2024 1:33 PM CDT Fitting or adjustment of cardiac pacemaker CHB (complete heart block) (HCC) SCAN - LABS 12/31/2024 12:00 AM CDT POCT GLUCOSE DEVICE Routine 12/27/2024 5 :16 [...] GLUCOSE DEVICE Routine 12/24/2024 11:26 AM CDT TRANSESOPHAGEAL ECHO (KINZA) W DOPPLER/CF WO CONTRAST Routine 12/24/2024 10:56 AM CDT VANCOMYCIN LEVEL TROUGH Timed 12/24/2024 [...] Recently Relevant to Health Maintenance Results * eGFR (2025 1:20 PM CDT) eGFR >90 >=60 mL/min/1. 73 m2 Comment: [...] interpretive data was last reviewed 2021. Blood 2025 1:20 PM CDT 2025 2:46 PM CDT us Nan Calderon MD LAB BLOOD ORDERABLES Final R esult [facility] [address] [facility] Department [place] [address] * Differential, auto (2025 1:20 PM CDT) Neutrophil abs 4.91 1.50 - 6.50 K/cumm Imm gran abs 0.05 0.00 - 0.10 K/cumm [facility] Lymphocyte abs 2.71 0.80 - 3.30 K/cumm [facility] Monocyte abs 0.64 0.20 - 0.80 K/cumm [facility] Eosinophil abs 0.17 0.00 - 0.50 K/cumm [facility] Basophil abs 0.05 0.00 - 0.10 K/cumm [facility] Neutrophil pct 57.5 % [facility] Comment: Interpretive Data Percent cell count reference ranges are not reported, since discordance with absolute values may lead to misinterpretation of CBC data. Current Interpretive Data was last revised on 2017. Imm gran pct 0.6 % [facility] Comment: Interpretive Data Percent cell count reference ranges are not reported, since discordance with absolute values may lead to misinterpretation of CBC data. Current Interpretive Data was last revised on 2017. Lymphocyte pct 31.8 % [facility] Comment: Interpretive Data Percent cell count reference ranges are not reported, since discordance with absolute values may lead to misinterpretation of CBC data. Current Interpretive Data was last revised on 2017. Monocyte pct 7.5 % [facility] Comment: Interpretive Data Percent cell count reference ranges are not reported, since discordance with absolute values may lead to misinterpretation of CBC data. Current Interpretive Data was last revised on 2017. Eosinophil pct 2.0 % [facility] Comment: Interpretive Data Percent cell count reference ranges are not reported, since discordance with absolute values may lead to misinterpretation of CBC data. Current Interpretive Data was last revised on 2017. Basophil pct 0.6 % [facility] Comment: Interpretive Data Percent cell count reference ranges are not reported, since discordance with absolute values may lead to misinterpretation of CBC data. Current Interpretive Data was last revised on 2017. Blood 2025 1:20 PM CDT 2025 2:46 PM CDT Nan Calderon MD LAB BLOOD ORDERABLES Final R esult Performing Organization Address City/[facility] Co de Phone Number [facility] [address] [place] [address] * CBC with auto differential (2025 1:20 PM CDT) Pathologist [facility] WBC 8.53 3.80 - 9.90 K/cumm Hgb 13.6 11.9 - 15.5 g/dL [facility] Hct 41.6 35.6 - 45.5 % [facility] Plt 166 150 - 400 K/cumm [facility] MPV 9.9 9.1 - 12.3 fL [facility] RBC 4.96 3.90 - 5.20 M/cumm [facility] MCV 83.9 81.3 - 96.4 fL [facility] MCH 27.4 27.1 - 33.3 pg [facility] MCHC 32.7 32.3 - 35.7 g/dL [facility] RDW CV 13.5 11.1 - 14.9 % [facility] RDW SD 41.2 35.7 - 48.1 fL [facility] NRBC abs 0.00 0.00 - 0.01 K/cumm [facility] Blood 2025 1:20 PM CDT 2025 2:46 PM CDT Nan Calderon MD LAB BLOOD ORDERABLES Final R esult Performing Organization Address City/[facility] Co de Phone Number [facility] [address] [place] [address] * (ABNORMAL) Erythrocyte sedimentation rate (2025 1:20 PM CDT) Erythrocyte sedimentation rate 47(H) 1 - 30 mm/hr Blood 2025 1:20 PM CDT 2025 2:46 PM CDT us Nan Calderon MD LAB BLOOD ORDERABLES Final R esult [facility] [address] [facility] Department [place] [address] * Comprehensive metabolic panel (2025 1:20 PM CDT) Pathologist [facility] Sodium 135 135 - 145 mmol/L Potassium, pl 4.1 3.3 - 4.9 mmol/L [facility] Comment:Hemolyzed; Potassium value may be falsely elevated by as much as 1.0 mmol/L. Suggest redraw and reanalysis. Chloride 99 97 - 110 mmol/L [facility] CO2 24 22 - 32 mmol/L [facility] Anion gap 12 2 - 15 mmol/L [facility] BUN 17 6 - 25 mg/dL [facility] Creatinine 0.70 0.60 - 1.10 mg/dL [facility] Glucose 151 70 - 199 mg/dL [facility] Comment: Interpretive Data Fasting glucose >/= 126 [...] interpretive data was last revised 2022. Calcium 9.6 8.5 - 10.3 mg/dL [facility] Bilirubin, total 0.4 0.1 - 1.2 mg/dL [facility] Protein, pl 7.7 6.5 - 8.5 g/dL [facility] Albumin 4.1 3.5 - 5.0 g/dL [facility] Alk phos 88 40 - 130 Units/L [facility] ALT 17 7 - 45 Units/L [facility] AST 45 10 - 45 Units/L [facility] Comment:Hemolyzed; result ma y be falsely elevated Blood 2025 1:20 PM CDT 2025 2:46 PM CDT Nan Calderon MD LAB BLOOD ORDERABLES Final R esult [facility] [address] [facility] Department [place] [address] * DEVICE CHECK - IN OFFICE (12/31/2024 1:33 PM CDT) Anatomical Region Laterality Modality Other 12/31/2024 2:00 AM CDT Narrative 12/31/2024 5:42 PM CDT Interpretation Summary: Battery and Leads (BL) Normal parameters noted on battery and lead(s) Presenting Rhythm (NY) Atrial Sensing-Ventricular Sensing (-VS) Arrhythmic events (AE) Nonsustained VT event(s) identified Paroxysmal atrial fibrillation and/or flutter Anticoagulation (AC) Patient on anticoagulant therapy Patient prescribed Apixaban (Eliquis) Transmission Information (TI) Device Summary Report Procedure Note Jhonatan George MD - 12/31/2024 Interpretation Summary: Battery and Leads (BL) Normal parameters noted on battery and lead(s) Presenting Rhythm (NY) Atrial Sensing-Ventricular Sensing (-VS) Arrhythmic events (AE) Nonsustained VT event(s) identified Paroxysmal atrial fibrillation and/or flutter Anticoagulation (AC) Patient on anticoagulant therapy Patient prescribed Apixaban (Eliquis) Transmission Information (TI) Device Summary Report Priya Whitfield MD [facility] PROCEDURE S Final Result * SCAN - LABS (12/31/2024 12:00 AM CDT) us Nan Calderon MD Final Result * POCT glucose (12/27/2024 5:16 PM CDT) Glucose, POC 149 70 - 199 mg/dL Blood 12/27/2024 5:16 PM CDT 12/27/2024 5:16 PM CDT us John Uriostegui MD LAB POCT ORDERABLES - D EVICE Final Result Performing Organization Address [facility] de Phone Number [address] [place] [address] * POCT glucose (12/27/2024 11:32 AM CDT) Glucose, POC 141 70 - 199 mg/dL Blood 12/27/2024 11:3 2 AM CDT 12/27/2024 11:32 AM CDT John Uriostegui MD LAB POCT ORDERABLES - D EVICE Final Result Performing Organization Address [facility] de Phone Number [address] [place] [address] * POCT glucose (12/27/2024 8:22 AM CDT) Glucose, POC 144 70 - 199 mg/dL Blood 12/27/2024 8:22 AM CDT 12/27/2024 8:22 AM CDT John Uriostegui MD LAB POCT ORDERABLES - D EVICE Final Result Performing Organization Address [facility] de Phone Number [address] [place] [address] * eGFR (12/27/2024 3:45 AM CDT) eGFR [...] Teixeira MD LAB BLOOD ORDERABLES Final Result [place] [id number] [facility] Department [place] [address] * Differential, auto (12/27/2024 3:45 AM CDT) Pathologist [facility] Neutrophil abs 4.76 1.50 - 6.50 K/cumm Imm gran abs 0.06 0.00 - 0.10 K/cumm [facility] Lymphocyte abs 2.71 0.80 - 3.30 K/cumm [facility] Monocyte abs 0.63 0.20 - 0.80 K/cumm [facility] Eosinophil abs 0.19 0.00 - 0.50 K/cumm [facility] Basophil abs 0.04 0.00 - 0.10 K/cumm [facility] Neutrophil pct 56.7 % [facility] Comment: Interpretive Data Percent cell count reference ranges are not reported, since discordance with absolute values may lead to misinterpretation of CBC data. Current Interpretive Data was last revised on 2017. Imm gran pct 0.7 % [facility] Comment: Interpretive Data Percent cell count reference ranges are not reported, since discordance with absolute values may lead to misinterpretation of CBC data. Current Interpretive Data was last revised on 2017. Lymphocyte pct 32.3 % [facility] Comment: Interpretive Data Percent cell count reference ranges are not reported, since discordance with absolute values may lead to misinterpretation of CBC data. Current Interpretive Data was last revised on 2017. Monocyte pct 7.5 % [facility] Comment: Interpretive Data Percent cell count reference ranges are not reported, since discordance with absolute values may lead to misinterpretation of CBC data. Current Interpretive Data was last revised on 2017. Eosinophil pct 2.3 % [facility] Comment: Interpretive Data Percent cell count reference ranges are not reported, since discordance with absolute values may lead to misinterpretation of CBC data. Current Interpretive Data was last revised on 2017. Basophil pct 0.5 % [facility] Comment: Interpretive Data Percent cell count reference ranges are not reported, since discordance with absolute values may lead to misinterpretation of CBC data. Current Interpretive Data was last revised on 2017. Blood 12/27/2024 3:45 AM CDT 12/27/2024 4:13 AM CDT Juan Teixeira MD LAB BLOOD ORDERABLES Final Result [place] [id number] [facility] Department of Laboratories [place], [place] [id number] * (ABNORMAL) CBC with auto differential (12/27/2024 3:45 AM CDT) WBC 8.39 3.80 - 9.90 K/cumm Hgb 12.7 11.9 - 15.5 g/dL [facility] Hct 39.3 35.6 - 45.5 % [facility] Plt 148(L) 150 - 400 K/cumm [facility] MPV 9.3 9.1 - 12.3 fL [facility] RBC 4.66 3.90 - 5.20 M/cumm [facility] MCV 84.3 81.3 - 96.4 fL [facility] MCH 27.3 27.1 - 33.3 pg [facility] MCHC 32.3 32.3 - 35.7 g/dL [facility] RDW CV 13.6 11.1 - 14.9 % [facility] RDW SD 41.5 35.7 - 48.1 fL [facility] NRBC abs 0.00 0.00 - 0.01 K/cumm [facility] Blood 12/27/2024 3:45 AM CDT 12/27/2024 4:13 AM CDT Juan Teixeira MD LAB BLOOD ORDERABLES Final Result Performing Organization Address [facility] de Phone Number [facility] [address] [place] [address] * Basic metabolic panel (12/27/2024 3:45 AM CDT) [facility] Sodium 139 135 - 145 mmol/L Potassium, pl 3.9 3.3 - 4.9 mmol/L [facility] Chloride 102 97 - 110 mmol/L [facility] CO2 26 22 - 32 mmol/L [facility] Anion gap 11 2 - 15 mmol/L [facility] BUN 19 6 - 25 mg/dL [facility] Creatinine 0.88 0.60 - 1.10 mg/dL [facility] Glucose 129 70 - 199 mg/dL [facility] Comment: Interpretive Data Fasting glucose >/= 126 [...] 2022. Calcium 9.0 8.5 - 10.3 mg/dL [facility] Blood 12/27/2024 3:45 AM CDT 12/27/2024 4:13 AM CDT Juan Teixeira MD LAB BLOOD ORDERABLES Final Result Performing Organization Address [facility] Co de Phone Number [address] [place] [address] * eGFR (12/26/2024 9:54 PM CDT) Pathologist [facility] eGFR 70 >=60 mL/min/1. 73 m2 Comment: [...] Teixeira MD LAB BLOOD ORDERABLES Final Result [facility] [address] [facility] Department [place] [address] * CBC without differential (12/26/2024 9:54 PM CDT) [facility] WBC 9.20 3.80 - 9.90 K/cumm Hgb 12.7 11.9 - 15.5 g/dL [facility] Hct 38.7 35.6 - 45.5 % [facility] Plt 165 150 - 400 K/cumm [facility] MPV 9.5 9.1 - 12.3 fL [facility] RBC 4.61 3.90 - 5.20 M/cumm [facility] MCV 83.9 81.3 - 96.4 fL [facility] MCH 27.5 27.1 - 33.3 pg [facility] MCHC 32.8 32.3 - 35.7 g/dL [facility] RDW CV 13.4 11.1 - 14.9 % [facility] RDW SD 40.9 35.7 - 48.1 fL [facility] NRBC abs 0.00 0.00 - 0.01 K/cumm [facility] Blood 12/26/2024 9:54 PM CDT 12/26/2024 10:08 PM CDT Juan Teixeira MD LAB BLOOD ORDERABLES Final Result Performing Organization Address [facility] de Phone Number [address] [place] [address] * Basic metabolic panel (12/26/2024 9:54 PM CDT) Sodium 140 135 - 145 mmol/L Potassium, pl 3.7 3.3 - 4.9 mmol/L [facility] Chloride 101 97 - 110 mmol/L [facility] CO2 27 22 - 32 mmol/L [facility] Anion gap 12 2 - 15 mmol/L [facility] BUN 21 6 - 25 mg/dL [facility] Creatinine 0.92 0.60 - 1.10 mg/dL [facility] Glucose 147 70 - 199 mg/dL [facility] Comment: Interpretive Data Fasting glucose >/= 126 [...] 2022. Calcium 9.1 8.5 - 10.3 mg/dL [facility] Blood 12/26/2024 9:54 PM CDT 12/26/2024 10:08 PM CDT Juan Teixeira MD LAB BLOOD ORDERABLES Final Result Performing Organization Address City/[facility]/ZIP Co de Phone Number [address] [place] [address] * POCT glucose (12/26/2024 7:13 PM CDT) Glucose, POC 143 70 - 199 mg/dL Glucose comment 1 RN/MD Notified [facility] Blood 12/26/2024 7:13 PM CDT 12/26/2024 7:13 PM CDT John Uriostegui MD LAB POCT ORDERABLES - D EVICE Final Result [facility] [address] [place] [address] * POCT glucose (12/26/2024 6:02 PM CDT) [facility] Glucose, POC 143 70 - 199 mg/dL Blood 12/26/2024 6:02 PM CDT 12/26/2024 6:02 PM CDT John Uriostegui MD LAB POCT ORDERABLES - D EVICE Final Result Performing Organization Address City/[facility]/ZIP Co de Phone Number MAI [address] [address] * POCT glucose (12/26/2024 12:39 PM CDT) Pathologist [facility] Glucose, POC 129 70 - 199 mg/dL Glucose comment 1 Use This Result [facility] Blood 12/26/2024 12:3 9 PM CDT 12/26/2024 12:39 PM CDT John Uriostegui MD LAB POCT ORDERABLES - D EVICE Final Result Performing Organization Address City/[facility]/ZIP Co de Phone Number [facility] [address] [address] * Tissue aerobic and anaerobic culture and gram stain Bone Toe, second, right (12/26/2024 12:11 PM CDT) [facility] Direct Specimen Exam Stain: No polymorphonuclear leukocytes seen. No organisms seen. Comment:Testing performed by : [facility], [address] [facility] [place] [address] Report Final Report: No growth [facility] Comment:Testing performed by : [facility], [address] [place]., [address] Bone (Toe, second, right) 12/26/2024 12:11 PM CDT 12/26/2024 3:52 PM CDT Narrative [facility] - 12/29/2024 12:22 PM CDT Left 2nd toe bone for culture Testing performed by [facility] Microbiology Laboratory ([phone]) Specimens submitted from normally sterile body sites [...] interpretive data was last revised on 2019. us Juan Teixeira MD LAB MICROBIOLOGY - GENERAL ORDERABLES Final Result [facility] [address] [place] [address] Department [place] [address] * Surgical pathology (12/26/2024 10:48 AM CDT) Tissue (Amputation non-tramatic) 12/26/2024 10:48 AM CDT Narrative PATHOLOGY [facility] - 12/27/2024 4:24 PM CDT [facility] Department of Pathology [address] [place] [id number] Note to Patients: This report may contain [...] : 1960 (Age: 64) Gender: F Address: [address] [place] [id number] Hospital #: [id number] Service: Medical Location: [facility] Taken: 12/26/2024 Received: 12/26/2024 Accessioned: 12/26/2024 [...] interpretation for this case was performed at [facility], Department of Surgical Pathology, [address] [facility], [place] [id number], [place] [address] CLIA # [id number] us Juan Teixeira MD LAB PATHOLOGY ORDERABLES Fi nal Result PATHOLOGY [facility] * POCT glucose (12/26/2024 10:46 AM CDT) Glucose, POC 138 70 - 199 mg/dL Blood 12/26/2024 10:4 6 AM CDT 12/26/2024 10:46 AM CDT John Uriostegui MD LAB POCT ORDERABLES - D EVICE Final Result Performing Organization Address City/[facility]/ZIP Co de Phone Number JASVIR[address] [place] [address] * POCT glucose (12/26/2024 7:59 AM CDT) Glucose, POC 128 70 - 199 mg/dL Blood 12/26/2024 7:59 AM CDT 12/26/2024 7:59 AM CDT John Uriostegui MD LAB POCT ORDERABLES - D EVICE Final Result Performing Organization Address [facility] Co de Phone Number [address] [place] [address] * POCT glucose (12/25/2024 8:49 PM CDT) Glucose, POC 162 70 - 199 mg/dL Blood 12/25/2024 8:49 PM CDT 12/25/2024 8:49 PM CDT John Uriostegui MD LAB POCT ORDERABLES - D EVICE Final Result Performing Organization Address City/[facility] Co de Phone Number [address] [place] [address] * POCT glucose (12/25/2024 5:24 PM CDT) Glucose, POC 115 70 - 199 mg/dL Blood 12/25/2024 5:24 PM CDT 12/25/2024 5:24 PM CDT John Uriostegui MD LAB POCT ORDERABLES - D EVICE Final Result Performing Organization Address [facility] de Phone Number [facility] [address] [place] [address] * POCT glucose (12/25/2024 12:23 PM CDT) Glucose, POC 159 70 - 199 mg/dL Blood 12/25/2024 12:2 3 PM CDT 12/25/2024 12:23 PM CDT John Uriostegui MD LAB POCT ORDERABLES - D EVICE Final Result Performing Organization Address [facility] de Phone Number JASVIR[address] [place] [address] * POCT glucose (12/25/2024 8:25 AM CDT) Glucose, POC 178 70 - 199 mg/dL Blood 12/25/2024 8:25 AM CDT 12/25/2024 8:25 AM CDT John Uriostegui MD LAB POCT ORDERABLES - D EVICE Final Result Performing Organization Address [facility] de Phone Number [address] [place] [address] * POCT glucose (12/24/2024 7:44 PM CDT) Glucose, POC 175 70 - 199 mg/dL Glucose comment 1 RN/MD Notified [facility] Blood 12/24/2024 7:44 PM CDT 12/24/2024 7:44 PM CDT Soledad Harris MD LAB POCT ORDERABLES - DEVICE Final Result Performing Organization Address [facility] Co de Phone Number MAI [address] [address] * POCT glucose (12/24/2024 4:38 PM CDT) Glucose, POC 162 70 - 199 mg/dL Comment:Testing performed by : [address] [address] Blood 12/24/2024 4:38 PM CDT 12/24/2024 4:38 PM CDT us Soledad Harris MD LAB POCT ORDERABLES - DEVICE Final Result Performing Organization Address [facility] Co de Phone Number [facility]I [address] [address] * POCT glucose (12/24/2024 11:26 AM CDT) Glucose, POC 134 70 - 199 mg/dL Comment:Testing performed by : [address] [address] Blood 12/24/2024 11:2 6 AM CDT 12/24/2024 11:26 AM CDT us Soledad Harris MD LAB POCT ORDERABLES - DEVICE Final Result Performing Organization Address [facility] Co de Phone Number JASV[address] [address] * TRANSESOPHAGEAL ECHO (KINZA) W DOPPLER/CF WO CONTRAST (12/24/2024 10:56 AM CDT) Anatomical Region Laterality Modality Ultrasound 12/24/2024 10:4 0 AM CDT Narrative 12/31/2024 11:40 AM CDT Transesophageal Echocardiographic Report Patient Name: CECE SOARES L : 1960 (64y 11m) Gender: F Study Date: 12/24/2024 10:40:49 AM Ht(Inch): Wt(Lb): BSA: Assisted Living Manager: Alannah Dye RDCS Location: [id number] Order Provider: SOLEDAD HARRIS BMI: Quality: Good Ref Provider: SOLEDAD HARRIS PROCEDURES: Transesophageal Echo Report: [id number] Echocardiography, transesophageal, real-time with image documentation (2D) including probe placement, image acquisition, interpretation, and report; +[id number] Doppler echocardiography, limited pulsed wave and/or continuous wave with spectral display; +[id number] Doppler echocardiography color flow velocity mapping. Probe Number is: 10. INDICATIONS: Valvular Lesions suggestive of possible vegetation. FINDINGS: Left Ventricle: Normal Left ventricular size and systolic function. Left ventricular systolic function appears normal. Right Ventricle: Normal right ventricular size and systolic function. Left Atrium: Normal left atrial size and morphology. Right Atrium: Normal right atrial size and morphology. Atrial Septum: The interatrial septum is normal in appearance. Mitral Valve: The mitral valve demonstrates normal leaflet morphology. Aortic Valve: Normal appearance and function of the aortic valve. A bioprosthetic stent-valve is present in the aortic position. The aortic valve prosthesis appears well seated. There is no evidence of aortic valve vegetation. 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 Well-seated without evidence of PVR. No significant prosthetic stenosis. Tricuspid Valve: Normal appearance of the tricuspid valve. Pulmonic Valve: Normal pulmonic valve appearance. Pericardium: Normal pericardium with no pericardial effusion. Aorta: Normal aortic root. IVC: The inferior vena cava is of normal size. Pulmonary Artery: Normal pulmonary artery size. Pulmonary Veins: Pulmonary veins are normal in appearance and pulse Doppler interrogation shows normal systolic predominant flow. Rhythm: The rhythm during the study was normal sinus rhythm. CONCLUSIONS: 1. Left ventricular systolic function appears normal. 2. 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 Well-seated without evidence of PVR. No significant prosthetic stenosis. ATTESTATION: I have reviewed and interpreted the [...] of any testing performed. Electronically Signed By: Erica Harris MD 12/31/2024 11:39:24 AM CDT Procedure Note Erica Harris MD - 12/31/2024 Transesophageal Echocardiographic Report Patient Name: CECE SOARES L : 1960 (64y 11m) Gender: F Study Date: 12/24/2024 10:40:49 AM Ht(Inch): Wt(Lb): BSA: Assisted Living Manager: Alannah Dye RDCS Location: [id number] Order Provider:SOLEDAD HARRIS BMI: Quality: Good Ref Provider: SOLEDAD HARRIS PROCEDURES: Transesophageal Echo Report: [id number] Echocardiography, transesophageal,real-time with image documentation (2D) including probe placement, image acquisition,interpretation, and report; +[id number] Doppler echocardiography, limited pulsed wave and/orcontinuous wave with spectral display; +[id number] Doppler echocardiography color flow velocitymapping. Probe Number is: 10. INDICATIONS: Valvular Lesions suggestive of possible vegetation. FINDINGS: Left Ventricle: Normal Left ventricular size and systolic function. Leftventricular systolic function appears normal. Right Ventricle: Normal right ventricular size and systolic function. Left Atrium: Normal left atrial size and morphology. Right Atrium: Normal right atrial size and morphology. Atrial Septum: The interatrial septum is normal in appearance. Mitral Valve: The mitral valve demonstrates normal leaflet morphology. Aortic Valve: Normal appearance and function of the aortic valve. Abioprosthetic stent-valve is present in the aortic position. The aortic valve prosthesisappears well seated. There is no evidence of aortic valve vegetation. There is TAVRbioprosthetic valve without evidence of vegetation. Well-seated without evidence of PVR.No significant prosthetic stenosis. Tricuspid Valve: Normal appearance of the tricuspid valve. Pulmonic Valve: Normal pulmonic valve appearance. Pericardium: Normal pericardium with no pericardial effusion. Aorta: Normal aortic root. IVC: The inferior vena cava is of normal size. Pulmonary Artery: Normal pulmonary artery size. Pulmonary Veins: Pulmonary veins are normal in appearance and pulseDoppler interrogation shows normal systolic predominant flow. Rhythm: The rhythm during the study was normal sinus rhythm. CONCLUSIONS: 1. Left ventricular systolic function appears normal. 2. 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 No significant prosthetic stenosis. ATTESTATION: I have reviewed and interpreted the pertinent images and measurements ofthis study. I attest to the conclusions in the final report that is provided above. DISCLAIMER: The study images and the final report will be retained in the patientchart by the Echo Laboratory for the legally required time period. This chart constitutesthe legal record of any testing performed. Electronically Signed By: Erica Harris MD 12/31/2024 11:39:24 AM CDT us Juan Teixeira MD CV ECHO PROCEDURES Final Re sult * Vancomycin level trough (12/24/2024 8:56 AM CDT) Vancomycin trough 12.7 10.0 - 20.0 mcg/mL Comment:Testing performed by : [facility], [address] [place] [address]., [address] Blood 12/24/2024 8:56 AM CDT 12/24/2024 9:12 AM CDT us Soledad Harris MD LAB BLOOD ORDERABLES Final Re sult Performing Organization Address [facility] Co de Phone Number MAI [address] [address] * POCT glucose (12/24/2024 8:03 AM CDT) Glucose, POC 168 70 - 199 mg/dL Comment:Testing performed by : [facility], [address] [place] [address], [address] Blood 12/24/2024 8:03 AM CDT 12/24/2024 8:03 AM CDT us Soledad Harris MD LAB POCT ORDERABLES - DEVICE Final Result Performing Organization Address [facility] de Phone Number [id number] [address] * eGFR (12/24/2024 2:33 AM CDT) [facility] eGFR >90 >=60 mL/min/1. 73 m2 Comment: [...] was last reviewed 2021. Testing performed by: [address] [address] Blood 12/24/2024 2:33 AM CDT 12/24/2024 2:48 AM CDT us Nan Calderon MD LAB BLOOD ORDERABLES Final R esult [facility] [address] [facility] Department [place] [address] * Differential, auto (12/24/2024 2:33 AM CDT) Neutrophil abs 4.47 1.50 - 6.50 K/cumm Comment:Testing performed by : [address] [address] Imm gran abs 0.07 0.00 - 0.10 K/cumm MAI Comment:Testing performed by : [address] [address] Lymphocyte abs 2.45 0.80 - 3.30 K/cumm MAI Comment:Testing performed by : [address] [address] Monocyte abs 0.58 0.20 - 0.80 K/cumm MAI Comment:Testing performed by : [address] [address] Eosinophil abs 0.19 0.00 - 0.50 K/cumm MAI Comment:Testing performed by : [address] [address] Basophil abs 0.03 0.00 - 0.10 K/cumm MAI Comment:Testing performed by : [address] [address] Neutrophil pct 57.4 % MAI Comment: Interpretive Data Percent cell count reference ranges are not reported, since discordance with absolute values may lead to misinterpretation of CBC data. Current Interpretive Data was last revised on 2017. Testing performed by: [address] [address] Imm gran pct 0.9 % [facility] Comment: Interpretive Data Percent cell count reference ranges are not reported, since discordance with absolute values may lead to misinterpretation of CBC data. Current Interpretive Data was last revised on 2017. Testing performed by: [address] [address] Lymphocyte pct 31.5 % [facility] Comment: Interpretive Data Percent cell count reference ranges are not reported, since discordance with absolute values may lead to misinterpretation of CBC data. Current Interpretive Data was last revised on 2017. Testing performed by: [address] [address] Monocyte pct 7.4 % [facility] Comment: Interpretive Data Percent cell count reference ranges are not reported, since discordance with absolute values may lead to misinterpretation of CBC data. Current Interpretive Data was last revised on 2017. Testing performed by: [address] [address] Eosinophil pct 2.4 % [facility] Comment: Interpretive Data Percent cell count reference ranges are not reported, since discordance with absolute values may lead to misinterpretation of CBC data. Current Interpretive Data was last revised on 2017. Testing performed by: [address] [address] Basophil pct 0.4 % [facility] Comment: Interpretive Data Percent cell count reference ranges are not reported, since discordance with absolute values may lead to misinterpretation of CBC data. Current Interpretive Data was last revised on 2017. Testing performed by: [address] [address] Blood 12/24/2024 2:33 AM CDT 12/24/2024 2:53 AM CDT us Nan Calderon MD LAB BLOOD ORDERABLES Final R esult [facility]I [address] [facility] Department [place] [address] * (ABNORMAL) CBC with auto differential (12/24/2024 2:33 AM CDT) [facility] Signature WBC 7.79 3.80 - 9.90 K/cumm Comment:Testing performed by : [address], [address] Hgb 12.8 11.9 - 15.5 g/dL MAI Comment:Testing performed by : [address], [address] Hct 38.6 35.6 - 45.5 % MAI Comment:Testing performed by : [address], [address] Plt 150 150 - 400 K/cumm MAI Comment:Testing performed by : [address], [address] MPV 8.9(L) 9.1 - 12.3 fL MAI Comment:Testing performed by : [address], [address] RBC 4.70 3.90 - 5.20 M/cumm MAI Comment:Testing performed by : [address], [address] MCV 82.1 81.3 - 96.4 fL MAI Comment:Testing performed by : [address], [address] MCH 27.2 27.1 - 33.3 pg MAI Comment:Testing performed by : [address], [address] MCHC 33.2 32.3 - 35.7 g/dL MAI Comment:Testing performed by : [address], [address] RDW CV 13.4 11.1 - 14.9 % MAI Comment:Testing performed by : [address], [address] RDW SD 40.2 35.7 - 48.1 fL MAI Comment:Testing performed by : [address], [address] NRBC abs 0.00 0.00 - 0.01 K/cumm MAI Comment:Testing performed by : [address] [address] Blood 12/24/2024 2:33 AM CDT 12/24/2024 2:53 AM CDT us Nan Calderon MD LAB BLOOD ORDERABLES Final R esult [facility] [address] [facility] Department [place] [address] * (ABNORMAL) Basic metabolic panel (12/24/2024 2:33 AM CDT) Sodium 138 135 - 145 mmol/L Comment:Testing performed by : [address] [address] Potassium, pl 3.7 3.3 - 4.9 mmol/L MAI Comment:Testing performed by : [address] [address] Chloride 102 97 - 110 mmol/L MAI Comment:Testing performed by : [address] [address] CO2 22 22 - 32 mmol/L MAI Comment:Testing performed by : [address] [address] Anion gap 14 2 - 15 mmol/L MAI Comment:Testing performed by : [address] [address] BUN 18 6 - 25 mg/dL MAI Comment:Testing performed by : [address] [address] Creatinine 0.74 0.60 - 1.10 mg/dL MAI Comment:Testing performed by : [address] [address] Glucose 202(H) 70 - 199 mg/dL MAI [...] was last revised 2022. Testing performed by: [address] [address] Calcium 9.5 8.5 - 10.3 mg/dL [facility] Comment:Testing performed by : [address] [address] Blood 12/24/2024 2:33 AM CDT 12/24/2024 2:48 AM CDT Nan Calderon MD LAB BLOOD ORDERABLES Final R esult Performing Organization Address City/[facility]/ZIP Co de Phone Number [address] [place] [address] * POCT glucose (12/23/2024 7:43 PM CDT) Glucose, POC 182 70 - 199 mg/dL Comment:Testing performed by : [address] [address] Blood 12/23/2024 7:43 PM CDT 12/23/2024 7:43 PM CDT us Soledad Harris MD LAB POCT ORDERABLES - DEVICE Final Result Performing Organization Address City/[facility]/ZIP Co de Phone Number [address] [place] [address] * POCT glucose (12/23/2024 5:25 PM CDT) Glucose, POC 148 70 - 199 mg/dL Comment:Testing performed by : [address] [address] Blood 12/23/2024 5:25 PM CDT 12/23/2024 5:25 PM CDT us Soledad Harris MD LAB POCT ORDERABLES - DEVICE Final Result Performing Organization Address [facility] Co de Phone Number [address] [place] [address] * POCT glucose (12/23/2024 11:07 AM CDT) Glucose, POC 118 70 - 199 mg/dL Comment:Testing performed by : [address] [address] Blood 12/23/2024 11:0 7 AM CDT 12/23/2024 11:07 AM CDT us Soledad Harris MD LAB POCT ORDERABLES - DEVICE Final Result Performing Organization Address [facility] de Phone Number [address] [place] [address] * POCT glucose (12/23/2024 7:21 AM CDT) Glucose, POC 146 70 - 199 mg/dL Comment:Testing performed by : [address] [address] Blood 12/23/2024 7:21 AM CDT 12/23/2024 7:21 AM CDT us Soledad Harris MD LAB POCT ORDERABLES - DEVICE Final Result Performing Organization Address [facility] Co de Phone Number [address] [place] [address] * (ABNORMAL) POCT glucose (12/22/2024 8:20 PM CDT) Glucose, POC 234(H) 70 - 199 mg/dL Comment:Testing performed by : [address] [address] Blood 12/22/2024 8:20 PM CDT 12/22/2024 8:20 PM CDT us Soledad Harris MD LAB POCT ORDERABLES - DEVICE Final Result Performing Organization Address City/[facility]/ZIP Co de Phone Number MAI [address] [address] * POCT glucose (12/22/2024 5:08 PM CDT) Glucose, POC 124 70 - 199 mg/dL Comment:Testing performed by : [address] [address] Blood 12/22/2024 5:08 PM CDT 12/22/2024 5:08 PM CDT Soledad Harris MD LAB POCT ORDERABLES - DEVICE Final Result Performing Organization Address [facility] de Phone Number MAI [address] [address] * POCT glucose (12/22/2024 12:25 PM CDT) Glucose, POC 126 70 - 199 mg/dL Comment:Testing performed by : [address] [address] Glucose comment 1 Will Repeat Test MAI Comment:Testing performed by : [address] [address] Glucose comment 2 RN/MD Notified MAI Comment:Testing performed by : [address] [address] Blood 12/22/2024 12:2 5 PM CDT 12/22/2024 12:25 PM CDT us Soledad Harris MD LAB POCT ORDERABLES - DEVICE Final Result Performing Organization Address City/[facility] Co de Phone Number MAI [address] [address] * POCT glucose (12/22/2024 7:42 AM CDT) [facility] Glucose, POC 150 70 - 199 mg/dL Comment:Testing performed by : [facility], [address] [place] [address]., [address] Glucose comment 1 Will Repeat Test [facility]I [place] Comment:Testing performed by : [facility], [address] [place] [address]., [address] Glucose comment 2 RN/MD Notified [facility] [place] [facility] Comment:Testing performed by : [address] [address] Blood 12/22/2024 7:42 AM CDT 12/22/2024 7:42 AM CDT us Soledad Harris MD LAB POCT ORDERABLES - DEVICE Final Result [facility] [address] [facility] Department [place] [address] * eGFR (12/22/2024 7:06 AM CDT) [facility] eGFR 72 >=60 mL/min/1. 73 m2 Comment: [...] was last reviewed 2021. Testing performed by: [address] [address] Blood 12/22/2024 7:06 AM CDT 12/22/2024 8:12 AM CDT us Soledad Harris MD LAB BLOOD ORDERABLES Final Re sult MAI [address] [facility] Department [place] [address] * Differential, auto (12/22/2024 7:06 AM CDT) Neutrophil abs 3.96 1.50 - 6.50 K/cumm Comment:Testing performed by : [address] [address] Imm gran abs 0.06 0.00 - 0.10 K/cumm MAI Comment:Testing performed by : [address] [address] Lymphocyte abs 1.80 0.80 - 3.30 K/cumm MAI Comment:Testing performed by : [address] [address] Monocyte abs 0.54 0.20 - 0.80 K/cumm MAI Comment:Testing performed by : [address] [address] Eosinophil abs 0.21 0.00 - 0.50 K/cumm MAI Comment:Testing performed by : [address] [address] Basophil abs 0.04 0.00 - 0.10 K/cumm MAI Comment:Testing performed by : [address] [address] Neutrophil pct 59.9 % MAI Comment: Interpretive Data Percent cell count reference ranges are not reported, since discordance with absolute values may lead to misinterpretation of CBC data. Current Interpretive Data was last revised on 2017. Testing performed by: [address] [address] Imm gran pct 0.9 % MAI Comment: Interpretive Data Percent cell count reference ranges are not reported, since discordance with absolute values may lead to misinterpretation of CBC data. Current Interpretive Data was last revised on 2017. Testing performed by: [address] [address] Lymphocyte pct 27.2 % [facility] Comment: Interpretive Data Percent cell count reference ranges are not reported, since discordance with absolute values may lead to misinterpretation of CBC data. Current Interpretive Data was last revised on 2017. Testing performed by: [address] [address] Monocyte pct 8.2 % [facility] Comment: Interpretive Data Percent cell count reference ranges are not reported, since discordance with absolute values may lead to misinterpretation of CBC data. Current Interpretive Data was last revised on 2017. Testing performed by: [address] [address] Eosinophil pct 3.2 % [facility] Comment: Interpretive Data Percent cell count reference ranges are not reported, since discordance with absolute values may lead to misinterpretation of CBC data. Current Interpretive Data was last revised on 2017. Testing performed by: [address] [address] Basophil pct 0.6 % [facility] Comment: Interpretive Data Percent cell count reference ranges are not reported, since discordance with absolute values may lead to misinterpretation of CBC data. Current Interpretive Data was last revised on 2017. Testing performed by: [address] [address] Blood 12/22/2024 7:06 AM CDT 12/22/2024 8:12 AM CDT us Soledad Harris MD LAB BLOOD ORDERABLES Final Re sult [facility]I [address] [facility] Department [place] [address] * (ABNORMAL) CBC with auto differential (12/22/2024 7:06 AM CDT) Pathologist [facility] WBC 6.61 3.80 - 9.90 K/cumm Comment:Testing performed by : [address] [address] Hgb 13.3 11.9 - 15.5 g/dL MAI Comment:Testing performed by : [address], [address] Hct 40.0 35.6 - 45.5 % MAI Comment:Testing performed by : [address] [address] Plt 149(L) 150 - 400 K/cumm MAI Comment:Testing performed by : [address], [address] MPV 9.2 9.1 - 12.3 fL MAI Comment:Testing performed by : [address], [address] RBC 4.82 3.90 - 5.20 M/cumm MAI Comment:Testing performed by : [address], [address] MCV 83.0 81.3 - 96.4 fL MAI Comment:Testing performed by : [address], [address] MCH 27.6 27.1 - 33.3 pg MAI Comment:Testing performed by : [address], [address] MCHC 33.3 32.3 - 35.7 g/dL MAI Comment:Testing performed by : [address], [address] RDW CV 13.5 11.1 - 14.9 % MAI Comment:Testing performed by : [address], [address] RDW SD 40.4 35.7 - 48.1 fL MAI Comment:Testing performed by : [address], [address] NRBC abs 0.00 0.00 - 0.01 K/cumm MAI Comment:Testing performed by : [address], [address] Blood 12/22/2024 7:06 AM CDT 12/22/2024 8:12 AM CDT us Satyen V. Harris MD LAB BLOOD ORDERABLES Final Re sult Performing Organization Address City/[facility] Co de Phone Number [address] [place] [address] * Vancomycin level trough (12/22/2024 7:06 AM CDT) Pathologist [facility] Vancomycin trough 13.8 10.0 - 20.0 mcg/mL Comment:Testing performed by : [address] [address] Blood 12/22/2024 7:06 AM CDT 12/22/2024 8:12 AM CDT us Nan Calderon MD LAB BLOOD ORDERABLES Final R esult Performing Organization Address [facility] Co de Phone Number [address] [place] [address] * Basic metabolic panel (12/22/2024 7:06 AM CDT) [facility] Sodium 140 135 - 145 mmol/L Comment:Testing performed by : [address] [address] Potassium, pl 3.9 3.3 - 4.9 mmol/L MAI Comment:Testing performed by : [address] [address] Chloride 100 97 - 110 mmol/L MAI Comment:Testing performed by : [address] [address] CO2 31 22 - 32 mmol/L MAI Comment:Testing performed by : [address] [address] Anion gap 9 2 - 15 mmol/L MAI Comment:Testing performed by : [address] [address] BUN 19 6 - 25 mg/dL MAI Comment:Testing performed by : [address] [address] Creatinine 0.90 0.60 - 1.10 mg/dL MAI Comment:Testing performed by : [address] [address] Glucose 135 70 - 199 mg/dL MAI [...] was last revised 2022. Testing performed by: [address] [address] Calcium 9.5 8.5 - 10.3 mg/dL MAI Comment:Testing performed by : [address] [address] Blood 12/22/2024 7:06 AM CDT 12/22/2024 8:12 AM CDT Soledad Harris MD LAB BLOOD ORDERABLES Final Re sult Performing Organization Address City/[facility]/ZIP Co de Phone Number MAI [address] [place] [address] * POCT glucose (12/21/2024 8:29 PM CDT) [facility] Signature Glucose, POC 121 70 - 199 mg/dL Comment:Testing performed by : [address] [address] Blood 12/21/2024 8:29 PM CDT 12/21/2024 8:29 PM CDT Soledad Harris MD LAB POCT ORDERABLES - DEVICE Final Result Performing Organization Address City/[facility]/ZIP Co de Phone Number MAI [address] [place] [address] * POCT glucose (12/21/2024 4:55 PM CDT) Glucose, POC 139 70 - 199 mg/dL Comment:Testing performed by : [facility], [address] [place] [address], [place]., [address] Blood 12/21/2024 4:55 PM CDT 12/21/2024 4:55 PM CDT us Soledad Harris MD LAB POCT ORDERABLES - DEVICE Final Result MAI [address] [facility] Department [place] [address] * CT Foot Left W [...] metatarsal resulting in mild artifact. Healed osteotomy. [place] is seen of the base of the [...] 1:33 PM - Electronically signed by Magdi DOMINGUEZ: ALBERTO Report ID: [id number] Reading Location: [id number] Procedure Note Magdi Aceves MD - 12/21/2024 [...] metatarsal resulting in mild artifact. Healed osteotomy. [place] is seenof the base of the distal [...] Magdi Aceves M.D. MJ: ALBERTO Report ID: [id number] Reading Location: [place] [address] us Soledad Harris MD IMG CT PROCEDURES Final Resul t * POCT glucose (12/21/2024 12:45 PM CDT) Glucose, POC 142 70 - 199 mg/dL Comment:Testing performed by : [address] [address] Blood 12/21/2024 12:4 5 PM CDT 12/21/2024 12:45 PM CDT us Soledad Harris MD LAB POCT ORDERABLES - DEVICE Final Result MAI [address] [facility] Department of Laboratories [place], [place] [id number] * POCT glucose (12/21/2024 7:25 AM CDT) Glucose, POC 154 70 - 199 mg/dL Comment:Testing performed by : [address] [address] Glucose comment 1 Will Repeat Test [facility] [place] Comment:Testing performed by : [address] [address] Glucose comment 2 RN/MD Notified [facility] [place] Comment:Testing performed by : [address] [address] Blood 12/21/2024 7:25 AM CDT 12/21/2024 7:25 AM CDT us Soledad Harris MD LAB POCT ORDERABLES - DEVICE Final Result Performing Organization Address [facility] Co de Phone Number MAI [address] [place] [address] * eGFR (12/21/2024 6:48 AM CDT) eGFR [...] was last reviewed 2021. Testing performed by: [address] [address] Blood 12/21/2024 6:48 AM CDT 12/21/2024 8:31 AM CDT us Nan Calderon MD LAB BLOOD ORDERABLES Final R esult Performing Organization Address City/[facility]/ZIP Co de Phone Number MAI [address] [place] [address] * Differential, auto (12/21/2024 6:48 AM CDT) Neutrophil abs 3.44 1.50 - 6.50 K/cumm Comment:Testing performed by : [address] [address] Imm gran abs 0.07 0.00 - 0.10 K/cumm [facility] Comment:Testing performed by : [address] [address] Lymphocyte abs 2.00 0.80 - 3.30 K/cumm [facility] Comment:Testing performed by : [address] [address] Monocyte abs 0.55 0.20 - 0.80 K/cumm [facility] Comment:Testing performed by : [address], [place]., [address] Eosinophil abs 0.20 0.00 - 0.50 K/cumm [facility] Comment:Testing performed by : [address] [address] Basophil abs 0.05 0.00 - 0.10 K/cumm [facility] Comment:Testing performed by : [address] [address] Neutrophil pct 54.5 % [facility] Comment: Interpretive Data Percent cell count reference ranges are not reported, since discordance with absolute values may lead to misinterpretation of CBC data. Current Interpretive Data was last revised on 2017. Testing performed by: [address] [address] Imm gran pct 1.1 % [facility] Comment: Interpretive Data Percent cell count reference ranges are not reported, since discordance with absolute values may lead to misinterpretation of CBC data. Current Interpretive Data was last revised on 2017. Testing performed by: [address] [address] Lymphocyte pct 31.7 % [facility] Comment: Interpretive Data Percent cell count reference ranges are not reported, since discordance with absolute values may lead to misinterpretation of CBC data. Current Interpretive Data was last revised on 2017. Testing performed by: [address] [address] Monocyte pct 8.7 % [facility] Comment: Interpretive Data Percent cell count reference ranges are not reported, since discordance with absolute values may lead to misinterpretation of CBC data. Current Interpretive Data was last revised on 2017. Testing performed by: [address] [address] Eosinophil pct 3.2 % [facility] Comment: Interpretive Data Percent cell count reference ranges are not reported, since discordance with absolute values may lead to misinterpretation of CBC data. Current Interpretive Data was last revised on 2017. Testing performed by: [address] [address] Basophil pct 0.8 % [facility] Comment: Interpretive Data Percent cell count reference ranges are not reported, since discordance with absolute values may lead to misinterpretation of CBC data. Current Interpretive Data was last revised on 2017. Testing performed by: [address] [address] Blood 12/21/2024 6:48 AM CDT 12/21/2024 8:31 AM CDT Soledad Harris MD LAB BLOOD ORDERABLES Final Re sult [facility] [address] [facility] Department [place] [address] * (ABNORMAL) CBC with auto differential (12/21/2024 6:48 AM CDT) WBC 6.31 3.80 - 9.90 K/cumm Comment:Testing performed by : [address] [address] Hgb 12.8 11.9 - 15.5 g/dL [facility] Comment:Testing performed by : [address] [address] Hct 38.7 35.6 - 45.5 % [facility] Comment:Testing performed by : [address] [address] Plt 145(L) 150 - 400 K/cumm [facility] Comment:Testing performed by : [address] [address] MPV 9.5 9.1 - 12.3 fL [facility] Comment:Testing performed by : [address] [address] RBC 4.67 3.90 - 5.20 M/cumm [facility] Comment:Testing performed by : [address] [address] MCV 82.9 81.3 - 96.4 fL [facility] Comment:Testing performed by : [address] [address] MCH 27.4 27.1 - 33.3 pg [facility] Comment:Testing performed by : [address] [address] MCHC 33.1 32.3 - 35.7 g/dL [facility] Comment:Testing performed by : [address] [address] RDW CV 13.6 11.1 - 14.9 % [facility] Comment:Testing performed by : [address] [address] RDW SD 41.1 35.7 - 48.1 fL [facility] Comment:Testing performed by : [address] [address] NRBC abs 0.00 0.00 - 0.01 K/cumm [facility] Comment:Testing performed by : [address] [address] Blood 12/21/2024 6:48 AM CDT 12/21/2024 8:31 AM CDT us Soledad Harris MD LAB BLOOD ORDERABLES Final Re sult [facility] [address] [facility] Department [place] [address] * Comprehensive metabolic panel (12/21/2024 6:48 AM CDT) Sodium 139 135 - 145 mmol/L Comment:Testing performed by : [address] [address] Potassium, pl 3.9 3.3 - 4.9 mmol/L [facility] Comment:Testing performed by : [address] [address] Chloride 101 97 - 110 mmol/L [facility] Comment:Testing performed by : [address], [place]., [address] CO2 25 22 - 32 mmol/L [facility] Comment:Testing performed by : [address], [place]., [address] Anion gap 13 2 - 15 mmol/L [facility] Comment:Testing performed by : [address], [place]., [address] BUN 19 6 - 25 mg/dL [facility] Comment:Testing performed by : [address], [place]., [address] Creatinine 0.80 0.60 - 1.10 mg/dL [facility] Comment:Testing performed by : [address], [place]., [address] Glucose 146 70 - 199 mg/dL [facility] [...] was last revised 2022. Testing performed by: [address] [address] Calcium 9.0 8.5 - 10.3 mg/dL [facility] Comment:Testing performed by : [address] [address] Bilirubin, total 0.3 0.1 - 1.2 mg/dL [facility] Comment:Testing performed by : [address] [address] Protein, pl 6.8 6.5 - 8.5 g/dL [facility] Comment:Testing performed by : [address] [address] Albumin 3.6 3.5 - 5.0 g/dL [facility] Comment:Testing performed by : [address] [address] Alk phos 82 40 - 130 Units/L [facility] Comment:Testing performed by : [address] [address] ALT 39 7 - 45 Units/L [facility] Comment:Testing performed by : [address] [address] AST 35 10 - 45 Units/L [facility] Comment:Testing performed by : [address], [address] Blood 12/21/2024 6:48 AM CDT 12/21/2024 8:31 AM CDT us Nan Calderon MD LAB BLOOD ORDERABLES Final R esult Performing Organization Address [facility] Co de Phone Number [address] [place] [address] * (ABNORMAL) POCT glucose (12/20/2024 8:11 PM CDT) Glucose, POC 205(H) 70 - 199 mg/dL Comment:Testing performed by : [address] [address] Glucose comment 1 RN/MD Notified [facility] Comment:Testing performed by : [address], [address] Blood 12/20/2024 8:11 PM CDT 12/20/2024 8:11 PM CDT us Soledad Harris MD LAB POCT ORDERABLES - DEVICE Final Result Performing Organization Address City/[facility] Co de Phone Number [address] [place] [address] * POCT glucose (12/20/2024 5:03 PM CDT) Glucose, POC 197 70 - 199 mg/dL Comment:Testing performed by : [facility], [address] [place] [address]., [address] Glucose comment 1 RN/MD Notified [facility] Comment:Testing performed by : [facility], [address] [place] [address]., [address] Blood 12/20/2024 5:03 PM CDT 12/20/2024 5:03 PM CDT us Soledad Harris MD LAB POCT ORDERABLES - DEVICE Final Result [facility] [address] [facility] Department [place] [address] * US SHAKIRA (12/20/2024 3:16 PM CDT) Anatomical Region Laterality Modality Vascular N/A Ultrasound 12/20/2024 2:41 PM CDT Narrative 12/23/2024 1:40 PM CDT Lower Extremity Arterial Doppler Report Patient Name: CECE SOARES L : 1960 Study Date: 12/20/2024 2:41:00 PM Gender: F Assisted Living Manager: Cece Hyde RDMS,[facility] Location: [id number] [facility] Provider: NAN CALDERON Quality: Adequate Order [...] mmHg Lt Brachial Pressure 121 mmHg Rt [facility] Pressure 153 mmHg Lt [facility] [employer] [facility] Pressure 150 mmHg Rt DPA Pressure 150 [...] Study Date: 12/20/2024 2:41:00 PM Gender: F Assisted Living Manager: Cece Hyde RDMS,[facility] Location: [id number] Ref Provider: NAN CALDERON Quality: Adequate Order [...] mmHg Lt Brachial Pressure 121 mmHg Rt [facility] Pressure 153 mmHg Lt [facility] [employer] [facility] Pressure 150 mmHg Rt DPA Pressure 150 [...] PM Ht(Inch): 71 Wt(Lb): 269.01 BSA: 2.47 Assisted Living Manager: Hallie Brothers RDCS Location: [id number] Order Provider: NAN CALDERON Heart Rate: 69 BMI: 37.52 BP: 111 / 64 Ref Provider: NAN CALDERON PROCEDURES: Echocardiographic Report: ([id number]) Echocardiography, transthoracic, 2D, includes M-mode recording, color [...] PM Ht(Inch): 71 Wt(Lb): 269.01 BSA: 2.47 Assisted Living Manager: Hallie Brtohers RDCS Location: [place] [address] Order Provider:NAN CALDERON Heart Rate: 69 BMI: 37.52 BP: 111 / 64 Ref Provider: NAN CALDERON PROCEDURES: Echocardiographic Report: ([id number]) Echocardiography, transthoracic, 2D,includes M-mode recording, color and [...] (ABNORMAL) POCT glucose (12/20/2024 11:55 AM CDT) [facility] Signature Glucose, POC 210(H) 70 - 199 mg/dL Comment:Testing performed by : [address] [address] Glucose comment 1 RN/MD Notified [facility] Comment:Testing performed by : [address] [address] Blood 12/20/2024 11:5 5 AM CDT 12/20/2024 11:55 AM CDT us Soledad Harris MD LAB POCT ORDERABLES - DEVICE Final Result [facility] [address] [facility] Department [place] [address] * Blood culture Blood (12/20/2024 9:01 AM CDT) Report Final Report: No growth Comment:Testing performed by : [facility], [address] [place]., [address] Blood 12/20/2024 9:01 AM CDT 12/20/2024 11:39 [...] performance characteristics have been verified by the [facility] Microbiology Laboratory. For questions about this culture, contact the Microbiology Laboratory at [phone]. Interpretive data was last revised on 24. us Nan Calderon MD LAB MICROBIOLOGY - GENERAL O RDERABLES Final Result [facility] [address] [facility] Department [place] [address] * Blood culture Blood (12/20/2024 8:54 AM CDT) Report Final Report: No growth Comment:Testing performed by : [facility], [address] [place] [address] Blood 12/20/2024 8:54 AM CDT 12/20/2024 9:35 [...] performance characteristics have been verified by the [facility] Microbiology Laboratory. For questions about this culture, contact the Microbiology Laboratory at [phone]. Interpretive data was last revised on 24. us Nan Calderon MD LAB MICROBIOLOGY - GENERAL O RDERABLES Final Result [facility] [address] [facility] Department [place] [address] * POCT glucose (12/20/2024 7:53 AM CDT) [facility] Signature Glucose, POC 161 70 - 199 mg/dL Comment:Testing performed by : [facility], [address] [place] [address]., [address] Blood 12/20/2024 7:53 AM CDT 12/20/2024 7:53 AM CDT us Soledad Harris MD LAB POCT ORDERABLES - DEVICE Final Result Performing Organization Address City/[facility]/ZIP Co de Phone Number [facility] [address] [facility] [place] [address] * Vancomycin level trough (12/20/2024 7:40 AM CDT) Vancomycin trough 11.2 10.0 - 20.0 mcg/mL Comment:Testing performed by : [address] [address] Blood 12/20/2024 7:40 AM CDT 12/20/2024 8:15 AM CDT Lulu Hussein MD LAB BLOOD ORDER SUNDAR Final Result Performing Organization Address [facility] Co de Phone Number [facility] [place] [address] * eGFR (12/20/2024 2:45 AM CDT) eGFR [...] was last reviewed 2021. Testing performed by: [address] [address] Blood 12/20/2024 2:45 AM CDT 12/20/2024 2:58 AM CDT us Soledad Harris MD LAB BLOOD ORDERABLES Final Re sult [facility] [address] [facility] Department [place] [address] * Differential, auto (12/20/2024 2:45 AM CDT) Neutrophil abs 4.26 1.50 - 6.50 K/cumm Comment:Testing performed by : [address] [address] Imm gran abs 0.05 0.00 - 0.10 K/cumm [facility] Comment:Testing performed by : [address] [address] Lymphocyte abs 1.75 0.80 - 3.30 K/cumm [facility] Comment:Testing performed by : [address] [address] Monocyte abs 0.63 0.20 - 0.80 K/cumm [facility] Comment:Testing performed by : [address] [address] Eosinophil abs 0.26 0.00 - 0.50 K/cumm [facility] Comment:Testing performed by : [address] [address] Basophil abs 0.02 0.00 - 0.10 K/cumm [facility] Comment:Testing performed by : [address] [address] Neutrophil pct 61.2 % [facility] Comment: Interpretive Data Percent cell count reference ranges are not reported, since discordance with absolute values may lead to misinterpretation of CBC data. Current Interpretive Data was last revised on 2017. Testing performed by: [address] [address] Imm gran pct 0.7 % [facility] Comment: Interpretive Data Percent cell count reference ranges are not reported, since discordance with absolute values may lead to misinterpretation of CBC data. Current Interpretive Data was last revised on 2017. Testing performed by: [address] [address] Lymphocyte pct 25.1 % [facility] Comment: Interpretive Data Percent cell count reference ranges are not reported, since discordance with absolute values may lead to misinterpretation of CBC data. Current Interpretive Data was last revised on 2017. Testing performed by: [address] [address] Monocyte pct 9.0 % [facility] Comment: Interpretive Data Percent cell count reference ranges are not reported, since discordance with absolute values may lead to misinterpretation of CBC data. Current Interpretive Data was last revised on 2017. Testing performed by: [address] [address] Eosinophil pct 3.7 % [facility] Comment: Interpretive Data Percent cell count reference ranges are not reported, since discordance with absolute values may lead to misinterpretation of CBC data. Current Interpretive Data was last revised on 2017. Testing performed by: [address] [address] Basophil pct 0.3 % [facility] Comment: Interpretive Data Percent cell count reference ranges are not reported, since discordance with absolute values may lead to misinterpretation of CBC data. Current Interpretive Data was last revised on 2017. Testing performed by: [address] [address] Blood 12/20/2024 2:45 AM CDT 12/20/2024 2:59 AM CDT us Soledad Harris MD LAB BLOOD ORDERABLES Final Re sult [facility] [address] [facility] Department [place] [address] * (ABNORMAL) CBC with auto differential (12/20/2024 2:45 AM CDT) WBC 6.97 3.80 - 9.90 K/cumm Comment:Testing performed by : [address] [address] Hgb 12.5 11.9 - 15.5 g/dL [facility] Comment:Testing performed by : [address], [address] Hct 37.8 35.6 - 45.5 % [facility] Comment:Testing performed by : [address] [address] Plt 129(L) 150 - 400 K/cumm [facility] Comment:Testing performed by : [address] [address] MPV 9.4 9.1 - 12.3 fL [facility] Comment:Testing performed by : [address], [address] RBC 4.53 3.90 - 5.20 M/cumm [facility] Comment:Testing performed by : [address], [address] MCV 83.4 81.3 - 96.4 fL [facility] Comment:Testing performed by : [address] [address] MCH 27.6 27.1 - 33.3 pg [facility] Comment:Testing performed by : [address], [address] MCHC 33.1 32.3 - 35.7 g/dL [facility] Comment:Testing performed by : [address], [address] RDW CV 13.8 11.1 - 14.9 % [facility] Comment:Testing performed by : [address], [address] RDW SD 42.3 35.7 - 48.1 fL [facility] Comment:Testing performed by : [address], [address] NRBC abs 0.00 0.00 - 0.01 K/cumm [facility] Comment:Testing performed by : [address], [address] Blood 12/20/2024 2:45 AM CDT 12/20/2024 2:59 AM CDT us Soledad Harris MD LAB BLOOD ORDERABLES Final Re sult [facility] [address] [facility] Department [place] [address] * Basic metabolic panel (12/20/2024 2:45 AM CDT) Sodium 138 135 - 145 mmol/L Comment:Testing performed by : [address] [address] Potassium, pl 3.7 3.3 - 4.9 mmol/L [facility] Comment:Testing performed by : [address] [address] Chloride 102 97 - 110 mmol/L [facility] Comment:Testing performed by : [address] [address] CO2 25 22 - 32 mmol/L [facility] Comment:Testing performed by : [address] [address] Anion gap 11 2 - 15 mmol/L [facility] Comment:Testing performed by : [address] [address] BUN 20 6 - 25 mg/dL [facility] Comment:Testing performed by : [address] [address] Creatinine 0.88 0.60 - 1.10 mg/dL [facility] Comment:Testing performed by : [address] [address] Glucose 149 70 - 199 mg/dL [facility] [...] was last revised 2022. Testing performed by: [address] [address] Calcium 9.2 8.5 - 10.3 mg/dL [facility] Comment:Testing performed by : [address] [address] Blood 12/20/2024 2:45 AM CDT 12/20/2024 2:58 AM CDT us Soledad Harris MD LAB BLOOD ORDERABLES Final Re sult [facility] [address] [place] [address] * (ABNORMAL) POCT glucose (12/19/2024 7:34 PM CDT) Glucose, POC 218(H) 70 - 199 mg/dL Comment:Testing performed by : [address] [address] Blood 12/19/2024 7:34 PM CDT 12/19/2024 7:34 PM CDT us Soledad Harris MD LAB POCT ORDERABLES - DEVICE Final Result Performing Organization Address City/[facility]/ZIP Co de Phone Number [address] [place] [address] * POCT glucose (12/19/2024 4:00 PM CDT) Glucose, POC 172 70 - 199 mg/dL Comment:Testing performed by : [address] [address] Blood 12/19/2024 4:00 PM CDT 12/19/2024 4:00 PM CDT us Soledad Harris MD LAB POCT ORDERABLES - DEVICE Final Result Performing Organization Address City/[facility]/ZIP Co de Phone Number [address] [place] [address] * US Vein Duplex Lower Extremity Bilateral Complete (12/19/2024 2:34 PM CDT) Anatomical Region Laterality Modality Vascular Bilateral Ultrasound 12/19/2024 1:20 PM CDT Narrative 12/23/2024 11:58 AM CDT Lower Extremity Venous Report Patient Name: CECE SOARES L : 1960 (64y 11m) Gender: F Study Date: 12/19/2024 01:20:31 PM Assisted Living Manager: Cece Hyde RDMN,[facility] Location: [id number] Order Provider: LULU HUSSEIN Quality: Adequate Ref [...] Gender: F Study Date: 12/19/2024 01:20:31 PM Assisted Living Manager: Cece Hyde RDMS,[facility] Location:[place] [address] Order Provider: LULU HUSSEIN Quality: Adequate Ref [...] 12/23/2024 10:40:33 AM CDT Lulu Hussein MD [facility] PROCEDUR ES Final Result * (ABNORMAL) POCT glucose (12/19/2024 11:31 AM CDT) [facility] Glucose, POC 217(H) 70 - 199 mg/dL Comment:Testing performed by : [facility], [address] [place] [address]., [address] Glucose comment 1 RN/MD Notified [facility] Comment:Testing performed by : [facility], [address] [place] [address]., [address] Blood 12/19/2024 11:3 1 AM CDT 12/19/2024 11:31 AM CDT Soledad Harris MD LAB POCT ORDERABLES - DEVICE Final Result [facility] MH [address] [facility] Department [place] [address] * CT Entire Lower Extremity Bilateral W [...] of the feet due to extremely large zogyy-yk-yryq imaging. Postsurgical changes of the left and [...] is severely limited on this extremely large yqqjl-uc-vdzc imaging. If high clinical concern for osteomyelitis of the left foot contrast enhanced MRI is recommended. If patient is unable to tolerate contrast enhanced MRI then small jbqxu-ay-rknj CT imaging of the left forefoot could be obtained 2. Total left hip arthroplasty in place. 3. Postsurgical changes of the left and right foot 1st metatarsal head. 4. A surgical anchor is seen in the left foot great toe distal phalangeal base medially. THIS IS AN ELECTRONICALLY VERIFIED FINAL REPORT 12/19/2024 11:18 AM - Electronically signed by Derrick Willis M.D. LOLI CROSS Report ID: [id number] Reading Location: [id number] Procedure Note Derrick Willis MD - 12/19/2024 [...] of the feet due to extremely large miqrm-xd-qaxk imaging. Postsurgical changes of the left and right foot 1st metatarsal head. A surgical anchoris seen in the left foot great toe distal phalangeal base medially.. Soft Tissues: Mild diffuse soft tissue swelling of the left foot. Other: No other finding. IMPRESSION: 1. Mild diffuse soft tissue swelling of the left foot. Detailedevaluation for osteomyelitis is severely limited on this extremely bucnasetao-hq-kbyx imaging. If high clinical concern for osteomyelitis of the left footcontrast enhanced MRI is recommended. If patient is unable to tolerate contrast enhanced MRI then small mevgf-bq-ijtw CT imaging of the left forefootcould be obtained 2. Total left hip arthroplasty in place. 3. Postsurgical changes of the left and right foot 1st metatarsalhead. 4. A surgical anchor is seen in the left foot great toe distalphalangeal base medially. THIS IS AN ELECTRONICALLY VERIFIED FINAL REPORT 12/19/2024 11:18 AM - Electronically signed by Derrick CROSS Report ID: [id number] Reading Location: [id number] Soledad Harris MD IMG CT PROCEDURES Final Resul t * (ABNORMAL) POCT glucose (12/19/2024 7:22 AM CDT) Pathologist [facility] Glucose, POC 211(H) 70 - 199 mg/dL Comment:Testing performed by : [facility], [address] [place] [address]., [address] Glucose comment 1 RN/MD Notified [facility] Comment:Testing performed by : [address] [address] Blood 12/19/2024 7:22 AM CDT 12/19/2024 7:22 AM CDT us Soledad Harris MD LAB POCT ORDERABLES - DEVICE Final Result [facility] [address] [facility] Department [place] [address] * (ABNORMAL) eGFR (12/19/2024 3:21 AM CDT) [facility] eGFR 59(L) >=60 mL/min/1. 73 m2 Comment: [...] was last reviewed 2021. Testing performed by: [address] [address] Blood 12/19/2024 3:21 AM CDT 12/19/2024 4:25 AM CDT Lulu Hussein MD LAB BLOOD ORDER SUNDAR Final Result [facility] [address] [facility] Department [place] [address] * (ABNORMAL) CBC without differential (12/19/2024 3:21 AM CDT) WBC 10.02(H) 3.80 - 9.90 K/cumm Comment:Testing performed by : [address] [address] Hgb 12.5 11.9 - 15.5 g/dL [facility] Comment:Testing performed by : [address] [address] Hct 36.9 35.6 - 45.5 % [facility] Comment:Testing performed by : [address] [address] Plt 138(L) 150 - 400 K/cumm [facility] Comment:Testing performed by : [address] [address] MPV 9.7 9.1 - 12.3 fL [facility] Comment:Testing performed by : [address] [address] RBC 4.44 3.90 - 5.20 M/cumm [facility] Comment:Testing performed by : [address] [address] MCV 83.1 81.3 - 96.4 fL [facility] Comment:Testing performed by : [address] [address] MCH 28.2 27.1 - 33.3 pg [facility] Comment:Testing performed by : [address] [address] MCHC 33.9 32.3 - 35.7 g/dL [facility] Comment:Testing performed by : [address] [address] RDW CV 13.8 11.1 - 14.9 % [facility] Comment:Testing performed by : [address] [address] RDW SD 42.0 35.7 - 48.1 fL [facility] Comment:Testing performed by : [address] [address] NRBC abs 0.00 0.00 - 0.01 K/cumm [facility] Comment:Testing performed by : [address] [address] Blood 12/19/2024 3:21 AM CDT 12/19/2024 4:24 AM CDT Lulu Hussein MD LAB BLOOD ORDER SUNDAR Final Result [facility] [address] [facility] Department [place] [address] * (ABNORMAL) Lipid panel (12/19/2024 3:21 AM [...] last revised on 2018. Testing performed by: [address] [address] Triglycerides 99 <=149 mg/dL [facility] [...] last revised on 2018. Testing performed by: [address] [address] HDL 33(L) >=40 mg/dL [facility] Comment: Interpretive [...] last revised on 2018. Testing performed by: [address] [address] LDL, calculated 75 <=129 mg/dL [facility]I Comment: [...] last revised on 2024. Testing performed by: [address] [address] Non-HDL Cholesterol 94 mg/dL [facility]I Comment: Interpretive Data Ages < [...] last revised on 2018. Testing performed by: [address] [address] Chol/HDL ratio 4 [facility]I Comment:Testing performed by : [address] [address] Blood 12/19/2024 3:21 AM CDT 12/19/2024 4:25 AM CDT Lulu Hussein MD LAB BLOOD ORDER SUNDAR Final Result [facility] Department [place] [address] * (ABNORMAL) Basic metabolic panel (12/19/2024 3:21 AM CDT) Sodium 137 135 - 145 mmol/L Comment:Testing performed by : [address] [address] Potassium, pl 3.7 3.3 - 4.9 mmol/L [facility] Comment:Testing performed by : [address] [address] Chloride 99 97 - 110 mmol/L [facility]I Comment:Testing performed by : [address] [address] CO2 26 22 - 32 mmol/L MAI DEL RIO Comment:Testing performed by : [address] [address] Anion gap 12 2 - 15 mmol/L MAI DEL RIO Comment:Testing performed by : [address] [address] BUN 22 6 - 25 mg/dL MAI Comment:Testing performed by : [address] [address] Creatinine 1.06 0.60 - 1.10 mg/dL MAI Comment:Testing performed by : [address] [address] Glucose 245(H) 70 - 199 mg/dL MAI [...] was last revised 2022. Testing performed by: [address] [address] Calcium 9.2 8.5 - 10.3 mg/dL MAI Comment:Testing performed by : [address] [address] Blood 12/19/2024 3:21 AM CDT 12/19/2024 4:23 AM CDT Lulu Hussein MD LAB BLOOD ORDER SUNDAR Final Result [facility] [address] [facility] Department [place] [address] * (ABNORMAL) POCT glucose (12/18/2024 11:51 PM CDT) [facility] Signature Glucose, POC 204(H) 70 - 199 mg/dL Comment:Testing performed by : [address] [address] Blood 12/18/2024 11:5 1 PM CDT 12/18/2024 11:51 PM CDT us Lulu Hussein MD LAB POCT ORDERA BLES - DEVICE Final Result Performing Organization Address City/[facility]/ZIP Co de Phone Number MAI [address] [place] [address] * (ABNORMAL) POCT glucose (12/18/2024 9:54 PM CDT) [facility] Glucose, POC 277(H) 70 - 199 mg/dL Comment:Testing performed by : [address] [address] Glucose comment 1 RN/MD Notified MAI Comment:Testing performed by : [address] [address] Glucose comment 2 Will Repeat Test [facility] Comment:Testing performed by : [address] [address] Blood 12/18/2024 9:54 PM CDT 12/18/2024 9:54 PM CDT us Jose Botello Jr., MD LAB POCT ORDERABLES - D EVICE Final Result Performing Organization Address [facility] Co de Phone Number JASVIR[address] [place] [address] * Sepsis Lactate w/ Reflex (12/18/2024 9:04 PM CDT) [facility] Sepsis Lactate 1.9 0.7 - 2.0 mmol/L Comment:Testing performed by : [address] [address] Blood 12/18/2024 9:04 PM CDT 12/18/2024 9:12 PM CDT us Magali Wisdom NP LAB BLOOD ORDERABLES Final Resul t [address] [place] [address] * (ABNORMAL) Blood culture Blood (12/18/2024 9:04 PM CDT) Direct Specimen Exam Molecular Analysis: Methicillin-suscep tible Staphylococcus aureus (MSSA) detected by the jodi ePlex BCID-GP panel. This test does not exclude the possibility of a mixed bacterial infection. Notification of: Methicillin-suscep tible Staphylococcus aureus (MSSA) called to and read back by: Wanda Tirado [place] [phone] on 12/19/2024 16:27:23 by: Bradley Avina [place] Results phoned to and read back by: [id number] on 12/19/2024 16:51:53 by: [email or web address] Comment:Testing performed by : [facility], [address] [place] [address]., [address] Direct Specimen Exam Stain: Gram Positive Cocci in clusters Time to culture positivity (anaerobic media): 13.4 hours Notification of: Gram Positive Cocci in clusters called to and read back by: Nkechi Ramos [facility] [phone] on 12/19/2024 14:42:51 by: Eliezer ONEILL Comment:Testing performed by : [facility], [address] [place] [address]., [address] Report Final Report: Staphylococcus aureus Methicillin susceptible (MSSA) by penicillin binding protein 2a (PBP2a) testing. (.) MAI Comment:Testing performed by : [facility], [address] [place] [address]., [address] Organism STAPHYLOCOCCUS AUREUS MAI Blood 12/18/2024 9:04 [...] performance characteristics have been verified by the [facility] Microbiology Laboratory. For questions about this culture, contact the Microbiology Laboratory at [phone]. Interpretive data was last revised on 24. [...] Jose Botello Jr., MD LAB MICROBIOLOGY - [facility] ORDERABLES Final Result MAI [address] [facility] Department [place] [address] * Blood culture Blood (12/18/2024 8:52 PM CDT) Report Final Report: No growth Comment:Testing performed by : [facility], [address] [facility], [place]., [address] Blood 12/18/2024 8:52 PM CDT 12/19/2024 12:19 [...] performance characteristics have been verified by the [facility] Microbiology Laboratory. For questions about this culture, contact the Microbiology Laboratory at [phone]. Interpretive data was last revised on 24. Jose Botello Jr., MD LAB MICROBIOLOGY - [facility] ORDERABLES Final Result [facility] 0504 [facility] Department [place] [address] * XR Toe 2nd Digit [...] Kriss Gustafson M.D. AT: AT Report ID: [id number] Reading Location: [id number] Procedure Note Kriss Gustafson MD - 12/18/2024 [...] Kriss Gustafson M.D. AT: AT Report ID: [id number] Reading Location: [id number] us Jose Botello Jr., MD IMG XR [...] Kriss Gustafson M.D. AT: AT Report ID: [id number] Reading Location: [id number] Procedure Note Kriss Gustafson MD - 12/18/2024 [...] Kriss Gustafson M.D. AT: AT Report ID: [id number] Reading Location: [id number] Jose Botello Jr., MD IMG XR PROCEDURES Final Result * (ABNORMAL) Urinalysis reflex to microscopic and culture Urine (12/18/2024 7:04 PM CDT) Color, ur Yellow Yellow Comment:Testing performed by : [address] [address] Clarity, ur Cloudy(A) Clear CERNER Comment:Testing performed by : [address] [address] Specific gravity, ur 1.022 1.003 - 1.030 MAI Comment:Testing performed by : [facility], [address] [place] [address], [place]., [address] pH, urine 6.5 MAI Comment: Interpretive Data U rine pH is affected by diet, medications, systemic acid-base disturbances, and renal tubular function. pH may affect urinary stone formation. For example, urine pH below 6.0 may help reduce the tendency for calcium phosphate stones and pH greater than 6.0 may reduce the tendency for uric acid stone formation. Source: [facility] [employer] Current Interpretive Data was last revised on 2017 Testing performed by: [facility], [address] [place] [address], [place]., [address] Protein, ur ql 1+(A) Negative MAI Comment:Testing performed by : [address], [place]., [address] Glucose, ur ql 1+(A) Negative MAI Comment:Testing performed by : [address] [address] Ketones, ur Negative Negative MAI Comment:Testing performed by : [address], [place]., [address] Bilirubin, ur Negative Negative MAI Comment:Testing performed by : [address] [address] Blood, ur 2+(A) Negative MAI Comment:Testing performed by : [address] [address] Urobilinogen, ur <2.0 <2.0 mg/dL MAI Comment:Testing performed by : [address] [address] Nitrite, ur Negative Negative MAI Comment:Testing performed by : [address] [address] Leukocyte esterase, ur 4+(A) Negative MAI Comment:Testing performed by : [address] [address] UA reflex comment Reflex to microscopic UA will be performed. MAI Comment:Testing performed by : [address], [place]., [address] Urine 12/18/2024 7:04 PM CDT 12/18/2024 7:17 PM CDT Narrative MAI - 12/18/2024 7:21 PM CDT If patient unable to urinate, straight cath us Jose Botello Jr., MD LAB MICROBIOLOGY - GENE RAL ORDERABLES Final Result Performing Organization Address [facility] de Phone Number MAI [address] [facility] Department of Laboratories [place], [place] [id number] * (ABNORMAL) Urinalysis, microscopic only (12/18/2024 7:04 PM CDT) WBC, ur >50(A) 0 - 5 /HPF Comment:Testing performed by : [address] [address] RBC, ur >50(A) 0 - 2 /HPF MAI Comment:Testing performed by : [address] [address] Epithelial cells, squamous, ur >50(A) 0 - 5 /HPF MAI Comment:Testing performed by : [address] [address] Bacteria, ur 1+(A) MAI Comment:Testing performed by : [address] [address] Mucous, ur Present(A) MIA Comment:Testing performed by : [address] [address] Hyaline casts, ur 1-5 0 - 10 /LPF MAI Comment:Testing performed by : [address] [address] Culture Reflex Comment Reflex to urine culture will be performed. MAI Comment:Testing performed by : [address] [address] Urine 12/18/2024 7:04 PM CDT 12/18/2024 7:17 PM CDT us Jose Botello Jr., MD LAB URINE ORDERABLES Fi nal Result MAI DEL RIO [address] [facility] [employer] [place] [address] * (ABNORMAL) Urine culture Urine (12/18/2024 7:04 PM CDT) Report Final Report: Greater than or equal to 100,000 colonies/mL of Proteus mirabilis Plus growth of clinically insignificant bacterial maddie. (.) Comment:Testing performed by : [facility], [address] [place]., [address] Organism PROTEUS MIRABILIS [facility] Organism PLUS GROWTH OF CLINICALLY INSIGNIFICANT MADDIE. MAI Urine 12/18/2024 7:04 PM CDT 12/18/2024 9:31 PM CDT Narrative [facility] - 12/20/2024 3:30 PM CDT Urine culture reflexed based upon urinalysis results. Testing performed by [facility] Microbiology Laboratory ([phone]) Organism Antibiotic Method Susceptibility Proteus mirabilis Ampicillin [...] ORDER SUNDAR Final Result Performing Organization Address City/[facility]/ZIP Co de Phone Number MAI Yvette [facility] [place] [address] * (ABNORMAL) Sepsis Lactate w/ Reflex (12/18/2024 6:58 PM CDT) Sepsis Lactate 2.1(H) 0.7 - 2.0 mmol/L Comment:Testing performed by : [facility], [address] [place] [address]., [address] Blood 12/18/2024 6:58 PM CDT 12/18/2024 7:02 PM CDT Jose Botello Jr., MD LAB BLOOD ORDERABLES Fi nal Result Performing Organization Address [facility] Co de Phone Number MAI [address] [place] [address] * eGFR (12/18/2024 6:58 PM CDT) eGFR [...] was last reviewed 2021. Testing performed by: [facility], [address] [place] [address]., [address] Blood 12/18/2024 6:58 PM CDT 12/18/2024 7:02 PM CDT Jose Botello Jr., MD LAB BLOOD ORDERABLES Fi nal Result Performing Organization Address City/[facility]/ZIP Co de Phone Number MAI [facility] [place] [address] * (ABNORMAL) Differential, auto (12/18/2024 6:58 PM CDT) Neutrophil abs 9.03(H) 1.50 - 6.50 K/cumm Comment:Testing performed by : [address] [address] Imm gran abs 0.06 0.00 - 0.10 K/cumm MAI Comment:Testing performed by : [address] [address] Lymphocyte abs 2.19 0.80 - 3.30 K/cumm [facility] Comment:Testing performed by : [address] [address] Monocyte abs 0.92(H) 0.20 - 0.80 K/cumm [facility] Comment:Testing performed by : [address], [place]., [address] Eosinophil abs 0.11 0.00 - 0.50 K/cumm MAI Comment:Testing performed by : [address] [address] Basophil abs 0.03 0.00 - 0.10 K/cumm [facility] Comment:Testing performed by : [address] [address] Neutrophil pct 73.2 % [facility] Comment: Interpretive Data Percent cell count reference ranges are not reported, since discordance with absolute values may lead to misinterpretation of CBC data. Current Interpretive Data was last revised on 2017. Testing performed by: [address] [address] Imm gran pct 0.5 % [facility] Comment: Interpretive Data Percent cell count reference ranges are not reported, since discordance with absolute values may lead to misinterpretation of CBC data. Current Interpretive Data was last revised on 2017. Testing performed by: [address] [address] Lymphocyte pct 17.7 % [facility] Comment: Interpretive Data Percent cell count reference ranges are not reported, since discordance with absolute values may lead to misinterpretation of CBC data. Current Interpretive Data was last revised on 2017. Testing performed by: [address] [address] Monocyte pct 7.5 % MAI DEL RIO Comment: Interpretive Data Percent cell count reference ranges are not reported, since discordance with absolute values may lead to misinterpretation of CBC data. Current Interpretive Data was last revised on 2017. Testing performed by: [address] [address] Eosinophil pct 0.9 % MAI Comment: Interpretive Data Percent cell count reference ranges are not reported, since discordance with absolute values may lead to misinterpretation of CBC data. Current Interpretive Data was last revised on 2017. Testing performed by: [address] [address] Basophil pct 0.2 % MAI Comment: Interpretive Data Percent cell count reference ranges are not reported, since discordance with absolute values may lead to misinterpretation of CBC data. Current Interpretive Data was last revised on 2017. Testing performed by: [address] [address] Blood 12/18/2024 6:58 PM CDT 12/18/2024 7:02 PM CDT us Jose Botello Jr., MD LAB BLOOD ORDERABLES [facility] Result MAI [address] [facility] Department [place] [address] * (ABNORMAL) CBC with auto differential (12/18/2024 6:58 PM CDT) WBC 12.34(H) 3.80 - 9.90 K/cumm Comment:Testing performed by : [address] [address] Hgb 13.8 11.9 - 15.5 g/dL [facility]I [facility] RIO Comment:Testing performed by : [address] [address] Hct 40.6 35.6 - 45.5 % MAI DEL RIO Comment:Testing performed by : [address] [address] Plt 146(L) 150 - 400 K/cumm MAI Comment:Testing performed by : [address] [address] MPV 9.4 9.1 - 12.3 fL MAI Comment:Testing performed by : [address] [address] RBC 4.95 3.90 - 5.20 M/cumm MAI Comment:Testing performed by : [address] [address] MCV 82.0 81.3 - 96.4 fL MAI Comment:Testing performed by : [address], [address] MCH 27.9 27.1 - 33.3 pg MAI Comment:Testing performed by : [address] [address] MCHC 34.0 32.3 - 35.7 g/dL MAI Comment:Testing performed by : [address] [address] RDW CV 13.8 11.1 - 14.9 % MAI Comment:Testing performed by : [address] [address] RDW SD 40.8 35.7 - 48.1 fL MAI Comment:Testing performed by : [address] [address] NRBC abs 0.00 0.00 - 0.01 K/cumm MAI Comment:Testing performed by : [address] [address] Blood 12/18/2024 6:58 PM CDT 12/18/2024 7:02 PM CDT us Jose Botello Jr., MD LAB BLOOD ORDERABLES Fi nal Result MAI [address] [facility] Department [place] [address] * (ABNORMAL) Erythrocyte sedimentation rate (12/18/2024 6:58 PM CDT) [facility] Erythrocyte sedimentation rate 53(H) 1 - 30 mm/hr Comment:Testing performed by : [address] [address] Blood 12/18/2024 6:58 PM CDT 12/18/2024 7:02 PM CDT Jose Botello Jr., MD LAB BLOOD ORDERABLES nal Result Performing Organization Address [facility] de Phone Number [address] [place] [address] * (ABNORMAL) CRP (acute phase) (12/18/2024 6:58 PM CDT) [facility] CRP 54.6(H) <=10.0 mg/L Comment:Testing performed by : [address] [address] Blood 12/18/2024 6:58 PM CDT 12/18/2024 7:02 PM CDT Jose Botello Jr., MD LAB BLOOD ORDERABLES nal Result Performing Organization Address [facility] de Phone Number [address] [address] * (ABNORMAL) Hemoglobin A1c (12/18/2024 6:58 PM CDT) [facility] Hgb A1C 7.3(H) 4.0 - 5.6 % Comment:Testing performed by : [address] [address] Estimated Average Glucose 163 mg/dL [facility] Comment: The ADA recommends reporting an estimated Average Glucose (eAG) with all Hemoglobin A1c results using the equation derived from a study of 507 normal and diabetic adults. Minority populations were underrepresented and children were not included. (Diabetes Care 31:5147-9123, 2008). The eAG is not equivalent to a fasting glucose. Testing performed by: [address] [address] Blood 12/18/2024 6:58 PM CDT 12/19/2024 1:03 AM CDT Lulu Hussein MD LAB BLOOD ORDER SUNDAR Final Result [facility] [address] [facility] Department [place] [address] * (ABNORMAL) Comprehensive metabolic panel (12/18/2024 6:58 PM CDT) Sodium 135 135 - 145 mmol/L Comment:Testing performed by : [address] [address] Potassium, pl 3.8 3.3 - 4.9 mmol/L MAI Comment:Testing performed by : [address] [address] Chloride 96(L) 97 - 110 mmol/L MAI Comment:Testing performed by : [address] [address] CO2 25 22 - 32 mmol/L MAI Comment:Testing performed by : [address] [address] Anion gap 14 2 - 15 mmol/L MAI Comment:Testing performed by : [address] [address] BUN 23 6 - 25 mg/dL MAI Comment:Testing performed by : [address] [address] Creatinine 1.00 0.60 - 1.10 mg/dL MAI Comment:Testing performed by : [address] [address] Glucose 281(H) 70 - 199 mg/dL MAI [...] was last revised 2022. Testing performed by: [address] [address] Calcium 9.3 8.5 - 10.3 mg/dL MAI Comment:Testing performed by : [address] [address] Bilirubin, total 0.5 0.1 - 1.2 mg/dL MAI Comment:Testing performed by : [address] [address] Protein, pl 7.6 6.5 - 8.5 g/dL MAI Comment:Testing performed by : [address] [address] Albumin 4.1 3.5 - 5.0 g/dL [facility] Comment:Testing performed by : [address] [address] Alk phos 107 40 - 130 Units/L [facility] Comment:Testing performed by : [address] [address] ALT 39 7 - 45 Units/L MAI Comment:Testing performed by : [address] [address] AST 28 10 - 45 Units/L MAI Comment:Testing performed by : [address] [address] Blood 12/18/2024 6:58 PM CDT 12/18/2024 7:02 PM CDT us Jose Botello Jr., MD LAB BLOOD ORDERABLES Fi nal Result MAI [address] [facility] Department [place] [address] * (ABNORMAL) POCT glucose (12/18/2024 6:46 PM CDT) [facility] Signature Glucose, POC 275(H) 70 - 199 mg/dL Comment:Testing performed by : [facility], [address] [place] [address]., [address] Glucose comment 1 RN/MD Notified MAI DEL RIO Comment:Testing performed by : [facility], [address] [place] [address]., [address] Blood 12/18/2024 6:46 PM CDT 12/18/2024 6:46 PM CDT us Notinfile Unknown LAB POCT ORDERABLES - DEVICE F inal Result MAI DEL RIO [address] [facility] Department [place] [address] * CT KUB Stone WO [...] by Abdifatah Banda M.D. JR: Report ID: [id number] Reading Location: [id number] Procedure Note Abdifatah Banda MD - 11/22/2024 [...] by Abdifatah Banda M.D. JR: Report ID: [id number] Reading Location: [place] [address] Rosalio Arriola MD IMG CT PROCEDURES Final [...] it. Electronically signed by: Keshia Mendez M.D. us Thor Ricci MD IMG CT PROCEDURES Final Result * (ABNORMAL) Albumin Creatinine Ratio, Urine (02/28/2024 7:29 AM CDT) Albumin Ur 85.0 mg/L Comment: Interpretive Data No reference range established. Current interpretive data was last revised 2018. Testing performed by: [address] [address] Creatinine Ur 96.7 mg/dL MAI Comment: Interpretive Data No reference range established. Current interpretive data was last revised 2018. Testing performed by: [address] [address] Albumin Creatinine Ratio, Ur 88(H) 1 - 29 mg/g MAI Comment:Testing performed by : [address] [address] Urine 02/28/2024 7:29 AM CDT 02/28/2024 9:49 AM CDT us Javier MARTÍNEZ LAB URINE ORDERABLES Final Resu lt MAI [address] [facility] [place] [address] * SCREENING MAMMOGRAM BILATERAL W [...] age 40, based on guidelines of the [place] [employer] (ACR Practice Parameter for the Performance of Screening and Diagnostic Mammography) and [place] [employer]. For women [...] CDT 09/16/2022 9:51 AM CDT Narrative PATHOLOGY H - 09/20/2022 3:40 PM CDT [facility] Department of Pathology [address] [place] [id number] Final Report with Addendum Note to [...] the details. Patient Name: CECE SOARES Address: [address] [place] [id number] Gender: F : 1960 (Age: 62) Service: Location: [facility] : [id number] Hospital #: [id number] Patient Type: [facility] SPEC[facility] Taken: 09/15/2022 Received: 09/16/2022 Accessioned:: 09/19/2022 Reported: 09/20/2022 Physician(s): Cece Singer [facility] Emergency Diagnosis: SOURCE OF SPECIMEN SCREENING THIN PREP [...] determined by the Surgical Pathology Department at [facility] as part of an ongoing water quality assistant program and in compliance with federally mandated [...] characteristics determined by the Surgical Pathology Department [facility]. It has not been cleared or approved by the U. S. Food and Drug Administration. Cece Singer CNM LAB CYTOLOGY ORDERABLES Final Result Performing Organization Address City/State/[facility] Co de Phone Number PATHOLOGY [facility] * Colonoscopy (08/09/2018 4:37 PM CDT) [...] Date Diagnosed Date Autogenerated Problem 11/20/2024 Insurance MEDICARE [facility]PPO Address: [facility] [address] [place] [address] MEDICARE MEDICARE [facility]/PPO Address: [address] [address] [place] [address] Advance Directives For more information, please contact: [phone] Documents on File Type Date Recorded Patient Sock Lining Stitcher Expl anation ADVANCE DIRECTIVE 09/13/2023 10:13 AM [...] Second Alternate Health Care Agent Care Teams Documentation Spec Relationship Specialty Start Date End Date Javier Chan PA [address] [facility] [address] [place], [place] [address] PCP - General Family Medicine 07/24/24 Nan Calderon MD [address] [facility] [address] [place] [address] PCP - Home Infusion Attending Infectious Diseases 12/27/24 Yony Urrutia MD [address] [facility] [address] [place] [address] Endocrinology Diabetes & Metabolism 06/17/22 OmahaConnor MD [address] [facility] [address] [place] [address] Consulting Physician Urology 09/16/23 Richar Butler MD [address] [facility] 200 [place], [place] [address] Cardiothoracic Surgery 08/16/24 Gilberto Love MD [address] [facility] [address] [place] [address] Consulting Physician Cardiology 08/16/24 Nan Calderon MD [address] [facility] [address] [place] [address] Consulting Physician Infectious Diseases 12/27/24 Juan Teixeira MD [address] [facility] [address] [address] Consulting Physician Vascular Surgery 12/27/24 Amy Floyd, [facility] Pharmacist Pharmacy 12/27/24
--- OUTSIDE RECORDS SUMMARY | 2025-01-13 15:24 | XMS_ITS | Clinical Summary ---
Author Organization Unknown Care Team Providers Care Group Insurance Special Agent Name Role Phone FREDDIE CUEVAS, PARRISH Unavailable Unavailable GLORIA AUGUSTE, PHOEBE Unavailable Unavailable XANDER HADDAD, MORE Unavailable Unavailabl e Payers Payer Name Policy Type Policy Number Effective Date Expira tion Date MEDICARE - [facility] - [facility] [id number] Problems Condition Name Condition Details Condition Category Status Onset Date Resolution Date Last Treatment Date Treating Clinician Comments ENCOUNTER FOR ORTHOPEDIC AFTERCARE FOLLOWING SURGICAL AMP Active 05-29 00:00: 00 ACQUIRED ABSENCE OF OTHER LEFT TOE(S) Active 05-29 00:00: 00 TYPE 2 DIABETES MELLITUS WITH FOOT ULCER Active 05-29 00:00: 00 NON-PRS CHRONIC ULCER OTH PRT RIGHT FOOT WITH OTH SEVERITY Active 05-29 00:00: 00 TYPE 2 DIABETES MELLITUS WITH DIABETIC POLYNEUROPAT HY Active 05-29 00:00: 00 GUILLAIN-BAR RE SYNDROME Active 05-29 00:00: 00 PENITENTIARY (CURRENT) USE OF INSULIN Active 05-29 00:00: 00 ANXIETY DISORDER, UNSPECIFIED Active 05-29 00:00: 00 ESSENTIAL (PRIMARY) HYPERTENSION Active 05-29 00:00: 00 HYPERLIPIDEM IA, UNSPECIFIED Active 05-29 00:00: 00 UNSPECIFIED OSTEOARTHRIT IS, UNSPECIFIED SITE Active 05-29 00:00: 00 UNSPECIFIED HEARING LOSS, UNSPECIFIED EAR Active 05-29 00:00: 00 OBESITY, UNSPECIFIED Active 05-29 00:00: 00 BODY MASS INDEX [BMI] 37.0-37.9, ADULT Active 05-29 00:00: 00 RESTLESS LEGS SYNDROME Active 05-29 00:00: 00 SLEEP APNEA, UNSPECIFIED Active 05-29 00:00: 00 VITAMIN D DEFICIENCY, UNSPECIFIED Active 05-29 00:00: 00 PERSONAL HISTORY OF NICOTINE DEPENDENCE Active 05-29 00:00: 00 PERSONAL HISTORY OF OTHER VENOUS THROMBOSIS AND EMBOLISM Active 05-29 00:00: 00 PRESENCE OF PROSTHETIC HEART VALVE Active 05-29 00:00: 00 PENITENTIARY (CURRENT) USE OF ANTICOAGULAN TS Active 05-29 00:00: 00 LNG TRM (CRNT) USE INJECTABLE NON-INSULIN ANTIDIABETIC DRUGS Active 05-29 00:00: 00 Problems related to health literacy Active 05-29 00:00: 00 Allergies, Adverse Reactions, Alerts Allergy Name Allergy Type Status Severity Reaction(s) Onset Date Inactive Date Treating Clinician Comments NEOSTIGMINE Propensity to adverse reactions Active 12-29 02:04: 13 PNEUMOCOCCAL 13-VALENT CONJUGA Propensity to adverse reactions Active 12-29 02:04: 35 PREVNAR Propensity to adverse reactions Active 12-29 02:04: 47 PNEUMONIA VACCINE Propensity to adverse reactions Active 12-29 02:05: 00 Immunizations Ordered Immunization Name Filled Immunization Name Date Status Comments Refusal Reason REFUSED PNEUMONIA, PPV 2024-12-28 00:00:00 COVID BOOSTER, COVID BOOSTER 2023-12-28 00:00:00 Vital Signs Vital Name Observation Time Observation Value Commen ts Temperature 2025-01-09 07:29:00.000 97.8 [degF] Temperature 2025 13:21:00.000 98.5 [degF] Temperature 2025-01-01 08:06:00.000 98.7 [degF] Temperature 2024-12-30 15:04:00.000 98.2 [degF] Temperature 2024-12-28 14:59:00.000 97.6 [degF] BMI (%) 2024-12-28 14:59:00.000 37 kg/m2 Height 2024-12-28 14:59:00.000 71 [in_us] Pulse 2025-01-09 07:29:00.000 83 /min Pulse 2025 13:21:00.000 70 /min Pulse 2025-01-01 08:06:00.000 78 /min Pulse 2024-12-30 15:04:00.000 75 /min Pulse 2024-12-28 14:59:00.000 72 /min O2 Saturation (%) 2025-01-09 07:29:00.000 98 % O2 Saturation (%) 2025 13:21:00.000 96 % O2 Saturation (%) 2025-01-01 08:06:00.000 97 % O2 Saturation (%) 2024-12-30 15:04:00.000 98 % O2 Saturation (%) 2024-12-28 14:59:00.000 97 % Respirations 2025-01-09 07:29:00.000 18 /min Respirations 2025 13:21:00.000 18 /min Respirations 2025-01-01 08:06:00.000 18 /min Respirations 2024-12-30 15:04:00.000 18 /min Respirations 2024-12-28 14:59:00.000 16 /min Weight (lbs) 2024-12-28 14:59:00.000 267 [lb_av] Systolic Blood Pressure 2025-01-09 07:29:00.000 124 mm [Hg] Systolic Blood Pressure 2025 13:21:00.000 150 mm [Hg] Systolic Blood Pressure 2025-01-01 08:06:00.000 123 mm [Hg] Systolic Blood Pressure 2024-12-30 15:04:00.000 130 mm [Hg] Systolic Blood Pressure 2024-12-28 14:59:00.000 112 mm [Hg] Diastolic Blood Pressure 2025-01-09 07:29:00.000 76 mm [Hg] Diastolic Blood Pressure 2025 13:21:00.000 80 mm [Hg] Diastolic Blood Pressure 2025-01-01 08:06:00.000 80 mm [Hg] Diastolic Blood Pressure 2024-12-30 15:04:00.000 86 mm [Hg] Diastolic Blood Pressure 2024-12-28 14:59:00.000 68 mm [Hg] Plan of Treatment Planned Activity Planned Date Details Comments Future Scheduled Test SKILLED NU RSE TO EVALUATE PATIENT, IDENTIFY PRIMARY AND CO-MORBID CONDITIONS CODED PER CODING GUIDELINES, AND DEVELOP PATIENT SPECIFIC PLAN OF CARE THAT INCLUDES PATIENT GOAL FOR HOME HEALTH. [code = SKILLED NURSE TO EVALUATE PATIENT, IDENTIFY PRIMARY AND CO-MORBID CONDITIONS CODED PER CODING GUIDELINES, AND DEVELOP PATIENT SPECIFIC PLAN OF CARE THAT INCLUDES PATIENT GOAL FOR HOME HEALTH.] Future Scheduled Test [facility] MAY ACCEPT ORDERS FROM THE FOLLOWING PHYSICIANS: CHASE CELIS PA, STORE DIRECTOR/TREATING PROVIDERS. [code = HOME HEALTH AGENCY MAY ACCEPT ORDERS FROM THE FOLLOWING PHYSICIANS: CHASE CELIS PA, STORE DIRECTOR/TREATING PROVIDERS.] Future Scheduled Test SKILLED NU RSE TO ASSESS ANXIETY AND PROVIDE ASSISTANCE TO PATIENT FOR UNDERSTANDING AND MANAGEMENT OF FEELINGS. [code = SKILLED NURSE TO ASSESS ANXIETY AND PROVIDE ASSISTANCE TO PATIENT FOR UNDERSTANDING AND MANAGEMENT OF FEELINGS.] Future Scheduled Test SKILLED NU RSE FOR O/A AND SKILLED TEACHING RELATED TO SIGNS AND SYMPTOMS OF INFECTION AND INFECTION CONTROL MEASURES. [code = SKILLED NURSE FOR O/A AND SKILLED TEACHING RELATED TO SIGNS AND SYMPTOMS OF INFECTION AND INFECTION CONTROL MEASURES.] Future Scheduled Test NEED FOR S KILLED TEACHING AND INTERVENTION RELATED TO SURGICAL WOUND TO LEFT 2ND TOE AMPUTATION. SKILLED NURSE OR TRAINED PATIENT/CAREGIVER TO PERFORM WOUND CARE USING CLEAN TECHNIQUE, CLEANSE WITH WOUND CLEANSER, PAT DRY WITH GAUZE, APPLY ADAPTIC TO WOUND BED, COVER WITH GAUZE, SECURE WITH NBA WRAP. WOUND CARE TO BE PERFORMED DAILY AND PRN IF SOILED OR DISLODGED. 1-2 PRN SKILLED NURSE VISITS FOR WOUND CARE DUE TO COMPLICATIONS. SKILLED NURSE TO OBTAIN WOUND CULTURE PRN S/S OF INFECTION. NEED FOR SKILLED TEACHING AND INTERVENTION RELATED TO DIABETIC ULCER TO RIGHT 3RD TOE. SKILLED NURSE OR TRAINED PATIENT/CAREGIVER TO PERFORM WOUND CARE USING CLEAN TECHNIQUE, CLEANSE WITH WOUND CLEANSER, PAT DRY WITH GAUZE, APPLY CALCIUM ALGINATE TO WOUND BED, COVER WITH GAUZE, SECURE WITH TAPE. WOUND CARE TO BE PERFORMED TWICE WEEKLY AND PRN IF SOILED OR DISLODGED. 1-2 PRN SKILLED NURSE VISITS FOR WOUND CARE DUE TO COMPLICATIONS. SKILLED NURSE TO OBTAIN WOUND CULTURE PRN S/S OF INFECTION. WOUND CARE WILL BE PERFORMED BY TRAINED CAREGIVER ON DAYS WHEN SKILLED NURSE IS NOT SCHEDULED FOR A VISIT. DISCONTINUE WOUND CARE/SUPPLIES ONCE WOUND IS HEALED. [code = NEED FOR SKILLED TEACHING AND INTERVENTION RELATED TO SURGICAL WOUND TO LEFT 2ND TOE AMPUTATION. SKILLED NURSE OR TRAINED PATIENT/CAREGIVER TO PERFORM WOUND CARE USING CLEAN TECHNIQUE, CLEANSE WITH WOUND CLEANSER, PAT DRY WITH GAUZE, APPLY ADAPTIC TO WOUND BED, COVER WITH GAUZE, SECURE WITH NBA WRAP. WOUND CARE TO BE PERFORMED DAILY AND PRN IF SOILED OR DISLODGED. 1-2 PRN SKILLED NURSE VISITS FOR WOUND CARE DUE TO COMPLICATIONS. SKILLED NURSE TO OBTAIN WOUND CULTURE PRN S/S OF INFECTION. NEED FOR SKILLED TEACHING AND INTERVENTION RELATED TO DIABETIC ULCER TO RIGHT 3RD TOE. SKILLED NURSE OR TRAINED PATIENT/CAREGIVER TO PERFORM WOUND CARE USING CLEAN TECHNIQUE, CLEANSE WITH WOUND CLEANSER, PAT DRY WITH GAUZE, APPLY CALCIUM ALGINATE TO WOUND BED, COVER WITH GAUZE, SECURE WITH TAPE. WOUND CARE TO BE PERFORMED TWICE WEEKLY AND PRN IF SOILED OR DISLODGED. 1-2 PRN SKILLED NURSE VISITS FOR WOUND CARE DUE TO COMPLICATIONS. SKILLED NURSE TO OBTAIN WOUND CULTURE PRN S/S OF INFECTION. WOUND CARE WILL BE PERFORMED BY TRAINED CAREGIVER ON DAYS WHEN SKILLED NURSE IS NOT SCHEDULED FOR A VISIT. DISCONTINUE WOUND CARE/SUPPLIES ONCE WOUND IS HEALED.] Future Scheduled Test SKILLED NU RSE TO OBTAIN BLOOD SUGAR PRN FOR SIGNS AND SYMPTOMS OF HYPO/HYPERGLYCEMIA. IF OBTAINED BY PATIENT/CAREGIVER PRIOR TO VISIT AND PATIENT IS NOT SYMPTOMATIC, SKILLED NURSE TO RECORD READING FROM PATIENT LOG. [code = SKILLED NURSE TO OBTAIN BLOOD SUGAR PRN FOR SIGNS AND SYMPTOMS OF HYPO/HYPERGLYCEMIA. IF OBTAINED BY PATIENT/CAREGIVER PRIOR TO VISIT AND PATIENT IS NOT SYMPTOMATIC, SKILLED NURSE TO RECORD READING FROM PATIENT LOG.] Future Scheduled Test SKILLED NU RSE TO PROVIDE TEACHING ON SIGNS AND SYMPTOMS AND MANAGEMENT OF HYPERTENSION. [code = SKILLED NURSE TO PROVIDE TEACHING ON SIGNS AND SYMPTOMS AND MANAGEMENT OF HYPERTENSION.] Future Scheduled Test SKILLED NU RSE FOR O/A AND SKILLED TEACHING RELATED TO CELLULITIS LLE. [code = SKILLED NURSE FOR O/A AND SKILLED TEACHING RELATED TO CELLULITIS LLE.] Future Scheduled Test SKILLED NU RSE FOR O/A AND TEACHING OF DIABETIC MANAGEMENT INCLUDING BLOOD SUGAR MONITORING/USE OF GLUCOMETER, DIABETIC DIET, LOWER EXTREMITY SKIN INSPECTION, PROPER SKIN/FOOT CARE, AND SIGNS AND SYMPTOMS HYPO/HYPERGLYCEMIA TO REPORT. [code = SKILLED NURSE FOR O/A AND TEACHING OF DIABETIC MANAGEMENT INCLUDING BLOOD SUGAR MONITORING/USE OF GLUCOMETER, DIABETIC DIET, LOWER EXTREMITY SKIN INSPECTION, PROPER SKIN/FOOT CARE, AND SIGNS AND SYMPTOMS HYPO/HYPERGLYCEMIA TO REPORT.] Future Scheduled Test SKILLED NU RSE TO INSTRUCT PATIENT/CAREGIVER ON PREVENTION OF SEPSIS, AND SIGNS AND SYMPTOMS OF SEPSIS TO REPORT. [code = SKILLED NURSE TO INSTRUCT PATIENT/CAREGIVER ON PREVENTION OF SEPSIS, AND SIGNS AND SYMPTOMS OF SEPSIS TO REPORT.] Future Scheduled Test SKILLED NU RSE FOR O/A AND TEACHING ON IV SITE CARE, INFUSION PROCEDURE, SIGNS AND SYMPTOMS OF INFECTION/COMPLICATIONS. SKILLED NURSE TO OBTAIN IV ACCESS TO CENTRAL LINE VIA PICC TO [facility]. SKILLED NURSE OR TRAINED PATIENT/CAREGIVER TO ADMINISTER IV THERAPY OF CEFAZOLIN 2GM/20 MLS STERILE WATER IV PUSH OVER 3-5 MINS EVERY 8 HRS, FLUSH WITH 10 MLS NS BEFORE AND AFTER INFUSION FOLLOWED BY 5 MLS HEPARIN 10 U/ML. SKILLED NURSE TO CHANGE DRESSING USING STERILE TECHNIQUE WEEKLY AND PRN FOR SOILED OR LOOSE DRESSING. [code = SKILLED NURSE FOR O/A AND TEACHING ON IV SITE CARE, INFUSION PROCEDURE, SIGNS AND SYMPTOMS OF INFECTION/COMPLICATIONS. SKILLED NURSE TO OBTAIN IV ACCESS TO CENTRAL LINE VIA PICC TO [facility]. SKILLED NURSE OR TRAINED PATIENT/CAREGIVER TO ADMINISTER IV THERAPY OF CEFAZOLIN 2GM/20 MLS STERILE WATER IV PUSH OVER 3-5 MINS EVERY 8 HRS, FLUSH WITH 10 MLS NS BEFORE AND AFTER INFUSION FOLLOWED BY 5 MLS HEPARIN 10 U/ML. SKILLED NURSE TO CHANGE DRESSING USING STERILE TECHNIQUE WEEKLY AND PRN FOR SOILED OR LOOSE DRESSING.] Future Scheduled Test SKILLED NU RSE TO OBTAIN BLOOD SPECIMEN VIA VENIPUNCTURE AND/OR PICC LINE FOR CBC WITH DIFF, CMP, ESR LABS WEEKLY STARTING 12/30/24. DIAGNOSIS: OSTEOMYELITIS LEFT ANKLE/FOOT. OBTAIN LAB RESULTS AND FAX TO [facility] AND DR NAN CRAIN. [code = SKILLED NURSE TO OBTAIN BLOOD SPECIMEN VIA VENIPUNCTURE AND/OR PICC LINE FOR CBC WITH DIFF, CMP, ESR LABS WEEKLY STARTING 12/30/24. DIAGNOSIS: OSTEOMYELITIS LEFT ANKLE/FOOT. OBTAIN LAB RESULTS AND FAX TO [facility] AND DR NAN CRAIN. ] Future Scheduled Test SKILLED NU RSE FOR O/A AND SKILLED TEACHING RELATED TO SIGNS AND SYMPTOMS AND MANAGEMENT OF OSTEOMYELITIS LEFT FOOT/ANKLE. [code = SKILLED NURSE FOR O/A AND SKILLED TEACHING RELATED TO SIGNS AND SYMPTOMS AND MANAGEMENT OF OSTEOMYELITIS LEFT FOOT/ANKLE.] Future Scheduled Test PATIENT KIRAN S A RISK OF HOSPITALIZATION AND ED USE. SKILLED NURSE TO ESTABLISH SUPPORT MEASURES TO MINIMIZE RISK OF HOSPITALIZATION AND ED USE, AND INSTRUCT PATIENT/CAREGIVER ON METHODS TO REDUCE AVOIDABLE HOSPITALIZATION AND ED USE. [code = PATIENT HAS A RISK OF HOSPITALIZATION AND ED USE. SKILLED NURSE TO ESTABLISH SUPPORT MEASURES TO MINIMIZE RISK OF HOSPITALIZATION AND ED USE, AND INSTRUCT PATIENT/CAREGIVER ON METHODS TO REDUCE AVOIDABLE HOSPITALIZATION AND ED USE.] Future Scheduled Test SKILLED NU RSE TO PROVIDE INSTRUCTION TO PATIENT/CAREGIVER RELATED TO DISCHARGE PLANNING. [code = SKILLED NURSE TO PROVIDE INSTRUCTION TO PATIENT/CAREGIVER RELATED TO DISCHARGE PLANNING.] Future Scheduled Test SKILLED NU RSE TO PERFORM ENVIRONMENTAL SAFETY RISK ASSESSMENT AND FALL RISK ASSESSMENT AND PROVIDE INSTRUCTION TO IMPLEMENT ENVIRONMENTAL SAFETY AND FALL PREVENTION STRATEGIES THROUGHOUT THE CERTIFICATION PERIOD. SKILLED NURSE WILL MAINTAIN SITUATIONAL AWARENESS AND WILL NOTIFY CLINICAL TEACHER MUSIC AND PHYSICIAN/PROVIDER WITH ANY CHANGE IN CONDITION. [code = SKILLED NURSE TO PERFORM ENVIRONMENTAL SAFETY RISK ASSESSMENT AND FALL RISK ASSESSMENT AND PROVIDE INSTRUCTION TO IMPLEMENT ENVIRONMENTAL SAFETY AND FALL PREVENTION STRATEGIES THROUGHOUT THE CERTIFICATION PERIOD. SKILLED NURSE WILL MAINTAIN SITUATIONAL AWARENESS AND WILL NOTIFY CLINICAL TEACHER MUSIC AND PHYSICIAN/PROVIDER WITH ANY CHANGE IN CONDITION.] Future Scheduled Test SKILLED NU RSE FOR OBSERVATION AND ASSESSMENT OF PATIENTS PAIN LEVEL AND EFFECTIVENESS OF PAIN MANAGEMENT REGIMEN. SKILLED NURSE TO INSTRUCT PATIENT/CAREGIVER REGARDING PHARMACOLOGIC AND NON-PHARMACOLOGIC PAIN CONTROL MEASURES. SKILLED NURSE TO REPORT TO PHYSICIAN IF PAIN LEVEL IS OUTSIDE OF ESTABLISHED PARAMETERS. [code = SKILLED NURSE FOR OBSERVATION AND ASSESSMENT OF PATIENTS PAIN LEVEL AND EFFECTIVENESS OF PAIN MANAGEMENT REGIMEN. SKILLED NURSE TO INSTRUCT PATIENT/CAREGIVER REGARDING PHARMACOLOGIC AND NON-PHARMACOLOGIC PAIN CONTROL MEASURES. SKILLED NURSE TO REPORT TO PHYSICIAN IF PAIN LEVEL IS OUTSIDE OF ESTABLISHED PARAMETERS.] Future Scheduled Test SKILLED NU RSE TO ASSESS PATIENT'S SKIN INTEGRITY AND INSTRUCT PATIENT/CAREGIVER ON MEASURES TO PREVENT PRESSURE ULCERS. [code = SKILLED NURSE TO ASSESS PATIENT'S SKIN INTEGRITY AND INSTRUCT PATIENT/CAREGIVER ON MEASURES TO PREVENT PRESSURE ULCERS.] Future Scheduled Test SN TO INST RUCT PATIENT/CAREGIVER ON METHODS TO MANAGE WOUNDS AND MAINTAIN HEALTHY SKIN UTILIZING THE CLEAR SPECIALTY PROGRAM. [code = SN TO INSTRUCT PATIENT/CAREGIVER ON METHODS TO MANAGE WOUNDS AND MAINTAIN HEALTHY SKIN UTILIZING THE CLEAR SPECIALTY PROGRAM.] Future Scheduled Test SKILLED NU RSE TO REVIEW PATIENT MEDICATIONS (PRESCRIPTION/OTC). INSTRUCT PATIENT/CAREGIVER ON ALL MEDICATIONS INCLUDING PURPOSE, WHEN TO TAKE, IMPORTANCE OF MEDICATION ADHERENCE, MONITORING OF EFFECTIVENESS, ADVERSE DRUG REACTIONS, POSSIBLE SIDE EFFECTS, AND WHEN TO NOTIFY AGENCY OR PHYSICIAN/PROVIDER OF ANY CONCERNS. [code = SKILLED NURSE TO REVIEW PATIENT MEDICATIONS (PRESCRIPTION/OTC). INSTRUCT PATIENT/CAREGIVER ON ALL MEDICATIONS INCLUDING PURPOSE, WHEN TO TAKE, IMPORTANCE OF MEDICATION ADHERENCE, MONITORING OF EFFECTIVENESS, ADVERSE DRUG REACTIONS, POSSIBLE SIDE EFFECTS, AND WHEN TO NOTIFY AGENCY OR PHYSICIAN/PROVIDER OF ANY CONCERNS.] Future Scheduled Test SKILLED NU RSE FOR O/A, TEACHING AND MANAGEMENT OF URINARY TRACT INFECTION. [code = SKILLED NURSE FOR O/A, TEACHING AND MANAGEMENT OF URINARY TRACT INFECTION.] Goal Patient Goal - H EAL WOUND AND COMPLETE IV ANTIBIOTICS Goal Provider Goal - A PLAN OF CARE WILL BE ESTABLISHED THAT MEETS PATIENT'S SENIOR CARE NEEDS AND INCLUDES PATIENT GOAL FOR HOME HEALTH. Goal Provider Goal - ADDITIONAL ORDERS WILL BE RECEIVED FROM ALTERNATE PHYSICIAN IN A TIMELY MANNER THROUGHOUT THE CERTIFICATION PERIOD. Goal Provider Goal - SYMPTOMS OF ANXIETY ARE IDENTIFIED AND INTERVENTIONS INITIATED TO ENABLE PATIENT TO UNDERSTAND AND MANAGE FEELINGS THROUGHOUT EPISODE. Goal Provider Goal - PATIENT/CAREGIVER WILL VERBALIZE/DEMONSTRATE UNDERSTANDING OF S/S OF INFECTION AND INFECTION CONTROL MEASURES. SIGNS AND SYMPTOMS OF INFECTION WILL BE IDENTIFIED AND PHYSICIAN NOTIFIED FOR PROMPT INTERVENTION THROUGHOUT THE CERTIFICATION PERIOD. Goal Provider Goal - WOUND CARE WILL BE COMPLETED AND PATIENT WILL HAVE IMPROVED WOUND STATUS EVIDENCED BY NO SIGNS AND SYMPTOMS OF INFECTION, DECREASED WOUND SIZE, AND/OR NO COMPLICATIONS BY THE END OF THE CERTIFICATION PERIOD. Goal Provider Goal - BLOOD SUGAR READING WILL BE OBTAINED ORDERED THROUGHOUT CERTIFICATION PERIOD. Goal Provider Goal - PATIENT/CAREGIVER WILL VERBALIZE SIGNS AND SYMPTOMS OF HYPERTENSION AND WILL BE ABLE TO DEMONSTRATE ABILITY TO MANAGE EXACERBATION BY END OF THE EPISODE. Goal Provider Goal - PATIENT/CAREGIVER WILL VERBALIZE/DEMONSTRATE UNDERSTANDING OF TEACHING RELATED TO ALTERED CELLULITIS LLE BY END OF CERTIFICATION PERIOD. Goal Provider Goal - PATIENT/CAREGIVER WILL VERBALIZE/DEMONSTRATE KNOWLEDGE OF DIABETIC MANAGEMENT. CHANGES IN DIABETIC STATUS WILL BE IDENTIFIED AND REPORTED TO PHYSICIAN FOR PROMPT INTERVENTION THROUGHOUT THE CERTIFICATION PERIOD. Goal Provider Goal - PATIENT WILL BE FREE FROM INFECTION AND PATIENT/CAREGIVER WILL VERBALIZE UNDERSTANDING OF SIGNS AND SYMPTOMS AND METHODS TO PREVENT SEPSIS BY END OF THE EPISODE. Goal Provider Goal - PATIENT WILL VERBALIZE/DEMONSTRATE TOLERANCE TO CENTRAL LINE ACCESS PROCEDURE, IV MEDICATION ADMINISTRATION, AND DRESSING CHANGES ORDERED THROUGH CERTIFICATION PERIOD. Goal Provider Goal - SKILLED NURSE TO PERFORM LAB PROCEDURE AND REPORT RESULTS TO PHYSICIAN. Goal Provider Goal - PATIENT/CAREGIVER WILL VERBALIZE UNDERSTANDING OF MUSCULOSKELETAL DISEASE INCLUDING SIGNS AND SYMPTOMS, MANAGEMENT, AND PRESCRIBED TREATMENT REGIMEN BY END OF EPISODE. Goal Provider Goal - PATIENT WILL HAVE SUPPORT MEASURES ESTABLISHED TO PREVENT HOSPITALIZATION AND ED USE AND PATIENT/CAREGIVER WILL VERBALIZE/DEMONSTRATE METHODS TO REDUCE AVOIDABLE HOSPITALIZATION AND ED USE BY END OF EPISODE. Goal Provider Goal - PATIENT/CAREGIVER WILL VERBALIZE UNDERSTANDING OF DISCHARGE PLANNING INSTRUCTIONS BY DATE OF DISCHARGE. Goal Provider Goal - PATIENT/CAREGIVER WILL VERBALIZE/DEMONSTRATE EFFECTIVE ENVIRONMENTAL SAFETY AND FALL PREVENTION STRATEGIES, WILL REMAIN SAFE IN THE COMMUNITY, AND WILL BE FREE OF DANGER TO SELF AND OTHERS THROUGHOUT THE CERTIFICATION PERIOD. Goal Provider Goal - PATIENT/CAREGIVER WILL DEMONSTRATE UNDERSTANDING OF PHARMACOLOGIC AND NONPHARMACOLOGIC PAIN CONTROL MEASURES AND PATIENT WILL HAVE IMPROVEMENT IN PAIN INTERFERING WITH ACTIVITY EVIDENCED BY PAIN AT A LEVEL THAT IS ACCEPTABLE TO THE PATIENT AND PAIN LEVEL WITHIN ESTABLISHED PARAMETERS BY END OF CERTIFICATION PERIOD. Goal Provider Goal - PATIENT/CAREGIVER WILL VERBALIZE UNDERSTANDING OF PRESSURE ULCER PREVENTION BY END OF THE EPISODE. Goal Provider Goal - PATIENT/CAREGIVER WILL DEMONSTRATE METHODS TO MANAGE WOUNDS AND MAINTAIN HEALTHY SKIN A RESULT OF PARTICIPATION IN CLEAR SPECIALTY PROGRAM. Goal Provider Goal - PATIENT/CAREGIVER WILL VERBALIZE UNDERSTANDING OF EDUCATION PROVIDED ON MEDICATIONS BY THE END OF THE CERTIFICATION PERIOD. Goal Provider Goal - PATIENT/CAREGIVER WILL VERBALIZE UNDERSTANDING OF URINARY TRACT INFECTION DISEASE PROCESS AND MANAGEMENT. PATIENT WILL BE FREE OF S/S OF UTI UPON COMPLETION OF TREATMENT OF UTI. Progress Notes Progress Notes <paragraph>[Visit Date: 2024 by MARTINE YEBOAH LPN]:</paragraph><paragraph>CHIO WAS SEEN TODAY FOR A ROUTINE SENIOR CARE VISIT WITH WOUND CARE. SHE IS ALERT AND ORIENTED X4, PLEASANT AND COOPERATIVE THROUGHOUT VISIT. SHE REMAINS HOMEBOUND RELATED TO NEED OF ASSISTANCE OF ANOTHER PERSON AND ASSISTIVE DEVICE TO LEAVE HOME SAFELY. SHE DENIED ANY FALLS, ER VISITS, OR CHANGES IN MEDICATION SINCE LAST VISIT. VITAL SIGNS STABLE. LUNG SOUNDS CLEAR TO AUSCULTATION BILATERALLY. DENIED ANY COUGH OR SHORTNESS OF BREATH. HEART RHYTHM IRREGULAR. DENIED ANY CHEST PAIN, LIGHTHEADEDNESS OR DIZZINESS. BOWEL SOUNDS PRESENT X4 QUADRANTS. ABDOMEN SOFT, NONDISTENDED. DENIED ANY DYSURIA, FREQUENCY, URGENCY, OR CHANGES IN COLOR OR CHARACTERISTICS OF URINE. WOUND CARE PROVIDED USING ASEPTIC TECHNIQUE. CHIO TOLERATED WOUND CARE WELL WITHOUT COMPLAINTS OF PAIN OR DISCOMFORT. WOUNDS DOCUMENTED IN [facility] AND [facility]. NO SIGNS OR SYMPTOMS OF INFECTION OBSERVED OR REPORTED. EDUCATION THIS VISIT FOCUSED ON WOUND CARE, INFECTION PREVENTION AND CONTROL INCLUDING HAND HYGIENE, AND SIGNS AND SYMPTOMS OF INFECTION. MEDICATIONS REVIEWED. ACTION PLAN IS REVIEWED. CALENDAR REVIEWED FOR UPCOMING VISITS. CHIO VOICED UNDERSTANDING TO ALL EDUCATION DENIED HAVING ANY QUESTIONS. SHE IS REMINDED THAT JEFFREY CARES AND TO CALL US FIRST WITH ANY QUESTIONS, CONCERNS, OR CHANGES IN CONDITION.</paragraph> Encounters Start Date/Time End Date/Time Encounter Type Admission Type Attending [facility] Facility Care Department Encounter ID Discharge Date Discharge Status Discharge Condition Discharge Reason Percent Goals Met 2024-12-28 00:00:00 2025-02-25 00:00:00 Outpatient NEW ADMISSION [facility] [id number] 50.00
--- OUTSIDE RECORDS SUMMARY | 2025-01-13 15:24 | XMS_ITS | Encounter Summary ---
Author Organization [facility] Address [address] [place] [address] Phone Care Team Providers Care Construction Laborer Name Role Phone Yony Urrutia MD Unavailable [phone] Connor Mckenzie MD Unavailable [phone] Javier Chan Primary Care Provider [phone] Richar Butler MD Unavailable [phone] Gilberto Love MD Unavailable [phone] Kurt Calderon MD Unavailable [phone] Juan Teixeira MD Unavailable [phone] Kurt Calderon MD Unavailable [phone] Amy Floyd [facility] Unavailable Unavailable Encounter Details Date Type Department Care Team (Late st Contact Info) Description 12/23/2024 Telephone [facility] Cardiology [address] [facility] 8th [place] [address] [place] [address] Priya Whitfield MD [address] [facility] [place] [address] Social History Tobacco Use Types Packs/Day Years Used Date Smoking Tobacco: Former Cigarettes 0.8 20.1 0 05/29/1984 - 07/06/2004 Passive Smoke Exposure: Past Smokeless Tobacco: Never Alcohol Use Standard Drinks/Week Comments Yes 0 (1 standard drink = 0.6 oz pur e alcohol) [facility] Utilities Answer Date Recorded In the past [...] often do you attend chur ch or congregational services? Never 12/19/2024 Do you belong to any clubs o r organizations such as hindu groups, unions, fraternal or athletic groups, or [...] place to sleep or slept in a half-way (including now)? No 06/16/2022 Housing Stability Vital Sign Answer Galindo e Recorded In the last 12 months, was t here a time when you were not able to pay the mortgage or rent on time? No 12/19/2024 In the past 12 months, how m any times have you moved where you were living? 0 12/19/2024 At any time in the past 12 m [facility], were you homeless or living in a half-way (including now)? No 12/19/2024 Personal Safety Answer Date Recorded Have you ever been in or are you currently in a harmful physical or emotional relationship or is someone making you feel afraid or unsafe? 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 * Telephone Encounter - Bianca Hicks - 12/23/2024 2:02 PM CDT Nahid Calling to reschedule. Her 01/02/25 appt's were cancelled ( out of office) documented in this encounter Plan of Treatment Upcoming Encounters Date Type Department Care Team (Late st Contact Info) Description 01/28/2025 11:50 AM CDT Hospital Encounter [facility] [address] [place] [address] Rosalio Arriola MD [address] [address] 01/28/2025 11:50 AM CDT - 01/28/2025 2:20 PM CDT Surgery [facility] [address] [place] [address] Rosalio Arriola MD [address] [address] LITHOTRIPSY - LASER Scheduled Procedures Name Priority Associated Diagnoses Date/Ti tn LITHOTRIPSY - LASER Renal stones 01/28/2025 11:50 [...] documented as of this encounter Care Teams Construction Laborer Relationship Specialty Start Date End Date Javier Chan PA [address] [facility] [address] [place] [address] PCP - General Family Medicine 07/24/24 Kurt Calderon MD [address] [facility] [facility] [address] [place] [address] PCP - Home Infusion Attending Infectious Diseases 12/27/24 Yony Urrutia MD [address] [facility] [address] [facility] [place] [address] Endocrinology Diabetes & Metabolism 06/17/22 ImperialConnor good MD [address] [place] [address] Consulting Physician Urology 09/16/23 Richar Butler MD [address] [facility] [address] [place] [address] Cardiothoracic Surgery 08/16/24 Gilberto Love MD [address] [facility] [address] [place] [address] Consulting Physician Cardiology 08/16/24 Kurt Calderon MD [address] [facility] [address] [place] [address] Consulting Physician Infectious Diseases 12/27/24 Juan Teixeira MD [address] [facility] [address] [place] [address] Consulting Physician Vascular Surgery 12/27/24 Amy Floyd, [facility] Pharmacist Pharmacy 12/27/24 documented as of this encounter
[2025-01-13 15:45] LABS: Alanine Aminotransferase 30 U/L (6-50); Albumin Level 4.4 g/dL (3.5-5.1); Alkaline Phosphatase 83 U/L (38-126); Anion Gap 10 mmol/L (4-12); Aspartate Amino Transferase 63 U/L (17-59); Bilirubin,Total 0.6 mg/dL (0.2-1.3); Blood Urea Nitrogen 19 mg/dL (7-20); Calcium 9.5 mg/dL (8.4-10.2); Carbon Dioxide 25 mmol/L (22-30); Chloride 101 mmol/L (96-107); Estimated Glomerular Filt Rate > 60; Glucose 142 mg/dL (65-110); Potassium 4.1 mmol/L (3.4-5.0); Sodium 136 mmol/L (137-145); Total Protein 8.4 g/dL (6.3-8.2)
[2025-01-13 16:20] LABS: Hematocrit 42.0 % (37.0-52.0); Hemoglobin 13.6 g/dL (12.0-18.0); Immature Granulocyte Percent A 0.4 % (0-0.5); Lymphocytes Absolute Auto 2.64 K/mm3 (0.9-3.2); Mean Corpuscular HGB Conc 32.4 g/dl (32-36); Mean Corpuscular Hemoglobin 27.4 pg (26-34); Mean Corpuscular Volume 84.5 fl (80-100); Nucleated Red Blood Cells Absolute Auto 0.000 K/mm3 (0.0-0.012); Nucleated Red Blood Cells Perc 0.0 % (0.0-0.2); Platelet Count Result 182 k/mm3 (150-375); Red Blood Count 4.97 M/mm3 (4.2-6.2); White Blood Count 7.1 K/mm3 (4.5-10.0)
== END 2025-01-13 14:18 | disposition home or self-care (01) ==
PROVIDERS: Visit Provider Internal Medicine Infectious Disease
DX: Z47.81 Encounter for orthopedic aftercare following surgical amputation (principal); E11.621 Type 2 diabetes mellitus with foot ulcer
CPT/HCPCS: 80053; 85025; 85652